=== PATIENT | male | born 1945 | race Caucasian/White ===

== ENCOUNTER → 2017-03-03 | Outpatient (CLI) | payer MEDICARE, OTHER ==
[2017-03-03 16:02] LABS: Blood Urea Nitrogen 17 mg/dL (9-20); Non-African American GFR(MDRD) 57 (>60 ml/min/1.73 sqM)
== END | disposition home or self-care (01) ==
LOC: LABWHC1 15:14
PROVIDERS: ATTEND Physical Medicine & Rehabilitation
DX: M47.817 Spondylosis without myelopathy or radiculopathy, lumbosacral region (principal); M54.5 Low back pain; Z85.89 Personal history of malignant neoplasm of other organs and systems
CPT/HCPCS: 36415; 82565; 84520

== ENCOUNTER → 2017-03-05 | Outpatient (CLI) | payer MEDICARE, OTHER ==
--- NOTE | 2017-03-05 09:32 | MR ---
EXAMINATION TYPE: MR lumbar spine wo/w con DATE OF EXAM: 03/05/2017 COMPARISON: 07/08/2012 HISTORY: low back pain spondylosis w/o myelopathy Contrast: 10 mL MultiHance TECHNIQUE: T1 and T2 axial and sagittal, postcontrast T1 sagittal and axial images of the lumbar spi ne are submitted. FINDINGS: There is a large 5 cm mass anterior to the right kidney possibly adrenal. Recommend CT abdo men pelvis. Simple appearing left renal cyst noted. Right kidney appears somewhat larger than left. No abnormal signal the visualized spinal cord. At L1-2 there is no disc herniation or canal stenosis. No foraminal encroachment. Mild hypertrophic c hange of the facets. At L2-3 there is no disc herniation or canal stenosis. No foraminal encroachment. Mild hypertrophic c hange of the facets. At L3-4 there is hypertrophic change of the facets. Mild circumferential disc bulging with mild bilat eral foraminal encroachment. At L4-5 there is focal central disc small protrusion with mild effacement of thecal sac. Ligamentum f lavum hypertrophy and facet arthropathy contribute to mild bilateral foraminal encroachment. At L5-S1 there is annular tear and focal central tiny disc bulge is stable. No foraminal encroachment . IMPRESSION: 1. Large right upper quadrant suspicious soft tissue mass. Additionally appears to be deformity of th e right kidney. CT of the abdomen pelvis recommended to evaluate for neoplastic process. 2. Stable central disc bulging L5-S1 with degenerative disc disease. 3. Stable central disc bulging or small protrusion L4-L5 with mild effacement of thecal sac and mild bilateral foraminal encroachment.
== END | disposition home or self-care (01) ==
LOC: RADMRIMAIN 08:32
PROVIDERS: ATTEND Physical Medicine & Rehabilitation
DX: M51.27 Other intervertebral disc displacement, lumbosacral region (principal); M51.37 Other intervertebral disc degeneration, lumbosacral region
CPT/HCPCS: 72158; A9577

== ENCOUNTER → 2017-03-12 | Outpatient (CLI) | payer MEDICARE, OTHER ==
[2017-03-12 14:14] LABS: Blood Urea Nitrogen 22 mg/dL (9-20); Non-African American GFR(MDRD) >60 (>60 ml/min/1.73 sqM)
--- NOTE | 2017-03-12 15:58 | CT ---
EXAMINATION TYPE: CT abdomen pelvis w con DATE OF EXAM: 03/12/2017 COMPARISON: NONE HISTORY: 72-year-old male RUQ pain, low back pain TECHNIQUE: Contiguous axial scanning of the abdomen and pelvis following administration of 100 ml Omn ipaque 300 IV contrast. Delayed images through the kidneys and coronal/sagittal reconstructions perf ormed. CT DLP: 424.8 mGycm Automated exposure control for dose reduction was used. FINDINGS: The heart is normal size without pericardial effusion. Coronary vessel calcifications are present and are remarkable for coronary artery disease. Multiple pulmonary nodules are present in the visualized lower lungs measuring up to 6 mm on the righ t and 9 mm on the left. No pleural effusion. Moderate to severe atherosclerotic calcifications throughout the abdominal aorta and iliac arteries w ith severe narrowing in the right external iliac artery. No focal liver lesion or biliary ductal dilatation. The portal vein is patent. Gallbladder, adrenal glands, spleen, and pancreas appear within normal limits. There is a 2.5 x 1.4 c m cyst in the mid left lobe. There is severe enlargement of the infrahepatic IVC with a diameter of 5.1 cm. Heterogeneous density and enlargement extends into the right renal vein and there is diffuse heterogeneous infiltration of the right kidney. Especially in the upper pole, the normal architecture is lost. Some residual normal kidney is seen at the lower pole. No dilated small bowel, free fluid, or free air. Bladder is urine distended. No abnormal fluid collection in the pelvis or pelvic lymphadenopathy seen . No definite mesenteric or retroperitoneal lymphadenopathy identified. Bones: No osseous destructive process. IMPRESSION: 1. EXTENSIVE SOFT TISSUE INFILTRATION OF THE RIGHT KIDNEY WITH CONTIGUOUS ABNORMAL SOFT TISSUE EXTEND ING THROUGH AND ENLARGING THE RIGHT RENAL VEIN AND IVC UP TO THE LEVEL OF THE DIAPHRAGM. CORRELATE FO R RCC AND TUMOR THROMBUS. 2. NUMEROUS PULMONARY NODULES IN THE VISUALIZED LOWER LUNGS MEASURING UP TO 9 MM. FINDINGS HIGHLY OVI PICIOUS FOR METASTATIC DISEASE.
== END | disposition home or self-care (01) ==
LOC: RADCTMAIN 13:17
PROVIDERS: ATTEND Family Medicine
DX: N28.89 Other specified disorders of kidney and ureter (principal); I87.8 Other specified disorders of veins; R19.00 Intra-abdominal and pelvic swelling, mass and lump, unspecified site; R10.9 Unspecified abdominal pain
CPT/HCPCS: 82565; 84520; 74177; 36415; Q9967

== ENCOUNTER → 2017-03-27 | Outpatient (CLI) | payer MEDICARE, OTHER ==
--- NOTE | 2017-03-29 19:03 | PE ---
EXAMINATION TYPE: PET CT fusion skull to thigh DATE OF EXAM: 03/27/2017 CLINICAL HISTORY: 72-year-old male solitary pulmonary nodule. Patient with history of prostate cancer treated with surgery on 08/07/2015 and with radiation therapy in the summer 2015. TECHNIQUE: Following the intravenous administration of 13.0 mCi of F-18 FDG, whole body images are performed from the skull base to the midthigh. Images are reviewed on the computer in the coronal, a xial, and sagittal planes. Reconstructed rotating images are created on independent workstation and reviewed on the computer. A localization and attenuation correction CT is performed in conjunction with the PET scan. Glucose level: 92 mg/dL CTDI: 2.22 mGY DLP: 197.89 mGy-cm COMPARISON: CT 03/12/2017 and 10/14/2011 FINDINGS: PET: Likely physiologic muscular uptake along the tongue. Focal FDG uptake in the larynx likely product of phonation. Focal moderate hypermetabolism within a left hilar lymph node, max SUV 4.3. There are multiple bilateral pulmonary nodules, approximately 16 on the right and 7 on the left. The largest on the right measures 1 cm and shows mild suspicious FDG uptake, max SUV 1.7. The largest on the left measures 1.5 cm, max SUV 9.5. Many are too small for adequate PET characterization. There is markedly heterogeneous and enlarged appearance to the right kidney with effacement of the re nal sinus fat and associated very intense hypermetabolism, max SUV 13.0. Abnormal soft tissue extends into and enlarges the right renal vein and has contiguous extension into the IVC heading cranially up to the level of the diaphragm. The IVC is abnormally enlarged measuring up to 5.3 cm also with intense hypermetabolism, max SUV 13.4. No abnormal hypermetabolism seen in the region of the prostate bed. However, there is mild hypermetabolism associated with subtle focal sclerosis within the right parame fallon S1 vertebral body, axial image 201, max SUV 2.7, and within the central portion of the T10 verte bral body, axial image 118, max SUV 2.8. ATTENUATION CORRECTION CT: Paranasal sinuses and mastoid air cells appear clear. No cervical lymphadenopathy. The heart is upper limits of normal in size with trace basilar pericardial effusion. Coronary vessel calcifications are present and are a marker for coronary artery disease. Ascending aorta is mildly a neurysmal at 4.1 cm. Moderate atherosclerotic arch calcifications. Conventional arterial vessel branc roland anatomy. Bilateral subclavian and axillary artery stents are present. There is COPD with mild c entrilobular emphysema. Mild diffuse thickening of the right adrenal gland without discrete nodularity. Moderate to severe a therosclerotic calcifications within the abdominal aorta and at the origin of the visceral arteries. There is segmental moderate to severe atherosclerotic calcifications within the iliac vessels. No di lated small bowel, free fluid, or free air. No mesenteric or retroperitoneal lymphadenopathy seen. C ecal diverticulosis. No significant stool burden. Bladder is collapsed. Mild circumferential bladder wall thickening likely relates to chronic bladder wall hypertrophy and posttreatment change. The prostate gland is surgically absent. No pelvic lymphad enopathy seen. Bones: No osseous destructive process. IMPRESSION: 1. Extensive abnormal soft tissue infiltration of the right kidney with associated intense hypermetab olism. Intensely hypermetabolic abnormal soft tissue extends into and enlarges the right renal vein a nd suprarenal IVC up to the level of the diaphragm. RCC with direct extension and tumor thrombus is f avored. Further workup is recommended. 2. Numerous metastatic pulmonary nodules measuring up to 1.5 cm and a metastatic left hilar lymph nod e. 3. Subtle sclerotic foci within T10 and S1 vertebral bodies show mild FDG uptake. As RCC typically pr esents with lytic metastases correlate with PSA levels to exclude the possibility of prostate cancer metastases. 4. 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
== END ==
LOC: RADPETMAIN 09:00
PROVIDERS: ATTEND Internal Medicine Hematology & Oncology
DX: R91.8 Other nonspecific abnormal finding of lung field (principal); N28.89 Other specified disorders of kidney and ureter
CPT/HCPCS: 78815; A9552

== ENCOUNTER → 2017-04-02 | Day surgery (SDC) | payer MEDICARE, OTHER ==
[~2017-04-02] MED LIST: ALPRAZolam 0.25 MG TAB PO STA; HYDROmorphone 1 MG/ML 1 ML SYRINGE IVP PRN
[2017-04-02 10:34] VITALS: RESP 14
[2017-04-02 10:45] LABS: INR 1.1 (<1.2); Prothrombin Time 10.9 sec (9.0-12.0)
--- NOTE | 2017-04-02 12:22 | CT ---
EXAMINATION TYPE: CT biopsy renal RT DATE OF EXAM: 04/02/2017 HISTORY: Renal mass COMPARISON: CT abdomen pelvis 03/12/2017 Maximal barrier technique was utilized. The skin overlying a suitable path to the lesion was localiz ed using CT and the overlying skin was prepped and draped. Lidocaine used for local anesthesia. A s kin raudel made with a scalpel. Using CT guidance, access was gained to the lesion with a 22-gauge nee dle through a 17-gauge guide. Aspirated specimen submitted to cytology, core specimen obtained with an 18-gauge needle. 2 passes were performed in all. Following the procedure no immediate complicati ons. The patient is discharged in stable condition. Hemostasis achieved. IMPRESSION: SUCCESSFUL CT GUIDED CORE BIOPSY and fine-needle aspiration right renal mass. PATHOLOGY PENDING. TH IS PROCEDURE WAS PERFORMED BY THE UNDERSIGNED.
[2017-04-02 14:46] VITALS: BP 110/61; PULSE 63; TEMP 98
== END ==
LOC: RADPROMAIN 09:55
PROVIDERS: ATTEND Internal Medicine Hematology & Oncology
DX: N28.89 Other specified disorders of kidney and ureter (principal)
CPT/HCPCS: 88305; 88173; 85049; 85610; 88342; 88341; 96374; 50200; 77012; J1170

== ENCOUNTER → 2017-08-25 | Outpatient (CLI) | payer MEDICARE, OTHER ==
[2017-08-25 15:19] LABS: Albumin 4.6 g/dL (3.5-5.0); Calcium 9.4 mg/dL (8.4-10.2); Total Bilirubin 0.8 mg/dL (0.2-1.3); Total Protein 8.2 g/dL (6.3-8.2)
[2017-08-25 15:23] LABS: Potassium 5.1 mmol/L (3.5-5.1)
--- NOTE | 2017-08-26 07:24 | CT ---
EXAMINATION TYPE: CT angio chest DATE OF EXAM: 08/25/2017 COMPARISON: CT chest abdomen and pelvis July 23, 2017. PET CT March 27, 2017 HISTORY: Trouble breathing with exertion. History of metastatic renal cell carcinoma CT DLP: 162.8 mGycm. Automated Exposure Control for Dose Reduction was Utilized. CONTRAST: CTA scan of the thorax is performed with IV Contrast, patient injected with 80, wasted 20 mL of Visip aque 320, pulmonary embolism protocol. MIP Images are created on CT scanner and reviewed. FINDINGS: LUNGS: There is background mild to moderate emphysematous change redemonstrated. There is stable impr ovement in scattered metastatic nodules from recent CT, for reference largest measures 7 mm long axis axial image 97 unchanged from prior study axial image 43. Improvement from PET CT March 27 is noted . No new nodules are seen. No new suspicious consolidation or groundglass opacity is present. No pleu ral effusion or pneumothorax is present bilaterally. Tracheobronchial tree is patent. MEDIASTINUM: There is satisfactory enhancement of the pulmonary artery and its branches, there is no CT evidence for pulmonary embolism. There are no greater than 1 cm hilar or mediastinal lymph nodes. No cardiomegaly or pericardial effusion is seen. There is severe three-vessel coronary artery calc ification redemonstrated which is noted marker for coronary artery disease. Ascending aorta measures 3.9 cm in diameter not significantly changed from prior. There is densely calcified plaque in the jeffery ateral subclavian arteries redemonstrated extending into bilateral axillary arteries OTHER: There is persistent right-sided perinephric fat stranding with fullness of right renal vein co rresponds to tumor extension on prior PET/CT. IMPRESSION: 1. No CT evidence for pulmonary embolism. 2. Background mild to moderate emphysematous change with scattered metastatic subcentimeter nodules s table from most recent CT. Improved from staging PET/CT. No acute pulmonary process is evident.
== END | disposition home or self-care (01) ==
LOC: RADCTMAIN 14:37
PROVIDERS: ATTEND Internal Medicine
DX: C78.00 Secondary malignant neoplasm of unspecified lung (principal); C64.9 Malignant neoplasm of unspecified kidney, except renal pelvis; J43.9 Emphysema, unspecified; R06.00 Dyspnea, unspecified
CPT/HCPCS: 80053; 71275; 36415; Q9967

== ENCOUNTER 2017-10-15 15:20 | Inpatient (IN) | payer MEDICARE, OTHER ==
[2017-10-15] MEDS ORDERED: PANTOPRAZOLE 40 MG/10 ML VIAL IVP STA (16:06)
[2017-10-15] MEDS ORDERED: SODIUM CHLORIDE 0.9% 1,000 ML IV STA (16:06)
--- NOTE | 2017-10-15 16:12 | ED ---
GI Bleed HPI - General Chief complaint: GI Bleed Stated complaint: Rectal bleeding Time Seen by Provider: 10/15/17 15:46 Source: patient Mode of arrival: wheelchair Limitations: no limitations - History of Present Illness Initial comments: 72 years old male has history of peripheral vascular disease, he is on aspirin and Plavix may noticed 5 episodes of GI bleed this morning he has no prior history of GI bleed he has a stool sample in the chart, he looks dark blood. He denies any abdominal pain no nausea no vomiting no fever no chills. No no headaches no neck stiffness no chest pain or shortness of breath no frequency urgency dysuria no symptoms of TIA or CVA - Related Data Home Medications Medication Instructions Recorded Confirmed Atorvastatin [Lipitor] 20 mg PO HS 02/05/15 10/15/17 Citalopram Hydrobromide [CeleXA] 20 mg PO DAILY 02/05/15 10/15/17 Clopidogrel [Plavix] 75 mg PO HS 03/04/15 10/15/17 Meclizine [Antivert] 12.5 mg PO TID 07/30/15 10/15/17 Ferrous Sulfate [Iron (65 MG 325 mg PO DAILY 06/23/16 10/15/17 Elemental)] Clindamycin HCl 300 mg PO BID 10/15/17 10/15/17 Diphenoxylate HCl/Atropine 2 tab PO Q6H PRN 10/15/17 10/15/17 [Lomotil 2.5-0.025 mg Tablet] Megestrol [Megace] 800 mg PO DAILY 10/15/17 10/15/17 Umeclidinium Brm/Vilanterol Tr 1 puff INHALATION DAILY 10/15/17 10/15/17 [Anoro Ellipta 62.5-25 Mcg INH] Votrient 200mg 800 mg PO DAILY 10/15/17 10/15/17 traMADol HCL [Ultram] 50 mg PO Q6H PRN 10/15/17 10/15/17 Previous Rx's Medication Instructions Recorded Aspirin 325 mg PO DAILY #30 tab 02/07/15 Allergies Allergy/AdvReac Type Severity Reaction Status Date / Time venom-honey bee Allergy Unknown Rash/Hives Verified 10/15/17 16:14 [bee venom (honey bee)] Iodinated Contrast- Oral and Allergy Rash/Hives Verified 10/15/17 16:14 IV Dye [Iodinated Contrast Media - IV Dye] iodine Allergy Rash/Hives Verified 10/15/17 16:14 Review of Systems ROS Statement: Those systems with pertinent positive or pertinent negative responses have been documented in the HPI. ROS Other: All systems not noted in ROS Statement are negative. Past Medical History Past Medical History: Cancer, CVA/TIA, Hyperlipidemia, Liver Disease, Prostate Disorder, Vascular Disorder Additional Past Medical History / Comment(s): VERTIGO, STATES SCAN SHOWED TIA X2 , PVD WITH PAIN IN BOTH LEGS,OSTEOPOROSIS, hx PROSTATE CA, ELEVATED LIVER ENZYMES, anemia, kidney cancer History of Any Multi-Drug Resistant Organisms: MRSA Date of last positivie culture/infection: 10/2015 MDRO Source:: little toe rt foot Past Surgical History: Prostate Surgery, Tonsillectomy Additional Past Surgical History / Comment(s): chante CATARACTS, ARTERIOGRAM. stent left iliac artery, ROBOTIC ASSISTED LAPAROSCOPIC PROSTATECTOMY WITH CHANTE PELVIC LYMPHADENECTOMY, aortogram Past Anesthesia/Blood Transfusion Reactions: No Reported Reaction Past Psychological History: Anxiety Smoking Status: Former smoker Past Alcohol Use History: None Reported Past Drug Use History: None Reported - Past Family History Mother Family Medical History: Myocardial Infarction ([place]) Father Family Medical History: Myocardial Infarction ([place]) General Exam - General Exam Comments Initial Comments: General: The patient is awake and alert, in no distress, and does not appear acutely ill. Skin: Skin is warm and dry and no rashes or lesions are noted. Eye: Pupils are equal, round and reactive to light, extra-ocular movements are intact; there is normal conjunctiva bilaterally. Ears, nose, mouth and throat: There are moist mucous membranes and no oral lesions. Neck: The neck is supple, there is no tenderness or JVD. Cardiovascular: There is a regular rate and rhythm. No murmur, rub or gallop is appreciated. Respiratory: To auscultation bilateral, right COPD like picture Gastrointestinal: Soft, non-distended, non-tender abdomen without masses or organomegaly noted. There is no rebound or guarding present. Bowel sounds are unremarkable. Rectal exam was positive for dark bloody stool Back: There is no tenderness to palpation in the midline. There is no obvious deformity. Musculoskeletal: Normal ROM, no tenderness, There is no pedal edema. There is no calf tenderness or swelling. No cords were appreciated. Neurological: CN II-XII intact, Cranial nerves III through XII are intact. There are no obvious motor or sensory deficits. Coordination appears grossly intact. Speech is normal. Psychiatric: Cooperative, appropriate mood & affect, normal judgment. Limitations: no limitations Course Vital Signs 10/15/17 10/15/17 10/15/17 15:25 16:32 18:03 Temperature 97.0 F L Pulse Rate 63 72 68 Respiratory 16 18 16 Rate Blood Pressure 150/70 146/84 131/71 O2 Sat by Pulse 94 L 100 99 Oximetry EKG is sinus rhythm with the shortness of November QRS duration is 82 QT/QTC 390/ 435, review of this EKG reveals T-wave inversion in aVL no ST elevation or ST depression noticed in the other leads January is reassessed at 1814, his hemoglobin is in the lower side 9.9 his creatinine is up comparing to previous numbers 1.6 troponin is negative , considering that him lorraine blood in the stool he needs to be admitted for IV PPIs J consult, he be admitted to service Medical Decision Making - Lab Data Result diagrams: 10/15/17 16:28 10/15/17 16:28 Lab Results 10/15/17 10/15/17 10/15/17 Range/Units 16:28 16:28 16:28 WBC 10.7 H (3.8-10.6) k/uL RBC 3.14 L (4.30-5.90) m/uL Hgb 9.9 L (13.0-17.5) gm/dL Hct 32.0 L (39.0-53.0) % MCV 101.8 H (80.0-100.0) fL MCH 31.4 (25.0-35.0) pg MCHC 30.9 L (31.0-37.0) g/dL RDW 17.6 H (11.5-15.5) % Plt Count 563 H (150-450) k/uL Neutrophils % 73 % Lymphocytes % 17 % Monocytes % 7 % Eosinophils % 1 % Basophils % 1 % Neutrophils # 7.8 H (1.3-7.7) k/uL Lymphocytes # 1.8 (1.0-4.8) k/uL Monocytes # 0.7 (0-1.0) k/uL Eosinophils # 0.1 (0-0.7) k/uL Basophils # 0.1 (0-0.2) k/uL Hypochromasia Slight Anisocytosis Slight Macrocytosis Moderate PT (9.0-12.0) sec INR (<1.2) APTT (22.0-30.0) sec Sodium 140 (137-145) mmol/L Potassium 5.3 H (3.5-5.1) mmol/L Chloride 108 H (98-107) mmol/L Carbon Dioxide 21 L (22-30) mmol/L Anion Gap 11 mmol/L BUN 30 H (9-20) mg/dL Creatinine 1.60 H (0.66-1.25) mg/dL Est GFR (MDRD) Af Amer 52 (>60 ml/min/1.73 sqM) Est GFR (MDRD) Non-Af 43 (>60 ml/min/1.73 sqM) Glucose 93 (74-99) mg/dL Plasma Lactic Acid Donnell (0.7-2.0) mmol/L Calcium 9.1 (8.4-10.2) mg/dL Total Bilirubin 0.6 (0.2-1.3) mg/dL AST 21 (17-59) U/L ALT 15 L (21-72) U/L Alkaline Phosphatase 72 (38-126) U/L Total Creatine Kinase 51 L (55-170) U/L CK-MB (CK-2) 1.3 (0.0-2.4) ng/mL CK-MB (CK-2) Rel Index 2.5 Troponin I <0.012 (0.000-0.034) ng/mL Total Protein 6.9 (6.3-8.2) g/dL Albumin 3.8 (3.5-5.0) g/dL Stool Occult Blood (Negative) Blood Type Blood Type Recheck Antibody Screen Spec Expiration Date 10/15/17 10/15/17 10/15/17 Range/Units 16:28 16:28 16:28 WBC (3.8-10.6) k/uL RBC (4.30-5.90) m/uL Hgb (13.0-17.5) gm/dL Hct (39.0-53.0) % MCV (80.0-100.0) fL MCH (25.0-35.0) pg MCHC (31.0-37.0) g/dL RDW (11.5-15.5) % Plt Count (150-450) k/uL Neutrophils % % Lymphocytes % % Monocytes % % Eosinophils % % Basophils % % Neutrophils # (1.3-7.7) k/uL Lymphocytes # (1.0-4.8) k/uL Monocytes # (0-1.0) k/uL Eosinophils # (0-0.7) k/uL Basophils # (0-0.2) k/uL Hypochromasia Anisocytosis Macrocytosis PT 9.5 (9.0-12.0) sec INR 1.0 (<1.2) APTT 22.5 (22.0-30.0) sec Sodium (137-145) mmol/L Potassium (3.5-5.1) mmol/L Chloride (98-107) mmol/L Carbon Dioxide (22-30) mmol/L Anion Gap mmol/L BUN (9-20) mg/dL Creatinine (0.66-1.25) mg/dL Est GFR (MDRD) Af Amer (>60 ml/min/1.73 sqM) Est GFR (MDRD) Non-Af (>60 ml/min/1.73 sqM) Glucose (74-99) mg/dL Plasma Lactic Acid Donnell 1.4 (0.7-2.0) mmol/L Calcium (8.4-10.2) mg/dL Total Bilirubin (0.2-1.3) mg/dL AST (17-59) U/L ALT (21-72) U/L Alkaline Phosphatase (38-126) U/L Total Creatine Kinase (55-170) U/L CK-MB (CK-2) (0.0-2.4) ng/mL CK-MB (CK-2) Rel Index Troponin I (0.000-0.034) ng/mL Total Protein (6.3-8.2) g/dL Albumin (3.5-5.0) g/dL Stool Occult Blood (Negative) Blood Type O Positive Blood Type Recheck No Antibody Screen NEGATIVE Spec Expiration Date 10/18/2017 - 232710/15/17 Range/Units 16:28 WBC (3.8-10.6) k/uL RBC (4.30-5.90) m/uL Hgb (13.0-17.5) gm/dL Hct (39.0-53.0) % MCV (80.0-100.0) fL MCH (25.0-35.0) pg MCHC (31.0-37.0) g/dL RDW (11.5-15.5) % Plt Count (150-450) k/uL Neutrophils % % Lymphocytes % % Monocytes % % Eosinophils % % Basophils % % Neutrophils # (1.3-7.7) k/uL Lymphocytes # (1.0-4.8) k/uL Monocytes # (0-1.0) k/uL Eosinophils # (0-0.7) k/uL Basophils # (0-0.2) k/uL Hypochromasia Anisocytosis Macrocytosis PT (9.0-12.0) sec INR (<1.2) APTT (22.0-30.0) sec Sodium (137-145) mmol/L Potassium (3.5-5.1) mmol/L Chloride (98-107) mmol/L Carbon Dioxide (22-30) mmol/L Anion Gap mmol/L BUN (9-20) mg/dL Creatinine (0.66-1.25) mg/dL Est GFR (MDRD) Af Amer (>60 ml/min/1.73 sqM) Est GFR (MDRD) Non-Af (>60 ml/min/1.73 sqM) Glucose (74-99) mg/dL Plasma Lactic Acid Donnell (0.7-2.0) mmol/L Calcium (8.4-10.2) mg/dL Total Bilirubin (0.2-1.3) mg/dL AST (17-59) U/L ALT (21-72) U/L Alkaline Phosphatase (38-126) U/L Total Creatine Kinase (55-170) U/L CK-MB (CK-2) (0.0-2.4) ng/mL CK-MB (CK-2) Rel Index Troponin I (0.000-0.034) ng/mL Total Protein (6.3-8.2) g/dL Albumin (3.5-5.0) g/dL Stool Occult Blood Positive (Negative) Blood Type Blood Type Recheck Antibody Screen Spec Expiration Date Disposition Clinical Impression: GI bleed Disposition: ADMITTED IP TO THIS HOSP Condition: Good Referrals: Michaelle Wang MD [Primary Care Provider] - 1-2 days
[2017-10-15 16:46] LABS: Anisocytosis Slight; Basophils # (A) 0.1 k/uL (0-0.2); Basophils % (A) 1 %; Eosinophils # (A) 0.1 k/uL (0-0.7); Eosinophils % (A) 1 %; HGB 9.9 gm/dL (13.0-17.5); Hypochromasia Slight; Lymphocytes # (A) 1.8 k/uL (1.0-4.8); Lymphocytes % (A) 17 %; MCH 31.4 pg (25.0-35.0); MCHC 30.9 g/dL (31.0-37.0); MCV 101.8 fL (80.0-100.0); Macrocytosis Moderate; Mean Platelet Volume 7.4; Monocytes # (A) 0.7 k/uL (0-1.0); Monocytes % (A) 7 %; Neutrophils # (A) 7.8 k/uL (1.3-7.7); Neutrophils % (A) 73 %; Platelet Count 563 k/uL (150-450); RBC 3.14 m/uL (4.30-5.90); RDW 17.6 % (11.5-15.5); WBC 10.7 k/uL (3.8-10.6)
[2017-10-15 16:54] LABS: Partial Thromboplastin Time 22.5 sec (22.0-30.0); Prothrombin Time 9.5 sec (9.0-12.0)
[2017-10-15 16:59] LABS: Creatine Kinase 51 U/L (55-170)
[2017-10-15 17:00] LABS: Albumin 3.8 g/dL (3.5-5.0); Calcium 9.1 mg/dL (8.4-10.2); Potassium 5.3 mmol/L (3.5-5.1); Total Bilirubin 0.6 mg/dL (0.2-1.3); Total Protein 6.9 g/dL (6.3-8.2)
--- NOTE | 2017-10-15 17:07 | XR ---
EXAMINATION TYPE: XR chest 2V DATE OF EXAM: 10/15/2017 COMPARISON: 01/26/2015 HISTORY: Chest pain TECHNIQUE: Frontal and lateral views of the chest are obtained. FINDINGS: There is no heart failure nor confluent pneumonic infiltrate. Costophrenic angles are deisi r. There are chest leads. Heart size is normal. Thoracic aorta is atheromatous. IMPRESSION: No active cardiopulmonary disease. No change.
[2017-10-15 17:11] LABS: Creatine Kinase MB 1.3 ng/mL (0.0-2.4); Troponin I <0.012 ng/mL (0.000-0.034)
[2017-10-15] MEDS ORDERED: ACETAMINOPHEN TAB 325 MG TAB PO PRN (18:39)
[2017-10-15] MEDS ORDERED: NALOXONE 0.4 MG/ML 1 ML VIAL IV PRN (18:39)
[2017-10-15] MEDS ORDERED: ONDANSETRON 4 MG/2 ML VIAL IVP PRN (18:39)
[2017-10-15] MEDS ORDERED: traMADol 50 MG TAB PO PRN (18:44)
[2017-10-15] MEDS ORDERED: DIPHENOX-ATROP 2.5-0.025 MG 1 EACH TAB PO PRN (18:44)
[2017-10-15] MEDS: CLINDAMYCIN 150 MG CAP PO SCH (21:50)
[2017-10-15] MEDS: MECLIZINE 12.5 MG TAB PO SCH (21:50)
[2017-10-15] MEDS: ATORVASTATIN 20 MG TAB PO SCH (21:50)
[2017-10-15 23:55] LABS: Anisocytosis Slight; HCT 27.9 % (39.0-53.0); Hypochromasia Moderate; MCHC 30.3 g/dL (31.0-37.0); MCV 102.4 fL (80.0-100.0); Macrocytosis Moderate; Mean Platelet Volume 7.2; Platelet Count 458 k/uL (150-450); RBC 2.72 m/uL (4.30-5.90); RDW 17.4 % (11.5-15.5); WBC 8.9 k/uL (3.8-10.6)
[2017-10-16 00:01] LABS: HGB 8.4 gm/dL (13.0-17.5)
[2017-10-16 06:11] LABS: Anisocytosis Slight; HCT 27.3 % (39.0-53.0); HGB 8.4 gm/dL (13.0-17.5); Hypochromasia Moderate; MCH 31.7 pg (25.0-35.0); MCHC 30.8 g/dL (31.0-37.0); MCV 102.9 fL (80.0-100.0); Macrocytosis Moderate; Mean Platelet Volume 7.4; Platelet Count 431 k/uL (150-450); RBC 2.66 m/uL (4.30-5.90); RDW 17.7 % (11.5-15.5)
[2017-10-16] MEDS: CLINDAMYCIN 150 MG CAP PO SCH (08:37)
[2017-10-16] MEDS: MECLIZINE 12.5 MG TAB PO SCH ×3 (08:37→21:52)
[2017-10-16] MEDS: MEGESTROL 400 MG/10 ML CUP PO SCH (08:37)
[2017-10-16] MEDS: CITALOPRAM HYDROBROMIDE 20 MG TAB PO SCH (08:37)
[2017-10-16] MEDS ORDERED: VOTRIENT 200 MG PO SCH (09:00)
[2017-10-16] MEDS: PANTOPRAZOLE 40 MG/10 ML VIAL IV SCH (09:09)
[2017-10-16] MEDS: IPRATROPIUM-ALBUTEROL 3 ML NEB INHALATION SCH ×3 (10:17→20:16)
[2017-10-16 11:53] LABS: Anisocytosis Slight; HCT 28.5 % (39.0-53.0); HGB 8.6 gm/dL (13.0-17.5); Hypochromasia Moderate; MCH 31.5 pg (25.0-35.0); MCHC 30.3 g/dL (31.0-37.0); MCV 104.1 fL (80.0-100.0); Macrocytosis Moderate; Mean Platelet Volume 7.3; Platelet Count 428 k/uL (150-450); RBC 2.74 m/uL (4.30-5.90); RDW 17.5 % (11.5-15.5)
[2017-10-16] MEDS: FERROUS SULFATE 325 MG TAB PO SCH (12:59)
--- NOTE | 2017-10-16 13:54 | P.HPIM ---
History of Present Illness H&P Date: 10/16/17 This is a 72-year-old gentleman with very complex past medical history significant for metastatic renal cell carcinoma and history of peripheral vascular occlusive disease who presented to the emergency room with lower GI bleed and large blood clot with his bowel movement. According to his , his symptoms started yesterday and patient had approximately 5 bowel movements with what she describes as large blood clots and possibly mucous tissue. She brought him to the emergency room for further evaluation. Patient was found to be hemodynamically stable. His hemoglobin was around 8.6 which is slightly lower than his baseline around 10. Patient was admitted to the hospital and was seen and evaluated by gastroenterology. He was started on clear liquids. There is no plan for colonoscopy at this time according to the report. Patient' s is concerned that his cancer treatment might possibly be contributing to his symptoms. Review of Systems Review of system: 14 points review of systems were obtained and were negative except to what were mentioned in the HPI. 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 stent left iliac artery, ROBOTIC ASSISTED LAPAROSCOPIC PROSTATECTOMY WITH CHANTE PELVIC LYMPHADENECTOMY, aortogram Past Anesthesia/Blood Transfusion Reactions: No Reported Reaction Past Psychological History: Anxiety Smoking Status: Former smoker Past Alcohol Use History: None Reported Additional Past Alcohol Use History / Comment(s): quit smoking 1 week ago, started smoking age 22's Past Drug Use History: None Reported - Past Family History Mother Family Medical History: Myocardial Infarction ([place]) Father Family Medical History: Myocardial Infarction ([place]) Medications and Allergies Home Medications Medication Instructions Recorded Confirmed Type Atorvastatin [Lipitor] 20 mg PO HS 02/05/15 10/15/17 History Citalopram Hydrobromide [CeleXA] 20 mg PO DAILY 02/05/15 10/15/17 History Aspirin 325 mg PO DAILY #30 tab 02/07/15 10/15/17 Rx Clopidogrel [Plavix] 75 mg PO HS 03/04/15 10/15/17 History Meclizine [Antivert] 12.5 mg PO TID 07/30/15 10/15/17 History Ferrous Sulfate [Iron (65 MG 325 mg PO DAILY 06/23/16 10/15/17 History Elemental)] Clindamycin HCl 300 mg PO BID 10/15/17 10/15/17 History Diphenoxylate HCl/Atropine 2 tab PO Q6H PRN 10/15/17 10/15/17 History [Lomotil 2.5-0.025 mg Tablet] Megestrol [Megace] 800 mg PO DAILY 10/15/17 10/15/17 History Umeclidinium Brm/Vilanterol Tr 1 puff INHALATION DAILY 10/15/17 10/15/17 History [Anoro Ellipta 62.5-25 Mcg INH] Votrient 200mg 800 mg PO DAILY 10/15/17 10/15/17 History traMADol HCL [Ultram] 50 mg PO Q6H PRN 10/15/17 10/15/17 History Allergies Allergy/AdvReac Type Severity Reaction Status Date / Time venom-honey bee Allergy Unknown Rash/Hives Verified 10/15/17 16:14 [bee venom (honey bee)] Iodinated Contrast- Oral and Allergy Rash/Hives Verified 10/15/17 16:14 IV Dye [Iodinated Contrast Media - IV Dye] iodine Allergy Rash/Hives Verified 10/15/17 16:14 Physical Exam Vitals: Vital Signs Temp Pulse Pulse Resp BP BP Pulse Ox 10/16/17 11:24 71 10/16/17 11:11 68 10/16/17 07:00 98.5 F 67 18 135/67 98 10/15/17 20:22 97.8 F 69 16 106/55 100 10/15/17 19:06 66 18 106/86 98 10/15/17 18:03 68 16 131/71 99 10/15/17 16:32 72 18 146/84 100 10/15/17 15:25 97.0 F L 63 16 150/70 94 L Intake and Output 10/15/17 10/16/17 10/16/17 22:59 06:59 14:59 Intake Total 590 800 Balance 590 800 Intake: IV 800 Sodium Chloride 0.9% 1, 800 000 ml @ 100 mls/hr IV . Q10H STA Rx#:[id number] Oral 590 Other: Voiding Method Toilet # Voids 1 2 # Bowel Movements 1 2 Weight 55.338 kg General: The patient is awake and alert, in no distress. He appears chronically ill Eye: there is normal conjunctiva bilaterally. Neck: The neck is supple, there is no JVD. Cardiovascular: Normal S1-S2, no S3-S4, no murmurs. Respiratory: Lungs clear to auscultation bilaterally Gastrointestinal: Abdomen is soft, nontender Musculoskeletal: There is no pedal edema. Neurological:. Speech is normal. Skin: Skin is warm and dry Results CBC & Chem 7: 10/16/17 11:23 10/15/17 16:28 Labs: Abnormal Lab Results - Last 24 Hours (Table) 10/15/17 10/15/17 10/15/17 Range/Units 16:28 16:28 16:28 WBC 10.7 H (3.8-10.6) k/uL RBC 3.14 L (4.30-5.90) m/uL Hgb 9.9 L (13.0-17.5) gm/dL Hct 32.0 L (39.0-53.0) % MCV 101.8 H (80.0-100.0) fL MCHC 30.9 L (31.0-37.0) g/dL RDW 17.6 H (11.5-15.5) % Plt Count 563 H (150-450) k/uL Neutrophils # 7.8 H (1.3-7.7) k/uL Potassium 5.3 H (3.5-5.1) mmol/L Chloride 108 H (98-107) mmol/L Carbon Dioxide 21 L (22-30) mmol/L BUN 30 H (9-20) mg/dL Creatinine 1.60 H (0.66-1.25) mg/dL ALT 15 L (21-72) U/L Total Creatine Kinase 51 L (55-170) U/L 10/15/17 10/16/17 10/16/17 Range/Units 23:29 05:21 11:23 WBC (3.8-10.6) k/uL RBC 2.72 L 2.66 L 2.74 L (4.30-5.90) m/uL Hgb 8.4 L D 8.4 L 8.6 L (13.0-17.5) gm/dL Hct 27.9 L 27.3 L 28.5 L (39.0-53.0) % MCV 102.4 H 102.9 H 104.1 H (80.0-100.0) fL MCHC 30.3 L 30.8 L 30.3 L (31.0-37.0) g/dL RDW 17.4 H 17.7 H 17.5 H (11.5-15.5) % Plt Count 458 H (150-450) k/uL Neutrophils # (1.3-7.7) k/uL Potassium (3.5-5.1) mmol/L Chloride (98-107) mmol/L Carbon Dioxide (22-30) mmol/L BUN (9-20) mg/dL Creatinine (0.66-1.25) mg/dL ALT (21-72) U/L Total Creatine Kinase (55-170) U/L Thrombosis Risk Factor Assmnt - Choose All That Apply Any of the Below Risk Factors Present?: No Other Risk Factors: Yes Each Risk Factor Represents 2 Points: Age 61-74 years, Malignancy Other congenital or acquired thrombophilia - If yes, enter type in comment: No Thrombosis Risk Factor Assessment Total Risk Factor Score: 4 Thrombosis Risk Factor Assessment Level: Moderate Risk Assessment and Plan Assessment: 1. Lower GI bleed, exact etiology unclear. Patient is known to have history of radiation colitis and underlying diverticulosis. He is hemodynamically stable. He was seen and evaluated by GI. Awaiting further recommendations. Per report for endoscopy at this time. 2. History of severe peripheral vascular occlusive disease on aspirin and Plavix: Currently on hold given GI bleed 3. Underlying stage IV renal cell carcinoma following with oncology: Consulted for further evaluation 4. Bilateral feet ulceration with surrounding cellulitis currently finishing antibiotic course with clindamycin Today, I reviewed his medication list and lab work results. We'll continue IV Protonix. Appreciate sap security consultant's recommendations. Repeat lab work in the morning. PT/OT evaluation.
[2017-10-16 15:43] VITALS: BMI 17.0
--- NOTE | 2017-10-16 16:23 | CONS ---
CONSULTATION DATE OF SERVICE: 10/16/2017 REASON FOR CONSULTATION: Metastatic renal cell carcinoma. CHIEF COMPLAINT: Rectal bleeding. Moises is a very pleasant 72-year-old gentleman, well known to our practice. He has been under the care of Dr. Burch. He was diagnosed with metastatic renal cell carcinoma in March of 2017 when he presented was large infiltrating renal mass along with evidence of bone metastases and bilateral lung metastases. Had the biopsy of the kidney mass, which confirmed the diagnosis. Subsequently, the patient was started on Votrient for that with improvement in his disease. Since he has been on Votrient, his disease has improved on it. Since he has been on Votrient he has been experiencing episodes of loose stool about 4-5 times a day, which has been attributed to Votrient. Early in September of 2017, he was seen by Dr. Burch. He reported 1 episode of blood, small amount of blood after a bowel movement when he wiped himself. He was asked to hold the Votrient for a week and then resume it, which he did, and at that time his Rectal bleeding had resolved and he continued to have the diarrhea. He was seen last week, by his plant electrician for a lesion on his left great toe and he was prescribed clindamycin which he has been taking for the last 2 or 3 days. Yesterday, he developed significant amount of bleeding per his rectum. Initially started with a small amount of blood after wiping himself, but then subsequently there was a large amount of blood with his bowel movement. So he came into the emergency department and his laboratory workup revealed that his hemoglobin is 8.6. Of note, his hemoglobin was initially 9.9, then it dropped to 8.6 g/dL. Of note, that his hemoglobin in the office was about was about 12 when he was recently seen in the office. The patient stated that he still has the same pattern of diarrhea, even when he started taking the clindamycin prescribed by his plant electrician, but it has become more amount of loose stool since he started the clindamycin up until yesterday when he developed the bleeding. He denies any abdominal pain or cramps. He has been eating okay, maintaining his weight. No fever or night sweats and no nausea or vomiting and no fever or chills. He has been tolerating Votrient very well. He had like a blister on his left great toe, which resolved. Of note, that he has been receiving also Xgeva for his bone metastases in the outpatient setting. He denies any headaches, dysphagia, fever, chills, cough, shortness of breath. He denies any hematuria. PAST MEDICAL HISTORY: Significant as stated above, metastatic renal cell carcinoma and history of TIA, hyperlipidemia, He has peripheral vascular disease and he has been taking Plavix and aspirin at home as well. He is known to have also elevated liver enzymes. PAST SURGICAL HISTORY: Has prostate cancer surgery and I believe he had prostate cancer in the past as well. He has a history of tonsillectomy in the past. He has cataract surgery, arteriogram, stent placement in the left iliac artery. He had a robotic-assisted prostatectomy with bilateral pelvic lymphadenectomy. SOCIAL HISTORY: He recently quit smoking. He started smoking at age 22. No alcohol abuse or substance abuse. FAMILY HISTORY: Positive for myocardial infarction in his father and his mother. REVIEW OF SYSTEMS: As stated above in the history of present illness, otherwise negative. HOME MEDICATION: Include Lipitor 20 mg q.h.s., Celexa 20 mg daily, aspirin 325 mg daily, Plavix 75 mg daily, Antivert 12.5 mg t.i.d., ferrous sulfate 325 mg daily, clindamycin 300 mg b.i.d. up till it was discontinued when he came into the hospital, Lomotil 2 tablets every 6 hours as needed, Megace 800 mg daily, Votrient 800 mg daily, and Ultram 50 mg every 6 hours as needed. ALLERGIES: He is allergic to IV DYE and he is allergic to BEE STINGS. PHYSICAL EXAMINATION: He is alert, oriented x3. He does not appear to be in acute distress at this point in time. His vital signs are temperature 98.5, afebrile, pulse 71 regular, respiration 18, blood pressure 135/67. HEENT: Normocephalic, atraumatic. No obvious icterus. Neck is supple. No jugular venous distention. Chest equal expansion bilaterally. Lungs are clear to auscultation and percussion. Heart is regular rate and rhythm. Abdomen is soft. No tenderness or obvious organomegaly or masses. Bowel sounds present. Extremities reveal no edema. Feet reveal no evidence of skin blistering. He has a healed old blister appeared on the left great toe. Lymphatics, sternal and peripheral cervical supraclavicular nodes, musculoskeletal, moving all extremities appropriately. No percussion or tenderness detected over the spine or sternum. LABORATORY DATA: WBC is 9.0, hemoglobin 8.6, dropped from 9.9 upon admission, hematocrit 28.5, platelets 427. Sodium 140, potassium 5.3, chloride is 108, CO2 is 21. BUN is 30, creatinine 1.60, AST is 21, ALT is 15, alkaline phosphatase is 72 and total bilirubin is 0.7. IMPRESSION: 1. Metastatic renal cell carcinoma with diagnostic and therapeutic circumstances as stated above. 2. Lower gastrointestinal bleed. It could be related to the use of Votrient; however, also recently was started on clindamycin and the pattern of his diarrhea has changed and underlying Clostridium difficile colitis remain in the differential diagnosis, but felt to be less likely. Certainly, he is also on anti-platelet therapy and this could be contributing to his increased risk of bleeding. 3. Chronic diarrhea. This is related to the Votrient, but as stated with recent worsening pattern of it while on the clindamycin. C difficile infection with C difficile needs to be excluded. RECOMMENDATION: 1. Agree with holding the Votrient for now. 2. I also recommend to discontinue clindamycin. day. 3. Obtain stool for C. diff toxin. 4. GI on board for possible repeat colonoscopy, especially if his hemoglobin continues to drop. Of note, he did have a colonoscopy in 2016 and a polyp was removed. 5. The above was discussed in detail with the patient. I have answered all his questions to his satisfaction. Thank you very much for asking me participate with this nice gentleman. MMODL / IJN: [id number] /
[2017-10-16] MEDS: ATORVASTATIN 20 MG TAB PO SCH (21:52)
[2017-10-17] MEDS: IPRATROPIUM-ALBUTEROL 3 ML NEB INHALATION SCH ×4 (02:54→19:16)
[2017-10-17 07:44] LABS: ALT 17 U/L (21-72); AST 18 U/L (17-59); Albumin 3.3 g/dL (3.5-5.0); Alkaline Phosphatase 61 U/L (38-126); Blood Urea Nitrogen 18 mg/dL (9-20); Calcium 8.6 mg/dL (8.4-10.2); Chloride 110 mmol/L (98-107); Glucose 86 mg/dL (74-99); Potassium 5.1 mmol/L (3.5-5.1); Sodium 137 mmol/L (137-145); Total Bilirubin 0.6 mg/dL (0.2-1.3); Total Protein 6.2 g/dL (6.3-8.2)
[2017-10-17 07:46] LABS: Anisocytosis Slight; Basophils % (A) 0 %; Eosinophils # (A) 0.1 k/uL (0-0.7); Eosinophils % (A) 1 %; HCT 27.9 % (39.0-53.0); HGB 8.7 gm/dL (13.0-17.5); Hypochromasia Moderate; Lymphocytes # (A) 1.1 k/uL (1.0-4.8); Lymphocytes % (A) 17 %; MCH 31.5 pg (25.0-35.0); MCHC 31.2 g/dL (31.0-37.0); MCV 101.2 fL (80.0-100.0); Macrocytosis Moderate; Mean Platelet Volume 7.7; Monocytes # (A) 0.5 k/uL (0-1.0); Monocytes % (A) 8 %; Neutrophils # (A) 4.5 k/uL (1.3-7.7); Neutrophils % (A) 71 %; Platelet Count 380 k/uL (150-450); RBC 2.75 m/uL (4.30-5.90); RDW 17.9 % (11.5-15.5); WBC 6.4 k/uL (3.8-10.6)
[2017-10-17 08:01] LABS: Anion Gap 8 mmol/L; Carbon Dioxide 19 mmol/L (22-30)
[2017-10-17] MEDS: CITALOPRAM HYDROBROMIDE 20 MG TAB PO SCH (08:20)
[2017-10-17] MEDS: PANTOPRAZOLE 40 MG/10 ML VIAL IV SCH (08:20)
[2017-10-17] MEDS: MECLIZINE 12.5 MG TAB PO SCH ×3 (08:20→21:00)
[2017-10-17] MEDS: MEGESTROL 400 MG/10 ML CUP PO SCH (08:21)
--- NOTE | 2017-10-17 08:53 | P.CONS ---
History of Present Illness - Reason for Consult Consult date: 10/16/17 GI bleeding - History of Present Illness 72 years old male has history of peripheral vascular disease, he is on aspirin and Plavix may noticed 5 episodes of GI bleed this morning he has no prior history of GI bleed he has a stool sample in the chart, he looks dark blood. He denies any abdominal pain no nausea no vomiting no fever no chills. No no headaches no neck stiffness no chest pain or shortness of breath no frequency urgency dysuria no symptoms of TIA or CVA Review of Systems Constitutional: Denies fever, chills, sweats, weight gain, or loss. HEENT: Negative for migraines, blurred vision or loss, earaches, drainage, tinnitus, oral mucosal lesions, dysphagia, or odynophagia. Cardiac: Negative for chest pain, arrhythmias, or palpitation. Respiratory: Negative for shortness of breath, hemoptysis, cough, or sputum production. Gastrointestinal: See HPI for pertinent findings. Genitourinary: Negative for hematuria, urgency, frequency, polyuria, dysuria. Musculoskeletal: Negative for muscle aches, swelling, arthritis, and arthralgias. Neurologic: Negative for stroke or TIA. Endocrine: Negative for thyroid problems. Skin: Negative for rash or itching. 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 stent left iliac artery, ROBOTIC ASSISTED LAPAROSCOPIC PROSTATECTOMY WITH CHANTE PELVIC LYMPHADENECTOMY, aortogram Past Anesthesia/Blood Transfusion Reactions: No Reported Reaction Past Psychological History: Anxiety Smoking Status: Former smoker Past Alcohol Use History: None Reported Additional Past Alcohol Use History / Comment(s): quit smoking 1 week ago, started smoking age 22's Past Drug Use History: None Reported - Past Family History Mother Family Medical History: Myocardial Infarction ([place]) Father Family Medical History: Myocardial Infarction ([place]) Medications and Allergies Home Medications Medication Instructions Recorded Confirmed Type Atorvastatin [Lipitor] 20 mg PO HS 02/05/15 10/15/17 History Citalopram Hydrobromide [CeleXA] 20 mg PO DAILY 02/05/15 10/15/17 History Aspirin 325 mg PO DAILY #30 tab 02/07/15 10/15/17 Rx Clopidogrel [Plavix] 75 mg PO HS 03/04/15 10/15/17 History Meclizine [Antivert] 12.5 mg PO TID 07/30/15 10/15/17 History Ferrous Sulfate [Iron (65 MG 325 mg PO DAILY 06/23/16 10/15/17 History Elemental)] Clindamycin HCl 300 mg PO BID 10/15/17 10/15/17 History Diphenoxylate HCl/Atropine 2 tab PO Q6H PRN 10/15/17 10/15/17 History [Lomotil 2.5-0.025 mg Tablet] Megestrol [Megace] 800 mg PO DAILY 10/15/17 10/15/17 History Umeclidinium Brm/Vilanterol Tr 1 puff INHALATION DAILY 10/15/17 10/15/17 History [Anoro Ellipta 62.5-25 Mcg INH] Votrient 200mg 800 mg PO DAILY 10/15/17 10/15/17 History traMADol HCL [Ultram] 50 mg PO Q6H PRN 10/15/17 10/15/17 History Allergies Allergy/AdvReac Type Severity Reaction Status Date / Time venom-honey bee Allergy Unknown Rash/Hives Verified 10/15/17 16:14 [bee venom (honey bee)] Iodinated Contrast- Oral and Allergy Rash/Hives Verified 10/15/17 16:14 IV Dye [Iodinated Contrast Media - IV Dye] iodine Allergy Rash/Hives Verified 10/15/17 16:14 Physical Exam Vitals: Vital Signs Temp Pulse Pulse Resp BP BP Pulse Ox 10/16/17 07:00 98.5 F 67 18 135/67 98 10/15/17 20:22 97.8 F 69 16 106/55 100 10/15/17 19:06 66 18 106/86 98 10/15/17 18:03 68 16 131/71 99 10/15/17 16:32 72 18 146/84 100 10/15/17 15:25 97.0 F L 63 16 150/70 94 L Intake and Output 10/15/17 10/16/17 10/16/17 22:59 06:59 14:59 Intake Total 590 800 Balance 590 800 Intake: IV 800 Sodium Chloride 0.9% 1, 800 000 ml @ 100 mls/hr IV . Q10H STA Rx#:[id number] Oral 590 Other: Voiding Method Toilet # Voids 1 2 # Bowel Movements 1 2 Weight 55.338 kg General appearance: The patient is alert, oriented, in no acute distress. HET: Head is normocephalic and atraumatic. Pupils are equal and reactive. Oropharynx is clear without lesions. Neck: Supple without lymphadenopathy. Trachea midline. Heart: S1 S2. Regular rate and rhythm. Lungs: No crackles or wheezes are heard. Abdomen: Soft, nondistended with bowel sounds. No peritoneal signs. No palpable organomegaly or masses. Extremities: Normal skin color and turgor. No cyanosis, rash, ulceration, clubbing, or edema. Radial and pedal pulses are 2/4 bilaterally. Neurological: No focal deficits. Strength and sensation are grossly intact. Results CBC & Chem 7: 10/17/17 06:54 10/17/17 06:54 Labs: Abnormal Lab Results - Last 24 Hours (Table) 10/15/17 10/15/17 10/15/17 Range/Units 16:28 16:28 16:28 WBC 10.7 H (3.8-10.6) k/uL RBC 3.14 L (4.30-5.90) m/uL Hgb 9.9 L (13.0-17.5) gm/dL Hct 32.0 L (39.0-53.0) % MCV 101.8 H (80.0-100.0) fL MCHC 30.9 L (31.0-37.0) g/dL RDW 17.6 H (11.5-15.5) % Plt Count 563 H (150-450) k/uL Neutrophils # 7.8 H (1.3-7.7) k/uL Potassium 5.3 H (3.5-5.1) mmol/L Chloride 108 H (98-107) mmol/L Carbon Dioxide 21 L (22-30) mmol/L BUN 30 H (9-20) mg/dL Creatinine 1.60 H (0.66-1.25) mg/dL ALT 15 L (21-72) U/L Total Creatine Kinase 51 L (55-170) U/L 10/15/17 10/16/17 Range/Units 23:29 05:21 WBC (3.8-10.6) k/uL RBC 2.72 L 2.66 L (4.30-5.90) m/uL Hgb 8.4 L D 8.4 L (13.0-17.5) gm/dL Hct 27.9 L 27.3 L (39.0-53.0) % MCV 102.4 H 102.9 H (80.0-100.0) fL MCHC 30.3 L 30.8 L (31.0-37.0) g/dL RDW 17.4 H 17.7 H (11.5-15.5) % Plt Count 458 H (150-450) k/uL Neutrophils # (1.3-7.7) k/uL Potassium (3.5-5.1) mmol/L Chloride (98-107) mmol/L Carbon Dioxide (22-30) mmol/L BUN (9-20) mg/dL Creatinine (0.66-1.25) mg/dL ALT (21-72) U/L Total Creatine Kinase (55-170) U/L Assessment and Plan Assessment: GI bleeding most likely on the basis of diverticular colon bleeding. The possibility of colitis including ischemic or self limited colitis should be considered. Plan: I reviewed her current management. Will monitor closely and consider lower endoscopy based on his course.
[2017-10-17] MEDS: FERROUS SULFATE 325 MG TAB PO SCH (12:54)
--- NOTE | 2017-10-17 13:56 | P.PN ---
Subjective Patient is doing well today. Hemoglobin stable. Objective - Vital Signs Vital signs: Vital Signs Temp 99.0 F 10/17/17 07:00 Pulse 76 10/17/17 11:40 Resp 18 10/17/17 07:00 BP 144/63 10/17/17 07:00 Pulse Ox 99 10/17/17 07:00 Intake & Output 10/16/17 10/17/17 10/17/17 18:59 06:59 18:59 Intake Total 2039 240 Balance 2039 240 Weight 55.338 kg Intake: IV 240 ns@20 240 Intake, IV Titration 600 Amount Sodium Chloride 0.9% 1, 600 000 ml @ 100 mls/hr IV . Q10H STA Rx#:[id number] Oral 1440 Other: Voiding Method Toilet Toilet # Voids 3 - Exam General: The patient is awake and alert, in no distress Eye: there is normal conjunctiva bilaterally. Neck: The neck is supple, there is no JVD. Cardiovascular: Normal S1-S2, no S3-S4, no murmurs. Respiratory: Lungs clear to auscultation bilaterally Gastrointestinal: Abdomen is soft, nontender Musculoskeletal: There is no pedal edema. Neurological:. Speech is normal. Skin: Skin is warm and dry - Labs CBC & Chem 7: 10/17/17 06:54 10/17/17 06:54 Labs: Abnormal Lab Results - Last 24 Hours (Table) 10/17/17 10/17/17 Range/Units 06:54 06:54 RBC 2.75 L (4.30-5.90) m/uL Hgb 8.7 L (13.0-17.5) gm/dL Hct 27.9 L (39.0-53.0) % MCV 101.2 H (80.0-100.0) fL RDW 17.9 H (11.5-15.5) % Chloride 110 H (98-107) mmol/L Carbon Dioxide 19 L (22-30) mmol/L ALT 17 L (21-72) U/L Total Protein 6.2 L (6.3-8.2) g/dL Albumin 3.3 L (3.5-5.0) g/dL Assessment and Plan Assessment: 1. Lower GI bleed, exact etiology unclear. Patient is known to have history of radiation colitis and underlying diverticulosis. He is hemodynamically stable. He was seen and evaluated by GI. Awaiting further recommendations. Per report no plan for endoscopy at this time. 2. History of severe peripheral vascular occlusive disease on aspirin and Plavix: Currently on hold given GI bleed 3. Underlying stage IV renal cell carcinoma following with oncology: Consulted for further evaluation. Votrient was discontinued as possibly contributing to his problem. 4. Bilateral feet ulceration with surrounding cellulitis: Improved. Clindamycin was discontinued awaiting stool sample to rule out C. diff Today, I reviewed his medication list and lab work results. We'll continue IV Protonix. Appreciate c consultant's recommendations. Repeat lab work in the morning. PT/OT evaluation.
[2017-10-17] MEDS: ATORVASTATIN 20 MG TAB PO SCH (21:00)
[2017-10-18] MEDS: IPRATROPIUM-ALBUTEROL 3 ML NEB INHALATION SCH ×4 (00:06→19:41)
[2017-10-18] MEDS: PANTOPRAZOLE 40 MG/10 ML VIAL IV SCH (07:58)
[2017-10-18 08:13] LABS: ALT 20 U/L (21-72); AST 16 U/L (17-59); Albumin 3.1 g/dL (3.5-5.0); Alkaline Phosphatase 62 U/L (38-126); Anion Gap 10 mmol/L; Blood Urea Nitrogen 13 mg/dL (9-20); Calcium 8.1 mg/dL (8.4-10.2); Carbon Dioxide 17 mmol/L (22-30); Chloride 113 mmol/L (98-107); Glucose 86 mg/dL (74-99); Potassium 4.9 mmol/L (3.5-5.1); Sodium 140 mmol/L (137-145); Total Bilirubin 0.6 mg/dL (0.2-1.3)
[2017-10-18 08:24] LABS: Anisocytosis Slight; Basophils % (A) 0 %; Eosinophils # (A) 0.1 k/uL (0-0.7); Eosinophils % (A) 1 %; HCT 26.4 % (39.0-53.0); HGB 8.3 gm/dL (13.0-17.5); Hypochromasia Moderate; Lymphocytes # (A) 1.1 k/uL (1.0-4.8); Lymphocytes % (A) 18 %; MCH 31.7 pg (25.0-35.0); MCHC 31.4 g/dL (31.0-37.0); MCV 100.8 fL (80.0-100.0); Macrocytosis Moderate; Mean Platelet Volume 7.7; Monocytes # (A) 0.6 k/uL (0-1.0); Monocytes % (A) 10 %; Neutrophils # (A) 4.2 k/uL (1.3-7.7); Neutrophils % (A) 69 %; Platelet Count 354 k/uL (150-450); RBC 2.62 m/uL (4.30-5.90); RDW 17.6 % (11.5-15.5); WBC 6.1 k/uL (3.8-10.6)
--- NOTE | 2017-10-18 10:42 | P.PN ---
Subjective Progress Note Date: 10/18/17 This is a 72-year-old gentleman with very complex past medical history significant for metastatic renal cell carcinoma and history of peripheral vascular occlusive disease who presented to the emergency room with lower GI bleed and large blood clot with his bowel movement. According to his , his symptoms started yesterday and patient had approximately 5 bowel movements with what she describes as large blood clots and possibly mucous tissue. She brought him to the emergency room for further evaluation. Patient was found to be hemodynamically stable. His hemoglobin was around 8.6 which is slightly lower than his baseline around 10. Patient was admitted to the hospital and was seen and evaluated by gastroenterology. He was started on clear liquids. There is no plan for colonoscopy at this time according to the report. Patient' s is concerned that his cancer treatment might possibly be contributing to his symptoms. 10/18/2017 patient lying in bed comfortably. Reports no further blood in his stools. Last reported blood in it and stool was on Wednesday. Stool for C. diff is negative. He is still having very watery stools. Votrient was discontinued due to side effects of GI bleed and diarrhea. Patient seen by GI service. They 're planning to proceed with colonoscopy tomorrow Objective - Vital Signs Vital signs: Vital Signs Temp 98.1 F 10/18/17 07:00 Pulse 76 10/18/17 08:42 Resp 16 10/18/17 07:00 BP 102/52 10/18/17 07:00 Pulse Ox 100 10/18/17 07:00 Intake & Output 10/17/17 10/18/17 10/18/17 18:59 06:59 18:59 Intake Total 5640 280 Balance 5640 280 Weight 55.338 kg Intake: IV 120 ns@20 120 Oral 5520 280 Other: Voiding Method Toilet Toilet # Voids 3 1 - Exam Head normocephalic Neck supple Lungs clear to auscultation bilaterally no wheezing or crackles Heart regular rate and rhythm S1-S2, no rub or gallop Abdomen is soft nontender nondistended positive bowel sounds no hepatosplenomegaly Extremities no edema Neuro alert and orientated to 3 - Labs CBC & Chem 7: 10/18/17 07:19 10/18/17 07:19 Labs: Abnormal Lab Results - Last 24 Hours (Table) 10/18/17 10/18/17 Range/Units 07:19 07:19 RBC 2.62 L (4.30-5.90) m/uL Hgb 8.3 L (13.0-17.5) gm/dL Hct 26.4 L (39.0-53.0) % MCV 100.8 H (80.0-100.0) fL RDW 17.6 H (11.5-15.5) % Chloride 113 H (98-107) mmol/L Carbon Dioxide 17 L (22-30) mmol/L Calcium 8.1 L (8.4-10.2) mg/dL AST 16 L (17-59) U/L ALT 20 L (21-72) U/L Total Protein 6.0 L (6.3-8.2) g/dL Albumin 3.1 L (3.5-5.0) g/dL Assessment and Plan Assessment: 1. Lower GI bleed, exact etiology unclear. Could be related to diverticular bleed or the Votrient. We'll transfer discontinued. Patient has been seen by oncology and GI service. Patient is scheduled for colonoscopy tomorrow Patient is known to have history of radiation colitis and underlying diverticulosis. Last colonoscopy 2016 with a polyp removed. Hemoglobin 8.3 2. History of severe peripheral vascular occlusive disease on aspirin and Plavix: Currently on hold given GI bleed 3. Underlying stage IV renal cell carcinoma following with oncology: Consulted for further evaluation. Votrient was discontinued as possibly contributing to his problem. 4. Bilateral feet ulceration with surrounding cellulitis: Improved. Clindamycin was discontinued. His stool for C. diff negative 5. Chronic Diarrhea: Possibly related to the Votrient, which has been discontinued. Stool for C. diff negative. GI prophylaxis Protonix and DVT prophylaxis SCDs I performed an examination of the patient and discussed their management with the physician Wash Driller. I have reviewed the Physician Wash Driller's notes and agree with the documented findings and plan of care
[2017-10-18] MEDS: MECLIZINE 12.5 MG TAB PO SCH ×3 (11:22→21:02)
[2017-10-18] MEDS: MEGESTROL 400 MG/10 ML CUP PO SCH (11:22)
[2017-10-18] MEDS: FERROUS SULFATE 325 MG TAB PO SCH (11:22)
[2017-10-18] MEDS: CITALOPRAM HYDROBROMIDE 20 MG TAB PO SCH (11:22)
[2017-10-18] MEDS: SODIUM BICARBONATE TAB 650 MG TAB PO SCH ×2 (14:49→21:02)
--- NOTE | 2017-10-18 16:52 | P.PN ---
Subjective Progress Note Date: 10/18/17 Principal diagnosis: GI bleeding Pt seen today in follow up, he states normal colored BM today, his stool is chronically loose/liquid, he denies nausea, abd pain or bloating. He is hungry. He states what brought him to the hospital was deep red clotted blood with his BM, none since admit Objective - Vital Signs Vital signs: Vital Signs Temp 98.6 F 10/18/17 15:00 Pulse 97 10/18/17 16:00 Resp 16 10/18/17 16:00 BP 90/53 10/18/17 15:00 Pulse Ox 92 L 10/18/17 15:00 Intake & Output 10/17/17 10/18/17 10/18/17 18:59 06:59 18:59 Intake Total 5640 280 2400 Balance 5640 280 2400 Weight 55.338 kg 55.338 kg Intake: IV 120 ns@20 120 Oral 5520 280 2400 Other: Voiding Method Toilet Toilet Toilet # Voids 3 1 3 - Constitutional General appearance: Present: cooperative, no acute distress, thin - EENT ENT: Present: normal oropharynx - Neck Neck: Absent: lymphadenopathy, normal ROM, other, rigidity, stridor, thyromegaly - Respiratory Respiratory: bilateral: CTA - Cardiovascular Heart sounds: normal: S1, S2 - Peripheral edema leg Peripheral Edema: bilateral: None - Gastrointestinal General gastrointestinal: Present: normal bowel sounds, soft. Absent: absent bowel sounds, decreased bowel sounds, distended, hepatomegaly, hyperactive bowel sounds, organomegaly, rigid, scaphoid, splenomegaly, tenderness, umbilical hernia, ventral hernia - Integumentary Integumentary: Present: pale - Neurologic Neurologic: Present: CNII-XII intact - Musculoskeletal Musculoskeletal: Present: generalized weakness, strength equal bilaterally - Psychiatric Psychiatric: Present: A&O x's 3, appropriate affect, intact judgment & insight - Labs CBC & Chem 7: 10/18/17 07:19 10/18/17 07:19 Labs: Abnormal Lab Results - Last 24 Hours (Table) 10/18/17 10/18/17 Range/Units 07:19 07:19 RBC 2.62 L (4.30-5.90) m/uL Hgb 8.3 L (13.0-17.5) gm/dL Hct 26.4 L (39.0-53.0) % MCV 100.8 H (80.0-100.0) fL RDW 17.6 H (11.5-15.5) % Chloride 113 H (98-107) mmol/L Carbon Dioxide 17 L (22-30) mmol/L Calcium 8.1 L (8.4-10.2) mg/dL AST 16 L (17-59) U/L ALT 20 L (21-72) U/L Total Protein 6.0 L (6.3-8.2) g/dL Albumin 3.1 L (3.5-5.0) g/dL Assessment and Plan (1) GI bleed Narrative/Plan: EGD/Colon planned for AM. Hgb stable. C-diff negative. Cont to hold antiplatelet, mechanical DVT prophylaxis for now We will need to discuss case with vascular, as pt is on asa and placix for BLE stenting which are about 2-3 years old, to see if one of the antiplatelet agents can be stopped. Current Visit: Yes Status: Acute Priority: High Code(s): K92.2 - GASTROINTESTINAL HEMORRHAGE, UNSPECIFIED SNOMED Code(s): 23691924 (2) Metastatic renal cell carcinoma Narrative/Plan: Pt has been on votrient for just about 6 months now with good tolerance and disease control. Hold votrient for now. Pazopanib is a kinase inhibitor and antiangiogenic agent so, it is imperative that the source of the GI bleed is investigated. Underlying cause such as ulceration/inflammatory process vs capillary/blood vessel breakdown needs to be determined as this will decide if pt can stay on votrient therapy. Plan is for EGD/colonoscopy in AM, Dr. Burch will contact Dr. Menon to discuss case. Current Visit: Yes Status: Acute Priority: High Code(s): C64.9 - MALIGNANT NEOPLASM OF UNSP KIDNEY, EXCEPT RENAL PELVIS SNOMED Code(s): 507239728 Plan: Doctor attests: I performed a history and physical examination of this patient, discussed with dictator. I agree with dictators note, documented as a scribe.
[2017-10-18] MEDS ORDERED: PEG 3350-NA SULF,BICARB,CL/KCL 4,000 ML BOTTLE PO ONE (17:00)
[2017-10-18] MEDS: ATORVASTATIN 20 MG TAB PO SCH (21:02)
[2017-10-19] MEDS: IPRATROPIUM-ALBUTEROL 3 ML NEB INHALATION SCH ×4 (03:50→19:36)
[2017-10-19 07:34] LABS: INR 1.1 (<1.2); Prothrombin Time 10.4 sec (9.0-12.0)
[2017-10-19 07:37] LABS: Anisocytosis Slight; Basophils % (A) 1 %; Eosinophils # (A) 0.1 k/uL (0-0.7); Eosinophils % (A) 2 %; HCT 24.8 % (39.0-53.0); HGB 8.1 gm/dL (13.0-17.5); Lymphocytes # (A) 1.1 k/uL (1.0-4.8); Lymphocytes % (A) 21 %; MCHC 32.7 g/dL (31.0-37.0); MCV 97.9 fL (80.0-100.0); Macrocytosis Slight; Mean Platelet Volume 7.3; Monocytes # (A) 0.5 k/uL (0-1.0); Monocytes % (A) 9 %; Neutrophils # (A) 3.3 k/uL (1.3-7.7); Neutrophils % (A) 64 %; Platelet Count 378 k/uL (150-450); RBC 2.54 m/uL (4.30-5.90); RDW 17.6 % (11.5-15.5); WBC 5.2 k/uL (3.8-10.6)
[2017-10-19 07:52] LABS: ALT 26 U/L (21-72); AST 16 U/L (17-59); Albumin 3.1 g/dL (3.5-5.0); Alkaline Phosphatase 74 U/L (38-126); Anion Gap 10 mmol/L; Blood Urea Nitrogen 10 mg/dL (9-20); Carbon Dioxide 18 mmol/L (22-30); Chloride 111 mmol/L (98-107); Glucose 80 mg/dL (74-99); Potassium 4.7 mmol/L (3.5-5.1); Sodium 139 mmol/L (137-145); Total Bilirubin 0.6 mg/dL (0.2-1.3)
[2017-10-19] MEDS: PANTOPRAZOLE 40 MG/10 ML VIAL IV SCH (08:04)
[2017-10-19] MEDS: CITALOPRAM HYDROBROMIDE 20 MG TAB PO SCH (08:04)
[2017-10-19] MEDS: MECLIZINE 12.5 MG TAB PO SCH ×3 (08:04→20:58)
[2017-10-19] MEDS: MEGESTROL 400 MG/10 ML CUP PO SCH (08:04)
[2017-10-19] MEDS: SODIUM BICARBONATE TAB 650 MG TAB PO SCH ×2 (08:04→20:57)
[2017-10-19 08:27] LABS: Reticulocyte % 5.9 % (0.5-2.0)
[2017-10-19] MEDS: FERROUS SULFATE 325 MG TAB PO SCH (11:52)
--- NOTE | 2017-10-19 13:02 | P.PN ---
Subjective Progress Note Date: 10/19/17 This is a 72-year-old gentleman with very complex past medical history significant for metastatic renal cell carcinoma and history of peripheral vascular occlusive disease who presented to the emergency room with lower GI bleed and large blood clot with his bowel movement. According to his , his symptoms started yesterday and patient had approximately 5 bowel movements with what she describes as large blood clots and possibly mucous tissue. She brought him to the emergency room for further evaluation. Patient was found to be hemodynamically stable. His hemoglobin was around 8.6 which is slightly lower than his baseline around 10. Patient was admitted to the hospital and was seen and evaluated by gastroenterology. He was started on clear liquids. There is no plan for colonoscopy at this time according to the report. Patient' s is concerned that his cancer treatment might possibly be contributing to his symptoms. 10/18/2017 patient lying in bed comfortably. Reports no further blood in his stools. Last reported blood in it and stool was on Wednesday. Stool for C. diff is negative. He is still having very watery stools. Votrient was discontinued due to side effects of GI bleed and diarrhea. Patient seen by GI service. They 're planning to proceed with colonoscopy tomorrow 10/19/2017 patient scheduled for EGD and colonoscopy today. Patient had reported some blood in his stool through the night with a GoLYTELY prep which improved. Denies any abdominal pain. Denies any nausea or vomiting. Denies any chest pain or shortness of breath. Denies any difficult is urinating Objective - Vital Signs Vital signs: Vital Signs Temp 98.4 F 10/19/17 07:00 Pulse 88 10/19/17 12:32 Resp 16 10/19/17 08:00 BP 103/55 10/19/17 07:00 Pulse Ox 98 10/19/17 07:00 Intake & Output 10/18/17 10/19/17 10/19/17 18:59 06:59 18:59 Intake Total 2400 Output Total 3 Balance 2400 -3 Weight 55.338 kg Intake: Oral 2400 Output: Urine/Stool Mix 3 Other: Voiding Method Toilet Toilet Toilet # Voids 3 0 - Exam Head normocephalic Neck supple Lungs clear to auscultation bilaterally no wheezing or crackles Heart regular rate and rhythm S1-S2, no rub or gallop Abdomen is soft nontender nondistended positive bowel sounds no hepatosplenomegaly Extremities no edema Neuro alert and orientated to 3 - Labs CBC & Chem 7: 10/19/17 07:07 10/19/17 07:07 Labs: Abnormal Lab Results - Last 24 Hours (Table) 10/19/17 10/19/17 10/19/17 Range/Units 07:07 07:07 07:07 RBC 2.54 L (4.30-5.90) m/uL Hgb 8.1 L (13.0-17.5) gm/dL Hct 24.8 L (39.0-53.0) % RDW 17.6 H (11.5-15.5) % Retic Count 5.9 H (0.5-2.0) % Chloride 111 H (98-107) mmol/L Carbon Dioxide 18 L (22-30) mmol/L Calcium 8.0 L (8.4-10.2) mg/dL AST 16 L (17-59) U/L Total Protein 6.0 L (6.3-8.2) g/dL Albumin 3.1 L (3.5-5.0) g/dL Assessment and Plan Assessment: 1. Lower GI bleed, exact etiology unclear. Could be related to diverticular bleed or the Votrient. Votrient was discontinued. Patient has been seen by oncology and GI service. Patient is scheduled for colonoscopy and EGD today. Patient is known to have history of radiation colitis and underlying diverticulosis. Last colonoscopy 2015 with a polyp removed. Hemoglobin 8.1 2. History of severe peripheral vascular occlusive disease on aspirin and Plavix: Currently on hold given GI bleed 3. Underlying stage IV renal cell carcinoma following with oncology: Consulted for further evaluation. Votrient was discontinued as possibly contributing to his problem. 4. Bilateral feet ulceration with surrounding cellulitis: Improved. Clindamycin was discontinued. His stool for C. diff negative 5. Chronic Diarrhea: Possibly related to the Votrient, which has been discontinued. Stool for C. diff negative. 6. Metabolic acidosis secondary to the diarrhea. Improving with the sodium bicarbonate GI prophylaxis Protonix and DVT prophylaxis SCDs I performed an examination of the patient and discussed their management with the physician Engineering Lecturer. I have reviewed the Physician Engineering Lecturer's notes and agree with the documented findings and plan of care
[2017-10-19] MEDS ORDERED: PROPOFOL 10 MG/ML 20 ML VIAL IV ONE (14:39)
[2017-10-19] MEDS ORDERED: LIDOCAINE 1% INJ 10MG/ML (20 ML MDV) ONE (14:39)
[2017-10-19] MEDS ORDERED: GLYCOPYRROLATE 0.2 MG/ML 2 ML VIAL ONE (14:39)
[2017-10-19] MEDS ORDERED: PHENYLEPHRINE-0.9% NACL SYG 1 MG/10 ML SYRINGE ONE (14:39)
[2017-10-19] MEDS ORDERED: LACTATED RINGERS 1,000 ML IV ONE (14:40)
--- NOTE | 2017-10-19 15:38 | P.PCN ---
Date of Procedure: 10/19/17 Procedure(s) Performed: Procedure: 1. Esophagogastroduodenoscopy. 2. Total colonoscopy and biopsy. Preoperative diagnosis: GI bleeding and anemia. Postoperative diagnosis: 1. Small sliding hiatal hernia but no obvious esophagitis, ulcers or bleeding. 2. Colonoscopy reveals distal proctitis with 2 ulcers in the rectum close to the anorectal junction with no active bleeding at the time of this exam. 3. Multiple biopsies obtained from the rectal ulcers. Preparation: GoLYTELY prep. Sedation: Was provided by anesthesia. Brief clinical history: The patient is a 72-year-old male past medical history significant for metastatic renal cell carcinoma and history of peripheral vascular occlusive disease who presented to the emergency room with lower GI bleed and large blood clot with his bowel movement. According to his , his symptoms started the day prior to admission and patient had approximately 5 bowel movements with what she describes as large blood clots and possibly mucous tissue. She brought him to the emergency room for further evaluation. Patient was found to be hemodynamically stable. His hemoglobin was around 8.6 which is slightly lower than his baseline around 10. Patient was admitted to the hospital allowed clear liquid diet and his blood counts were monitored closely. The patient has been taking votrient for his renal cell carcinoma and there is concern that this could be causing vascular pathology and bleeding. He had radiation treatment for prostate cancer in 2014 but had no rectal bleeding until 2 weeks ago and at the time of his presentation to the hospital this time. This evaluation today is to assess for a possible source of bleeding in the upper or lower GI tract. Procedure: With the patient on his left lateral decubitus position and after informed consent and adequate sedation, I passed the Olympus-GIF 160 video upper endoscope through the cricopharyngeus down the esophagus. There was a small sliding hiatal hernia but no obvious esophagitis or complicated reflux disease. The endoscope was then passed into the stomach which was insufflated with air and inspected in detail including the retroflex view in the cardia. No obvious abnormalities were seen. Finally, the endoscope was passed through the pylorus into the duodenum. Pyloric channel, duodenal bulb, post bulbar area and descending duodenum appeared within normal limits. No biopsies were indicated then the endoscope was withdrawn and I proceeded with the colonoscopy. Perianal area did not show any fissures or fistulas. There were no masses felt on digital rectal examination. The Olympus CFQ 160L video colonoscope was then inserted in the rectum in the usual fashion and advanced to the cecum. There were 2 ulcerations in the rectum close to the anorectal junction, the larger measuring around 2 cm in greater dimension and appeared somewhat deep covered with white exudate, the second was half that size and more superficial also covered with white exudate and not showing any active bleeding. The mucosa in the immediate vicinity showed erythema and telangiectasias and friability but no spontaneous bleeding. Elsewhere, the colon to the cecum appeared healthy with no evidence of inflammation, neoplasia or bleeding. No significant diverticular disease was noted either. I retroflexed the endoscope in the rectum then I obtained multiple biopsies from the ulcers before the endoscope was withdrawn. The patient tolerated the procedure well. Plan: I summarized the findings to the patient and his . We will await pathology results. Some of the changes in the rectum could be radiation related and could also be related to votrient. Will allow full fluids and monitor his blood counts closely. Further plans based on his course and biopsy results. I will discuss with you and follow with you with interest.
[2017-10-19 17:04] LABS: Iron Saturation 9.52 (15.00-50.00)
[2017-10-19] MEDS: ATORVASTATIN 20 MG TAB PO SCH (20:57)
[2017-10-20] MEDS: IPRATROPIUM-ALBUTEROL 3 ML NEB INHALATION SCH ×4 (02:49→21:55)
[2017-10-20] MEDS: MECLIZINE 12.5 MG TAB PO SCH ×3 (08:20→20:48)
[2017-10-20] MEDS: PANTOPRAZOLE 40 MG/10 ML VIAL IV SCH (08:20)
[2017-10-20] MEDS: MEGESTROL 400 MG/10 ML CUP PO SCH (08:20)
[2017-10-20] MEDS: CITALOPRAM HYDROBROMIDE 20 MG TAB PO SCH (08:21)
[2017-10-20] MEDS: SODIUM BICARBONATE TAB 650 MG TAB PO SCH ×2 (08:21→20:47)
[2017-10-20 08:33] LABS: Anisocytosis Slight; Basophils % (A) 0 %; Eosinophils # (A) 0.1 k/uL (0-0.7); Eosinophils % (A) 2 %; HCT 24.6 % (39.0-53.0); HGB 7.9 gm/dL (13.0-17.5); Hypochromasia Slight; Lymphocytes % (A) 18 %; MCH 31.6 pg (25.0-35.0); MCHC 32.1 g/dL (31.0-37.0); MCV 98.4 fL (80.0-100.0); Macrocytosis Slight; Monocytes # (A) 0.5 k/uL (0-1.0); Monocytes % (A) 9 %; Neutrophils # (A) 3.7 k/uL (1.3-7.7); Neutrophils % (A) 68 %; Platelet Count 360 k/uL (150-450); RDW 17.2 % (11.5-15.5); WBC 5.4 k/uL (3.8-10.6)
[2017-10-20 08:39] LABS: Calcium 8.3 mg/dL (8.4-10.2); Total Bilirubin 0.6 mg/dL (0.2-1.3); Total Protein 5.9 g/dL (6.3-8.2)
--- NOTE | 2017-10-20 08:59 | P.PN ---
Subjective Progress Note Date: 10/20/17 Principal diagnosis: GI bleed anemia Status post EGD colonoscopy yesterday with small sliding hiatal hernia distal proctitis with 2 ulcers in the rectum no active bleeding status post biopsies. Tolerating diet requesting advancement. Denies hematemesis but easily melena. Afebrile. No abdominal pain. Hemoglobin 7.9. Platelet 360. White count 5.4. Objective - Vital Signs Vital signs: Vital Signs Temp 98.1 F 10/20/17 07:00 Pulse 82 10/20/17 08:08 Resp 16 10/20/17 07:00 BP 90/53 10/20/17 07:00 Pulse Ox 99 10/20/17 07:00 Intake & Output 10/19/17 10/20/17 10/20/17 18:59 06:59 18:59 Weight 55.338 kg Other: Voiding Method Toilet Toilet # Voids 1 1 - Exam General appearance: The patient is alert, oriented, in no acute distress. HET: Head is normocephalic and atraumatic. Pupils are equal and reactive. Oropharynx is clear without lesions. Neck: Supple without lymphadenopathy. Trachea midline. Heart: S1 S2. Regular rate and rhythm. Lungs: No crackles or wheezes are heard. Abdomen: Soft, nontender, nondistended with bowel sounds. No peritoneal signs. No palpable organomegaly or masses. Extremities: Normal skin color and turgor. No cyanosis, rash, ulceration, clubbing, or edema. Radial and pedal pulses are 2/4 bilaterally. Neurological: No focal deficits. Strength and sensation are grossly intact. - Labs CBC & Chem 7: 10/20/17 07:51 10/20/17 07:51 Labs: Abnormal Lab Results - Last 24 Hours (Table) 10/19/17 10/19/17 10/20/17 Range/Units 07:07 07:07 07:51 RBC 2.50 L (4.30-5.90) m/uL Hgb 7.9 L (13.0-17.5) gm/dL Hct 24.6 L (39.0-53.0) % RDW 17.2 H (11.5-15.5) % Chloride (98-107) mmol/L Carbon Dioxide (22-30) mmol/L Calcium (8.4-10.2) mg/dL Iron 28 L (65-175) ug/dL Iron Saturation 9.52 L (15.00-50.00) AST (17-59) U/L ALT (21-72) U/L Total Protein (6.3-8.2) g/dL Albumin (3.5-5.0) g/dL RBC Folate 1,173 H (280 - 791) ng/mL 10/20/17 Range/Units 07:51 RBC (4.30-5.90) m/uL Hgb (13.0-17.5) gm/dL Hct (39.0-53.0) % RDW (11.5-15.5) % Chloride 110 H (98-107) mmol/L Carbon Dioxide 19 L (22-30) mmol/L Calcium 8.3 L (8.4-10.2) mg/dL Iron (65-175) ug/dL Iron Saturation (15.00-50.00) AST 16 L (17-59) U/L ALT 16 L (21-72) U/L Total Protein 5.9 L (6.3-8.2) g/dL Albumin 3.0 L (3.5-5.0) g/dL RBC Folate (280 - 791) ng/mL Assessment and Plan (1) GI bleed Current Visit: Yes Status: Acute Priority: High Code(s): K92.2 - GASTROINTESTINAL HEMORRHAGE, UNSPECIFIED SNOMED Code(s): 84931675 (2) Acute blood loss anemia Current Visit: Yes Status: Acute Code(s): D62 - ACUTE POSTHEMORRHAGIC ANEMIA SNOMED Code(s): 683315840 (3) Metastatic renal cell carcinoma Current Visit: Yes Status: Acute Priority: High Code(s): C64.9 - MALIGNANT NEOPLASM OF UNSP KIDNEY, EXCEPT RENAL PELVIS SNOMED Code(s): 077488452 Plan: 1. Will advance to low residue diet. Follow up in GI office after discharge for reevaluation and biopsy results. 2. We will defer to oncology for guidance on antiangiogenic agents. Changes seen on colonoscopy yesterday in the rectum could be radiation related but also could be related to the Votrient; await biopsies. 3. Discharge per medicine and oncology. Assessment and plan a care discussed with Dr. Menon
[2017-10-20] MEDS: FERROUS SULFATE 325 MG TAB PO SCH (12:08)
[2017-10-20] MEDS ORDERED: SODIUM FERRIC GLUCONAT-SUCROSE 125 MG in SODIUM CHLORIDE 0.9% 100 ML IVPB ONE (17:00)
--- NOTE | 2017-10-20 17:54 | P.PN ---
Subjective Progress Note Date: 10/20/17 This is a 72-year-old gentleman with very complex past medical history significant for metastatic renal cell carcinoma and history of peripheral vascular occlusive disease who presented to the emergency room with lower GI bleed and large blood clot with his bowel movement. According to his , his symptoms started yesterday and patient had approximately 5 bowel movements with what she describes as large blood clots and possibly mucous tissue. She brought him to the emergency room for further evaluation. Patient was found to be hemodynamically stable. His hemoglobin was around 8.6 which is slightly lower than his baseline around 10. Patient was admitted to the hospital and was seen and evaluated by gastroenterology. He was started on clear liquids. There is no plan for colonoscopy at this time according to the report. Patient' s is concerned that his cancer treatment might possibly be contributing to his symptoms. 10/18/2017 patient lying in bed comfortably. Reports no further blood in his stools. Last reported blood in it and stool was on Wednesday. Stool for C. diff is negative. He is still having very watery stools. Votrient was discontinued due to side effects of GI bleed and diarrhea. Patient seen by GI service. They 're planning to proceed with colonoscopy tomorrow 10/19/2017 patient scheduled for EGD and colonoscopy today. Patient had reported some blood in his stool through the night with a GoLYTELY prep which improved. Denies any abdominal pain. Denies any nausea or vomiting. Denies any chest pain or shortness of breath. Denies any difficult is urinating On 10/20/2017 patient is alert and oriented he had 2 small bowel movements today there was no new episodes of rectal bleeding hemoglobin is down to 7.9 Objective - Vital Signs Vital signs: Vital Signs Temp 98.5 F 10/20/17 15:00 Pulse 75 10/20/17 15:00 Resp 16 10/20/17 15:43 BP 119/58 10/20/17 15:00 Pulse Ox 99 10/20/17 15:00 Intake & Output 10/19/17 10/20/17 10/20/17 18:59 06:59 18:59 Intake Total 410 Balance 410 Weight 55.338 kg 55.338 kg Intake: Oral 410 Other: Voiding Method Toilet Toilet Toilet Urinal # Voids 1 1 3 # Bowel Movements 1 - Exam Head normocephalic and atraumatic Neck supple no JVD Lungs clear to auscultation bilaterally no wheezing or crackles Heart regular rate and rhythm S1-S2, no rub or gallop Abdomen is soft nontender nondistended positive bowel sounds no hepatosplenomegaly Extremities no edema Neuro alert and orientated to 3 - Labs CBC & Chem 7: 10/20/17 07:51 10/20/17 07:51 Labs: Abnormal Lab Results - Last 24 Hours (Table) 10/19/17 10/20/17 10/20/17 Range/Units 07:07 07:51 07:51 RBC 2.50 L (4.30-5.90) m/uL Hgb 7.9 L (13.0-17.5) gm/dL Hct 24.6 L (39.0-53.0) % RDW 17.2 H (11.5-15.5) % Chloride 110 H (98-107) mmol/L Carbon Dioxide 19 L (22-30) mmol/L Calcium 8.3 L (8.4-10.2) mg/dL AST 16 L (17-59) U/L ALT 16 L (21-72) U/L Total Protein 5.9 L (6.3-8.2) g/dL Albumin 3.0 L (3.5-5.0) g/dL RBC Folate 1,173 H (280 - 791) ng/mL Assessment and Plan Plan: 1. Lower GI bleed, exact etiology unclear. Could be related to diverticular bleed or the Votrient. Votrient was discontinued. Patient has been seen by oncology and GI service. Patient is scheduled for colonoscopy and EGD today. Patient is known to have history of radiation colitis and underlying diverticulosis. Last colonoscopy 2015 with a polyp removed. Hemoglobin 8.1 2. History of severe peripheral vascular occlusive disease on aspirin and Plavix: Currently on hold given GI bleed 3. Underlying stage IV renal cell carcinoma following with oncology: Consulted for further evaluation. Votrient was discontinued as possibly contributing to his problem. 4. Bilateral feet ulceration with surrounding cellulitis: Improved. Clindamycin was discontinued. His stool for C. diff negative 5. Chronic Diarrhea: Possibly related to the Votrient, which has been discontinued. Stool for C. diff negative. 6. Metabolic acidosis secondary to the diarrhea. Improving with the sodium bicarbonate GI prophylaxis Protonix and DVT prophylaxis SCDs Plan at this time to give 1 dose of IV iron and monitor hemoglobin till AM if stable possible discharge tomorrow
[2017-10-20] MEDS: ATORVASTATIN 20 MG TAB PO SCH (20:47)
[2017-10-21] MEDS: IPRATROPIUM-ALBUTEROL 3 ML NEB INHALATION SCH ×3 (01:21→13:52)
[2017-10-21] MEDS ORDERED: SODIUM FERRIC GLUCONAT-SUCROSE 125 MG in SODIUM CHLORIDE 0.9% 100 ML IVPB ONE (06:00)
[2017-10-21 07:48] VITALS: BP 114/54; TEMP 98
[2017-10-21] MEDS: PANTOPRAZOLE 40 MG/10 ML VIAL IV SCH (08:21)
[2017-10-21] MEDS: MEGESTROL 400 MG/10 ML CUP PO SCH (08:22)
[2017-10-21] MEDS: SODIUM BICARBONATE TAB 650 MG TAB PO SCH (08:22)
[2017-10-21] MEDS: CITALOPRAM HYDROBROMIDE 20 MG TAB PO SCH (08:22)
[2017-10-21] MEDS: MECLIZINE 12.5 MG TAB PO SCH (08:22)
[2017-10-21 09:01] LABS: Anisocytosis Slight; Basophils % (A) 1 %; Eosinophils # (A) 0.1 k/uL (0-0.7); Eosinophils % (A) 2 %; HCT 28.8 % (39.0-53.0); HGB 8.9 gm/dL (13.0-17.5); Hypochromasia Moderate; Lymphocytes # (A) 1.7 k/uL (1.0-4.8); Lymphocytes % (A) 22 %; MCH 31.6 pg (25.0-35.0); MCHC 30.9 g/dL (31.0-37.0); MCV 102.2 fL (80.0-100.0); Macrocytosis Moderate; Mean Platelet Volume 7.3; Monocytes # (A) 0.6 k/uL (0-1.0); Monocytes % (A) 8 %; Neutrophils # (A) 4.9 k/uL (1.3-7.7); Neutrophils % (A) 65 %; Platelet Count 430 k/uL (150-450); RBC 2.81 m/uL (4.30-5.90); WBC 7.5 k/uL (3.8-10.6)
[2017-10-21 09:24] LABS: Albumin 3.4 g/dL (3.5-5.0); Calcium 8.5 mg/dL (8.4-10.2); Potassium 4.6 mmol/L (3.5-5.1); Total Bilirubin 0.4 mg/dL (0.2-1.3); Total Protein 6.5 g/dL (6.3-8.2)
--- NOTE | 2017-10-21 11:02 | P.PN ---
Subjective Progress Note Date: 10/21/17 Principal diagnosis: GI bleed anemia Status post EGD colonoscopy with small sliding hiatal hernia distal proctitis with 2 ulcers in the rectum no active bleeding status post biopsies; biopsies pending. Tolerating diet requesting advancement. Denies hematemesis hematochezia or melena. Afebrile. No abdominal pain. Hemoglobin improved 8.9. Objective - Vital Signs Vital signs: Vital Signs Temp 98 F 10/21/17 07:00 Pulse 82 10/21/17 07:11 Resp 16 10/21/17 07:11 BP 114/54 10/21/17 07:00 Pulse Ox 96 10/21/17 07:00 Intake & Output 10/20/17 10/21/17 10/21/17 18:59 06:59 18:59 Intake Total 410 590 Balance 410 590 Weight 55.338 kg 55.338 kg Intake: Oral 410 590 Other: Voiding Method Toilet Toilet Urinal Urinal # Voids 3 1 # Bowel Movements 1 - Exam General appearance: The patient is alert, oriented, in no acute distress. HET: Head is normocephalic and atraumatic. Pupils are equal and reactive. Oropharynx is clear without lesions. Neck: Supple without lymphadenopathy. Trachea midline. Heart: S1 S2. Regular rate and rhythm. Lungs: No crackles or wheezes are heard. Abdomen: Soft, nontender, nondistended with bowel sounds. No peritoneal signs. No palpable organomegaly or masses. Extremities: Normal skin color and turgor. No cyanosis, rash, ulceration, clubbing, or edema. Radial and pedal pulses are 2/4 bilaterally. Neurological: No focal deficits. Strength and sensation are grossly intact. - Labs CBC & Chem 7: 10/21/17 07:45 10/21/17 07:45 Labs: Abnormal Lab Results - Last 24 Hours (Table) 10/21/17 10/21/17 Range/Units 07:45 07:45 RBC 2.81 L (4.30-5.90) m/uL Hgb 8.9 L (13.0-17.5) gm/dL Hct 28.8 L (39.0-53.0) % MCV 102.2 H (80.0-100.0) fL MCHC 30.9 L (31.0-37.0) g/dL RDW 17.0 H (11.5-15.5) % Chloride 108 H (98-107) mmol/L Carbon Dioxide 16 L (22-30) mmol/L ALT 17 L (21-72) U/L Albumin 3.4 L (3.5-5.0) g/dL Assessment and Plan (1) GI bleed Narrative/Plan: Status post EGD colonoscopy with findings of distal proctitis with 2 ulcers in the rectum close to the anorectal junction with no active bleeding at time of exam status post multiple biopsies. Current Visit: Yes Status: Acute Priority: High Code(s): K92.2 - GASTROINTESTINAL HEMORRHAGE, UNSPECIFIED SNOMED Code(s): 58135177 (2) Acute blood loss anemia Current Visit: Yes Status: Acute Code(s): D62 - ACUTE POSTHEMORRHAGIC ANEMIA SNOMED Code(s): 343776894 (3) Metastatic renal cell carcinoma Current Visit: Yes Status: Acute Priority: High Code(s): C64.9 - MALIGNANT NEOPLASM OF UNSP KIDNEY, EXCEPT RENAL PELVIS SNOMED Code(s): 757539155 Plan: 1. Follow up in GI office after discharge for reevaluation and biopsy results. 2. We will defer to oncology for guidance on antiangiogenic agents. Changes seen on colonoscopy yesterday in the rectum could be radiation related but also could be related to the Votrient; await biopsies. 3. Discharge per medicine and oncology. Assessment and plan a care discussed with Dr. Menon
[2017-10-21] MEDS: FERROUS SULFATE 325 MG TAB PO SCH (12:30)
[2017-10-21 13:54] VITALS: PULSE 79; RESP 14
--- NOTE | 2017-10-21 14:03 | P.DS ---
Providers Date of admission: 10/15/17 18:40 Expected date of discharge: 10/21/17 Attending physician: Dick Hughes Consults: 10/16/17 13:49 Consult Physician Routine Consulting Provider: Lopez Burch Consult Reason/Comments: RCC Do you want consulting provider notified?: Yes Primary care physician: Michaelle Wang Hospital Course: Discharge diagnosis 1. Acute Lower GI bleed present on admission: Possibly related to the Votrient. Patient is status post EGD and colonoscopy with findings showing a distal proctitis with 2 ulcers in the rectum with no active bleeding on exam. Status post multiple biopsies. Patient has received 2 doses of IV iron he'll continue oral iron at home. Hemoglobin at discharge is 8.9. He's had no further evidence of bleeding. He has been cleared by GI service for discharge. 2. History of severe peripheral vascular occlusive disease on aspirin and Plavix: Currently on hold given GI bleed. At time of discharge we will resume an aspirin 81 mg daily 3. Underlying stage IV renal cell carcinoma following with oncology: Consulted for further evaluation. Votrient was discontinued as possibly contributing to his problem. 4. Bilateral feet ulceration with surrounding cellulitis: Improved. Clindamycin was discontinued. His stool for C. diff negative 5. Chronic Diarrhea: Possibly related to the Votrient, which has been discontinued. Stool for C. diff negative. 6. Metabolic acidosis secondary to the diarrhea. CO2 it's discharge is 16. We' ll continue sodium bicarbonate twice a day. We'll have him follow up with his PCP for repeat blood work. And to address when the soda bicarbonate can be discontinued Hospital course This is a 72-year-old gentleman with very complex past medical history significant for metastatic renal cell carcinoma and history of peripheral vascular occlusive disease who presented to the emergency room with lower GI bleed and large blood clot with his bowel movement. According to his , his symptoms started yesterday and patient had approximately 5 bowel movements with what she describes as large blood clots and possibly mucous tissue. She brought him to the emergency room for further evaluation. Patient was found to be hemodynamically stable. His hemoglobin was around 8.6 which is slightly lower than his baseline around 10. Patient was admitted to the hospital and was seen and evaluated by gastroenterology. He was started on clear liquids. There is no plan for colonoscopy at this time according to the report. Patient' s is concerned that his cancer treatment might possibly be contributing to his symptoms. Patient is status post EGD and colonoscopy results showing distal proctitis with 2 ulcers in the rectum with no active bleeding on exam. Status post multiple biopsies. Patient has received 2 doses of IV iron he'll continue oral iron at home. Hemoglobin at discharge is 8.9. He's had no further evidence of bleeding. He has been cleared by GI service for discharge. At this time Votrient discontinued likely the contributing cause to patient's symptoms. However we'll wait for the biopsy results. He will be following up with oncology and GI service and outpatient setting. Blood. And Plavix discontinued during this admission. Sodium bicarbonate added for the metabolic acidosis. CO2 at discharge was 16. Recommend following up with CBC and BMP in 1 week. Patient is likely stable for discharge. He's been cleared by java developer consultant physicians. I performed an examination of the patient and discussed their management with the physician Final Assembler. I have reviewed the Physician Final Assembler's notes and agree with the documented findings and plan of care Patient Condition at Discharge: Stable Plan - Discharge Summary Discharge Rx Participant: No New Discharge Prescriptions: New Aspirin EC [Ecotrin Low Dose] 81 mg PO DAILY #30 tablet. Sodium Bicarbonate Tab 650 mg PO BID #60 tab Continue Citalopram Hydrobromide [CeleXA] 20 mg PO DAILY Atorvastatin [Lipitor] 20 mg PO HS Meclizine [Antivert] 12.5 mg PO TID Ferrous Sulfate [Iron (65 MG Elemental)] 325 mg PO DAILY Umeclidinium Brm/Vilanterol Tr [Anoro Ellipta 62.5-25 Mcg INH] 1 puff INHALATION DAILY traMADol HCL [Ultram] 50 mg PO Q6H PRN PRN Reason: Pain Megestrol [Megace] 800 mg PO DAILY Diphenoxylate HCl/Atropine [Lomotil 2.5-0.025 mg Tablet] 2 tab PO Q6H PRN PRN Reason: Diarrhea Discontinued Aspirin 325 mg PO DAILY #30 tab Clopidogrel [Plavix] 75 mg PO HS Votrient 200mg 800 mg PO DAILY Clindamycin HCl 300 mg PO BID Discharge Medication List Atorvastatin [Lipitor] 20 mg PO HS 02/05/15 [History] Citalopram Hydrobromide [CeleXA] 20 mg PO DAILY 06/23/15 [History] Meclizine [Antivert] 12.5 mg PO TID 07/30/15 [History] Ferrous Sulfate [Iron (65 MG Elemental)] 325 mg PO DAILY 06/23/16 [History] Diphenoxylate HCl/Atropine [Lomotil 2.5-0.025 mg Tablet] 2 tab PO Q6H PRN [History] Megestrol [Megace] 800 mg PO DAILY 10/15/17 [History] Umeclidinium Brm/Vilanterol Tr [Anoro Ellipta 62.5-25 Mcg INH] 1 puff INHALATION DAILY 10/15/17 [History] traMADol HCL [Ultram] 50 mg PO Q6H PRN 10/15/17 [History] Aspirin EC [Ecotrin Low Dose] 81 mg PO DAILY #30 tablet. 10/21/17 [Rx] Sodium Bicarbonate Tab 650 mg PO BID #60 tab 10/21/17 [Rx] Follow up Appointment(s)/Referral(s): Slava Menon MD [STAFF PHYSICIAN] - 11/08/17 4:15 pm Michaelle Wang MD [Primary Care Provider] - 1 Week Ambulatory/Diagnostic Orders: Complete Blood Count w/diff [LAB.AMB] Time Frame: 1 Week, Location: Determined By Patient Activity/Diet/Wound Care/Special Instructions: Diet: regular Activity: as tolerated Discharge Disposition: HOME SELF-CARE
== END 2017-10-21 14:37 | disposition home or self-care (01) | DRG 378 ==
LOC: EC 15:20 → 5MS5E 18:40
PROVIDERS: ADMIT Internal Medicine; ATTEND Internal Medicine
PROC: 0DJ08ZZ Inspection of Upper Intestinal Tract, Via Natural or Artificial Opening Endoscopic (ICD-10-PCS; principal; 2017-10-15)
PROC: 0DBP8ZX Excision of Rectum, Via Natural or Artificial Opening Endoscopic, Diagnostic (ICD-10-PCS; principal; 2017-10-15)
DX: K92.2 Gastrointestinal hemorrhage, unspecified (principal); C78.01 Secondary malignant neoplasm of right lung; C78.02 Secondary malignant neoplasm of left lung; C79.51 Secondary malignant neoplasm of bone; E87.2 Acidosis; K52.1 Toxic gastroenteritis and colitis; K62.6 Ulcer of anus and rectum; L03.115 Cellulitis of right lower limb; D62 Acute posthemorrhagic anemia; L03.116 Cellulitis of left lower limb; C64.9 Malignant neoplasm of unspecified kidney, except renal pelvis; E78.5 Hyperlipidemia, unspecified; F41.9 Anxiety disorder, unspecified; I73.9 Peripheral vascular disease, unspecified; K44.9 Diaphragmatic hernia without obstruction or gangrene; L97.519 Non-pressure chronic ulcer of other part of right foot with unspecified severity; L97.529 Non-pressure chronic ulcer of other part of left foot with unspecified severity; M81.0 Age-related osteoporosis without current pathological fracture; Z79.02 Long term (current) use of antithrombotics/antiplatelets; Z79.82 Long term (current) use of aspirin; Z79.899 Other long term (current) drug therapy; Z82.49 Family history of ischemic heart disease and other diseases of the circulatory system; Z85.46 Personal history of malignant neoplasm of prostate; Z86.010 Personal history of colon polyps; Z86.73 Personal history of transient ischemic attack (TIA), and cerebral infarction without residual deficits; Z87.891 Personal history of nicotine dependence; Z92.3 Personal history of irradiation; Z91.041 Radiographic dye allergy status; Z91.030 Bee allergy status; T45.1X5A Adverse effect of antineoplastic and immunosuppressive drugs, initial encounter
CPT/HCPCS: 36415; 43235; 45380; 71046; 80053; 82272; 82550; 82553; 82607; 82728; 82747; 83540; 83550; 83605; 84484; 85025; 85027; 85045; 85610; 85730; 86850; 86900; 86901; 87324; 88305; 88342; 93005; 94640; 96361; 96374; 99285

== ENCOUNTER → 2017-11-08 | Outpatient (CLI) | payer MEDICARE, OTHER ==
--- NOTE | 2017-11-08 13:02 | CT ---
EXAMINATION TYPE: CT ChestAbdPelvis w con DATE OF EXAM: 11/08/2017 COMPARISON: 07/23/2017, 08/25/2017 HISTORY: Follow up Renal cancer CT DLP: 578 mGycm Automated exposure control for dose reduction was used. CONTRAST: CT scan of the chest, abdomen and pelvis is performed with Oral Contrast and with IV Contrast, patien t injected with 50 mL of Isovue 300. FINDINGS: LUNGS: There is a right upper lobe pleural-based nodule measuring 2 mm. No consolidation or pleural e ffusion. No pneumothorax. Within the left lower lobe there is an ill-defined 7 mm area of nodularity which likely is postinflammatory. Vague nodule within the right upper lobe on axial image 20 is stabl e from the previous exam. Additional punctate nodules involving the right lung apex measuring 1 mm ar e stable. MEDIASTINUM: Coronary artery calcification noted. Dense atherosclerotic changes aorta. The ascending aorta measures 4 cm compatible with mild aneurysmal dilation. No pathologic adenopathy seen. Shotty a denopathy noted. Extensive atherosclerotic change of the vasculature noted. OTHER: No additional significant abnormality is seen. LIVER/GB: No significant abnormality is appreciated. PANCREAS: No significant abnormality is seen. SPLEEN: No significant abnormality is seen. ADRENALS: No significant abnormality is seen. KIDNEYS: There is perinephric stranding bilaterally and more on the right side. There is right-sided hydronephrosis. There is a 3 cm cyst in the anterior left kidney. There is renal calcification that a ppears to be vascular. There is a 4.3 cm lesion involving the left kidney which is most compatible with a simple cyst measur ing 12 Hounsfield units. BOWEL: No significant abnormality is seen. LYMPH NODES: No greater than 1 cm abdominal or pelvic lymph nodes are appreciated. OSSEOUS STRUCTURES: No significant abnormality is seen. OTHER: Atherosclerotic change of the vasculature. Significant stenosis involving the external iliac a rteries are suspected bilaterally. Due to the phase of imaging assessment of the inferior vena cava a nd renal vein thrombus is nondiagnostic. No regional pathologic adenopathy. The IVC appears to be mar kedly reduced in caliber relative the previous exam. However there is some heterogeneous attenuation within the proximal IVC and there appears to be enlargement and abnormal attenuation within the right renal vein. This is similar to the prior exam. IMPRESSION: 1. Stable perinephric edema and heterogeneous appearance the right kidney unchanged from the prior e xam compatible with infiltrative neoplasm. 2. Simple appearing left renal cyst. 3. Assessment of the vena cava or renal vein thrombosis nondiagnostic due to the phase of imaging. Ho wever, the caliber of the IVC is within normal limits. There is residual heterogeneous density and th is likely represents residual thrombus. Do suspect that there is some residual renal vein thrombosis of the right renal vein. Finding appears similar to the prior exam. 4. Stable subcentimeter pulmonary nodules.
== END | disposition home or self-care (01) ==
LOC: RADCTMAIN 11:25
PROVIDERS: ATTEND Internal Medicine Hematology & Oncology
DX: C64.1 Malignant neoplasm of right kidney, except renal pelvis (principal); N28.1 Cyst of kidney, acquired; R91.8 Other nonspecific abnormal finding of lung field; Z91.048 Other nonmedicinal substance allergy status
CPT/HCPCS: 82565; 84520; 71260; 74177; 36415; Q9967

== ENCOUNTER → 2018-01-25 | Outpatient (CLI) | payer MEDICARE, OTHER ==
--- NOTE | 2018-01-25 16:16 | CT ---
EXAMINATION TYPE: CT ChestAbdPelvis w con DATE OF EXAM: 01/25/2018 COMPARISON: 11/08/2017 and 07/23/2017 HISTORY: Renal Cancer, Observation for suspected mets CT DLP: 1218 mGycm. Automated Exposure Control for Dose Reduction was Utilized. CONTRAST: CT scan of the thorax, abdomen and pelvis is performed with IV Contrast, patient injected with 100 ml mL of Isovue 370. FINDINGS: LUNGS: There is an unchanged 2 mm solid right upper lobe pulmonary nodule seen posteriorly on series 4 image 16. Groundglass opacity within the peripheral right upper lobe on series 4 image 23 measures 5 mm and is more pronounced on the prior although this could be related to slice selection. There is a new bilobed solid pulmonary nodule within the left upper lobe peripherally on series 4 image 27 dana suring 5 mm. There is a retrospectively stable 2 mm nodule within the right upper lobe on series 4 im age 34 abutting the fissure there is a new 2 mm pulmonary nodule on series 4 image 36 on the right th ere is also a new right lower lobe pulmonary nodule on series 4 image 37 measuring 4 mm within the ri ght lower lobe and a new pulmonary nodule within the right middle lobe on the same image measuring 3 mm as well as a possible adjacent 2 mm nodule a new 3 mm pulmonary nodule seen on series 4 image 47 w ithin the right lower lobe anteriorly. Solid new pulmonary nodules within the right lung base are see n on series 4 image 57 measuring 4 mm and image 57 measuring 1 to 2 mm as well as on image 58 measuri ng 4 mm. 1 to 2 mm solid pulmonary nodule is seen at the left lung base on image 66 that also appears new from the prior. Area of likely stable scarring is seen within the left lower lobe on series 4 im age 52 again measuring approximately 7 mm. A stable subpleural 4 mm pulmonary nodule seen on series 4 image 39 in addition to a solid stable left lower lobe 4 mm pulmonary nodule. An additional new 2 mm pulmonary nodule seen on series 4 image 43. Lastly there is a right midlung pulmonary nodule measuri ng 3 mm appearing more conspicuous than on the prior exam on series 4 image 30. No focal consolidation or pleural effusion is seen. MEDIASTINUM: There are no greater than 1 cm hilar or mediastinal lymph nodes. The ascending thoracic aorta is mildly aneurysmal measuring 4.0 cm. This is unchanged from the prior. There are severe three -vessel coronary artery calcifications. No pericardial effusion is seen. OTHER: There is minimal bilateral retroareolar probable gynecomastia. LIVER/GB: There is a 5 mm hypoattenuated hepatic lesion seen in segment 5 of the liver on series 3 im age 73 that is not seen on the prior exam but is too small to accurately characterize. No additional new hepatic lesions are appreciated. PANCREAS: No significant abnormality is seen. No pancreatic ductal dilatation. SPLEEN: No significant abnormality is seen. No splenomegaly. ADRENALS: No significant abnormality is seen. No nodularity or thickening. KIDNEYS: There is progressive inflammatory change of the right renal cortex, right renal sinus, perin ephric space, and uroepithelial thickening with persistent hilar adenopathy. There is redemonstration of invasion of the inferior vena cava and tumor thrombus within the right renal vein. There is mild right hydronephrosis and mild right proximal hydroureter. Right upper pole dominant mass measures 3.2 x 3.1 x 2.8 cm and multiple other smaller metastatic lesion within the renal sinus are seen on coron al imaging measuring up to 1.9 cm. BOWEL: No significant abnormality is seen. No dilated bowel. GENITAL ORGANS: Prostate gland does not appear enlarged. OSSEOUS STRUCTURES: Punctate probable bone island is seen of the sacrum unchanged from the prior. Mod erate bilateral femoral acetabular arthropathy and mild multilevel degenerative changes of the spine are noted. No new suspicious osseous lesion. OTHER: Extensive vascular calcifications are seen throughout the aorta and its branches. IMPRESSION: 1. Multiple new subcentimeter bilateral pulmonary nodules, although these are very small in size they are suspicious for progressive metastasis. 2. Progressive inflammatory change within the right kidney, similar-appearing overall size of the rig ht upper pole dominant mass and smaller lesions within the right renal sinus with continued evidence of local adenopathy and tumor invasion/thrombus within the right renal vein and inferior vena cava. 3. New subcentimeter hepatic lesion that is too small to accurately characterize as it measures 5 mm. Continued surveillance is recommended for this lesion.
== END ==
LOC: RADCTMAIN 11:22
PROVIDERS: ATTEND Internal Medicine Hematology & Oncology
DX: Z03.89 Encounter for observation for other suspected diseases and conditions ruled out (principal); C64.1 Malignant neoplasm of right kidney, except renal pelvis; R91.8 Other nonspecific abnormal finding of lung field; N28.89 Other specified disorders of kidney and ureter; R59.0 Localized enlarged lymph nodes
CPT/HCPCS: 82565; 84520; 71260; 74177; 36415; Q9967

== ENCOUNTER 2018-04-07 16:31 | Emergency (ER) | payer MEDICARE, OTHER ==
[2018-04-07] MEDS ORDERED: SODIUM CHLORIDE 0.9% 500 ML IV STA (18:25)
--- NOTE | 2018-04-07 18:28 | ED ---
General Adult HPI - General Chief complaint: Urogenital Stated complaint: blood in urine Time Seen by Provider: 04/07/18 18:10 Source: patient, RN notes reviewed Mode of arrival: ambulatory Limitations: no limitations - History of Present Illness Initial comments: Patient 73-year-old male significant past mental history for kidney cancer, osteomyelitis of the left foot, presented to the emergency room today with chief complaint of hematuria. He does not that he had a bone scan done on Wednesday. He states he was given a shot. He states he was told drink lots water. He went home. He states at home he noticed hematuria. He states he had it throughout the day. He states it seemed to clear up a little bit the next day and on the following day was completely gone. He states today his noticed blood in the urine once again. He denies any pain. He states is currently not on any chemo regimen as they are trying to treat his osteomyelitis. Currently not on antibiotics. Patient did go to infectious disease Dr. Gandhi earlier today and they are planning to place a PICC line. Patient denies any other complaints or symptoms. He denies any fever or chills. Denies any back pain, abdominal pain, chest pain. - Related Data Home Medications Medication Instructions Recorded Confirmed Atorvastatin [Lipitor] 20 mg PO HS 02/05/15 04/07/18 Citalopram Hydrobromide [CeleXA] 20 mg PO DAILY 02/05/15 04/07/18 Meclizine [Antivert] 12.5 mg PO TID 07/30/15 04/07/18 Ferrous Sulfate [Iron (65 MG 325 mg PO DAILY 06/23/16 04/07/18 Elemental)] Umeclidinium Brm/Vilanterol Tr 1 puff INHALATION DAILY 10/15/17 04/07/18 [Anoro Ellipta 62.5-25 Mcg INH] traMADol HCL [Ultram] 50 mg PO Q6H PRN 10/15/17 04/07/18 Budesonide [Pulmicort] 0.25 mg INHALATION RT-QID PRN 04/07/18 04/07/18 Calcium Carbonate [Calcium] 600 mg PO BID 04/07/18 04/07/18 Multivitamins, Thera [Multivitamin 1 tab PO DAILY 04/07/18 04/07/18 (formulary)] Naproxen Sodium [Aleve] 220 mg PO Q12HR PRN 04/07/18 04/07/18 Neomycin/Bacitracin/Polymyxinb 1 applic TOPICAL QID 04/07/18 04/07/18 [Neosporin Ointment] Previous Rx's Medication Instructions Recorded Ciprofloxacin HCl [Cipro] 500 mg PO DAILY #14 day 04/07/18 Allergies Allergy/AdvReac Type Severity Reaction Status Date / Time venom-honey bee Allergy Unknown Rash/Hives Verified 04/07/18 18:26 [bee venom (honey bee)] Iodinated Contrast- Oral and Allergy Rash/Hives Verified 04/07/18 18:26 IV Dye [Iodinated Contrast Media - IV Dye] iodine Allergy Rash/Hives Verified 04/07/18 18:26 Review of Systems ROS Statement: Those systems with pertinent positive or pertinent negative responses have been documented in the HPI. ROS Other: All systems not noted in ROS Statement are negative. 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 stent left iliac artery, ROBOTIC ASSISTED LAPAROSCOPIC PROSTATECTOMY WITH CHANTE PELVIC LYMPHADENECTOMY, aortogram Past Anesthesia/Blood Transfusion Reactions: No Reported Reaction Past Psychological History: Anxiety Smoking Status: Former smoker Past Alcohol Use History: None Reported Past Drug Use History: None Reported - Past Family History Mother Family Medical History: Myocardial Infarction ([place]) Father Family Medical History: Myocardial Infarction ([place]) General Exam - General Exam Comments Initial Comments: General: The patient is awake and alert, in no distress, and does not appear acutely ill. Eye: extra-ocular movements are intact. No nystagmus. There is normal conjunctiva bilaterally. No signs of icterus. Ears, nose, mouth and throat: There are moist mucous membranes and no oral lesions. Neck: The neck is supple, there is no tenderness or JVD. Cardiovascular: There is a regular rate and rhythm. No murmur, rub or gallop is appreciated. Respiratory: Lungs are clear to auscultation, respirations are non-labored, breath sounds are equal. No wheezes, stridor, rales, or rhonchi. Gastrointestinal: Soft, non-distended, non-tender abdomen without masses or organomegaly noted. There is no rebound or guarding present. No CVA tenderness. Musculoskeletal: Normal ROM, no tenderness. Sensation intact. Neurological: A&O x 3. CN II-XII intact, There are no obvious motor or sensory deficits. Coordination appears grossly intact. Speech is normal. Skin: Skin is warm and dry and no rashes or lesions are noted. Psychiatric: Cooperative, appropriate mood & affect, normal judgment. Limitations: no limitations Course Vital Signs 04/07/18 16:56 Temperature 98.4 F Pulse Rate 83 Respiratory 16 Rate Blood Pressure 117/67 O2 Sat by Pulse 100 Oximetry Medical Decision Making - Medical Decision Making Patient reexamined at this time shows no signs of distress resting comfortable. His labs been reviewed. Hemoglobin is 9.9. He states he usually runs around 10. Patient's BUN/creatinine mildly elevated which is similar to previous findings. Patient's urinalysis does show greater than 180 to both red and white cells. Patient is resting, appears has no symptoms. Vital stable no fever. Case discussed with her physician Dr. Capps. Patient will be started on antibiotic of ciprofloxacin once daily and advised follow-up with oncologist, urologist, infectious disease. She was advised return to emergency room if any symptoms increase worsen. He states understanding and is in agreement. - Lab Data Result diagrams: 04/07/18 19:00 04/07/18 19:00 Lab Results 04/07/18 04/07/18 04/07/18 Range/Units 19:00 19:00 19:00 WBC 9.8 (3.8-10.6) k/uL RBC 3.65 L (4.30-5.90) m/uL Hgb 9.9 L (13.0-17.5) gm/dL Hct 30.6 L (39.0-53.0) % MCV 83.9 (80.0-100.0) fL MCH 27.1 (25.0-35.0) pg MCHC 32.3 (31.0-37.0) g/dL RDW 15.5 (11.5-15.5) % Plt Count 332 (150-450) k/uL Neutrophils % 72 % Lymphocytes % 15 % Monocytes % 8 % Eosinophils % 3 % Basophils % 0 % Neutrophils # 7.1 (1.3-7.7) k/uL Lymphocytes # 1.4 (1.0-4.8) k/uL Monocytes # 0.8 (0-1.0) k/uL Eosinophils # 0.3 (0-0.7) k/uL Basophils # 0.0 (0-0.2) k/uL Sodium 140 (137-145) mmol/L Potassium 5.7 H (3.5-5.1) mmol/L Chloride 109 H (98-107) mmol/L Carbon Dioxide 20 L (22-30) mmol/L Anion Gap 11 mmol/L BUN 33 H (9-20) mg/dL Creatinine 1.79 H (0.66-1.25) mg/dL Est GFR (CKD-EPI)AfAm 43 (>60 ml/min/1.73 sqM) Est GFR (CKD-EPI)NonAf 37 (>60 ml/min/1.73 sqM) Glucose 98 (74-99) mg/dL Calcium 9.9 (8.4-10.2) mg/dL Total Bilirubin 0.5 (0.2-1.3) mg/dL AST 26 (17-59) U/L ALT 25 (21-72) U/L Alkaline Phosphatase 104 (38-126) U/L Total Protein 7.7 (6.3-8.2) g/dL Albumin 4.2 (3.5-5.0) g/dL Urine Color Red Urine Appearance Cloudy (Clear) Urine pH 6.0 (5.0-8.0) Ur Specific Mayo 1.018 (1.001-1.035) Urine Protein 1+ H (Negative) Urine Glucose (UA) Negative (Negative) Urine Ketones Trace H (Negative) Urine Blood Large H (Negative) Urine Nitrite Negative (Negative) Urine Bilirubin Negative (Negative) Urine Urobilinogen <2.0 (<2.0) mg/dL Ur Leukocyte Esterase Large H (Negative) Urine RBC >182 H (0-5) /hpf Urine WBC >182 H (0-5) /hpf Urine WBC Clumps Many H (None) /hpf Urine Bacteria Moderate H (None) /hpf Disposition Clinical Impression: UTI (urinary tract infection), Hematuria Disposition: HOME SELF-CARE Condition: Good Instructions: Urinary Tract Infection in Men (ED) Additional Instructions: Please follow-up with your oncologist, urologist, and infectious disease doctors as discussed. Please use antibiotic as prescribed. Please return to emergency room for any other concerns or fever. Prescriptions: Ciprofloxacin HCl [Cipro] 500 mg PO DAILY #14 day Is patient prescribed a controlled substance at d/c from ED?: No Referrals: Michaelle Wang MD [Primary Care Provider] - 1-2 days Lopez Burch MD [STAFF PHYSICIAN] - 1-2 days Hemant Drake MD [STAFF PHYSICIAN] - 1-2 days Dana Capps MD [STAFF PHYSICIAN] - 1-2 days Time of Disposition: 19:55
[2018-04-07 19:24] LABS: Basophils % (A) 0 %; Eosinophils # (A) 0.3 k/uL (0-0.7); Eosinophils % (A) 3 %; HCT 30.6 % (39.0-53.0); HGB 9.9 gm/dL (13.0-17.5); Lymphocytes # (A) 1.4 k/uL (1.0-4.8); Lymphocytes % (A) 15 %; MCH 27.1 pg (25.0-35.0); MCHC 32.3 g/dL (31.0-37.0); MCV 83.9 fL (80.0-100.0); Mean Platelet Volume 7.4; Monocytes # (A) 0.8 k/uL (0-1.0); Monocytes % (A) 8 %; Neutrophils # (A) 7.1 k/uL (1.3-7.7); Neutrophils % (A) 72 %; Platelet Count 332 k/uL (150-450); RBC 3.65 m/uL (4.30-5.90); RDW 15.5 % (11.5-15.5); WBC 9.8 k/uL (3.8-10.6)
[2018-04-07 19:31] LABS: Appearance,Urine Cloudy (Clear); Bacteria,Urine Moderate /hpf; Bilirubin,Urine Negative (Negative); Blood,Urine Large (Negative); Color,Urine Red; Glucose,Urine (UA) Negative (Negative); Ketones,Urine Trace (Negative); Leukocyte Esterase,Urine Large (Negative); Nitrite,Urine Negative (Negative); Protein,Urine 1+ (Negative); RBC,Urine >182 /hpf (0-5); Specific Gravity,Urine 1.018 (1.001-1.035); Urobilinogen,Urine <2.0 mg/dL (<2.0); WBC,Urine >182 /hpf (0-5)
[2018-04-07 19:33] LABS: Albumin 4.2 g/dL (3.5-5.0); Calcium 9.9 mg/dL (8.4-10.2); Potassium 5.7 mmol/L (3.5-5.1); Total Bilirubin 0.5 mg/dL (0.2-1.3); Total Protein 7.7 g/dL (6.3-8.2)
[2018-04-07 20:14] VITALS: BP 106/53; PULSE 81; RESP 17; TEMP 98.6
== END 2018-04-07 20:15 | disposition home or self-care (01) ==
LOC: EC 16:31
DX: N39.0 Urinary tract infection, site not specified (principal); E78.5 Hyperlipidemia, unspecified; F41.9 Anxiety disorder, unspecified; Z85.46 Personal history of malignant neoplasm of prostate; Z85.528 Personal history of other malignant neoplasm of kidney; Z85.118 Personal history of other malignant neoplasm of bronchus and lung; Z85.830 Personal history of malignant neoplasm of bone; Z86.73 Personal history of transient ischemic attack (TIA), and cerebral infarction without residual deficits; Z86.14 Personal history of Methicillin resistant Staphylococcus aureus infection; Z87.891 Personal history of nicotine dependence; Z79.899 Other long term (current) drug therapy; Z91.030 Bee allergy status; Z91.041 Radiographic dye allergy status; Z91.048 Other nonmedicinal substance allergy status
CPT/HCPCS: 36415; 80053; 81001; 85025; 87040; 87086; 99284

== ENCOUNTER 2018-04-27 09:08 | Day surgery (SDC) | payer MEDICARE, OTHER ==
[~2018-04-27 09:08] MED LIST changes: -ALPRAZolam 0.25 MG TAB PO STA; -HYDROmorphone 1 MG/ML 1 ML SYRINGE IVP PRN; +SODIUM CHLORIDE 0.9% 1,000 ML in EMPTY BAG 1 BAG IV ONE
[2018-04-27 10:09] VITALS: BMI 18.5
[2018-04-27] MEDS: MIDAZOLAM 2 MG/2 ML VIAL IVP ONE ×2 (17:35→17:40)
[2018-04-27] MEDS ORDERED: LIDOCAINE 1% (PF) 10MG/ML VIAL SQ ONE (17:36)
[2018-04-27] MEDS ORDERED: IV FLUID CONTINUATION 1,000 ML IV ONE (17:39)
[2018-04-27] MEDS ORDERED: IOPAMIDOL-250 100ML BTL INTRAARTER ONE (17:53)
[2018-04-27] MEDS ORDERED: traMADol 50 MG TAB PO PRN (17:54)
[2018-04-27] MEDS ORDERED: NAPROXEN 250 MG TAB PO PRN (17:54)
[2018-04-27] MEDS ORDERED: ZANTAC PO SCH (18:00)
[2018-04-27] MEDS ORDERED: SODIUM CHLORIDE 0.9% 1,000 ML IV SCH (18:00)
[2018-04-27] MEDS ORDERED: PREDNISONE PO SCH (18:00)
[2018-04-27] MEDS ORDERED: IPRATROPIUM 0.5 MG/2.5 ML NEBU INHALATION PRN (18:41)
--- NOTE | 2018-04-27 20:04 | LTR ---
DATE OF SERVICE: April 27, 2018. Dear Dr. Up: MrLito Bradford underwent an abdominal aortogram and bilateral lower extremities runoff and he was found to have severe peripheral arterial disease with occluded bilateral SFA. He will be scheduled to undergo a LOOM CHANGER of the right and left SFA on 2 separate sessions. Thank you for allowing us to participate in his care and please do not hesitate to call us if you have any questions or concerns. Sincerely, ANTONI / CAMILLEN: [id number] /
[2018-04-27] MEDS: CALCIUM CARBONATE 500 MG CHEWABLE PO SCH (20:49)
[2018-04-27] MEDS: MECLIZINE 12.5 MG TAB PO SCH (20:49)
[2018-04-27] MEDS ORDERED: ATORVASTATIN 20 MG TAB PO SCH (21:00)
[2018-04-27] MEDS: BUDESONIDE 0.5 MG/2 ML NEBU INHALATION SCH (21:22)
[2018-04-28 07:42] VITALS: BP 130/61; RESP 18; TEMP 98.7
--- NOTE | 2018-04-28 07:53 | AN ---
ANGIOGRAPHY REPORT ABDOMINAL AORTOGRAM AND BILATERAL LOWER EXTREMITIES RUNOFF: DATE OF SERVICE: April 27, 2018. PERFORMING PHYSICIAN: Lb Pacheco MD, pharmacy technology instructor. PROCEDURE PERFORMED: 1. An abdominal aortogram. 2. Bilateral lower extremities runoff. INDICATION: This is a pleasant 73-year-old gentleman who is known to have peripheral arterial disease and unfortunately who continues to smoke with also known aortoiliac disease and fem-pop disease, came in to see me with evidence of critical limb ischemia of bilateral lower extremities. Because of that, he was scheduled to undergo an abdominal aortogram and bilateral lower extremities runoff. APPROACH: Right common femoral artery. COMPLICATION: None. LEVEL OF SEDATION: Moderate with sedation length of 15 minutes. PROCEDURE DESCRIPTION: After obtaining an informed consent, the patient was brought to cardiac lab director. The right common femoral artery was cannulated using micropuncture technique and a micropuncture wire passed easily then I placed a 5-Frisian sheath in the right common femoral artery. After that, I did an abdominal aortogram and bilateral lower extremities runoff using 5-Frisian pigtail catheter which was initially placed at the level of renal arteries and it was pulled into above the bifurcation of the aorta to right and left common iliac arteries. The procedure was completed without any complication. SELECTIVE PERIPHERAL ANGIOGRAM: 1. The aorta appeared to have mild disease only. It seems to be calcified as well. 2. Common iliac arteries: The right and left common iliac arteries appear to have mild disease only. 3. Internal iliac arteries: The right and left internal iliac arteries appeared to be occluded. 4. External iliac arteries: The right and left external iliac arteries are stented and the stents are patent. 5. Common femoral arteries: The right and left common femoral arteries are angiographically normal. 6. Profunda: The right and left profunda are patent. 7. SFA: The right SFA is occluded distally on short segment and the left SFA is occluded on long segment, extends from the ostium all the way to the popliteal. There was a stump seen on the left side. 8. Popliteal: The right and left popliteal appeared to have severe disease bilaterally. 9. Below the knee: The arteries below the knee bilaterally were poorly visualized, but there is probably 2-vessel runoff on the right side and 2-vessel runoff on the left side as well. CONCLUSION: 1. Mild aortoiliac disease. 2. Occluded right SFA on short segment and occluded left SFA on the long segment. 3. Two-vessel runoff below the knee bilaterally. POSTPROCEDURE MANAGEMENT: PEDIATRIC LICENSED PRACTICAL NURSE of the right and left SFA on 2 separate sessions. ANTONI / CAMILLEN: [id number] /
[2018-04-28] MEDS ORDERED: FORMOTEROL FUMARATE 20 MCG/2 ML NEBU INHALATION PRN (08:00)
[2018-04-28] MEDS: BUDESONIDE 0.5 MG/2 ML NEBU INHALATION SCH (08:12)
[2018-04-28 08:15] VITALS: PULSE 70
[2018-04-28] MEDS: MECLIZINE 12.5 MG TAB PO SCH (08:26)
[2018-04-28] MEDS: CALCIUM CARBONATE 500 MG CHEWABLE PO SCH (08:26)
[2018-04-28] MEDS ORDERED: FERROUS SULFATE 325 MG TAB PO SCH (09:00)
[2018-04-28] MEDS ORDERED: cefTRIAXone 2,000 MG in SODIUM CHLORIDE 0.9% 100 ML IVPB SCH (09:00)
[2018-04-28] MEDS ORDERED: ANTIBIOTIC IVPB SCH (09:00)
[2018-04-28] MEDS ORDERED: CITALOPRAM HYDROBROMIDE 20 MG TAB PO SCH (09:00)
--- NOTE | 2018-04-28 10:23 | DS ---
DISCHARGE SUMMARY ADMISSION DATE: 04/27/2018 DISCHARGE DATE: 04/28/2018 BRIEF HISTORY: This is a pleasant 73-year-old gentleman with known history of peripheral arterial disease who was diagnosed recently with critical limb ischemia by his bus washer. He does have nonhealing ulcers involving both feet. He underwent a peripheral angiogram yesterday and that revealed severe PAD with occluded bilateral superficial femoral arteries. The patient was kept overnight because the procedure was performed late yesterday and for hydration as well, in view of his low GFR. On follow up with him today, he is asymptomatic from the cardiac standpoint. The right groin which was the entry site is soft and nontender and without any bruises. The patient is going to be discharged home and I am going to follow up with him in the office next week and schedule the patient to undergo a INVENTORY TRANSCRIBER of bilateral SFA on two separate sessions. ANTONI / CHAI: [id number] /
--- NOTE | 2018-04-28 10:55 | IR ---
Fluoroscopy HISTORY: Peripheral vascular occlusive disease 1.5 minutes fluoroscopy time supplied to the referring clinician. 95 intraoperative C-arm images doc ument the procedure. See dictated report from cardiology.
[2018-04-28] MEDS ORDERED: MULTIVITAMINS, THERA 1 EACH TAB PO SCH (12:00)
[2018-05-18] MEDS ORDERED: OPDIVO IVPB SCH (09:00)
== END 2018-04-28 10:35 | disposition home or self-care (01) ==
LOC: CATHCVL 09:08 → 3OBS 09:34 → CATHCVL 04-28 10:35
PROVIDERS: ATTEND Internal Medicine Interventional Cardiology
DX: I70.245 Atherosclerosis of native arteries of left leg with ulceration of other part of foot (principal); L97.529 Non-pressure chronic ulcer of other part of left foot with unspecified severity; I70.235 Atherosclerosis of native arteries of right leg with ulceration of other part of foot; L97.519 Non-pressure chronic ulcer of other part of right foot with unspecified severity; E78.2 Mixed hyperlipidemia; I65.22 Occlusion and stenosis of left carotid artery; Z95.820 Peripheral vascular angioplasty status with implants and grafts; Z89.411 Acquired absence of right great toe; F17.290 Nicotine dependence, other tobacco product, uncomplicated; Z79.891 Long term (current) use of opiate analgesic; Z79.51 Long term (current) use of inhaled steroids; Z79.899 Other long term (current) drug therapy; Z91.09 Other allergy status, other than to drugs and biological substances
CPT/HCPCS: 94640 ×3; 36200; 75625; 75716; C1769 ×4; C1894; J2250; J0696; J2001; Q9966

== ENCOUNTER 2018-05-11 13:07 | Day surgery (SDC) | payer MEDICARE, OTHER ==
[2018-05-11 14:05] LABS: Calcium 8.6 mg/dL (8.4-10.2); Potassium 5.5 mmol/L (3.5-5.1)
[2018-05-11 14:12] LABS: Anisocytosis Slight; Basophils % (A) 0 %; Eosinophils % (A) 0 %; HCT 27.7 % (39.0-53.0); HGB 8.5 gm/dL (13.0-17.5); Hypochromasia Marked; Lymphocytes # (A) 0.5 k/uL (1.0-4.8); Lymphocytes % (A) 4 %; MCH 26.4 pg (25.0-35.0); MCHC 30.6 g/dL (31.0-37.0); MCV 86.2 fL (80.0-100.0); Mean Platelet Volume 7.4; Monocytes # (A) 0.3 k/uL (0-1.0); Monocytes % (A) 2 %; Neutrophils # (A) 13.5 k/uL (1.3-7.7); Neutrophils % (A) 94 %; Platelet Count 382 k/uL (150-450); RBC 3.21 m/uL (4.30-5.90); RDW 16.5 % (11.5-15.5); WBC 14.4 k/uL (3.8-10.6)
[2018-05-11] MEDS ORDERED: MIDAZOLAM 2 MG/2 ML VIAL IV ONE ×2 (14:35)
[2018-05-11] MEDS ORDERED: LIDOCAINE 1% INJ 10MG/ML (20 ML MDV) SQ ONE (14:40)
[2018-05-11] MEDS: HEPARIN SODIUM 1,000 UN/ML (10ML VL) IV ONE ×2 (14:43→15:20)
[2018-05-11] MEDS ORDERED: HEPARIN SODIUM 1,000 UN/ML (10ML VL) IV ONE (16:12)
[2018-05-11] MEDS: NITROGLYCERIN 1000MCG/10ML SYRINGE INTRAARTER ONE ×2 (16:16→16:21)
[2018-05-11] MEDS ORDERED: niCARdipine Syringe (1,000 mcg/10 mL) INTRAARTER ONE (16:17)
[2018-05-11] MEDS ORDERED: CLOPIDOGREL 75 MG TAB PO ONE (16:45)
[2018-05-11] MEDS ORDERED: IOPAMIDOL-250 100ML BTL INTRAARTER ONE (16:56)
[2018-05-11] MEDS ORDERED: NON-FORMULARY DRUG (Ranitidine Hcl [Zantac] 150 MG) PO PRN (17:16)
[2018-05-11] MEDS ORDERED: NAPROXEN 250 MG TAB PO PRN (17:16)
[2018-05-11] MEDS ORDERED: FORMOTEROL FUMARATE 20 MCG/2 ML NEBU INHALATION PRN (17:16)
[2018-05-11] MEDS ORDERED: cefTRIAXone 2,000 MG VIAL IVPB SCH (17:30)
[2018-05-11] MEDS ORDERED: SODIUM CHLORIDE 0.9% 1,000 ML IV SCH (17:30)
[2018-05-11] MEDS ORDERED: NIVOLUMAB IV SCH (17:30)
--- NOTE | 2018-05-11 18:15 | LTR ---
May 11, 2018 To: Dr. Wang Re: Moises Bradford (49) Dear Dr. Wang, Mr. Moises Konstantinjoe underwent successful angioplasty of the right femoral artery and right iliac artery with good angiographic results and without any complication. Thank you for allowing us to participate in his care. Please do not hesitate to call with questions or concerns. Sincerely, Lb CORRALES / CAMILLEN: [phone] /
[2018-05-11] MEDS: traMADol 50 MG TAB PO PRN (18:42)
[2018-05-11] MEDS: cefTRIAXone 2,000 MG in SODIUM CHLORIDE 0.9% 100 ML IVPB SCH (18:43)
--- NOTE | 2018-05-11 19:15 | AN ---
ANGIOGRAPHY REPORT DATE OF SERVICE: May 11, 2018 PERFORMING PHYSICIAN: Lb Pacheco MD, canvas worker. PROCEDURE PERFORMED: 1. Selective right [id number] angiogram. 2. Selective right SFA and right popliteal angiogram. 3. An atherectomy of the right SFA using the TurboHawk atherectomy device. 4. Successful balloon angioplasty of the right SFA using 5 mm x 80 mm drug-coated balloon with good angiographic results. 5. Successful balloon angioplasty of the right popliteal using 5 mm x 160 mm drug- coated balloon with good angiographic results. 6. Selective right external iliac artery angiogram. 7. A gradient measurement across the right external iliac artery. 8. Successful stenting of the right external iliac artery using 8 mm x 80 mm Absolute self expandable stent with good angiographic results. 9. Selective right common iliac artery angiogram. 10.Selective left external iliac artery and left common femoral artery angiogram. INDICATION: This is a pleasant 73-year-old gentleman who sees Dr. Davalos in the office as an outpatient who was seen recently by his fpga design engineer and was diagnosed with critical limb ischemia of both knees. He does have peripheral arterial disease and he underwent an angioplasty of bilateral iliacs and bilateral SFA in the past. He underwent an abdominal aortogram and bilateral lower extremities runoff and that revealed intermediate to severe disease involving the right external iliac artery with occluded bilateral SFA. He was brought today to undergo an atherectomy and balloon angioplasty of the right iliac and right SFA. APPROACH: Left common femoral artery. COMPLICATION: None. LEVEL OF SEDATION: Moderate. SEDATION: Sedation length of 152 minutes. PROCEDURE DESCRIPTION: After obtaining an informed consent, the patient was brought to the cardiac microbiology lab manager. The left common femoral artery was cannulated using micropuncture technique, the micropuncture wire passed easily. Then I placed a 6-Hebrew sheath 11 cm in the left common femoral artery. Subsequently I did select the right SFA using an 035 stiff Glidewire with the backup support of 5-Hebrew rim catheter. I did have a hard time going up and over and I had to use a stiff Amplatzer wire to be able to. I did also use the Sonido sheath. Anticoagulation was initiated using heparin and the patient was given weight based heparin with continuous ACT monitoring throughout the procedure. After that I did exchange my 11 cm 6-Hebrew sheath into 55 cm 6-Hebrew sheath using the stiff Amplatzer wire. At that point, I did selective right [id number] angiogram, selective right SFA and popliteal angiogram. I did cross the chronic total occlusion in the right mid SFA using an 018 ho tip Glidewire with the backup support of .018 CXI catheter. After that, I did exchange my wire into 0.014 wire and I did perform a directional atherectomy using the Genia Photonicsawk atherectomy device. After that, I did balloon angioplasty using initially 4 mm AngioSculpt balloon of the right SFA. Subsequently I did balloon angioplasty of the right SFA using 5 mm x 80 mm drug-coated balloon where the balloon was positioned under fluoroscopy guidance and inflated for 3 minutes. The following angiogram showed excellent angiographic results. For the right popliteal, I did balloon angioplasty using the chocolate balloon which was 4 mm balloon before I did balloon angioplasty after that, using another drug coated balloon which was 5 x 50 mm balloon which was inflated for 3 minutes. The following angiogram showed excellent angiographic results. The lesion in the right external iliac artery was addressed angiographically. Then I did a gradient measurement across it and that came into be about 26 mmHg and because of that, I decided to stent that lesion. I did balloon angioplasty using 6 mm balloon before I deployed 8 x 80 mm absolute Pro self expandable stent where the stent was positioned under fluoroscopy guidance and deployed under fluoroscopy guidance. I post dilated the stent using 7 mm balloon. The following angiogram showed excellent angiographic results. At that point because I had a hard time turning the sheath from the left common iliac to the right common iliac, I did selective right common iliac angiogram, which did not show any dissection in the right iliac artery. Then I did by the end exchange my long sheath into a short sheath using 0.035 Glidewire before I did selective left external iliac artery and left common femoral artery angiogram. The procedure was completed without any complication. POSTPROCEDURE MANAGEMENT: 1. Dual anti-platelet therapy. 2. Risk factor modifications. 3. Follow up with the patient. MMODL / IJN: [id number] /
[2018-05-11] MEDS: IPRATROPIUM 0.5 MG/2.5 ML NEBU INHALATION PRN (19:43)
[2018-05-11] MEDS: BUDESONIDE 0.5 MG/2 ML NEBU INHALATION SCH (19:43)
[2018-05-11] MEDS ORDERED: ATROPINE SULFATE 0.1 MG/ML 10ML SYRINGE ONE (19:49)
[2018-05-11] MEDS ORDERED: ONDANSETRON 4 MG/2 ML VIAL IVP PRN (20:12)
[2018-05-11] MEDS ORDERED: Acetaminophen-Codeine 300-30mg TAB PO PRN (20:12)
[2018-05-11] MEDS: MECLIZINE 12.5 MG TAB PO SCH (20:34)
[2018-05-11] MEDS: CALCIUM CARBONATE 500 MG CHEWABLE PO SCH (20:34)
[2018-05-11] MEDS ORDERED: ATORVASTATIN 20 MG TAB PO SCH (21:00)
[2018-05-12 04:54] VITALS: TEMP 97.6
[2018-05-12] MEDS: cefTRIAXone 2,000 MG in SODIUM CHLORIDE 0.9% 100 ML IVPB SCH (08:15)
[2018-05-12] MEDS: BUDESONIDE 0.5 MG/2 ML NEBU INHALATION SCH (08:15)
[2018-05-12] MEDS: IPRATROPIUM 0.5 MG/2.5 ML NEBU INHALATION PRN (08:15)
[2018-05-12] MEDS: MECLIZINE 12.5 MG TAB PO SCH (08:28)
[2018-05-12] MEDS: traMADol 50 MG TAB PO PRN (08:28)
[2018-05-12] MEDS: CALCIUM CARBONATE 500 MG CHEWABLE PO SCH (08:28)
[2018-05-12 08:42] VITALS: BP 173/79; PULSE 80; RESP 20
--- NOTE | 2018-05-12 08:56 | IR ---
EXAMINATION TYPE: IR ship captain femoral popliteal DATE OF EXAM: 05/11/2018 COMPARISON: NONE HISTORY: Peripheral vascular occlusive disease. Fluoroscopy was provided to the referring clinician. See dictated report from cardiology.
[2018-05-12] MEDS ORDERED: FERROUS SULFATE 325 MG TAB PO SCH (09:00)
[2018-05-12] MEDS ORDERED: CITALOPRAM HYDROBROMIDE 20 MG TAB PO SCH (09:00)
[2018-05-12] MEDS ORDERED: CLOPIDOGREL 75 MG TAB PO SCH (09:00)
[2018-05-12] MEDS ORDERED: ASPIRIN 325 MG TAB PO SCH (09:00)
[2018-05-12 09:23] LABS: Anisocytosis Slight; Basophils % (A) 0 %; Eosinophils # (A) 0.1 k/uL (0-0.7); Eosinophils % (A) 1 %; HCT 26.8 % (39.0-53.0); HGB 8.3 gm/dL (13.0-17.5); Hypochromasia Moderate; Lymphocytes # (A) 0.7 k/uL (1.0-4.8); Lymphocytes % (A) 6 %; MCH 26.6 pg (25.0-35.0); MCHC 31.1 g/dL (31.0-37.0); MCV 85.6 fL (80.0-100.0); Mean Platelet Volume 6.8; Monocytes # (A) 0.4 k/uL (0-1.0); Monocytes % (A) 4 %; Neutrophils # (A) 9.6 k/uL (1.3-7.7); Neutrophils % (A) 88 %; Platelet Count 371 k/uL (150-450); RBC 3.13 m/uL (4.30-5.90); WBC 10.8 k/uL (3.8-10.6)
[2018-05-12 09:29] LABS: Calcium 8.7 mg/dL (8.4-10.2); Potassium 4.7 mmol/L (3.5-5.1)
[2018-05-12 10:04] VITALS: BMI 18.3
[2018-05-12] MEDS ORDERED: MULTIVITAMINS, THERA 1 EACH TAB PO SCH (12:00)
--- NOTE | 2018-05-12 19:40 | DS ---
DISCHARGE SUMMARY ADMISSION DATE: May 11, 2018 DISCHARGE DATE: May 12, 2018 BRIEF HISTORY: The patient is a pleasant 73-year-old gentleman who was experiencing critical limb ischemia and was admitted to the hospital and underwent successful balloon angioplasty of the right popliteal, right SFA, and right iliac artery with good angiographic results and without any complication. The procedure was performed from the left groin. Left groin is soft and nontender and without any bruises. The patient is going to be discharged home on dual anti-platelet therapy and statin and I will follow up with the patient next week in the office. MMANGELAL / IJN: [id number] /
== END 2018-05-12 10:33 | disposition home or self-care (01) ==
LOC: CATHCVL 13:07 → 6SEL 16:54 → CATHCVL 05-12 03:52 → 6SEL 05-12 03:52 → CATHCVL 05-12 10:33
PROVIDERS: ATTEND Internal Medicine Interventional Cardiology
DX: I70.213 Atherosclerosis of native arteries of extremities with intermittent claudication, bilateral legs (principal); I70.92 Chronic total occlusion of artery of the extremities; Z95.820 Peripheral vascular angioplasty status with implants and grafts; Z87.891 Personal history of nicotine dependence; E78.2 Mixed hyperlipidemia; I10 Essential (primary) hypertension; N28.9 Disorder of kidney and ureter, unspecified; Z79.51 Long term (current) use of inhaled steroids; Z79.899 Other long term (current) drug therapy; Z91.048 Other nonmedicinal substance allergy status
CPT/HCPCS: 94640 ×3; 37221; 37225; 80048 ×2; 85025 ×2; C1769 ×7; C1894 ×3; C1725 ×4; C1876; C1714; C2623 ×2; J2250; J2405; J0696 ×2; J2001; J1644; Q9966

== ENCOUNTER 2018-05-27 15:41 | Inpatient (IN) | payer MEDICARE, OTHER ==
[2018-05-27] MEDS ORDERED: SODIUM CHLORIDE 0.9% 500 ML 500 ML IV STA (16:27)
[2018-05-27] MEDS ORDERED: SODIUM CHLORIDE 0.9% 1,000 ML IV STA (16:27)
--- NOTE | 2018-05-27 17:04 | ED ---
Extremity Problem HPI - General Chief complaint: Extremity Problem,Nontraumatic Stated complaint: SOB/feet problems Time Seen by Provider: 05/27/18 15:55 Source: patient, family, RN notes reviewed, old records reviewed Mode of arrival: wheelchair Limitations: no limitations - History of Present Illness Initial comments: Patient is a 73-year-old male presents emergency department today with chief complaint of increasing shortness of breath, and also complains of infection and area of black over the left foot. Patient reports that he's had an extensive history of peripheral arterial disease. He had a recent right leg popliteal stent caffeine on last week. He subsequently had a right fifth toe removal from Dr. Up in [place]. Patient reports that he is concerned because yesterday when he sees laboratory development technician for his right foot they noticed an area of black discoloration over the left fifth metatarsal. Patient reports many of the right fifth toe amputation he was also found to have severe anemia and had blood transfusions at that time. He also had elevated potassium levels. Patient reports that he spoke to be evaluated by his rack pusher Dr. Davalos and Dr. Su. - Related Data Home Medications Medication Instructions Recorded Confirmed Atorvastatin [Lipitor] 20 mg PO HS 02/05/15 05/27/18 Meclizine [Antivert] 12.5 mg PO TID 07/30/15 05/27/18 Ferrous Sulfate [Iron (65 MG 325 mg PO DAILY 06/23/16 05/27/18 Elemental)] traMADol HCL [Ultram] 50 mg PO Q6H PRN 10/15/17 05/27/18 Multivitamins, Thera [Multivitamin 1 tab PO DAILY 04/07/18 05/27/18 (formulary)] Citalopram Hydrobromide [CeleXA] 40 mg PO DAILY 04/11/18 05/27/18 Umeclidinium Brm/Vilanterol Tr 1 puff INHALATION RT-DAILY PRN 04/26/18 05/27/18 [Anoro Ellipta 62.5-25 Mcg INH] Budesonide [Pulmicort] 0.5 mg INHALATION RT-BID 04/27/18 05/27/18 Calcium Carbonate [Calcium] 600 mg PO BID 04/27/18 05/27/18 Nivolumab [Opdivo] 480 mg IV Q28D 04/27/18 05/27/18 HYDROcodone/APAP 5-325MG [[place] 1 tab PO BID 05/27/18 05/27/18 5-325] Ibuprofen [Motrin] 800 mg PO BID PRN 05/27/18 05/27/18 Previous Rx's Medication Instructions Recorded Aspirin 325 mg PO DAILY #90 tab 05/12/18 Clopidogrel [Plavix] 75 mg PO DAILY #90 tab 05/12/18 Allergies Allergy/AdvReac Type Severity Reaction Status Date / Time venom-honey bee Allergy Unknown Rash/Hives Verified 05/27/18 16:05 [bee venom (honey bee)] Iodinated Contrast- Oral and Allergy Rash/Hives Verified 05/27/18 16:05 IV Dye [Iodinated Contrast Media - IV Dye] iodine Allergy Rash/Hives Verified 05/27/18 16:05 Review of Systems ROS Statement: Those systems with pertinent positive or pertinent negative responses have been documented in the HPI. ROS Other: All systems not noted in ROS Statement are negative. 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 , HX OF RECTAL BLEEDING AND COLONOSCOPY SHOWED PROCTITIS WITH ULCERS IN RECTUM. HAS PICC IN RIGHT ARM THAT HE IS RECEIVING ANTIBIOTIC DAILY . STATES RIGHT LITTLE TOE AMPUTATION IS STILL HEALING WITH SOME DRAINAGE, WOUND LEFT GREAT TOE, BOTH WOUNDS DAILY DRESSING. History of Any Multi-Drug Resistant Organisms: MRSA Date of last positivie culture/infection: 10/2015 MDRO Source:: little toe rt foot Past Surgical History: Prostate Surgery, Tonsillectomy Additional Past Surgical History / Comment(s): PICC LINE RT ARM 04/13/18, CATARACTS, ARTERIOGRAM. stent left iliac artery, possible 2 stents left iliac, ROBOTIC ASSISTED LAPAROSCOPIC PROSTATECTOMY WITH CHANTE PELVIC LYMPHADENECTOMY, aortogram, AMPUTATION RIGHT LITTLE TOE (DECEMBER 2017), COLONOSCOPY & EGD (04/07/18) Past Anesthesia/Blood Transfusion Reactions: No Reported Reaction Past Psychological History: Anxiety, Depression Smoking Status: Current every day smoker Past Alcohol Use History: None Reported Past Drug Use History: None Reported - Past Family History Mother Family Medical History: Myocardial Infarction ([place]) Father Family Medical History: Myocardial Infarction ([place]) General Exam - General Exam Comments Initial Comments: Asians of pleasant 73-year-old male. Alert and oriented. No significant distress. Limitations: no limitations General appearance: alert, in no apparent distress Head exam: Present: atraumatic, normocephalic, normal inspection Eye exam: Present: normal appearance ENT exam: Present: normal exam, mucous membranes moist Neck exam: Present: normal inspection. Absent: tenderness, meningismus, lymphadenopathy Respiratory exam: Present: normal lung sounds bilaterally. Absent: respiratory distress, wheezes, rales, rhonchi, stridor Cardiovascular Exam: Present: regular rate, normal rhythm, normal heart sounds. Absent: systolic murmur, diastolic murmur, rubs, gallop, clicks GI/Abdominal exam: Present: soft, normal bowel sounds. Absent: distended, tenderness, guarding, rebound, rigid Extremities exam: Present: normal inspection, full ROM, normal capillary refill. Absent: tenderness, pedal edema, joint swelling, calf tenderness Right Ankle exam: Present: normal inspection, full ROM Foot/Toe exam: Present: full ROM. Absent: normal inspection Neurovascular tendon exam: Present: pulse deficit (Unable to palpate dorsalis pedis pulse. It was obtained with Doppler ultrasound.) Gait: observed and normal 1 - amputation 2 - sutures from recent surgery 3 - 5cm area of black eschar 4 - toe is wrapped Back exam: Present: normal inspection Neurological exam: Present: alert, oriented X3, CN II-XII intact Psychiatric exam: Present: normal affect, normal mood Skin exam: Present: warm, dry, intact, normal color. Absent: rash Course Vital Signs 05/27/18 15:42 Temperature 98.1 F Pulse Rate 83 Respiratory 18 Rate Blood Pressure 156/82 O2 Sat by Pulse 100 Oximetry Medical Decision Making - Medical Decision Making 73-year-old male multiple comorbidities including prostate cancer, COPD, hyponatremia, liver disease and PAD presents today with concerns for infection over his left foot. Patient has an area of black eschar over the distal fifth metatarsal. Recently treated for osteomyelitis within the right foot and had his PICC line recently removed. At this time he also complains of shortness of breath. On his recent admission to the hospital he was having elevated potassium levels and low hemoglobin levels. He received a transfusion from [facility] when he had the right toe removed. At this time patient' s EKG that shows some pointed T waves. Potassium is elevated at 6.2. With blood cell count is mildly elevated total 0.2. Hemoglobin is 10.0. This improved from his previous. Kidney function shows BUN is 38, creatinine 1.37. GFR 52. Troponin is negative. Asians UA did show significant amount of RBCs. Patient will be admitted at this time with consults to infectious disease, Dr. Pacheco or peripheral arterial disease, and nephrology for elevated potassium and continued hematuria. Patient will be started on IV Zosyn for concern for gangrene over the right foot. - Lab Data Result diagrams: 05/27/18 16:50 05/27/18 16:50 Lab Results 05/27/18 05/27/18 05/27/18 Range/Units 16:50 16:50 16:50 WBC 12.2 H (3.8-10.6) k/uL RBC 3.71 L (4.30-5.90) m/uL Hgb 10.0 L D (13.0-17.5) gm/dL Hct 32.4 L (39.0-53.0) % MCV 87.4 (80.0-100.0) fL MCH 27.0 (25.0-35.0) pg MCHC 30.9 L (31.0-37.0) g/dL RDW 16.9 H (11.5-15.5) % Plt Count 603 H (150-450) k/uL Neutrophils % 80 % Lymphocytes % 9 % Monocytes % 8 % Eosinophils % 1 % Basophils % 1 % Neutrophils # 9.7 H (1.3-7.7) k/uL Lymphocytes # 1.1 (1.0-4.8) k/uL Monocytes # 0.9 (0-1.0) k/uL Eosinophils # 0.1 (0-0.7) k/uL Basophils # 0.1 (0-0.2) k/uL Hypochromasia Moderate Anisocytosis Slight PT (9.0-12.0) sec INR (<1.2) APTT (22.0-30.0) sec Sodium 143 (137-145) mmol/L Potassium 6.5 H* (3.5-5.1) mmol/L Chloride 116 H (98-107) mmol/L Carbon Dioxide 13 L (22-30) mmol/L Anion Gap 14 mmol/L BUN 38 H (9-20) mg/dL Creatinine 1.37 H (0.66-1.25) mg/dL Est GFR (CKD-EPI)AfAm 60 (>60 ml/min/1.73 sqM) Est GFR (CKD-EPI)NonAf 52 (>60 ml/min/1.73 sqM) Glucose 89 (74-99) mg/dL Calcium 9.1 (8.4-10.2) mg/dL Magnesium 2.2 (1.6-2.3) mg/dL Total Bilirubin 0.5 (0.2-1.3) mg/dL AST 32 (17-59) U/L ALT 23 (21-72) U/L Alkaline Phosphatase 122 (38-126) U/L Total Creatine Kinase 63 (55-170) U/L CK-MB (CK-2) 0.9 (0.0-2.4) ng/mL CK-MB (CK-2) Rel Index 1.4 Troponin I <0.012 (0.000-0.034) ng/mL Total Protein 8.0 (6.3-8.2) g/dL Albumin 4.0 (3.5-5.0) g/dL Urine Color Urine Appearance (Clear) Urine pH (5.0-8.0) Ur Specific [place] (1.001-1.035) Urine Protein (Negative) Urine Glucose (UA) (Negative) Urine Ketones (Negative) Urine Blood (Negative) Urine Nitrite (Negative) Urine Bilirubin (Negative) Urine Urobilinogen (<2.0) mg/dL Ur Leukocyte Esterase (Negative) Urine RBC (0-5) /hpf Urine WBC (0-5) /hpf Urine Yeast (Budding) (None) /hpf 05/27/18 05/27/18 Range/Units 16:50 17:35 WBC (3.8-10.6) k/uL RBC (4.30-5.90) m/uL Hgb (13.0-17.5) gm/dL Hct (39.0-53.0) % MCV (80.0-100.0) fL MCH (25.0-35.0) pg MCHC (31.0-37.0) g/dL RDW (11.5-15.5) % Plt Count (150-450) k/uL Neutrophils % % Lymphocytes % % Monocytes % % Eosinophils % % Basophils % % Neutrophils # (1.3-7.7) k/uL Lymphocytes # (1.0-4.8) k/uL Monocytes # (0-1.0) k/uL Eosinophils # (0-0.7) k/uL Basophils # (0-0.2) k/uL Hypochromasia Anisocytosis PT 10.1 (9.0-12.0) sec INR 1.0 (<1.2) APTT 24.9 (22.0-30.0) sec Sodium (137-145) mmol/L Potassium (3.5-5.1) mmol/L Chloride (98-107) mmol/L Carbon Dioxide (22-30) mmol/L Anion Gap mmol/L BUN (9-20) mg/dL Creatinine (0.66-1.25) mg/dL Est GFR (CKD-EPI)AfAm (>60 ml/min/1.73 sqM) Est GFR (CKD-EPI)NonAf (>60 ml/min/1.73 sqM) Glucose (74-99) mg/dL Calcium (8.4-10.2) mg/dL Magnesium (1.6-2.3) mg/dL Total Bilirubin (0.2-1.3) mg/dL AST (17-59) U/L ALT (21-72) U/L Alkaline Phosphatase (38-126) U/L Total Creatine Kinase (55-170) U/L CK-MB (CK-2) (0.0-2.4) ng/mL CK-MB (CK-2) Rel Index Troponin I (0.000-0.034) ng/mL Total Protein (6.3-8.2) g/dL Albumin (3.5-5.0) g/dL Urine Color Yellow Urine Appearance Clear (Clear) Urine pH 5.5 (5.0-8.0) Ur Specific [place] 1.018 (1.001-1.035) Urine Protein 1+ H (Negative) Urine Glucose (UA) Negative (Negative) Urine Ketones Negative (Negative) Urine Blood Moderate H (Negative) Urine Nitrite Negative (Negative) Urine Bilirubin Negative (Negative) Urine Urobilinogen <2.0 (<2.0) mg/dL Ur Leukocyte Esterase Moderate H (Negative) Urine RBC >182 H (0-5) /hpf Urine WBC 15 H (0-5) /hpf Urine Yeast (Budding) Many H (None) /hpf 05/27/18 17:28 EKG shows normal sinus rhythm normal EKG noted. Ventricular rate of 72 bpm. Intervals 152 ms. QRS duration is 74 ms. QT QTc is 390/435 ms. - Radiology Data Radiology results: report reviewed Erythematous aorta. No active croup on his she's been no acute changes. Bilateral for x-ray shows a petition forming of the right foot the level of the mid shaft of the fifth metatarsal. No foot fracture dislocation. The left foot shows old osteotomy of the head of the proximal phalanx of the big toe. No left foot fracture dislocation. Mild vascular calcifications. There is no evidence of osteomyelitis at this time. Disposition Clinical Impression: PAD (peripheral artery disease), Hyperkalemia, Gangrene of left foot Disposition: HOME SELF-CARE Condition: Stable Is patient prescribed a controlled substance at d/c from ED?: No Referrals: Michaelle Wang MD [Primary Care Provider] - 1-2 days Time of Disposition: 18:39
[2018-05-27 17:15] LABS: Anisocytosis Slight; Basophils # (A) 0.1 k/uL (0-0.2); Basophils % (A) 1 %; Eosinophils # (A) 0.1 k/uL (0-0.7); Eosinophils % (A) 1 %; HCT 32.4 % (39.0-53.0); Hypochromasia Moderate; Lymphocytes # (A) 1.1 k/uL (1.0-4.8); Lymphocytes % (A) 9 %; MCHC 30.9 g/dL (31.0-37.0); MCV 87.4 fL (80.0-100.0); Mean Platelet Volume 6.9; Monocytes # (A) 0.9 k/uL (0-1.0); Monocytes % (A) 8 %; Neutrophils # (A) 9.7 k/uL (1.3-7.7); Neutrophils % (A) 80 %; Platelet Count 603 k/uL (150-450); RBC 3.71 m/uL (4.30-5.90); RDW 16.9 % (11.5-15.5); WBC 12.2 k/uL (3.8-10.6)
[2018-05-27 17:26] LABS: Prothrombin Time 10.1 sec (9.0-12.0)
[2018-05-27 17:27] LABS: Partial Thromboplastin Time 24.9 sec (22.0-30.0)
[2018-05-27 17:32] LABS: Calcium 9.1 mg/dL (8.4-10.2); Magnesium 2.2 mg/dL (1.6-2.3); Total Bilirubin 0.5 mg/dL (0.2-1.3)
[2018-05-27 17:35] LABS: Potassium 6.5 mmol/L (3.5-5.1)
[2018-05-27 17:39] LABS: Creatine Kinase 63 U/L (55-170)
[2018-05-27] MEDS ORDERED: CALCIUM CHLORIDE 1,000 MG in SODIUM CHLORIDE 0.9% 100 ML IV ONE (17:42)
[2018-05-27] MEDS ORDERED: ALBUTEROL NEB (CONC) 2.5 MG/0.5 ML INHALATION ONE (17:42)
[2018-05-27] MEDS ORDERED: SODIUM POLYSTYRENE SULFONATE 15 GM/60 ML BOTTLE PO ONE (17:42)
--- NOTE | 2018-05-27 17:43 | XR ---
EXAMINATION TYPE: XR chest 2V DATE OF EXAM: 05/27/2018 COMPARISON: October 15, 2017 HISTORY: Short of breath TECHNIQUE: Frontal and lateral views of the chest are obtained. FINDINGS: There is no heart failure nor confluent pneumonic infiltrate. Costophrenic angles are deisi r. Thoracic aorta is atheromatous. There are chest leads. Bony thorax is intact. IMPRESSION: Atheromatous aorta. No active cardiopulmonary disease. No change.
--- NOTE | 2018-05-27 17:45 | XR ---
EXAMINATION TYPE: XR foot complete bilateral DATE OF EXAM: 05/27/2018 COMPARISON: NONE HISTORY: Bilateral wounds on the feet TECHNIQUE: 3 views each foot FINDINGS: There is amputation deformity of the right foot at the level of the mid shaft fifth metatar eze. I see no right foot fracture nor dislocation. Joint spaces are fairly normal. The left foot shows old osteotomy of the head of the proximal phalanx of the big toe. I see no left f oot fracture nor dislocation. There is mild vascular calcification. IMPRESSION: Findings as above. No evidence of osteomyelitis.
[2018-05-27 17:52] LABS: Creatine Kinase MB 0.9 ng/mL (0.0-2.4); Troponin I <0.012 ng/mL (0.000-0.034)
[2018-05-27 17:58] LABS: Appearance,Urine Clear (Clear); Bilirubin,Urine Negative (Negative); Blood,Urine Moderate (Negative); Budding Yeast,Urine Many /hpf; Color,Urine Yellow; Glucose,Urine (UA) Negative (Negative); Ketones,Urine Negative (Negative); Leukocyte Esterase,Urine Moderate (Negative); Nitrite,Urine Negative (Negative); PH, Urine 5.5 (5.0-8.0); Protein,Urine 1+ (Negative); RBC,Urine >182 /hpf (0-5); Specific Gravity,Urine 1.018 (1.001-1.035); Urobilinogen,Urine <2.0 mg/dL (<2.0); WBC,Urine 15 /hpf (0-5)
[2018-05-27] MEDS ORDERED: PIPERACILLIN-TAZOBACTAM 3.375 GM in DEXTROSE/WATER 1 50ML.BAG IVPB STA (18:32)
[2018-05-27] MEDS ORDERED: ACETAMINOPHEN TAB 325 MG TAB PO PRN (18:39)
[2018-05-27] MEDS ORDERED: ONDANSETRON 4 MG/2 ML VIAL IVP PRN (18:39)
[2018-05-27] MEDS ORDERED: MORPHINE SULFATE 4 MG/ML SYRINGE IV PRN (18:39)
[2018-05-27] MEDS ORDERED: NALOXONE 0.4 MG/ML 1 ML VIAL IV PRN (18:39)
[2018-05-27] MEDS ORDERED: IBUPROFEN 400 MG TAB PO PRN (18:39)
[2018-05-27] MEDS ORDERED: HYDROmorphone 1 MG/ML 1 ML SYRINGE IVP PRN (18:39)
[2018-05-27] MEDS ORDERED: LORazepam 2 MG/ML INJ IV PRN (18:39)
[2018-05-27] MEDS ORDERED: IBUPROFEN 800 MG TAB PO PRN (18:51)
--- NOTE | 2018-05-27 20:08 | ED ---
Medical Decision Making - Lab Data Result diagrams: 05/27/18 16:50 05/27/18 16:50 Lab Results 05/27/18 05/27/18 05/27/18 Range/Units 16:50 16:50 16:50 WBC 12.2 H (3.8-10.6) k/uL RBC 3.71 L (4.30-5.90) m/uL Hgb 10.0 L D (13.0-17.5) gm/dL Hct 32.4 L (39.0-53.0) % MCV 87.4 (80.0-100.0) fL MCH 27.0 (25.0-35.0) pg MCHC 30.9 L (31.0-37.0) g/dL RDW 16.9 H (11.5-15.5) % Plt Count 603 H (150-450) k/uL Neutrophils % 80 % Lymphocytes % 9 % Monocytes % 8 % Eosinophils % 1 % Basophils % 1 % Neutrophils # 9.7 H (1.3-7.7) k/uL Lymphocytes # 1.1 (1.0-4.8) k/uL Monocytes # 0.9 (0-1.0) k/uL Eosinophils # 0.1 (0-0.7) k/uL Basophils # 0.1 (0-0.2) k/uL Hypochromasia Moderate Anisocytosis Slight PT (9.0-12.0) sec INR (<1.2) APTT (22.0-30.0) sec Sodium 143 (137-145) mmol/L Potassium 6.5 H* (3.5-5.1) mmol/L Chloride 116 H (98-107) mmol/L Carbon Dioxide 13 L (22-30) mmol/L Anion Gap 14 mmol/L BUN 38 H (9-20) mg/dL Creatinine 1.37 H (0.66-1.25) mg/dL Est GFR (CKD-EPI)AfAm 60 (>60 ml/min/1.73 sqM) Est GFR (CKD-EPI)NonAf 52 (>60 ml/min/1.73 sqM) Glucose 89 (74-99) mg/dL Calcium 9.1 (8.4-10.2) mg/dL Magnesium 2.2 (1.6-2.3) mg/dL Total Bilirubin 0.5 (0.2-1.3) mg/dL AST 32 (17-59) U/L ALT 23 (21-72) U/L Alkaline Phosphatase 122 (38-126) U/L Total Creatine Kinase 63 (55-170) U/L CK-MB (CK-2) 0.9 (0.0-2.4) ng/mL CK-MB (CK-2) Rel Index 1.4 Troponin I <0.012 (0.000-0.034) ng/mL Total Protein 8.0 (6.3-8.2) g/dL Albumin 4.0 (3.5-5.0) g/dL Urine Color Urine Appearance (Clear) Urine pH (5.0-8.0) Ur Specific [place] (1.001-1.035) Urine Protein (Negative) Urine Glucose (UA) (Negative) Urine Ketones (Negative) Urine Blood (Negative) Urine Nitrite (Negative) Urine Bilirubin (Negative) Urine Urobilinogen (<2.0) mg/dL Ur Leukocyte Esterase (Negative) Urine RBC (0-5) /hpf Urine WBC (0-5) /hpf Urine Yeast (Budding) (None) /hpf 05/27/18 05/27/18 Range/Units 16:50 17:35 WBC (3.8-10.6) k/uL RBC (4.30-5.90) m/uL Hgb (13.0-17.5) gm/dL Hct (39.0-53.0) % MCV (80.0-100.0) fL MCH (25.0-35.0) pg MCHC (31.0-37.0) g/dL RDW (11.5-15.5) % Plt Count (150-450) k/uL Neutrophils % % Lymphocytes % % Monocytes % % Eosinophils % % Basophils % % Neutrophils # (1.3-7.7) k/uL Lymphocytes # (1.0-4.8) k/uL Monocytes # (0-1.0) k/uL Eosinophils # (0-0.7) k/uL Basophils # (0-0.2) k/uL Hypochromasia Anisocytosis PT 10.1 (9.0-12.0) sec INR 1.0 (<1.2) APTT 24.9 (22.0-30.0) sec Sodium (137-145) mmol/L Potassium (3.5-5.1) mmol/L Chloride (98-107) mmol/L Carbon Dioxide (22-30) mmol/L Anion Gap mmol/L BUN (9-20) mg/dL Creatinine (0.66-1.25) mg/dL Est GFR (CKD-EPI)AfAm (>60 ml/min/1.73 sqM) Est GFR (CKD-EPI)NonAf (>60 ml/min/1.73 sqM) Glucose (74-99) mg/dL Calcium (8.4-10.2) mg/dL Magnesium (1.6-2.3) mg/dL Total Bilirubin (0.2-1.3) mg/dL AST (17-59) U/L ALT (21-72) U/L Alkaline Phosphatase (38-126) U/L Total Creatine Kinase (55-170) U/L CK-MB (CK-2) (0.0-2.4) ng/mL CK-MB (CK-2) Rel Index Troponin I (0.000-0.034) ng/mL Total Protein (6.3-8.2) g/dL Albumin (3.5-5.0) g/dL Urine Color Yellow Urine Appearance Clear (Clear) Urine pH 5.5 (5.0-8.0) Ur Specific [place] 1.018 (1.001-1.035) Urine Protein 1+ H (Negative) Urine Glucose (UA) Negative (Negative) Urine Ketones Negative (Negative) Urine Blood Moderate H (Negative) Urine Nitrite Negative (Negative) Urine Bilirubin Negative (Negative) Urine Urobilinogen <2.0 (<2.0) mg/dL Ur Leukocyte Esterase Moderate H (Negative) Urine RBC >182 H (0-5) /hpf Urine WBC 15 H (0-5) /hpf Urine Yeast (Budding) Many H (None) /hpf Disposition Clinical Impression: PAD (peripheral artery disease), Hyperkalemia, Gangrene of left foot Disposition: ADMITTED IP TO THIS [facility] Condition: Stable Referrals: Michaelle Wang MD [Primary Care Provider] - 1-2 days
[2018-05-27 22:30] VITALS: BMI 19.1
[2018-05-27] MEDS: HYDROcodone/APAP 5-325MG 1 EACH TAB PO SCH (23:35)
[2018-05-27] MEDS: ATORVASTATIN 20 MG TAB PO SCH (23:36)
[2018-05-27] MEDS: CALCIUM CARBONATE 500 MG CHEWABLE PO SCH (23:36)
[2018-05-27] MEDS: SODIUM CHLORIDE 0.9% 1,000 ML IV SCH (23:36)
[2018-05-27] MEDS: MECLIZINE 12.5 MG TAB PO SCH (23:36)
[2018-05-27] MEDS: BUDESONIDE 0.5 MG/2 ML NEBU INHALATION SCH (23:36)
[2018-05-28] MEDS: SODIUM CHLORIDE 0.9% 1,000 ML IV SCH ×2 (05:17→16:43)
[2018-05-28] MEDS: IPRATROPIUM 0.5 MG/2.5 ML NEBU INHALATION PRN ×2 (07:06→19:06)
[2018-05-28] MEDS: BUDESONIDE 0.5 MG/2 ML NEBU INHALATION SCH ×2 (07:06→19:06)
[2018-05-28] MEDS: FORMOTEROL FUMARATE 20 MCG/2 ML NEBU INHALATION PRN ×2 (07:07→19:06)
[2018-05-28 07:53] LABS: Anisocytosis Slight; Basophils # (A) 0.1 k/uL (0-0.2); Basophils % (A) 1 %; Eosinophils # (A) 0.1 k/uL (0-0.7); Eosinophils % (A) 1 %; HCT 21.4 % (39.0-53.0); Hypochromasia Moderate; Lymphocytes % (A) 10 %; MCH 27.9 pg (25.0-35.0); MCHC 32.3 g/dL (31.0-37.0); MCV 86.6 fL (80.0-100.0); Mean Platelet Volume 6.7; Monocytes # (A) 0.8 k/uL (0-1.0); Monocytes % (A) 7 %; Neutrophils # (A) 8.2 k/uL (1.3-7.7); Neutrophils % (A) 80 %; Platelet Count 451 k/uL (150-450); RBC 2.47 m/uL (4.30-5.90); WBC 10.3 k/uL (3.8-10.6)
[2018-05-28 08:07] LABS: Albumin 2.8 g/dL (3.5-5.0); HGB 6.9 gm/dL (13.0-17.5); Potassium 5.8 mmol/L (3.5-5.1); Total Bilirubin 0.2 mg/dL (0.2-1.3); Total Protein 5.9 g/dL (6.3-8.2)
[2018-05-28] MEDS: CALCIUM CARBONATE 500 MG CHEWABLE PO SCH ×2 (09:41→21:21)
[2018-05-28] MEDS: MECLIZINE 12.5 MG TAB PO SCH ×3 (09:41→21:21)
[2018-05-28] MEDS: CITALOPRAM HYDROBROMIDE 20 MG TAB PO SCH (09:41)
[2018-05-28] MEDS: FERROUS SULFATE 325 MG TAB PO SCH (09:41)
[2018-05-28] MEDS: HYDROcodone/APAP 5-325MG 1 EACH TAB PO SCH ×2 (09:41→21:32)
[2018-05-28] MEDS: PANTOPRAZOLE 40 MG/10 ML VIAL IV SCH (09:43)
[2018-05-28] MEDS: CLOPIDOGREL 75 MG TAB PO SCH (11:35)
[2018-05-28] MEDS: ASPIRIN 325 MG TAB PO SCH (11:35)
[2018-05-28] MEDS: MULTIVITAMINS, THERA 1 EACH TAB PO SCH (11:37)
--- NOTE | 2018-05-28 11:43 | P.CRDCN ---
History of Present Illness Consult date: 05/28/18 Chief complaint: Shortness of breath History of present illness: This is a pleasant 73-year-old gentleman who sees Dr. Davalos in the office as an outpatient and I see the patient as well as regarding peripheral arterial disease. He does have severe occlusive peripheral arterial disease where he underwent in 2016 bilateral iliac stenting and bilateral SFA angioplasty. The patient was sent back to see me few weeks ago by his dry end operator after he was diagnosed was critical limb ischemia of bilateral legs. He did develop ulcers on both feet. Because of that I did perform an abdominal aortogram and bilateral lower extremities runoff which showed severe bilateral iliac disease and severe bilateral SFA disease. Last week he underwent successful crossing chronic total occlusion of the right popliteal, successful atherectomy and balloon angioplasty of the right SFA, unsuccessful stenting of the right iliac artery. After that he underwent amputation of the right toe by Dr. Up his dry end operator. After the surgery was performed the patient received 2 units of packed RBC because his hemoglobin was severely low. He presented to the hospital here complaining of shortness of breath. No chest pain or chest discomfort. Beside that he developed a new ulcer on the bottom of the left big toe. He was found to be severe anemic with a hemoglobin of 6.9. The creatinine also is slightly elevated and the potassium is slightly elevated. I recommended to continue the patient on dual antiplatelet therapy along with aspirin and Plavix. Continue monitor the hemoglobin. I recommended giving the patient 20 the packed RBC and try to get hemoglobin above 7. 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 , HX OF RECTAL BLEEDING AND COLONOSCOPY SHOWED PROCTITIS WITH ULCERS IN RECTUM. . STATES RIGHT LITTLE TOE AMPUTATION IS STILL healing still stitches in it per pt WOUND LEFT GREAT TOE, BOTH WOUNDS DAILY DRESSING. left pinky black History of Any Multi-Drug Resistant Organisms: MRSA Date of last positivie culture/infection: 10/2015 MDRO Source:: little toe rt foot Past Surgical History: Prostate Surgery, Tonsillectomy Additional Past Surgical History / Comment(s): PICC LINE RT ARM 04/13/18 has since been removed , CATARACTS, ARTERIOGRAM. stent left iliac artery, possible 2 stents left iliac, ROBOTIC ASSISTED LAPAROSCOPIC PROSTATECTOMY WITH CHANTE PELVIC LYMPHADENECTOMY, aortogram, AMPUTATION RIGHT LITTLE TOE (DECEMBER 2017), COLONOSCOPY & EGD (04/07/18) Past Anesthesia/Blood Transfusion Reactions: No Reported Reaction Past Psychological History: Anxiety, Depression Smoking Status: Current every day smoker Past Alcohol Use History: None Reported Additional Past Alcohol Use History / Comment(s): pt states smokes 1/4 ppd Past Drug Use History: None Reported - Past Family History Mother Family Medical History: Myocardial Infarction ([place]) Father Family Medical History: Myocardial Infarction ([place]) Medications and Allergies Home Medications Medication Instructions Recorded Confirmed Type Atorvastatin [Lipitor] 20 mg PO HS 02/05/15 05/27/18 History Meclizine [Antivert] 12.5 mg PO TID 07/30/15 05/27/18 History Ferrous Sulfate [Iron (65 MG 325 mg PO DAILY 06/23/16 05/27/18 History Elemental)] traMADol HCL [Ultram] 50 mg PO Q6H PRN 10/15/17 05/27/18 History Multivitamins, Thera [Multivitamin 1 tab PO DAILY 04/07/18 05/27/18 History (formulary)] Citalopram Hydrobromide [CeleXA] 40 mg PO DAILY 04/11/18 05/27/18 History Umeclidinium Brm/Vilanterol Tr 1 puff INHALATION RT-DAILY PRN 04/26/18 05/27/18 History [Anoro Ellipta 62.5-25 Mcg INH] Budesonide [Pulmicort] 0.5 mg INHALATION RT-BID 04/27/18 05/27/18 History Calcium Carbonate [Calcium] 600 mg PO BID 04/27/18 05/27/18 History Nivolumab [Opdivo] 480 mg IV Q28D 04/27/18 05/27/18 History Aspirin 325 mg PO DAILY #90 tab 05/12/18 05/27/18 Rx Clopidogrel [Plavix] 75 mg PO DAILY #90 tab 05/12/18 05/27/18 Rx HYDROcodone/APAP 5-325MG [[place] 1 tab PO BID 05/27/18 05/27/18 History 5-325] Ibuprofen [Motrin] 800 mg PO BID PRN 05/27/18 05/27/18 History Allergies Allergy/AdvReac Type Severity Reaction Status Date / Time venom-honey bee Allergy Unknown Rash/Hives Verified 05/27/18 16:05 [bee venom (honey bee)] Iodinated Contrast- Oral and Allergy Rash/Hives Verified 05/27/18 16:05 IV Dye [Iodinated Contrast Media - IV Dye] iodine Allergy Rash/Hives Verified 05/27/18 16:05 Physical Exam Vitals: Vital Signs Temp Pulse Pulse Resp BP BP Pulse Ox 05/28/18 07:24 80 05/28/18 07:16 74 05/28/18 07:10 70 05/28/18 05:42 97.5 F L 84 18 142/66 99 05/27/18 21:15 98.2 F 93 18 150/66 99 05/27/18 20:06 100 16 138/60 100 05/27/18 19:33 85 05/27/18 19:22 72 05/27/18 18:40 98.3 F 05/27/18 18:37 75 16 165/74 100 05/27/18 15:42 98.1 F 83 18 156/82 100 Intake and Output 05/27/18 05/28/18 05/28/18 22:59 06:59 14:59 Intake Total 800 Balance 800 Intake: Intake, IV Titration 500 Amount Sodium Chloride 0.9% 1, 500 000 ml @ 100 mls/hr IV . Q10H [facility] Rx#:[id number] Oral 300 Other: Voiding Method Urinal # Voids 2 # Bowel Movements 2 Weight 62 kg - Constitutional General appearance: no acute distress - Respiratory Respiratory: bilateral: diminished - Cardiovascular Rhythm: regular Heart sounds: normal: S1, S2 Results 05/28/18 07:14 05/28/18 07:14 Cardiac Enzymes 05/27/18 05/27/18 05/28/18 Range/Units 16:50 16:50 07:14 AST 32 25 (17-59) U/L CK-MB (CK-2) 0.9 (0.0-2.4) ng/mL Troponin I <0.012 (0.000-0.034) ng/mL Coagulation 05/27/18 Range/Units 16:50 PT 10.1 (9.0-12.0) sec APTT 24.9 (22.0-30.0) sec CBC 05/27/18 05/28/18 Range/Units 16:50 07:14 WBC 12.2 H 10.3 (3.8-10.6) k/uL RBC 3.71 L 2.47 L (4.30-5.90) m/uL Hgb 10.0 L D 6.9 L* D (13.0-17.5) gm/dL Hct 32.4 L 21.4 L (39.0-53.0) % Plt Count 603 H 451 H (150-450) k/uL Comprehensive Metabolic Panel 05/27/18 05/27/18 05/28/18 Range/Units 16:50 20:45 07:14 Sodium 143 141 (137-145) mmol/L Potassium 6.5 H* 5.3 H 5.8 H (3.5-5.1) mmol/L Chloride 116 H 122 H (98-107) mmol/L Carbon Dioxide 13 L 10 L (22-30) mmol/L BUN 38 H 32 H (9-20) mg/dL Creatinine 1.37 H 1.29 H (0.66-1.25) mg/dL Glucose 89 97 (74-99) mg/dL Calcium 9.1 8.0 L (8.4-10.2) mg/dL AST 32 25 (17-59) U/L ALT 23 20 L (21-72) U/L Alkaline Phosphatase 122 104 (38-126) U/L Total Protein 8.0 5.9 L (6.3-8.2) g/dL Albumin 4.0 2.8 L (3.5-5.0) g/dL Current Medications Generic Name Dose Route Start Last Admin Trade Name Freq PRN Reason Stop Dose Admin Acetaminophen 650 mg 05/27/18 18:39 Tylenol Tab PO Q6HR PRN Mild Pain or Fever > 100.5 Hydrocodone Bitart/Acetaminophen 1 each 05/27/18 21:00 05/28/18 09:41 [place] 5-325 PO 1 each BID DAVID Administration Aspirin 325 mg 05/28/18 09:00 05/28/18 11:35 Aspirin PO 325 mg DAILY [facility] Administration Atorvastatin Calcium 20 mg 05/27/18 21:00 05/27/18 23:36 Lipitor PO 20 mg HS [facility] Administration Budesonide 0.5 mg 05/27/18 20:00 05/28/18 07:06 Pulmicort INHALATION 0.5 mg RT-BID DAVID Administration Calcium Carbonate/Glycine 500 mg 05/27/18 21:00 05/28/18 09:41 Tums PO 500 mg BID [facility] Administration Citalopram Hydrobromide 40 mg 05/28/18 09:00 05/28/18 09:41 Celexa PO 40 mg DAILY [facility] Administration Clopidogrel Bisulfate 75 mg 05/28/18 09:00 05/28/18 11:35 Plavix PO 75 mg DAILY [facility] Administration Ferrous Sulfate 325 mg 05/28/18 09:00 05/28/18 09:41 Feosol PO 325 mg DAILY [facility] Administration Formoterol Fumarate 20 mcg 05/27/18 18:51 05/28/18 07:07 Perforomist INHALATION 20 mcg RT-BID PRN Administration Shortness Of Breath Hydromorphone HCl 0.5 mg 05/27/18 18:39 Dilaudid IVP Q3HR PRN Moderate Pain Sodium Chloride 1,000 mls @ 100 mls/hr 05/27/18 18:45 05/28/18 05:17 Saline 0.9% IV Not Given .Q10H [facility] Ibuprofen 400 mg 05/27/18 18:39 Motrin PO Q6HR PRN Mild Pain or Fever > 100.5 Ipratropium [place] 0.5 mg 05/27/18 20:42 05/28/18 07:06 Atrovent Nebulized INHALATION 0.5 mg RT-QID PRN Administration Shortness Of Breath Lorazepam 0.5 mg 05/27/18 18:39 Ativan IV Q6HR PRN Anxiety Meclizine HCl 12.5 mg 05/27/18 22:00 05/28/18 09:41 Antivert PO 12.5 mg TID [facility] Administration Morphine Sulfate 4 mg 05/27/18 18:39 Morphine Sulfate (Inj) IV Q4HR PRN Severe Pain Multivitamins 1 each 05/28/18 12:00 Theragran PO DAILY@1200 [facility] Naloxone HCl 0.2 mg 05/27/18 18:39 Narcan IV Q2M PRN Opioid Reversal Non-Formulary Medication 480 mg 06/21/18 09:00 Nivolumab [Opdivo] IV Q28D [facility] Ondansetron HCl 4 mg 05/27/18 18:39 Zofran IVP Q8HR PRN Nausea And Vomiting Pantoprazole Sodium 40 mg 05/28/18 09:00 05/28/18 09:43 Protonix IV 40 mg DAILY DAVID Administration Tramadol HCl 50 mg 05/27/18 18:51 Ultram PO Q6H PRN MODERATE Pain Intake and Output 05/27/18 05/28/18 05/28/18 22:59 06:59 14:59 Intake Total 800 Balance 800 Intake: Intake, IV Titration 500 Amount Sodium Chloride 0.9% 1, 500 000 ml @ 100 mls/hr IV . Q10H [facility] Rx#:[id number] Oral 300 Other: Voiding Method Urinal # Voids 2 # Bowel Movements 2 Weight 62 kg 05/28/18 07:14 05/28/18 07:14 Assessment and Plan Assessment: Assessment #1 critical limb ischemia of bilateral legs #2 occlusive peripheral tear disease #3 significant history of smoking #4 history of renal cell carcinoma #5 multiple comorbid conditions #6 anemia #7 hyperkalemia Plan #1 shortness of breath is likely secondary to anemia #2 I did recommend giving the patient one unit of packed RBC #3 avoid any further toxic medications #4 continue dual antiplatelet therapy #5 follow-up with the patient
--- NOTE | 2018-05-28 12:55 | P.HPIM ---
History of Present Illness H&P Date: 05/28/18 Moises Bradford, is a 73-year-old male presented to [facility] emergency room was a chief complaint of change in the color of his scabbed ulcers on his right foot, and complaining of shortness of breath. He was evaluated in the emergency room and was admitted to medical floor, patient has a known history of severe peripheral vascular disease, with multiple ulcers on bilateral feet, he is status post right fifth toe amputation, he also had previous history of angioplasty of the right lower extremity done by Dr. Su. He is a lifelong smoker. Patient was seen and evaluated on medical floor, he has mild shortness of breath at rest, but has worsening shortness of breath with any activity, his hemoglobin on presentation was 10.0 however hemoglobin came down to 6.9 today. Also potassium was significantly elevated on presentation at 6.5. Patient has a known history of prostate cancer he had history of prostatectomy followed by radiation therapy, he developed rectal bleeding and hematuria, he was admitted in October of this year at that time he underwent EGD and colonoscopy and had evidence of a rectal ulcer likely related to radiation therapy. Patient also has a known history of renal cell carcinoma, he is receiving chemotherapy once monthly. Patient was admitted to medical floor, consultation for infectious disease, cardiology, and nephrology were initiated. 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 , HX OF RECTAL BLEEDING AND COLONOSCOPY SHOWED PROCTITIS WITH ULCERS IN RECTUM. . STATES RIGHT LITTLE TOE AMPUTATION IS STILL healing still stitches in it per pt WOUND LEFT GREAT TOE, BOTH WOUNDS DAILY DRESSING. left pinky black History of Any Multi-Drug Resistant Organisms: MRSA Date of last positivie culture/infection: 10/2015 MDRO Source:: little toe rt foot Past Surgical History: Prostate Surgery, Tonsillectomy Additional Past Surgical History / Comment(s): PICC LINE RT ARM 04/13/18 has since been removed , CATARACTS, ARTERIOGRAM. stent left iliac artery, possible 2 stents left iliac, ROBOTIC ASSISTED LAPAROSCOPIC PROSTATECTOMY WITH CHANTE PELVIC LYMPHADENECTOMY, aortogram, AMPUTATION RIGHT LITTLE TOE (DECEMBER 2017), COLONOSCOPY & EGD (04/07/18) Past Anesthesia/Blood Transfusion Reactions: No Reported Reaction Past Psychological History: Anxiety, Depression Smoking Status: Current every day smoker Past Alcohol Use History: None Reported Additional Past Alcohol Use History / Comment(s): pt states smokes 1/4 ppd Past Drug Use History: None Reported - Past Family History Mother Family Medical History: Myocardial Infarction ([place]) Father Family Medical History: Myocardial Infarction ([place]) Medications and Allergies Home Medications Medication Instructions Recorded Confirmed Type Atorvastatin [Lipitor] 20 mg PO HS 02/05/15 05/27/18 History Meclizine [Antivert] 12.5 mg PO TID 07/30/15 05/27/18 History Ferrous Sulfate [Iron (65 MG 325 mg PO DAILY 06/23/16 05/27/18 History Elemental)] traMADol HCL [Ultram] 50 mg PO Q6H PRN 10/15/17 05/27/18 History Multivitamins, Thera [Multivitamin 1 tab PO DAILY 04/07/18 05/27/18 History (formulary)] Citalopram Hydrobromide [CeleXA] 40 mg PO DAILY 04/11/18 05/27/18 History Umeclidinium Brm/Vilanterol Tr 1 puff INHALATION RT-DAILY PRN 04/26/18 05/27/18 History [Anoro Ellipta 62.5-25 Mcg INH] Budesonide [Pulmicort] 0.5 mg INHALATION RT-BID 04/27/18 05/27/18 History Calcium Carbonate [Calcium] 600 mg PO BID 04/27/18 05/27/18 History Nivolumab [Opdivo] 480 mg IV Q28D 04/27/18 05/27/18 History Aspirin 325 mg PO DAILY #90 tab 05/12/18 05/27/18 Rx Clopidogrel [Plavix] 75 mg PO DAILY #90 tab 05/12/18 05/27/18 Rx HYDROcodone/APAP 5-325MG [[place] 1 tab PO BID 05/27/18 05/27/18 History 5-325] Ibuprofen [Motrin] 800 mg PO BID PRN 05/27/18 05/27/18 History Allergies Allergy/AdvReac Type Severity Reaction Status Date / Time venom-honey bee Allergy Unknown Rash/Hives Verified 05/27/18 16:05 [bee venom (honey bee)] Iodinated Contrast- Oral and Allergy Rash/Hives Verified 05/27/18 16:05 IV Dye [Iodinated Contrast Media - IV Dye] iodine Allergy Rash/Hives Verified 05/27/18 16:05 Physical Exam Vitals: Vital Signs Temp Pulse Pulse Resp BP BP Pulse Ox 05/28/18 08:00 84 18 05/28/18 07:24 80 05/28/18 07:16 74 05/28/18 07:10 70 05/28/18 05:42 97.5 F L 84 18 142/66 99 05/27/18 21:15 98.2 F 93 18 150/66 99 05/27/18 20:06 100 16 138/60 100 05/27/18 19:33 85 05/27/18 19:22 72 05/27/18 18:40 98.3 F 05/27/18 18:37 75 16 165/74 100 05/27/18 15:42 98.1 F 83 18 156/82 100 Intake and Output 05/27/18 05/28/18 05/28/18 22:59 06:59 14:59 Intake Total 800 Balance 800 Intake: Intake, IV Titration 500 Amount Sodium Chloride 0.9% 1, 500 000 ml @ 100 mls/hr IV . Q10H [facility] Rx#:[id number] Oral 300 Other: Voiding Method Urinal Urinal # Voids 2 # Bowel Movements 2 Weight 62 kg 62 kg In general patient is alert and oriented 3 in no apparent distress HEENT head normocephalic and atraumatic Neck is supple no JVD no goiter no lymphadenopathy Chest exam reveals a few scattered crackles no wheezing Cardiac exam reveals regular heart sounds S1 and S2 no gallops no murmurs Abdomen is soft nontender no organomegaly with normal bowel sounds Extremity exam reveals no edema no cyanosis, there is amputation of the right fifth toe, there is suture remaining in the lateral aspect of the right foot with surrounding that there is a black eschar, there is a blackish ulcer underneath the left big toe and there is a red area in the lateral aspect of the left foot beneath the left great toe. Results CBC & Chem 7: 05/28/18 07:14 05/28/18 07:14 Labs: Abnormal Lab Results - Last 24 Hours (Table) 05/27/18 05/27/18 05/27/18 Range/Units 16:50 16:50 17:35 WBC 12.2 H (3.8-10.6) k/uL RBC 3.71 L (4.30-5.90) m/uL Hgb 10.0 L D (13.0-17.5) gm/dL Hct 32.4 L (39.0-53.0) % MCHC 30.9 L (31.0-37.0) g/dL RDW 16.9 H (11.5-15.5) % Plt Count 603 H (150-450) k/uL Neutrophils # 9.7 H (1.3-7.7) k/uL Potassium 6.5 H* (3.5-5.1) mmol/L Chloride 116 H (98-107) mmol/L Carbon Dioxide 13 L (22-30) mmol/L BUN 38 H (9-20) mg/dL Creatinine 1.37 H (0.66-1.25) mg/dL Calcium (8.4-10.2) mg/dL ALT (21-72) U/L Total Protein (6.3-8.2) g/dL Albumin (3.5-5.0) g/dL Urine Protein 1+ H (Negative) Urine Blood Moderate H (Negative) Ur Leukocyte Esterase Moderate H (Negative) Urine RBC >182 H (0-5) /hpf Urine WBC 15 H (0-5) /hpf Urine Yeast (Budding) Many H (None) /hpf 05/27/18 05/28/18 05/28/18 Range/Units 20:45 07:14 07:14 WBC (3.8-10.6) k/uL RBC 2.47 L (4.30-5.90) m/uL Hgb 6.9 L* D (13.0-17.5) gm/dL Hct 21.4 L (39.0-53.0) % MCHC (31.0-37.0) g/dL RDW 17.0 H (11.5-15.5) % Plt Count 451 H (150-450) k/uL Neutrophils # 8.2 H (1.3-7.7) k/uL Potassium 5.3 H 5.8 H (3.5-5.1) mmol/L Chloride 122 H (98-107) mmol/L Carbon Dioxide 10 L (22-30) mmol/L BUN 32 H (9-20) mg/dL Creatinine 1.29 H (0.66-1.25) mg/dL Calcium 8.0 L (8.4-10.2) mg/dL ALT 20 L (21-72) U/L Total Protein 5.9 L (6.3-8.2) g/dL Albumin 2.8 L (3.5-5.0) g/dL Urine Protein (Negative) Urine Blood (Negative) Ur Leukocyte Esterase (Negative) Urine RBC (0-5) /hpf Urine WBC (0-5) /hpf Urine Yeast (Budding) (None) /hpf Thrombosis Risk Factor Assmnt - Choose All That Apply Any of the Below Risk Factors Present?: Yes Each Factor Represents 1 point: Abnormal pulmonary function (COPD), Medical pt on bed rest Other Risk Factors: Yes Each Risk Factor Represents 2 Points: Age 61-74 years, Patient confined to bed, Malignancy Other congenital or acquired thrombophilia - If yes, enter type in comment: No Thrombosis Risk Factor Assessment Total Risk Factor Score: 8 Thrombosis Risk Factor Assessment Level: High Risk Assessment and Plan Plan: #1 severe bilateral lower extremity peripheral vascular disease, patient is followed by Dr. Su he performed angioplasty on the right lower extremity #2 bilateral feet ulcer with blackish discoloration. Dr. Del Rosario consultation was requested, patient is followed by a line haul driver in [address] [place] [address] Dr. Up who performed amputation on his right fifth toe. #3 anemia, with recent history of black stools, hemoglobin is down from 10.0- 6.9 in the last 14 hours, 1 unit of red blood cell transfusion was ordered #4 underlying history of tobacco abuse #5 underlying history of prostate cancer treated with surgery and radiation therapy #6 underlying history of COPD #7 underlying history of right kidney renal cell carcinoma, treated with monthly infusion of chemotherapy, followed by Dr. Burch. #8 previous admission with rectal bleeding in October 2017 at that time patient was seen by Dr. Hannon and had evidence of rectal ulcer likely related to previous radiation therapy related to prostate cancer. At this time patient is admitted to medical floor, will monitor electrolytes closely, will monitor hemoglobin closely. We will add consultation for oncology and gastroenterology Will follow during this admission Prognosis is guarded due to multiple medical problems and severity of illness
--- NOTE | 2018-05-28 15:03 | P.NPCON ---
History of Present Illness - Reason for Consult Consult date: 05/28/18 - Chief Complaint Acute kidney injury and hyperkalemia - History of Present Illness This 73-year-old male is seen in consultation because of hyperkalemia and acute kidney injury. His potassium was 6.5 on admission with a creatinine of 1.3 His bicarb was 13 with a gap of 14 He was admitted with shortness of breath and a healing ulcer on his right foot after recent surgery at [facility] for amputation of the right fifth toe which had not healed and had to have extended to a metatarsal amputation. He denies taking any nonsteroidals although on the med list is listed as Motrin when necessary. He has had prostatectomy but has had occasionally hematuria last time it was noted about 4 days ago. No fever chills. Additionally he has had recent angioplasty of his right leg vessels on 2017. No history of GI bleed nausea vomiting diarrhea abdominal pain. Patient was not taking any Bactrim. Is known with kidney cancer stage IV with bone and lung metastases, with a computed tomography scan 01/25/2018 showing the metastatic disease. alpha-1 antitrypsin deficiency, history of rectal bleed with proctitis and ulcers in the rectum the past. His had osteomyelitis in the past and was given IV antibiotics until last few days ago. Is also known with COPD and GI bleed as mentioned above. 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 , HX OF RECTAL BLEEDING AND COLONOSCOPY SHOWED PROCTITIS WITH ULCERS IN RECTUM. . STATES RIGHT LITTLE TOE AMPUTATION IS STILL healing still stitches in it per pt WOUND LEFT GREAT TOE, BOTH WOUNDS DAILY DRESSING. left pinky black History of Any Multi-Drug Resistant Organisms: MRSA Date of last positivie culture/infection: 10/2015 MDRO Source:: little toe rt foot Past Surgical History: Prostate Surgery, Tonsillectomy Additional Past Surgical History / Comment(s): PICC LINE RT ARM 04/13/18 has since been removed , CATARACTS, ARTERIOGRAM. stent left iliac artery, possible 2 stents left iliac, ROBOTIC ASSISTED LAPAROSCOPIC PROSTATECTOMY WITH CHANTE PELVIC LYMPHADENECTOMY, aortogram, AMPUTATION RIGHT LITTLE TOE (DECEMBER 2017), COLONOSCOPY & EGD (04/07/18) Past Anesthesia/Blood Transfusion Reactions: No Reported Reaction Past Psychological History: Anxiety, Depression Smoking Status: Current every day smoker Past Alcohol Use History: None Reported Additional Past Alcohol Use History / Comment(s): pt states smokes 1/4 ppd Past Drug Use History: None Reported - Past Family History Mother Family Medical History: Myocardial Infarction (SD) Father Family Medical History: Myocardial Infarction (SD) Medications and Allergies Home Medications Medication Instructions Recorded Confirmed Type Atorvastatin [Lipitor] 20 mg PO HS 02/05/15 05/27/18 History Meclizine [Antivert] 12.5 mg PO TID 07/30/15 05/27/18 History Ferrous Sulfate [Iron (65 MG 325 mg PO DAILY 06/23/16 05/27/18 History Elemental)] traMADol HCL [Ultram] 50 mg PO Q6H PRN 10/15/17 05/27/18 History Multivitamins, Thera [Multivitamin 1 tab PO DAILY 04/07/18 05/27/18 History (formulary)] Citalopram Hydrobromide [CeleXA] 40 mg PO DAILY 04/11/18 05/27/18 History Umeclidinium Brm/Vilanterol Tr 1 puff INHALATION RT-DAILY PRN 04/26/18 05/27/18 History [Anoro Ellipta 62.5-25 Mcg INH] Budesonide [Pulmicort] 0.5 mg INHALATION RT-BID 04/27/18 05/27/18 History Calcium Carbonate [Calcium] 600 mg PO BID 04/27/18 05/27/18 History Nivolumab [Opdivo] 480 mg IV Q28D 04/27/18 05/27/18 History Aspirin 325 mg PO DAILY #90 tab 05/12/18 05/27/18 Rx Clopidogrel [Plavix] 75 mg PO DAILY #90 tab 05/12/18 05/27/18 Rx HYDROcodone/APAP 5-325MG [Gila 1 tab PO BID 05/27/18 05/27/18 History 5-325] Ibuprofen [Motrin] 800 mg PO BID PRN 05/27/18 05/27/18 History Allergies Allergy/AdvReac Type Severity Reaction Status Date / Time venom-honey bee Allergy Unknown Rash/Hives Verified 05/27/18 16:05 [bee venom (honey bee)] Iodinated Contrast- Oral and Allergy Rash/Hives Verified 05/27/18 16:05 IV Dye [Iodinated Contrast Media - IV Dye] iodine Allergy Rash/Hives Verified 05/27/18 16:05 Physical Exam Vitals: Vital Signs Temp Pulse Pulse Resp BP BP Pulse Ox 05/28/18 12:48 98.2 F 84 18 123/58 100 05/28/18 08:00 84 18 05/28/18 07:24 80 05/28/18 07:16 74 05/28/18 07:10 70 05/28/18 05:42 97.5 F L 84 18 142/66 99 05/27/18 21:15 98.2 F 93 18 150/66 99 05/27/18 20:06 100 16 138/60 100 05/27/18 19:33 85 05/27/18 19:22 72 05/27/18 18:40 98.3 F 05/27/18 18:37 75 16 165/74 100 05/27/18 15:42 98.1 F 83 18 156/82 100 Intake and Output 05/27/18 05/28/18 05/28/18 22:59 06:59 14:59 Intake Total 800 Balance 800 Intake: Intake, IV Titration 500 Amount Sodium Chloride 0.9% 1, 500 000 ml @ 100 mls/hr IV . Q10H [facility] Rx#:[id number] Oral 300 Other: Voiding Method Urinal Urinal # Voids 2 3 # Bowel Movements 2 Weight 62 kg 62 kg On examination he is somewhat cachectic looking male but seems to be comfortable. HEENT exam no JVP lymphadenopathy thyromegaly neck is supple no facial asymmetry Lungs are clear to auscultation percussion good air entry bilaterally Tones are unremarkable for any murmur rub gallop Abdomen soft nontender no masses felt Extremity exam reveals no edema The right first toe amputation and the metatarsal amputation site is clean and healing. Neurologically awake alert oriented no focal motor deficit Results - Lab Results Most recent lab results Calcium 8.0 mg/dL (8.4-10.2) L 05/28/18 07:14 Magnesium 2.2 mg/dL (1.6-2.3) 05/27/18 16:50 05/28/18 07:14 05/28/18 07:14 Assessment and Plan Assessment: Impression 1. Hyperkalemia with potassium of 6.5, with metabolic acidosis bicarb 13 and gap of 14. Creatinine is 1.37. Rule out obstructive element, he has renal cell cell CA. He might have been on Motrin which could explain the hyperkalemia , but the acidosis is out of proportion for the renal function. Additional possibilities bleeding internally with release of intracellular potassium such as in the retroperitoneal area from kidney cancer. 2. Severe anemia with hemoglobin 6.9 yesterday hemoglobin was 10 and prior to that on 05/12/2018 it was 8.3. 3. Renal tubular acidosis rule out obstruction. 4. Severe peripheral vascular disease with angioplasty 05/12/2018 on the right leg. 5. History of prostatectomy in the past. 6. Anemia multiple reasons. 7. History of COPD. Recommendation. 1. Check postvoid residual. 2. If there is no postvoid residual will obtain ultrasound of the kidney to ensure there is no hydronephrosis. 3. Start sodium bicarb 650 4 times a day for the acidosis and also to control the potassium. 4. Ensure potassium is controlled with repeat labs in the morning.. Thank you for consultation we will continue to follow closely
[2018-05-28] MEDS: SODIUM BICARBONATE TAB 650 MG TAB PO SCH ×2 (16:49→21:37)
[2018-05-28] MEDS: PIPERACILLIN-TAZOBACTAM 3.375 GM in DEXTROSE/WATER 1 50ML.BAG IVPB SCH (19:30)
[2018-05-28] MEDS: ATORVASTATIN 20 MG TAB PO SCH (21:21)
[2018-05-29] MEDS: PIPERACILLIN-TAZOBACTAM 3.375 GM in DEXTROSE/WATER 1 50ML.BAG IVPB SCH ×4 (00:40→23:21)
[2018-05-29] MEDS: SODIUM CHLORIDE 0.9% 1,000 ML IV SCH ×3 (00:40→22:43)
[2018-05-29] MEDS: PANTOPRAZOLE 40 MG/10 ML VIAL IV SCH (07:55)
[2018-05-29] MEDS: SODIUM BICARBONATE TAB 650 MG TAB PO SCH ×4 (07:55→21:48)
[2018-05-29] MEDS: CITALOPRAM HYDROBROMIDE 20 MG TAB PO SCH (07:57)
[2018-05-29] MEDS: HYDROcodone/APAP 5-325MG 1 EACH TAB PO SCH ×2 (07:57→22:46)
[2018-05-29] MEDS: CALCIUM CARBONATE 500 MG CHEWABLE PO SCH ×2 (07:57→21:48)
[2018-05-29] MEDS: CLOPIDOGREL 75 MG TAB PO SCH (07:57)
[2018-05-29] MEDS: FERROUS SULFATE 325 MG TAB PO SCH (07:57)
[2018-05-29] MEDS: ASPIRIN 325 MG TAB PO SCH (07:57)
[2018-05-29] MEDS: MECLIZINE 12.5 MG TAB PO SCH ×3 (07:57→22:42)
--- NOTE | 2018-05-29 08:06 | P.PN ---
Subjective Progress Note Date: 05/29/18 Principal diagnosis: Critical limb ischemia This is a pleasant 73-year-old gentleman who sees Dr. Davalos in the office as an outpatient and I see the patient as well as regarding peripheral arterial disease. He does have severe occlusive peripheral arterial disease where he underwent in 2016 bilateral iliac stenting and bilateral SFA angioplasty. The patient was sent back to see me few weeks ago by his room service waiter/waitress after he was diagnosed was critical limb ischemia of bilateral legs. He did develop ulcers on both feet. Because of that I did perform an abdominal aortogram and bilateral lower extremities runoff which showed severe bilateral iliac disease and severe bilateral SFA disease. Last week he underwent successful crossing chronic total occlusion of the right popliteal, successful atherectomy and balloon angioplasty of the right SFA, unsuccessful stenting of the right iliac artery. After that he underwent amputation of the right toe by Dr. Up his room service waiter/waitress. After the surgery was performed the patient received 2 units of packed RBC because his hemoglobin was severely low. He presented to the hospital here complaining of shortness of breath. No chest pain or chest discomfort. Beside that he developed a new ulcer on the bottom of the left big toe. He was found to be severe anemic with a hemoglobin of 6.9. The creatinine also is slightly elevated and the potassium is slightly elevated. The patient was given one unit of packed RBC yesterday. We don't have a CBC or BMP on him today. Also he was seen by nephrology. He is in process to be seen by the ID service. I will follow-up on the hemoglobin today. I would recommend continue dual antiplatelet therapy for now. Objective - Vital Signs Vital signs: Vital Signs Temp 96.3 F L 05/29/18 06:20 Pulse 78 05/29/18 06:20 Resp 18 05/29/18 06:20 BP 108/53 05/29/18 06:20 Pulse Ox 99 05/29/18 06:20 Intake & Output 05/28/18 05/29/18 05/29/18 18:59 06:59 18:59 Intake Total 0 660 Output Total 200 200 Balance -200 460 Weight 62 kg Intake: Intake, IV Titration 350 Amount Piperacillin-Tazobactam 3 50 .375 gm In Dextrose/Water 1 50ml.bag @ 12.5 mls/hr IVPB Q8HR [facility] Rx#: [id number] Sodium Chloride 0.9% 1, 300 000 ml @ 100 mls/hr IV . Q10H [facility] Rx#:[id number] Blood Product 0 310 Rc As-1 Unit 0 310 [id number] Output: Urine 200 200 Other: Voiding Method Urinal Urinal # Voids 3 3 # Bowel Movements 1 - Constitutional General appearance: Present: no acute distress - Respiratory Respiratory: bilateral: CTA - Cardiovascular Rhythm: regular Heart sounds: normal: S1, S2 - Labs CBC & Chem 7: 05/28/18 07:14 05/28/18 07:14 Labs: Abnormal Lab Results - Last 24 Hours (Table) 05/28/18 05/28/18 05/28/18 Range/Units 07:14 07:14 14:12 RBC 2.47 L (4.30-5.90) m/uL Hgb 6.9 L* D (13.0-17.5) gm/dL Hct 21.4 L (39.0-53.0) % RDW 17.0 H (11.5-15.5) % Plt Count 451 H (150-450) k/uL Neutrophils # 8.2 H (1.3-7.7) k/uL Potassium 5.8 H (3.5-5.1) mmol/L Chloride 122 H (98-107) mmol/L Carbon Dioxide 10 L (22-30) mmol/L BUN 32 H (9-20) mg/dL Creatinine 1.29 H (0.66-1.25) mg/dL Calcium 8.0 L (8.4-10.2) mg/dL ALT 20 L (21-72) U/L Total Protein 5.9 L (6.3-8.2) g/dL Albumin 2.8 L (3.5-5.0) g/dL Crossmatch See Detail Microbiology - Last 24 Hours (Table) 05/27/18 16:50 Blood Culture - Preliminary Blood No Growth after 24 hours Assessment and Plan Assessment: Assessment #1 critical limb ischemia of bilateral legs #2 occlusive peripheral tear disease #3 significant history of smoking #4 history of renal cell carcinoma #5 multiple comorbid conditions #6 anemia #7 hyperkalemia Plan #1 shortness of breath is likely secondary to anemia #2 I did recommend giving the patient one unit of packed RBC #3 avoid any further toxic medications #4 continue dual antiplatelet therapy #5 follow-up with the patient #6 follow-up with the ID consult.
[2018-05-29] MEDS: IPRATROPIUM 0.5 MG/2.5 ML NEBU INHALATION PRN ×2 (08:12→18:59)
[2018-05-29] MEDS: FORMOTEROL FUMARATE 20 MCG/2 ML NEBU INHALATION PRN ×2 (08:13→18:58)
[2018-05-29] MEDS: BUDESONIDE 0.5 MG/2 ML NEBU INHALATION SCH ×2 (08:13→19:01)
--- NOTE | 2018-05-29 08:32 | CONS ---
CONSULTATION DATE OF SERVICE: 05/28/2018. REASON FOR FOLLOWUP: Left big toe osteomyelitis and left foot revision, question of gangrene. HISTORY OF PRESENT ILLNESS: The patient is a 73 -year-old male who is well known to my service as the patient has been evaluated in the outpatient setting and is being treated for a left foot big toe plantar wound with secondary osteomyelitis of which culture was positive for strep. The patient has recently completed a 6-week course of IV ceftriaxone and supposed to be on oral Keflex. The patient did have revascularization surgery done on the right leg and did have an amputation of the wound on the lateral aspect of his right foot. The patient apparently has developed a lesion on his left foot lateral border that has been noticed by the on and the patient has been evaluated by Dr. Up in the outpatient setting. He did have some cultures obtained from the left big toe and he did attempt to aspirate his left foot lateral border; however, no pus was expressed out. With worsening of this the next day, the patient was advised to go to [facility] to be evaluated by his vascular surgeon with concern for possible gangrene. With these symptoms, the patient presented to the [facility] ER. The patient did have x-rays of the left foot which shows amputation deformity of the right foot. Left foot shows old osteotomy of the head of the proximal phalanx of the big toe. No fracture or dislocation. Mild vascular calcification. The patient also has a positive UA and did receive a dose of Zosyn in the ER. Subsequently the patient has been admitted to the hospital. Infectious Disease was consulted for further recommendation regarding antibiotic therapy. The patient has been evaluated by Cardiology and is recommending aspirin and Plavix at this point and no plan for any surgical intervention. REVIEW OF SYSTEMS: CONSTITUTIONAL: Positive for weakness but no high-grade fever. EYES: No complaint. ENT: No complaint. RESPIRATORY: No complaint. CARDIOVASCULAR: No complaint. GENITOURINARY: No complaint. GASTROINTESTINAL: No complaint. MUSCULOSKELETAL: As per HPI. INTEGUMENTARY: As per HPI. PSYCHOLOGICAL: No complaint. ENDOCRINE: No complaint. NEUROLOGIC: No complaint. PAST MEDICAL HISTORY: Significant for prostate cancer, hypertension, hyperlipidemia, COPD, CVA, TIA, peripheral arterial disease and osteomyelitis. PAST SURGICAL HISTORY: Positive surgery of tonsillectomy, pelvic lymphadenectomy, amputation of the right fifth toe with surgery on his left big toe. SOCIAL HISTORY: The patient is currently . Smokes about a quarter pack a day. No drinking or drug use. FAMILY HISTORY: Mother with history of NH. Father history of NH. ALLERGIES: IODINATED CONTRAST DYE. MEDICATIONS: The patient is currently on Tylenol, Noble, aspirin, Lipitor, Pulmicort, Tums, Celexa, Plavix, iron sulfate, Dilaudid, Antivert, morphine sulfate, Theragran, Narcan, Zofran, Protonix. EXAMINATION: Blood pressure 117/60 with a pulse of 79, temperature 96.9. He is 99% on room air. General description is an elderly male lying in bed in no distress. No tachypnea or accessory muscle for respiration use. HEENT: Shows pallor. No scleral icterus. Oral mucosa is dry. No pharyngeal erythema or thrush. NECK: Trachea central. No thyromegaly. LUNGS: Unlabored breathing. Clear to auscultation anteriorly. No wheeze or crackle. HEART: S1, S2. Regular rate and rhythm. ABDOMEN: Soft, no tenderness. No guarding or rigidity. EXTREMITIES: Right foot lateral border did have culture revision with no significant discoloration or any fluctuation or induration. The patient did have a chronic nonhealing wound on the plantar aspect of his left big toe. Currently with the bone exposed but no drainage. NEUROLOGICAL: Patient is awake, alert, oriented and affect normal. LABS: Hemoglobin is 10, white count 12.2. BUN of 38, creatinine 1.37. Electrolytes have been normal. Liver enzymes are normal. Urine has been positive with moderate leukocyte esterase, more than 92 WBC. Blood culture obtained currently pending. DIAGNOSTIC IMPRESSION AND PLAN: 1. Patient with chronic nonhealing wound to the left foot big toe on the plantar aspect with underlying osteomyelitis, outpatient culture positive for Staph and the patient received a 6-week course of IV ceftriaxone, currently on oral Keflex and presenting with discoloration on the lateral aspect of his left foot with concern for possible gangrene, though the features are not very specific of a gangrene. It is more likely pressure ulcer. Though the patient did have a history of a peripheral arterial disease with concern for possible ischemic lesion. 2. Positive UA with underlying urinary tract infection not entirely excluded. PLAN: 1. Local wound care to the left back to prevent with Aquacel dressing, which will be continued. 2. Navneet the area of the deformity of the left lateral foot area. 3. Zosyn 3.3 g q.8 hours. 4. Discussed further with Vascular Surgery for any plan for intervention of the left leg circulation. 5. Obtain Doppler of the left foot. 6. We will follow up on clinical condition and culture to further adjust medication if needed. Thank you for this consultation. Will follow this patient along with you. MMODL / IJN: [id number] /
[2018-05-29 09:25] LABS: Anisocytosis Slight; Basophils # (A) 0.1 k/uL (0-0.2); Basophils % (A) 1 %; Eosinophils # (A) 0.1 k/uL (0-0.7); Eosinophils % (A) 1 %; HCT 25.8 % (39.0-53.0); HGB 8.2 gm/dL (13.0-17.5); Hypochromasia Moderate; Lymphocytes # (A) 0.8 k/uL (1.0-4.8); Lymphocytes % (A) 8 %; MCH 27.5 pg (25.0-35.0); MCHC 31.6 g/dL (31.0-37.0); MCV 86.9 fL (80.0-100.0); Mean Platelet Volume 6.9; Monocytes # (A) 0.8 k/uL (0-1.0); Monocytes % (A) 8 %; Neutrophils # (A) 7.6 k/uL (1.3-7.7); Neutrophils % (A) 80 %; Platelet Count 410 k/uL (150-450); RBC 2.97 m/uL (4.30-5.90); RDW 16.7 % (11.5-15.5); WBC 9.5 k/uL (3.8-10.6)
[2018-05-29 09:42] LABS: Calcium 7.4 mg/dL (8.4-10.2); Potassium 5.1 mmol/L (3.5-5.1)
--- NOTE | 2018-05-29 10:27 | P.CONS ---
History of Present Illness - Reason for Consult Consult date: 05/29/18 Metastatic RCC. New onset anemia - History of Present Illness The patient is a 73-year-old gentleman well known to myself. He was initially seen in 03/01, when he had a computed tomography scan by his primary care physician showing lung nodules, as well as abnormality in the right kidney. A PET scan confirmed bilateral lung nodules, that were FDG positive, consistent with metastatic disease. He was also possibility of early bone disease. The PET scan was also positive in the right renal mass. The patient then underwent a biopsy of the right renal mass and 04/01, confirming renal cell cancer. The patient therefore had stage IV disease on presentation, and was started on systemic chemotherapy with oral Votrient. He had ongoing issues with tolerance, especially fatigue and diarrhea. He required dose adjustments. In early 2017, the patient developed right foot infection requiring podiatry procedures. Medication was then placed on hold. He started to show progression on CAT scan in 01/31. However at this time is still having ongoing issues with healing of his foot wounds He was therefore switched over to Opdivo. He has been tolerating this well, with most recent dose last week. The patient has severe peripheral vascular disease, and ongoing issue with port ulcers. He recently had amputation of a toe on the right. On a regular follow-up with podiatry, he was noted to have swelling with discoloration lateral and posterior to the left small toe. This developed progressive discoloration and pain over a period of about 2 days, causing patient to come to the hospital. In the hospital he was noted to have elevated potassium. Hemoglobin on admission was 10, which is close to his usual baseline. He then dropped to 6.9 on repeat draw. He therefore received 1 unit of blood, and was admitted for further management. The patient denies any obvious bleeding. Since coming to the hospital and starting antibiotics, stools have been somewhat loose and dark. However on inspection the stools were actually dark green and not black. Review of Systems Constitutional: Reports fatigue Eyes: denies blurred vision, denies pain Ears: deny: decreased hearing, ear discharge, earache, tinnitus Ears, nose, mouth and throat: Denies headache, Denies sore throat Cardiovascular: Reports decreased exercise tolerance Respiratory: Denies cough Gastrointestinal: Reports diarrhea, Denies abdominal pain, Denies nausea, Denies vomiting Genitourinary: Reports as per HPI Musculoskeletal: Reports muscle weakness, Reports shooting leg pain Musculoskeletal: left: foot swelling Integumentary: Reports as per HPI, Reports color changes, Reports foot/leg ulcers Neurological: Denies numbness, Denies weakness Psychiatric: Reports anxiety Endocrine: Reports fatigue, Denies weight change Hematologic/Lymphatic: Reports as per HPI Past Medical History Past Medical History: Cancer, COPD, CVA/TIA, GI Bleed, Hyperlipidemia, Liver Disease, Prostate Disorder, Vascular Disorder Additional Past Medical History / Comment(s): blood urine and passess blood clots at times, OSTEOMYLITIS, MONTHLY CHEMO IVPB CURRENTLY last on wednesday, VERTIGO, HX TIA X2, PAD, OSTEOPOROSIS.PROSTATE CA 2014 WITH RADIATION [place], KIDNEY CANCER (2017-STAGE 4 WITH BONE & LUNG METS) - WAS TAKING VOTRIENT CHEMO DRUG.,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 , HX OF RECTAL BLEEDING AND COLONOSCOPY SHOWED PROCTITIS WITH ULCERS IN RECTUM. . STATES RIGHT LITTLE TOE AMPUTATION IS STILL healing still stitches in it per pt WOUND LEFT GREAT TOE, BOTH WOUNDS DAILY DRESSING. left pinky black History of Any Multi-Drug Resistant Organisms: MRSA Year Discovered:: 10/2015 MDRO Source:: little toe rt foot Past Surgical History: Prostate Surgery, Tonsillectomy Additional Past Surgical History / Comment(s): PICC LINE RT ARM 04/13/18 has since been removed , CATARACTS, ARTERIOGRAM. stent left iliac artery, possible 2 stents left iliac, ROBOTIC ASSISTED LAPAROSCOPIC PROSTATECTOMY WITH CHANTE PELVIC LYMPHADENECTOMY, aortogram, AMPUTATION RIGHT LITTLE TOE (DECEMBER 2017), COLONOSCOPY & EGD (04/07/18) Past Anesthesia/Blood Transfusion Reactions: No Reported Reaction Past Psychological History: Anxiety, Depression Smoking Status: Current every day smoker Past Alcohol Use History: None Reported Additional Past Alcohol Use History / Comment(s): pt states smokes 1/4 ppd Past Drug Use History: None Reported - Past Family History Mother Family Medical History: Myocardial Infarction ([place]) Father Family Medical History: Myocardial Infarction ([place]) Medications and Allergies Home Medications Medication Instructions Recorded Confirmed Type Atorvastatin [Lipitor] 20 mg PO HS 02/05/15 05/27/18 History Meclizine [Antivert] 12.5 mg PO TID 07/30/15 05/27/18 History Ferrous Sulfate [Iron (65 MG 325 mg PO DAILY 06/23/16 05/27/18 History Elemental)] traMADol HCL [Ultram] 50 mg PO Q6H PRN 10/15/17 05/27/18 History Multivitamins, Thera [Multivitamin 1 tab PO DAILY 04/07/18 05/27/18 History (formulary)] Citalopram Hydrobromide [CeleXA] 40 mg PO DAILY 04/11/18 05/27/18 History Umeclidinium Brm/Vilanterol Tr 1 puff INHALATION RT-DAILY PRN 04/26/18 05/27/18 History [Anoro Ellipta 62.5-25 Mcg INH] Budesonide [Pulmicort] 0.5 mg INHALATION RT-BID 04/27/18 05/27/18 History Calcium Carbonate [Calcium] 600 mg PO BID 04/27/18 05/27/18 History Nivolumab [Opdivo] 480 mg IV Q28D 04/27/18 05/27/18 History Aspirin 325 mg PO DAILY #90 tab 05/12/18 05/27/18 Rx Clopidogrel [Plavix] 75 mg PO DAILY #90 tab 05/12/18 05/27/18 Rx HYDROcodone/APAP 5-325MG [[place] 1 tab PO BID 05/27/18 05/27/18 History 5-325] Ibuprofen [Motrin] 800 mg PO BID PRN 05/27/18 05/27/18 History Allergies Allergy/AdvReac Type Severity Reaction Status Date / Time venom-honey bee Allergy Unknown Rash/Hives Verified 05/27/18 16:05 [bee venom (honey bee)] Iodinated Contrast- Oral and Allergy Rash/Hives Verified 05/27/18 16:05 IV Dye [Iodinated Contrast Media - IV Dye] iodine Allergy Rash/Hives Verified 05/27/18 16:05 Physical Exam Vitals: Vital Signs Temp Pulse Pulse Resp BP BP Pulse Ox 05/29/18 08:37 78 05/29/18 08:25 74 05/29/18 08:23 94 05/29/18 08:13 80 05/29/18 06:20 96.3 F L 78 18 108/53 99 05/28/18 20:45 96.9 F L 79 18 117/60 99 05/28/18 19:29 82 05/28/18 19:18 84 05/28/18 19:07 78 100 05/28/18 19:03 98.3 F 76 16 112/59 100 05/28/18 19:01 98.3 F 76 16 112/59 100 05/28/18 16:41 98.6 F 77 18 103/53 100 05/28/18 16:11 98.2 F 72 16 120/64 100 05/28/18 16:01 98.4 F 74 16 119/61 100 05/28/18 12:48 98.2 F 84 18 123/58 100 Intake and Output 05/28/18 05/29/18 05/29/18 22:59 06:59 14:59 Intake Total 660 Output Total 200 200 Balance 460 -200 Intake: Intake, IV Titration 350 Amount Piperacillin-Tazobactam 3 50 .375 gm In Dextrose/Water 1 50ml.bag @ 12.5 mls/hr IVPB Q8HR [facility] Rx#: [id number] Sodium Chloride 0.9% 1, 300 000 ml @ 100 mls/hr IV . Q10H [facility] Rx#:[id number] Blood Product 310 Rc As-1 Unit 310 [id number] Output: Urine 200 200 Other: Voiding Method Urinal # Voids 3 # Bowel Movements 1 - Constitutional General appearance: no acute distress - EENT Eyes: EOMI, PERRLA ENT: hearing grossly normal, normal oropharynx - Neck Neck: no lymphadenopathy Thyroid: bilateral: normal size - Respiratory Respiratory: bilateral: CTA - Cardiovascular Rhythm: regular Heart sounds: normal: S1, S2 - Gastrointestinal General gastrointestinal: normal bowel sounds, soft - Integumentary Dusky coloration of distal bilateral lower extremity. Sutures in situ right foot surgical site. This appears clean. Distal left foot bandaged - Neurologic Neurologic: CNII-XII intact - Musculoskeletal Musculoskeletal: generalized weakness, strength equal bilaterally - Psychiatric Psychiatric: A&O x's 3, appropriate affect Results CBC & Chem 7: 05/29/18 08:36 05/29/18 08:36 Labs: Abnormal Lab Results - Last 24 Hours (Table) 05/28/18 05/29/18 05/29/18 Range/Units 14:12 08:36 08:36 RBC 2.97 L (4.30-5.90) m/uL Hgb 8.2 L (13.0-17.5) gm/dL Hct 25.8 L (39.0-53.0) % RDW 16.7 H (11.5-15.5) % Lymphocytes # 0.8 L (1.0-4.8) k/uL Chloride 117 H (98-107) mmol/L Carbon Dioxide 13 L (22-30) mmol/L BUN 23 H (9-20) mg/dL Creatinine 1.38 H (0.66-1.25) mg/dL Calcium 7.4 L (8.4-10.2) mg/dL Crossmatch See Detail Microbiology - Last 24 Hours (Table) 05/27/18 16:50 Blood Culture - Preliminary Blood No Growth after 24 hours Comments: foot x-ray report reviewed Chest x-ray: report reviewed Assessment and Plan (1) Anemia Narrative/Plan: The patient has had no baseline anemia, consistent with anemia of malignancy/ chronic disease with hemoglobin usually in the 10-11 range. The drop noted currently is new for him. There has been no obvious bleeding. The patient is on aspirin and Plavix, and also takes ibuprofen. Therefore blood loss anemia from the GI is a major consideration. Other possibilities include a hemolytic process due to his immunotherapy, but this is overall less likely. The patient has reduced GFR, and new inflammation later to his left foot, which are also possible factors - Agree with transfusion in the acute setting. Posttransfusion hemoglobin is stable at 8.2. Continue to monitor and transfuse for hemoglobin less than 7 - Anemia workup will be ordered. If there is no evidence of hemolysis, GI workup will be recommended Current Visit: Yes Status: Acute Code(s): D64.9 - ANEMIA, UNSPECIFIED SNOMED Code(s): 940208280 (2) Gangrene of left foot Narrative/Plan: The patient has been started on antibiotics. Defer to the admitting service and other consultants for continued management. Foot ulcers and related complications have been an ongoing problem for several months. As noted, the patient has severe underlying peripheral vascular disease. Current Visit: Yes Status: Acute Code(s): I96 - GANGRENE, NOT ELSEWHERE CLASSIFIED SNOMED Code(s): 85365891206909403 (3) Metastatic renal cell carcinoma Narrative/Plan: The patient has otherwise been tolerating his current regimen well and has been symptomatically stable. If hemolysis is ruled out, he will continue on the same regimen as an outpatient. His current regimen, specifically Opdivo, is not associated with retardation of healing, or immunosuppression Current Visit: No Status: Acute Priority: High Code(s): C64.9 - MALIGNANT NEOPLASM OF UNSP KIDNEY, EXCEPT RENAL PELVIS SNOMED Code(s): 470739094
--- NOTE | 2018-05-29 11:34 | P.PN ---
Subjective Progress Note Date: 05/29/18 Principal diagnosis: This is 73-year-old male seen in consultation because of hyperkalemia and acute kidney injury. Hyperkalemia seems to be from possible GI bleed. His hemoglobin went down from 10 on admission to 6.9. He has been transfused 1 unit of packed cells. He does admit to having dark stools. No history of obstructive symptoms of urinary tract. No history of hematuria dysuria frequency or incontinence. His potassium has been now controlled. His creatinine is stable at 1.38. Was 1.37 on admission. And in the past few months has ranged between 1.02 1.9 at its peak dated 02/14/2018 His most recent chemotherapy is oral and is opdivo, which might cause renal dysfunction He was admitted with shortness of breath and a healing ulcer on his right foot after recent surgery at [facility] for amputation of the right fifth toe which had not healed and had to have extended to a metatarsal amputation. He denies taking any nonsteroidals although on the med list is listed as Motrin when necessary. He has had prostatectomy but has had occasionally hematuria last time it was noted about 4 days ago. No fever chills. Additionally he has had recent angioplasty of his right leg vessels on 2017. No history of GI bleed nausea vomiting diarrhea abdominal pain. Patient was not taking any Bactrim. Is known with kidney cancer stage IV with bone and lung metastases, with a computed tomography scan 01/25/2018 showing the metastatic disease. alpha-1 antitrypsin deficiency, history of rectal bleed with proctitis and ulcers in the rectum the past. His had osteomyelitis in the past and was given IV antibiotics until last few days ago. Is also known with COPD and GI bleed as mentioned above. Objective - Vital Signs Vital signs: Vital Signs Temp 96.3 F L 05/29/18 06:20 Pulse 78 05/29/18 08:37 Resp 18 05/29/18 06:20 BP 108/53 05/29/18 06:20 Pulse Ox 99 05/29/18 06:20 Intake & Output 05/28/18 05/29/18 05/29/18 18:59 06:59 18:59 Intake Total 0 660 Output Total 200 200 Balance -200 460 Weight 62 kg Intake: Intake, IV Titration 350 Amount Piperacillin-Tazobactam 3 50 .375 gm In Dextrose/Water 1 50ml.bag @ 12.5 mls/hr IVPB Q8HR [facility] Rx#: [id number] Sodium Chloride 0.9% 1, 300 000 ml @ 100 mls/hr IV . Q10H [facility] Rx#:[id number] Blood Product 0 310 Rc As-1 Unit 0 310 [id number] Output: Urine 200 200 Other: Voiding Method Urinal Urinal # Voids 3 3 # Bowel Movements 1 On examination is awake alert oriented comfortable HEENT exam no JVP neck is supple no lymphadenopathy no facial asymmetry Lungs are clear to auscultation good air entry bilaterally. Heart sounds are unremarkable for any murmur rub gallop Abdomen soft nontender no masses felt no organomegaly ascites. Extremity exam reveals no edema He has a healing scar on the right lateral foot from amputation of the fifth toe. He has also on the left foot and it is bandaged. Neuro logically awake alert oriented no focal motor deficit - Labs CBC & Chem 7: 05/29/18 08:36 05/29/18 08:36 Labs: Abnormal Lab Results - Last 24 Hours (Table) 05/28/18 05/29/18 05/29/18 Range/Units 14:12 08:36 08:36 RBC 2.97 L (4.30-5.90) m/uL Hgb 8.2 L (13.0-17.5) gm/dL Hct 25.8 L (39.0-53.0) % RDW 16.7 H (11.5-15.5) % Lymphocytes # 0.8 L (1.0-4.8) k/uL Chloride 117 H (98-107) mmol/L Carbon Dioxide 13 L (22-30) mmol/L BUN 23 H (9-20) mg/dL Creatinine 1.38 H (0.66-1.25) mg/dL Calcium 7.4 L (8.4-10.2) mg/dL Crossmatch See Detail Microbiology - Last 24 Hours (Table) 05/27/18 16:50 Blood Culture - Preliminary Blood No Growth after 24 hours Assessment and Plan Assessment: Impression 1. Hyperkalemia with potassium of 6.5, with metabolic acidosis bicarb 13 and gap of 14. Creatinine is 1.37. Likely this is from GI bleeding with history of melena and hemoglobin going down. Bladder scan has ruled out obstructive element although an ultrasound has not been done yet. Also there is some questionable use of Motrin based on medications from home but patient denies it. Possibility of retroperitoneal hemorrhage needs to be considered given that he has renal cell CA 2. Acute kidney injury is ruled out as his creatinine stable. 3. Chronic kidney disease nephrosclerosis. Baseline creatinines about 1-1.3. 4. Renal cell cell CA, with metastatic disease. Most recent oral chemotherapy agent is Opdivo, can cause elevated creatinine. 2. Severe anemia with hemoglobin 6.9 yesterday hemoglobin was 10 and prior to that on 05/12/2018 it was 8.3. He has been transfused 1 unit and hemoglobin has come up to 8.2. 3. Renal tubular acidosis rule out obstruction. 4. Severe peripheral vascular disease with angioplasty 05/12/2018 on the right leg. 5. History of prostatectomy in the past. 6. Anemia multiple reasons. Likely GI bleed with history of melena 7. History of COPD. Recommendation. 1. Check postvoid residual. I need the nursing staff to call me with the results 2. If there is no postvoid residual will obtain ultrasound of the kidney to ensure there is no hydronephrosis. 3. Continue sodium bicarb 650 4 times a day for the acidosis and also to control the potassium. 4. Ensure potassium is controlled with repeat labs in the morning.. Thank you for consultation we will continue to follow closely
--- NOTE | 2018-05-29 11:35 | P.CONS ---
History of Present Illness - Reason for Consult Consult date: 05/28/18 Anemia - History of Present Illness The patient is a 73-year-old male who was admitted to the hospital because of bluish discoloration in his foot. His hemoglobin on admission was then and it dropped today to 6.9. Apparently his stools have been described as dark but there was no hematochezia or definite melena. No nausea, vomiting or hematemesis. His base normal hemoglobin is between 11 and 12. The patient received 1 unit of packed cells. Were asked to see him regarding the anemia. The patient has history of renal cell carcinoma with bone metastasis and was receiving chemotherapy. He has history of food infections and had multiple podiatry procedures and I believe his chemotherapy has been on hold. He has severe peripheral vascular disease. Had recent amputation of a toe on the right side. He denied, dysphagia, odynophagia or other alarm symptoms. No change in bowel habits or change in the color of his stools. I have performed an upper endoscopy and colonoscopy in October of this year and that showed a hiatal hernia but no ulcers or active bleeding and there was evidence of proctitis with 2 ulcers in the rectum. Review of Systems Constitutional: No history of fever, chills or unintentional weight loss Neurologic: No headaches, double vision, other sensory or motor changes Cardiopulmonary: No chest pains, shortness of breath or palpitations Gastrointestinal: See present illness above Genitourinary: No hematuria, dysuria or frequency Skin: No rashes Hematologic: No bleeding tendency Endocrine: No polyuria, polydipsia or heat or cold intolerance Musculoskeletal: 40 infections as detailed above Psychiatric: No anxiety or depression Past Medical History Past Medical History: Cancer, COPD, CVA/TIA, GI Bleed, Hyperlipidemia, Liver Disease, Prostate Disorder, Vascular Disorder Additional Past Medical History / Comment(s): blood urine and passess blood clots at times, OSTEOMYLITIS, MONTHLY CHEMO IVPB CURRENTLY last on wednesday, VERTIGO, HX TIA X2, PAD, OSTEOPOROSIS.PROSTATE CA 2014 WITH RADIATION [place], KIDNEY CANCER (2017-STAGE 4 WITH BONE & LUNG METS) - WAS TAKING VOTRIENT CHEMO DRUG.,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 , HX OF RECTAL BLEEDING AND COLONOSCOPY SHOWED PROCTITIS WITH ULCERS IN RECTUM. . STATES RIGHT LITTLE TOE AMPUTATION IS STILL healing still stitches in it per pt WOUND LEFT GREAT TOE, BOTH WOUNDS DAILY DRESSING. left pinky black History of Any Multi-Drug Resistant Organisms: MRSA Year Discovered:: 10/2015 MDRO Source:: little toe rt foot Past Surgical History: Prostate Surgery, Tonsillectomy Additional Past Surgical History / Comment(s): PICC LINE RT ARM 04/13/18 has since been removed , CATARACTS, ARTERIOGRAM. stent left iliac artery, possible 2 stents left iliac, ROBOTIC ASSISTED LAPAROSCOPIC PROSTATECTOMY WITH CHANTE PELVIC LYMPHADENECTOMY, aortogram, AMPUTATION RIGHT LITTLE TOE (DECEMBER 2017), COLONOSCOPY & EGD (04/07/18) Past Anesthesia/Blood Transfusion Reactions: No Reported Reaction Past Psychological History: Anxiety, Depression Smoking Status: Current every day smoker Past Alcohol Use History: None Reported Additional Past Alcohol Use History / Comment(s): pt states smokes 1/4 ppd Past Drug Use History: None Reported - Past Family History Mother Family Medical History: Myocardial Infarction ([place]) Father Family Medical History: Myocardial Infarction ([place]) Medications and Allergies Home Medications Medication Instructions Recorded Confirmed Type Atorvastatin [Lipitor] 20 mg PO HS 02/05/15 05/27/18 History Meclizine [Antivert] 12.5 mg PO TID 07/30/15 05/27/18 History Ferrous Sulfate [Iron (65 MG 325 mg PO DAILY 06/23/16 05/27/18 History Elemental)] traMADol HCL [Ultram] 50 mg PO Q6H PRN 10/15/17 05/27/18 History Multivitamins, Thera [Multivitamin 1 tab PO DAILY 04/07/18 05/27/18 History (formulary)] Citalopram Hydrobromide [CeleXA] 40 mg PO DAILY 04/11/18 05/27/18 History Umeclidinium Brm/Vilanterol Tr 1 puff INHALATION RT-DAILY PRN 04/26/18 05/27/18 History [Anoro Ellipta 62.5-25 Mcg INH] Budesonide [Pulmicort] 0.5 mg INHALATION RT-BID 04/27/18 05/27/18 History Calcium Carbonate [Calcium] 600 mg PO BID 04/27/18 05/27/18 History Nivolumab [Opdivo] 480 mg IV Q28D 04/27/18 05/27/18 History Aspirin 325 mg PO DAILY #90 tab 05/12/18 05/27/18 Rx Clopidogrel [Plavix] 75 mg PO DAILY #90 tab 05/12/18 05/27/18 Rx HYDROcodone/APAP 5-325MG [[place] 1 tab PO BID 05/27/18 05/27/18 History 5-325] Ibuprofen [Motrin] 800 mg PO BID PRN 05/27/18 05/27/18 History Allergies Allergy/AdvReac Type Severity Reaction Status Date / Time venom-honey bee Allergy Unknown Rash/Hives Verified 05/27/18 16:05 [bee venom (honey bee)] Iodinated Contrast- Oral and Allergy Rash/Hives Verified 05/27/18 16:05 IV Dye [Iodinated Contrast Media - IV Dye] iodine Allergy Rash/Hives Verified 05/27/18 16:05 Physical Exam Vitals: Vital Signs Temp Pulse Pulse Resp BP BP Pulse Ox 05/28/18 19:29 82 05/28/18 19:18 84 05/28/18 19:07 78 100 05/28/18 19:03 98.3 F 76 16 112/59 100 05/28/18 19:01 98.3 F 76 16 112/59 100 05/28/18 16:41 98.6 F 77 18 103/53 100 05/28/18 16:11 98.2 F 72 16 120/64 100 05/28/18 16:01 98.4 F 74 16 119/61 100 05/28/18 12:48 98.2 F 84 18 123/58 100 05/28/18 08:00 84 18 05/28/18 07:24 80 05/28/18 07:16 74 05/28/18 07:10 70 05/28/18 05:42 97.5 F L 84 18 142/66 99 Intake and Output 05/28/18 05/28/18 05/28/18 06:59 14:59 22:59 Intake Total 800 310 Output Total 200 Balance 800 110 Intake: Intake, IV Titration 500 Amount Sodium Chloride 0.9% 1, 500 000 ml @ 100 mls/hr IV . Q10H [facility] Rx#:[id number] Oral 300 Blood Product 310 Rc As-1 Unit 310 [id number] Output: Urine 200 Other: Voiding Method Urinal Urinal # Voids 2 3 # Bowel Movements 2 Weight 62 kg General: Appeared stated age, very pleasant in no acute distress Head and neck: Normocephalic and atraumatic, conjunctivae pink and sclerae not icteric, mucous membranes moist and pink. No masses in the neck or tracheal shifts Lungs: Clear to auscultation with no dullness to percussion Heart: Regular, no abnormal sounds, murmurs, gallops or friction biopsies Abdomen: Soft, no masses or organomegalies. No tenderness, guarding or rebound, bowel sounds present Extremities: Sutures right foot from recent surgery, bandage on left foot Neurologic: Alert and oriented 3, cranial nerves grossly intact, no gross sensory or motor abnormalities Results CBC & Chem 7: 05/29/18 08:36 05/29/18 08:36 Labs: Abnormal Lab Results - Last 24 Hours (Table) 05/28/18 05/28/18 05/28/18 Range/Units 07:14 07:14 14:12 RBC 2.47 L (4.30-5.90) m/uL Hgb 6.9 L* D (13.0-17.5) gm/dL Hct 21.4 L (39.0-53.0) % RDW 17.0 H (11.5-15.5) % Plt Count 451 H (150-450) k/uL Neutrophils # 8.2 H (1.3-7.7) k/uL Potassium 5.8 H (3.5-5.1) mmol/L Chloride 122 H (98-107) mmol/L Carbon Dioxide 10 L (22-30) mmol/L BUN 32 H (9-20) mg/dL Creatinine 1.29 H (0.66-1.25) mg/dL Calcium 8.0 L (8.4-10.2) mg/dL ALT 20 L (21-72) U/L Total Protein 5.9 L (6.3-8.2) g/dL Albumin 2.8 L (3.5-5.0) g/dL Crossmatch See Detail Microbiology - Last 24 Hours (Table) 05/27/18 16:50 Blood Culture - Preliminary Blood No Growth after 24 hours Assessment and Plan Assessment: Anemia with drop in hemoglobin, possibly related to upper GI source of bleeding. With his history of proctitis would keep in mind a lower GI source as well. Plan: Agree with your current management, will monitor his blood counts closely and consider an upper endoscopy on Wednesday. Additional plans based on his course and findings.
[2018-05-29] MEDS: traMADol 50 MG TAB PO PRN (12:30)
[2018-05-29] MEDS: MULTIVITAMINS, THERA 1 EACH TAB PO SCH (12:45)
--- NOTE | 2018-05-29 14:32 | P.PN ---
Subjective Progress Note Date: 05/29/18 Moises Bradford, is a 73-year-old male presented to [facility] emergency room was a chief complaint of change in the color of his scabbed ulcers on his right foot, and complaining of shortness of breath. He was evaluated in the emergency room and was admitted to medical floor, patient has a known history of severe peripheral vascular disease, with multiple ulcers on bilateral feet, he is status post right fifth toe amputation, he also had previous history of angioplasty of the right lower extremity done by Dr. Su. He is a lifelong smoker. Patient was seen and evaluated on medical floor, he has mild shortness of breath at rest, but has worsening shortness of breath with any activity, his hemoglobin on presentation was 10.0 however hemoglobin came down to 6.9 today. Also potassium was significantly elevated on presentation at 6.5. Patient has a known history of prostate cancer he had history of prostatectomy followed by radiation therapy, he developed rectal bleeding and hematuria, he was admitted in October of this year at that time he underwent EGD and colonoscopy and had evidence of a rectal ulcer likely related to radiation therapy. Patient also has a known history of renal cell carcinoma, he is receiving chemotherapy once monthly. Patient was admitted to medical floor, consultation for infectious disease, cardiology, and nephrology were initiated. On 05/29/2018 patient was seen and examined he is alert and oriented 3 in no apparent distress he denies any pain or discomfort at this time, hemoglobin is up to 8.2 after 1 unit of red blood cell transfusion potassium is down to 5.1 Clinically patient denies any fever or chills no headache or dizziness no chest pain no shortness of breath no cough no nausea or vomiting no abdominal pain no diarrhea and no urinary symptoms Objective - Vital Signs Vital signs: Vital Signs Temp 96.3 F L 05/29/18 06:20 Pulse 78 05/29/18 08:37 Resp 18 05/29/18 06:20 BP 108/53 05/29/18 06:20 Pulse Ox 99 05/29/18 06:20 Intake & Output 05/28/18 05/29/18 05/29/18 18:59 06:59 18:59 Intake Total 0 660 Output Total 200 200 Balance -200 460 Weight 62 kg Intake: Intake, IV Titration 350 Amount Piperacillin-Tazobactam 3 50 .375 gm In Dextrose/Water 1 50ml.bag @ 12.5 mls/hr IVPB Q8HR [facility] Rx#: [id number] Sodium Chloride 0.9% 1, 300 000 ml @ 100 mls/hr IV . Q10H [facility] Rx#:[id number] Blood Product 0 310 Rc As-1 Unit 0 310 [id number] Output: Urine 200 200 Other: Voiding Method Urinal Urinal # Voids 3 3 # Bowel Movements 1 - Exam In general patient is alert and oriented 3 in no apparent distress HEENT head normocephalic and atraumatic Neck is supple no JVD no goiter no lymphadenopathy Chest exam reveals a few scattered crackles no wheezing Cardiac exam reveals regular heart sounds S1 and S2 no gallops no murmurs Abdomen is soft nontender no organomegaly with normal bowel sounds Extremity exam reveals no edema no cyanosis, there is amputation of the right fifth toe, there is suture remaining in the lateral aspect of the right foot with surrounding that there is a black eschar, there is a blackish ulcer underneath the left big toe and there is a red area in the lateral aspect of the left foot beneath the left great toe. - Labs CBC & Chem 7: 05/29/18 08:36 05/29/18 08:36 Labs: Abnormal Lab Results - Last 24 Hours (Table) 05/28/18 05/29/18 05/29/18 Range/Units 14:12 08:36 08:36 RBC 2.97 L (4.30-5.90) m/uL Hgb 8.2 L (13.0-17.5) gm/dL Hct 25.8 L (39.0-53.0) % RDW 16.7 H (11.5-15.5) % Lymphocytes # 0.8 L (1.0-4.8) k/uL Chloride 117 H (98-107) mmol/L Carbon Dioxide 13 L (22-30) mmol/L BUN 23 H (9-20) mg/dL Creatinine 1.38 H (0.66-1.25) mg/dL Calcium 7.4 L (8.4-10.2) mg/dL Crossmatch See Detail Microbiology - Last 24 Hours (Table) 05/27/18 16:50 Blood Culture - Preliminary Blood No Growth after 24 hours Assessment and Plan Plan: #1 severe bilateral lower extremity peripheral vascular disease, patient is followed by Dr. Su he performed angioplasty on the right lower extremity #2 bilateral feet ulcer with blackish discoloration. Dr. Del Rosario consultation was requested, patient is followed by a supervisor laboratory animal facility in [address] [place] [address] Dr. Up who performed amputation on his right fifth toe. #3 Severe anemia with hemoglobin 6.9 yesterday hemoglobin was 10 and prior to that on 05/12/2018 it was 8.3. He has been transfused 1 unit and hemoglobin has come up to 8.2. At this time will continue to monitor hemoglobin and transfuse more red blood cells if needed Dr. Lloyd hand etcher was consulted #4 underlying history of tobacco abuse #5 underlying history of prostate cancer treated with surgery and radiation therapy #6 underlying history of COPD #7 underlying history of right kidney renal cell carcinoma, treated with monthly infusion of chemotherapy, followed by Dr. Burch. #8 previous admission with rectal bleeding in October 2017 at that time patient was seen by Dr. Lloyd and had evidence of rectal ulcer likely related to previous radiation therapy related to prostate cancer. At this time patient is admitted to medical floor, will monitor electrolytes closely, will monitor hemoglobin closely. We will add consultation for oncology and gastroenterology Will follow during this admission Prognosis is guarded due to multiple medical problems and severity of illness
--- NOTE | 2018-05-29 17:05 | US ---
EXAMINATION TYPE: US kidneys/renal and bladder DATE OF EXAM: 05/29/2018 COMPARISON:CT CLINICAL HISTORY: renal failure. EXAM MEASUREMENTS: Right Kidney: 13.4 x 6.6 x 6.9cm Left Kidney: 12.1 x 5.7 x 5.9 cm Right Kidney: No cortex sinus differentiation There does appear to be a mass at the area of the renal vein. There is mild right hydronephrosis and mild right proximal hydroureter. Grossly heterogeneous, inferior mass seen measuring 2.6 x 2.2 x 2.3cm, measures large Left Kidney: Inferior pole obscured by bowel gas, anechoic teardrop structure mid measuring 2.3 x 4. 6 x 2.4cm Bladder: wnl Bilateral Jets seen: Normal Post Void Residual: IMPRESSION: Left kidney shows a 4.6 x 2.5 cm simple cortical cyst. There is no hydronephrosis. Kidneys are enlarged. Right kidney is large and heterogeneous with hydronephrosis. 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
[2018-05-29] MEDS: ATORVASTATIN 20 MG TAB PO SCH (21:48)
--- NOTE | 2018-05-30 00:29 | PN ---
PROGRESS NOTE DATE OF SERVICE: 05/29/2018. REASON FOR FOLLOWUP: Left foot wound and cellulitis. INTERVAL HISTORY: The patient is currently afebrile. He is breathing comfortably. Denies having any chest pain, shortness of breath, cough or abdominal pain, or any worsening pain to the left foot wound area. EXAMINATION: Blood pressure is 96/64 with a pulse of 73, temperature 98.2. He is 100% on room air. General description is an elderly male lying in bed in no distress. Respiratory system unlabored breathing. Clear to auscultation anteriorly. Heart S1, S2. Regular rate and rhythm. Abdomen is soft. No tenderness. Left foot lateral border area of the erythema that seemed to have slightly decreased. No drainage. LABS: Hemoglobin 8.1, white count 9.5 with a BUN of 23, creatinine 0.38. DIAGNOSTIC IMPRESSION AND PLAN: Patient admitted to the hospital with new lesion to the left foot lateral border concerning for possible gangrene or pustule and to be evaluated by the vascular surgery. Plan at this time is to continue with Zosyn. We will discuss further with Dr. Pacheco. Local care to continue with Aquacel silver dressing. Continue supportive care. MMODL / IJN: [id number] /
[2018-05-30] MEDS: PANTOPRAZOLE 40 MG/10 ML VIAL IV SCH (07:33)
[2018-05-30] MEDS: SODIUM BICARBONATE TAB 650 MG TAB PO SCH ×4 (07:34→21:59)
[2018-05-30] MEDS: FERROUS SULFATE 325 MG TAB PO SCH (07:34)
[2018-05-30] MEDS: ASPIRIN 325 MG TAB PO SCH (07:34)
[2018-05-30] MEDS: CALCIUM CARBONATE 500 MG CHEWABLE PO SCH ×2 (07:34→21:58)
[2018-05-30] MEDS: CITALOPRAM HYDROBROMIDE 20 MG TAB PO SCH (07:34)
[2018-05-30] MEDS: PIPERACILLIN-TAZOBACTAM 3.375 GM in DEXTROSE/WATER 1 50ML.BAG IVPB SCH ×2 (07:34→15:36)
[2018-05-30] MEDS: MULTIVITAMINS, THERA 1 EACH TAB PO SCH (07:35)
[2018-05-30] MEDS: MECLIZINE 12.5 MG TAB PO SCH ×3 (07:35→21:58)
[2018-05-30] MEDS: HYDROcodone/APAP 5-325MG 1 EACH TAB PO SCH ×2 (07:35→21:59)
[2018-05-30] MEDS: CLOPIDOGREL 75 MG TAB PO SCH (07:35)
[2018-05-30] MEDS: SODIUM CHLORIDE 0.9% 1,000 ML IV SCH (07:35)
[2018-05-30] MEDS: FORMOTEROL FUMARATE 20 MCG/2 ML NEBU INHALATION PRN ×2 (09:53→19:49)
[2018-05-30] MEDS: IPRATROPIUM 0.5 MG/2.5 ML NEBU INHALATION PRN ×2 (09:53→19:49)
[2018-05-30] MEDS: BUDESONIDE 0.5 MG/2 ML NEBU INHALATION SCH ×2 (09:54→19:49)
--- NOTE | 2018-05-30 10:32 | P.PN ---
Subjective Progress Note Date: 05/30/18 Principal diagnosis: Anemia 73-year-old male with a history of renal cell prostate carcinoma on Optivo, admitted with severe anemia 6.9 bilateral lower extremity ulcerations secondary to severe bilateral lower extremity PVD maintained on aspirin Plavix. Status post recent atherectomy balloon angioplasty of the right SFA a week ago. Patient denies overt bleeding such as hematemesis hematochezia melena. EGD colonoscopy October 2017 evidence of peptic ulcer disease. 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 Receiving 1 unit of blood since admission. Present hemoglobin 8.2. Objective - Vital Signs Vital signs: Vital Signs Temp 97.5 F L 05/30/18 07:22 Pulse 72 05/30/18 10:12 Resp 14 05/30/18 07:22 BP 110/51 05/30/18 07:22 Pulse Ox 97 05/30/18 07:22 Intake & Output 05/29/18 05/30/18 05/30/18 18:59 06:59 18:59 Intake Total 350 850 Output Total 200 2050 Balance 150 -1200 Weight 62 kg Intake: Intake, IV Titration 350 850 Amount Piperacillin-Tazobactam 3 50 50 .375 gm In Dextrose/Water 1 50ml.bag @ 12.5 mls/hr IVPB Q8HR [facility] Rx#: [id number] Sodium Chloride 0.9% 1, 300 800 000 ml @ 100 mls/hr IV . Q10H [facility] Rx#:[id number] Output: Urine 200 2050 Other: Voiding Method Urinal # Voids 1 - Exam General appearance: The patient is alert, oriented, in no acute distress. HET: Head is normocephalic and atraumatic. Pupils are equal and reactive. Oropharynx is clear without lesions. Neck: Supple without lymphadenopathy. Trachea midline. Heart: S1 S2. Regular rate and rhythm. Lungs: No crackles or wheezes are heard. Abdomen: Soft, nontender, nondistended with bowel sounds. No peritoneal signs. No palpable organomegaly or masses. Extremities: . Right great toe amputation. Left great toe dressing intact. Neurological: No focal deficits. Strength and sensation are grossly intact. - Labs CBC & Chem 7: 05/29/18 08:36 05/29/18 08:36 Labs: Microbiology - Last 24 Hours (Table) 05/27/18 16:50 Blood Culture - Preliminary Blood No Growth after 48 hours Assessment and Plan Assessment: Impression: 1. Severe symptomatic normocytic hypochromic iron deficient anemia suggestive of occult GI loss but presently without overt GI bleeding. FOBT positive. 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 2. History of renal cell carcinoma and prostate carcinoma presently on immunosuppressant therapy Optivo. 3. History of severe PVD recent intervention to the right lower extremity maintained on aspirin Plavix. Recommendations: 1. Consideration for repeat endoscopy during this hospitalization for evaluation of anemia based on clinical course. Presently patient is without overt symptoms of GI bleed such as hematemesis hematochezia or melena, Dr. Menon recommends continued observance for now. Endoscopy not scheduled at this time. Hemoglobin remains stable at 8.2. 2. CBC monitoring. We'll follow closely with you. Assessment and plan of care discussed with Dr. Menon
[2018-05-30 11:06] LABS: Reticulocyte % 1.8 % (0.5-2.0)
[2018-05-30 11:46] LABS: Appearance,Urine Clear (Clear); Bacteria,Urine Rare /hpf; Bilirubin,Urine Negative (Negative); Blood,Urine Large (Negative); Color,Urine Light Yellow; Glucose,Urine (UA) Negative (Negative); Ketones,Urine Negative (Negative); Leukocyte Esterase,Urine Large (Negative); Mucus,Urine Rare /hpf; Nitrite,Urine Negative (Negative); PH, Urine 5.5 (5.0-8.0); Protein,Urine Trace (Negative); RBC,Urine 130 /hpf (0-5); Specific Gravity,Urine 1.008 (1.001-1.035); Squamous Epithelial Cell,Urine <1 /hpf (0-4); Urobilinogen,Urine <2.0 mg/dL (<2.0); WBC,Urine 16 /hpf (0-5)
[2018-05-30] MEDS: DEXTROSE 5% IN WATER 1,000 ML with SODIUM BICARB (1 MEQ/ML) 150 ML IV SCH (11:51)
--- NOTE | 2018-05-30 13:40 | P.PN ---
Subjective Progress Note Date: 05/30/18 Moises Bradford, is a 73-year-old male presented to [facility] emergency room was a chief complaint of change in the color of his scabbed ulcers on his right foot, and complaining of shortness of breath. He was evaluated in the emergency room and was admitted to medical floor, patient has a known history of severe peripheral vascular disease, with multiple ulcers on bilateral feet, he is status post right fifth toe amputation, he also had previous history of angioplasty of the right lower extremity done by Dr. Su. He is a lifelong smoker. Patient was seen and evaluated on medical floor, he has mild shortness of breath at rest, but has worsening shortness of breath with any activity, his hemoglobin on presentation was 10.0 however hemoglobin came down to 6.9 today. Also potassium was significantly elevated on presentation at 6.5. Patient has a known history of prostate cancer he had history of prostatectomy followed by radiation therapy, he developed rectal bleeding and hematuria, he was admitted in October of this year at that time he underwent EGD and colonoscopy and had evidence of a rectal ulcer likely related to radiation therapy. Patient also has a known history of renal cell carcinoma, he is receiving chemotherapy once monthly. Patient was admitted to medical floor, consultation for infectious disease, cardiology, and nephrology were initiated. On 05/29/2018 patient was seen and examined he is alert and oriented 3 in no apparent distress he denies any pain or discomfort at this time, hemoglobin is up to 8.2 after 1 unit of red blood cell transfusion potassium is down to 5.1 Clinically patient denies any fever or chills no headache or dizziness no chest pain no shortness of breath no cough no nausea or vomiting no abdominal pain no diarrhea and no urinary symptoms 05/30/2018 patient lying in bed comfortably. Patient's pain is controlled. Patient be evaluated by vascular surgery regarding gangrene on the left foot. He is on IV Zosyn. Regarding his anemia hemoglobin has increased from 6.9-8.2 after 1 unit of blood. Potassium has improved. Patient is not reporting any blood in the stool. But stool for occult blood is positive. Also urinalysis is showing evidence of blood. Patient has not visualized any blood in his urine. He denies any burning with urination. Patient denies any chest pain or shortness of breath. Denies any nausea or vomiting. Objective - Vital Signs Vital signs: Vital Signs Temp 97.5 F L 05/30/18 07:22 Pulse 72 05/30/18 10:12 Resp 14 05/30/18 07:22 BP 110/51 05/30/18 07:22 Pulse Ox 97 05/30/18 07:22 Intake & Output 05/29/18 05/30/18 05/30/18 18:59 06:59 18:59 Intake Total 350 850 Output Total 200 2050 Balance 150 -1200 Weight 62 kg Intake: Intake, IV Titration 350 850 Amount Piperacillin-Tazobactam 3 50 50 .375 gm In Dextrose/Water 1 50ml.bag @ 12.5 mls/hr IVPB Q8HR [facility] Rx#: [id number] Sodium Chloride 0.9% 1, 300 800 000 ml @ 100 mls/hr IV . Q10H [facility] Rx#:[id number] Output: Urine 200 2050 Other: Voiding Method Urinal # Voids 1 - Exam Head normocephalic Neck supple Lungs clear to auscultation bilaterally no wheezing or crackles Heart regular rate and rhythm S1-S2, no rub or gallop Abdomen is soft nontender nondistended positive bowel sounds no hepatosplenomegaly Extremities left foot lateral aspect eschar tissue. left great toe dressing intact Neuro alert and orientated to 3 - Labs CBC & Chem 7: 05/29/18 08:36 05/29/18 08:36 Labs: Abnormal Lab Results - Last 24 Hours (Table) 05/30/18 05/30/18 Range/Units 09:51 11:00 Lactate Dehydrogenase 1096 H (313-618) U/L Urine Protein Trace H (Negative) Urine Blood Large H (Negative) Ur Leukocyte Esterase Large H (Negative) Urine RBC 130 H (0-5) /hpf Urine WBC 16 H (0-5) /hpf Urine Bacteria Rare H (None) /hpf Urine Mucus Rare H (None) /hpf Microbiology - Last 24 Hours (Table) 05/27/18 16:50 Blood Culture - Preliminary Blood No Growth after 48 hours Assessment and Plan Assessment: #1 possible gangrene of the left foot: Patient currently on IV Zosyn. Infectious disease is following. Vascular surgery has been consulted for evaluation. #2 severe bilateral lower extremity peripheral vascular disease, patient is followed by Dr. Su he performed angioplasty on the right lower extremity. Maintain on aspirin and Plavix #3 patient has had recent amputation of the right fifth toe by his funeral car driver #3 Severe anemia with acute blood loss anemia and chronic anemia. Patient does have known malignancy and chronic disease as well as iron deficiency anemia. Also concerns for acute blood loss anemia due to possible GI bleed. Patient also having some blood in his urinalysis. Patient required 1 unit of blood. Patient seen by GI service awaiting their recommendations regarding a repeat EGD concerns for GI bleed. Patient also followed by hematology. #4 underlying history of tobacco abuse #5 underlying history of prostate cancer treated with surgery and radiation therapy #6 underlying history of COPD #7 underlying history of right kidney renal cell carcinoma, treated with monthly infusion of chemotherapy, followed by Dr. Burch. #8 previous admission with rectal bleeding in October 2017 at that time patient was seen by Dr. Lloyd and had evidence of rectal ulcer likely related to previous radiation therapy related to prostate cancer.3 #9 hyperkalemia resolved #10 metabolic acidosis continue sodium bicarbonate #11 chronic kidney disease, stage III #12 right sided hydronephrosis: Consult urology #14 UTI continue antibiotics. Check urine culture. GI prophylaxis Protonix and DVT prophylaxis SCDs I performed an examination of the patient and discussed their management with the physician Mechanic And Welder. I have reviewed the Physician Mechanic And Welder's notes and agree with the documented findings and plan of care
--- NOTE | 2018-05-30 13:56 | P.PN ---
Subjective Mr. Bradford is seen and examined resting comfortably in bed with family at the bedside. Past medical history significant for severe occlusive peripheral arterial disease recently diagnosed with critical limb ischemia. Last week underwent successful crossing of a chronic total occlusion of the right popliteal, successful atherectomy and balloon angioplasty of the right SFA and unsuccessful stenting of the right iliac artery. Subsequently thereafter he underwent amputation of the right fifth digit by his inventory control assistant. After that surgery he was severely anemic and required blood transfusion. He received another blood transfusion during this admission for hemoglobin of 6.9. He has been seen in consultation by GI services currently monitoring him for possible repeat endoscopy during admission. He is currently maintained on dual antiplatelet therapy. He denies symptoms of chest pain, shortness of breath, dizziness or palpitations. Blood pressure 110/51 heart rate 70 afebrile maintaining oxygen saturation on room air. Laboratory data reviewed, hemoglobin 8.2, platelets 410, potassium 5.1, sodium 138, creatinine 1.38. Objective - Vital Signs Vital signs: Vital Signs Temp 97.5 F L 05/30/18 07:22 Pulse 72 05/30/18 10:12 Resp 14 05/30/18 07:22 BP 110/51 05/30/18 07:22 Pulse Ox 97 05/30/18 07:22 Intake & Output 05/29/18 05/30/18 05/30/18 18:59 06:59 18:59 Intake Total 350 850 Output Total 200 2050 Balance 150 -1200 Weight 62 kg Intake: Intake, IV Titration 350 850 Amount Piperacillin-Tazobactam 3 50 50 .375 gm In Dextrose/Water 1 50ml.bag @ 12.5 mls/hr IVPB Q8HR [facility] Rx#: [id number] Sodium Chloride 0.9% 1, 300 800 000 ml @ 100 mls/hr IV . Q10H [facility] Rx#:[id number] Output: Urine 200 2050 Other: Voiding Method Urinal # Voids 1 - Exam GENERAL: Well-appearing, well-nourished and in no acute distress. NECK: Supple without JVD or thyromegaly. LUNGS: Breath sounds clear to auscultation bilaterally. Respiration equal and unlabored. No wheezes, rales or rhonchi. HEART: Regular rate and rhythm without murmurs, rubs or gallops. S1 and S2 heard. EXTREMITIES: Normal range of motion, no edema. No clubbing or cyanosis. Right pedal pulse palpated, left by Doppler. Right foot fifth digit removed sutures placed. Wounded noted to the lateral aspect of left foot. - Labs CBC & Chem 7: 05/29/18 08:36 05/29/18 08:36 Labs: Abnormal Lab Results - Last 24 Hours (Table) 05/30/18 05/30/18 Range/Units 09:51 11:00 Lactate Dehydrogenase 1096 H (313-618) U/L Urine Protein Trace H (Negative) Urine Blood Large H (Negative) Ur Leukocyte Esterase Large H (Negative) Urine RBC 130 H (0-5) /hpf Urine WBC 16 H (0-5) /hpf Urine Bacteria Rare H (None) /hpf Urine Mucus Rare H (None) /hpf Microbiology - Last 24 Hours (Table) 05/27/18 16:50 Blood Culture - Preliminary Blood No Growth after 48 hours Assessment and Plan Assessment: ASSESSMENT Critical limb ischemia on bilateral lower extremity Occlusive peripheral arterial disease Significant history of nicotine dependence History of renal cell carcinoma Anemia Hyperkalemia Multiple comorbid conditions PLAN Shortness of breath has resolved is most likely related to anemia. Ongoing medical management with GI services to determine source of blood loss. Continue dual antiplatelet therapy. Ongoing management of wound care per ID. No intervention during this hospitalization until anemia has resolved. Discussed with Dr. Pacheco and he is already scheduled for outpatient intervention of the right leg which will take place as planned on Jun.24. We will continue to follow as needed, please call with further questions or concerns. Nurse Practitioner note has been reviewed, I agree with a documented findings and plan of care. Patient was seen and examined.
--- NOTE | 2018-05-30 17:33 | CONS ---
CONSULTATION This is a 73-year-old pleasant gentleman whom I am seeing on consult for left foot big toe chronic wound with dislocated joint. Patient has had this for some time, under the care of Dr. Up. Patient had right foot fifth toe amputation by Dr. Up about 10 days ago. Patient also has some skin necrosis noted on the left foot, lateral aspect. PAST HISTORY: Patient had an angiogram done by Dr. Pacheco a few weeks ago and had some intervention for the right leg. He is planning to do some intervention on the left leg. MEDICAL HISTORY: No history of diabetes, hypertension, coronary artery disease. PERSONAL HISTORY: Patient has a history of smoking, continues to smoke. PHYSICAL EXAMINATION: Femoral pulse is 2+ on the right side. Left side is 1+. Posterior tibial, dorsalis pedis not palpable. Left big toe is dislocated and bone is exposed. Also there is some skin necrosis noted on the lateral aspect of the left foot. PLAN: I will talk with Dr. Pacheco about his angiogram. Most likely this gentleman needs left big toe amputation and also wound debridement of the lateral aspect of the left foot. We will follow with you. In the meantime, we will continue with Aquacel Silver to the left big toe and I will discuss with Dr. Pacheco his vascular evaluation. MMODL / IJN: [id number] /
[2018-05-30 17:54] LABS: Iron Saturation 8.41 (15.00-50.00)
--- NOTE | 2018-05-30 19:25 | P.PN ---
Subjective Progress Note Date: 05/30/18 Principal diagnosis: anemia, RCC metastatic on nivolumab Pt seen today in f/u, he denies fever, nausea, palpitations, hematuria, black or bloody stool, abd pain, his lower extremities are sensitive, no other pain to report. Objective - Vital Signs Vital signs: Vital Signs Temp 97.8 F 05/30/18 15:06 Pulse 78 05/30/18 15:06 Resp 16 05/30/18 15:06 BP 133/63 05/30/18 15:06 Pulse Ox 95 05/30/18 15:06 Intake & Output 05/30/18 05/30/18 05/31/18 06:59 18:59 06:59 Intake Total 850 Output Total 2049 Balance -1200 Intake: Intake, IV Titration 850 Amount Piperacillin-Tazobactam 3 50 .375 gm In Dextrose/Water 1 50ml.bag @ 12.5 mls/hr IVPB Q8HR DAVID Rx#: [id number] Sodium Chloride 0.9% 1, 800 000 ml @ 100 mls/hr IV . Q10H DAVID Rx#:[id number] Output: Urine 2049 Other: # Voids 4 - Constitutional General appearance: Present: cooperative, no acute distress, thin - EENT Eyes: Present: anicteric sclerae - Respiratory Respiratory: bilateral: CTA - Cardiovascular Heart sounds: normal: S1, S2 - Peripheral edema leg Peripheral Edema: bilateral: None - Gastrointestinal General gastrointestinal: Present: scaphoid, soft - Integumentary Integumentary Comment(s): left great toe has bandage on it, dorsalis pedis pulse is palpable, weak, feet are warm to touch - Neurologic Neurologic: Present: CNII-XII intact - Musculoskeletal Musculoskeletal: Present: strength equal bilaterally - Psychiatric Psychiatric: Present: A&O x's 3, appropriate affect, intact judgment & insight - Labs CBC & Chem 7: 05/29/18 08:36 05/29/18 08:36 Labs: Abnormal Lab Results - Last 24 Hours (Table) 05/30/18 05/30/18 05/30/18 Range/Units 09:51 09:51 11:00 Iron 19 L (65-175) ug/dL TIBC 226 L (228-460) ug/dL Iron Saturation 8.41 L (15.00-50.00) Lactate Dehydrogenase 1096 H (313-618) U/L Urine Protein Trace H (Negative) Urine Blood Large H (Negative) Ur Leukocyte Esterase Large H (Negative) Urine RBC 130 H (0-5) /hpf Urine WBC 16 H (0-5) /hpf Urine Bacteria Rare H (None) /hpf Urine Mucus Rare H (None) /hpf Microbiology - Last 24 Hours (Table) 05/27/18 16:50 Blood Culture - Preliminary Blood No Growth after 72 hours 05/30/18 11:00 Urine Culture - Preliminary Urine,Voided Assessment and Plan (1) Acute blood loss anemia Narrative/Plan: Pt baseline Hgb is in the 10-11 range. Acute drop is being worked up currently. Occult is positive, pt has history of gastric and rectal ulcer in past, GI is seeing pt and looking into past work up for the same. We await their recommendations. Hemolysis work up in progress but, on review of other labs today it is less likely, pending haptoglobin results. Anemia of inflammation/malignancy based on low iron studies with high ferritin. No need for additional iron supplementation at this time. CBC is already ordered for AM. Transfuse to keep Hgb above 7. Will follow pt closely. Current Visit: Yes Status: Acute Priority: High Code(s): D62 - ACUTE POSTHEMORRHAGIC ANEMIA SNOMED Code(s): 732846398 (2) Metastatic renal cell carcinoma Narrative/Plan: Pt has been on nivolumab with decent tolerance and disease control to this point. Anticipate continuation of therapy. Current Visit: No Status: Acute Priority: Medium Code(s): C64.9 - MALIGNANT NEOPLASM OF UNSP KIDNEY, EXCEPT RENAL PELVIS SNOMED Code(s): 843343777
--- NOTE | 2018-05-30 21:51 | PN ---
PROGRESS NOTE DATE OF SERVICE: 05/30/2018. REASON FOR FOLLOWUP: Left big toe and left bottom of foot wound and a question of cellulitis. INTERVAL HISTORY: The patient is currently afebrile. He is breathing comfortably. Denies having any chest pain or shortness of breath. No cough. No abdominal pain or any worsening pain to the left foot area. EXAMINATION: Blood pressure 103/56 with pulse of 79, temperature 98.6, he is 98% on room air. G GENERAL DESCRIPTION: An elderly male lying in bed in no distress. RESPIRATORY SYSTEM: Unlabored breathing. Clear to auscultation anteriorly. HEART: S1, S2. Regular rate and rhythm. ABDOMEN: Soft, no tenderness. EXTREMITIES: Left foot wound dressed up. No obvious drainage on the dressing. DIAGNOSTIC IMPRESSION AND PLAN: Patient admitted to the hospital with left foot lateral border pustular lesion with concern for possible gangrene, also with nonhealing wound to the left big toe plantar aspect plus-minus component of urinary tract infection. Patient currently getting Zosyn. His care was discussed in detail with Dr. Pacheco, his vascular physician, who is recommending for the intervention to the left leg once the patient's GI condition stabilizes. Continue with Zosyn at this point. Continue supportive care. MMODL / IJN: [id number] /
[2018-05-30] MEDS: ATORVASTATIN 20 MG TAB PO SCH (21:59)
[2018-05-31] MEDS: PIPERACILLIN-TAZOBACTAM 3.375 GM in DEXTROSE/WATER 1 50ML.BAG IVPB SCH ×4 (00:40→23:18)
[2018-05-31] MEDS: DEXTROSE 5% IN WATER 1,000 ML with SODIUM BICARB (1 MEQ/ML) 150 ML IV SCH ×2 (01:37→11:29)
[2018-05-31] MEDS: BUDESONIDE 0.5 MG/2 ML NEBU INHALATION SCH ×2 (07:31→20:52)
[2018-05-31] MEDS: FORMOTEROL FUMARATE 20 MCG/2 ML NEBU INHALATION PRN ×2 (07:31→20:52)
[2018-05-31] MEDS: IPRATROPIUM 0.5 MG/2.5 ML NEBU INHALATION PRN ×2 (07:32→20:52)
--- NOTE | 2018-05-31 09:34 | P.PN ---
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 Status post recent atherectomy balloon angioplasty of the right SFA a week ago. Patient denies overt bleeding such as hematemesis hematochezia melena. EGD colonoscopy October 2017 evidence of peptic ulcer disease. 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 Receiving 1 unit of blood since admission. CBC pending. Objective - Vital Signs Vital signs: Vital Signs Temp 98.5 F 05/31/18 07:34 Pulse 82 05/31/18 07:51 Resp 16 05/31/18 07:34 BP 92/58 05/31/18 07:34 Pulse Ox 100 05/31/18 07:34 Intake & Output 05/30/18 05/31/18 05/31/18 18:59 06:59 18:59 Intake Total 462 Output Total 1425 Balance -1425 462 Intake: Oral 462 Output: Urine 1425 Other: # Voids 4 # Bowel Movements 1 - Exam General appearance: The patient is alert, oriented, in no acute distress. HET: Head is normocephalic and atraumatic. Pupils are equal and reactive. Oropharynx is clear without lesions. Neck: Supple without lymphadenopathy. Trachea midline. Heart: S1 S2. Regular rate and rhythm. Lungs: No crackles or wheezes are heard. Abdomen: Soft, nontender, nondistended with bowel sounds. No peritoneal signs. No palpable organomegaly or masses. Extremities: . Right great toe amputation. Left great toe dressing intact. Neurological: No focal deficits. Strength and sensation are grossly intact. - Labs CBC & Chem 7: 05/29/18 08:36 05/29/18 08:36 Labs: Abnormal Lab Results - Last 24 Hours (Table) 05/30/18 05/30/18 05/30/18 Range/Units 09:51 09:51 11:00 Iron 19 L (65-175) ug/dL TIBC 226 L (228-460) ug/dL Iron Saturation 8.41 L (15.00-50.00) Lactate Dehydrogenase 1096 H (313-618) U/L Urine Protein Trace H (Negative) Urine Blood Large H (Negative) Ur Leukocyte Esterase Large H (Negative) Urine RBC 130 H (0-5) /hpf Urine WBC 16 H (0-5) /hpf Urine Bacteria Rare H (None) /hpf Urine Mucus Rare H (None) /hpf Microbiology - Last 24 Hours (Table) 05/27/18 16:50 Blood Culture - Preliminary Blood No Growth after 72 hours 05/30/18 11:00 Urine Culture - Preliminary Urine,Voided Assessment and Plan Assessment: Impression: 1. Severe symptomatic normocytic hypochromic iron deficient anemia suggestive of occult GI loss but presently without overt GI bleeding. FOBT positive. 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 2. History of renal cell carcinoma and prostate carcinoma presently on immunosuppressant therapy Optivo. 3. History of severe PVD recent intervention to the right lower extremity maintained on aspirin Plavix. Recommendations: 1. Presently patient is without overt symptoms of GI bleed such as hematemesis hematochezia or melena. Dr. Menon recommends continued observance for now. Endoscopy not scheduled at this time unless active GI bleeding manifest or precipitous drop in hemoglobin. 2. CBC monitoring. We'll follow closely with you. Assessment and plan of care discussed with Dr. Menon
[2018-05-31] MEDS: PANTOPRAZOLE 40 MG/10 ML VIAL IV SCH (09:53)
[2018-05-31] MEDS: CALCIUM CARBONATE 500 MG CHEWABLE PO SCH ×2 (09:53→21:57)
[2018-05-31] MEDS: FERROUS SULFATE 325 MG TAB PO SCH (09:54)
[2018-05-31] MEDS: SODIUM BICARBONATE TAB 650 MG TAB PO SCH ×4 (09:54→21:57)
[2018-05-31] MEDS: CITALOPRAM HYDROBROMIDE 20 MG TAB PO SCH (09:54)
[2018-05-31] MEDS: HYDROcodone/APAP 5-325MG 1 EACH TAB PO SCH ×2 (09:54→21:57)
[2018-05-31] MEDS: CLOPIDOGREL 75 MG TAB PO SCH (09:55)
[2018-05-31] MEDS: MULTIVITAMINS, THERA 1 EACH TAB PO SCH (09:55)
[2018-05-31] MEDS: MECLIZINE 12.5 MG TAB PO SCH ×3 (09:55→22:46)
[2018-05-31 10:27] LABS: Calcium 6.9 mg/dL (8.4-10.2); Potassium 4.2 mmol/L (3.5-5.1); Total Bilirubin 0.4 mg/dL (0.2-1.3); Total Protein 6.1 g/dL (6.3-8.2)
[2018-05-31 10:40] LABS: Anisocytosis Slight; Basophils % (A) 1 %; Eosinophils # (A) 0.1 k/uL (0-0.7); Eosinophils % (A) 1 %; HCT 26.7 % (39.0-53.0); HGB 8.6 gm/dL (13.0-17.5); Hypochromasia Slight; Lymphocytes # (A) 0.7 k/uL (1.0-4.8); Lymphocytes % (A) 9 %; MCH 27.5 pg (25.0-35.0); MCHC 32.4 g/dL (31.0-37.0); Mean Platelet Volume 7.6; Monocytes # (A) 0.5 k/uL (0-1.0); Monocytes % (A) 6 %; Neutrophils # (A) 6.9 k/uL (1.3-7.7); Neutrophils % (A) 83 %; Platelet Count 394 k/uL (150-450); RBC 3.14 m/uL (4.30-5.90); RDW 16.7 % (11.5-15.5); WBC 8.3 k/uL (3.8-10.6)
[2018-05-31] MEDS: ASPIRIN 325 MG TAB PO SCH (11:18)
--- NOTE | 2018-05-31 13:01 | P.PN ---
Subjective Progress Note Date: 05/31/18 Moises Bradford, is a 73-year-old male presented to [facility] emergency room was a chief complaint of change in the color of his scabbed ulcers on his right foot, and complaining of shortness of breath. He was evaluated in the emergency room and was admitted to medical floor, patient has a known history of severe peripheral vascular disease, with multiple ulcers on bilateral feet, he is status post right fifth toe amputation, he also had previous history of angioplasty of the right lower extremity done by Dr. Su. He is a lifelong smoker. Patient was seen and evaluated on medical floor, he has mild shortness of breath at rest, but has worsening shortness of breath with any activity, his hemoglobin on presentation was 10.0 however hemoglobin came down to 6.9 today. Also potassium was significantly elevated on presentation at 6.5. Patient has a known history of prostate cancer he had history of prostatectomy followed by radiation therapy, he developed rectal bleeding and hematuria, he was admitted in October of this year at that time he underwent EGD and colonoscopy and had evidence of a rectal ulcer likely related to radiation therapy. Patient also has a known history of renal cell carcinoma, he is receiving chemotherapy once monthly. Patient was admitted to medical floor, consultation for infectious disease, cardiology, and nephrology were initiated. On 05/29/2018 patient was seen and examined he is alert and oriented 3 in no apparent distress he denies any pain or discomfort at this time, hemoglobin is up to 8.2 after 1 unit of red blood cell transfusion potassium is down to 5.1 Clinically patient denies any fever or chills no headache or dizziness no chest pain no shortness of breath no cough no nausea or vomiting no abdominal pain no diarrhea and no urinary symptoms 05/30/2018 patient lying in bed comfortably. Patient's pain is controlled. Patient be evaluated by vascular surgery regarding gangrene on the left foot. He is on IV Zosyn. Regarding his anemia hemoglobin has increased from 6.9-8.2 after 1 unit of blood. Potassium has improved. Patient is not reporting any blood in the stool. But stool for occult blood is positive. Also urinalysis is showing evidence of blood. Patient has not visualized any blood in his urine. He denies any burning with urination. Patient denies any chest pain or shortness of breath. Denies any nausea or vomiting. 05/31/2018 patient has no new complaints. Hemoglobin 8.6. Creatinine 1.48. Total iron 19. Patient asking about his plan of care. At this time GI service is not planning and any endoscopies unless there is active bleeding. Discussed case with both GI service and cardiology service. Dr. Su would like to do vascular intervention on the left leg to improve blood flow to the foot before any amputation of that toe is completed. He will check if he can have the vascular procedure done earlier than June 24. Patient's urine is slightly pink. Reports bowel movements with no blood or black stool. Denies any chest pain or shortness of breath Objective - Vital Signs Vital signs: Vital Signs Temp 98.5 F 05/31/18 07:34 Pulse 82 05/31/18 07:51 Resp 16 05/31/18 07:34 BP 92/58 05/31/18 07:34 Pulse Ox 100 05/31/18 07:34 Intake & Output 05/30/18 05/31/18 05/31/18 18:59 06:59 18:59 Intake Total 462 Output Total 1425 Balance -1425 462 Intake: Oral 462 Output: Urine 1425 Other: # Voids 4 # Bowel Movements 1 - Exam Head normocephalic Neck supple Lungs clear to auscultation bilaterally no wheezing or crackles Heart regular rate and rhythm S1-S2, no rub or gallop Abdomen is soft nontender nondistended positive bowel sounds no hepatosplenomegaly Extremities left foot lateral aspect eschar tissue. left great toe dusky in color bone present on the posterior aspect Neuro alert and orientated to 3 - Labs CBC & Chem 7: 05/31/18 08:32 05/31/18 08:32 Labs: Abnormal Lab Results - Last 24 Hours (Table) 05/30/18 05/31/18 05/31/18 Range/Units 09:51 08:32 08:32 RBC 3.14 L (4.30-5.90) m/uL Hgb 8.6 L (13.0-17.5) gm/dL Hct 26.7 L (39.0-53.0) % RDW 16.7 H (11.5-15.5) % Lymphocytes # 0.7 L (1.0-4.8) k/uL Haptoglobin 548.0 H (31.2-198.0) mg/dL Chloride 110 H (98-107) mmol/L Carbon Dioxide 19 L (22-30) mmol/L Creatinine 1.48 H (0.66-1.25) mg/dL Calcium 6.9 L (8.4-10.2) mg/dL Iron 19 L (65-175) ug/dL TIBC 226 L (228-460) ug/dL Iron Saturation 8.41 L (15.00-50.00) ALT 18 L (21-72) U/L Total Protein 6.1 L (6.3-8.2) g/dL Albumin 3.0 L (3.5-5.0) g/dL Microbiology - Last 24 Hours (Table) 05/27/18 16:50 Blood Culture - Preliminary Blood No Growth after 72 hours 05/30/18 11:00 Urine Culture - Preliminary Urine,Voided Assessment and Plan Assessment: #1 gangrene of the left foot: Patient currently on IV Zosyn. Followed by infectious disease and vascular surgery. #2 severe bilateral lower extremity peripheral vascular disease, patient is followed by Dr. Su he performed angioplasty on the right lower extremity. Maintain on aspirin and Plavix. Discussed with Dr. Su. He will evaluate patient again today and will await their further recommendations regards to vascular intervention to be done at earlier time. Dr. Pacheco flulike hemoglobin above 8 before proceeding with any vascular intervention #3 patient has had recent amputation of the right fifth toe by his financial sales manager #3 Severe anemia with acute blood loss anemia and chronic anemia. Patient does have known malignancy and chronic disease as well as iron deficiency anemia. Also concerns for acute blood loss anemia due to possible GI bleed. Patient also having some blood in his urinalysis. Patient required 1 unit of blood. Patient seen by GI service no plan for endoscopy unless active bleeding occurs. Patient also followed by hematology. #4 underlying history of tobacco abuse #5 underlying history of prostate cancer treated with surgery and radiation therapy #6 underlying history of COPD #7 underlying history of right kidney renal cell carcinoma, treated with monthly infusion of chemotherapy, followed by Dr. Burch. #8 previous admission with rectal bleeding in October 2017 at that time patient was seen by Dr. Lloyd and had evidence of rectal ulcer likely related to previous radiation therapy related to prostate cancer.3 #9 hyperkalemia resolved #10 metabolic acidosis continue sodium bicarbonate #11 chronic kidney disease, stage III #12 right sided hydronephrosis: Consult urology #14 UTI continue antibiotics. Check urine culture. GI prophylaxis Protonix and DVT prophylaxis SCDs I performed an examination of the patient and discussed their management with the physician Business Management Professor. I have reviewed the Physician Business Management Professor's notes and agree with the documented findings and plan of care
--- NOTE | 2018-05-31 13:31 | P.PN ---
Subjective Patient is seen in follow-up for acute kidney injury on chronic kidney disease. Patient has chronic kidney disease stage III with baseline creatinine in the range of 1.2-1.4. Creatinine is 1.48 today. Hemoglobin was low as 6.9 on May 28 and he did receive a unit of blood transfusion. Hemoglobin 8.6 today. No vomiting or diarrhea. Oral intake is improving. Patient has history of renal cell carcinoma and follows with Dr. Burch from oncology. He is maintained on Opdivo. Vital signs are stable. General: The patient appeared well nourished and normally developed. HEENT: Head exam is unremarkable. Neck is without jugular venous distension. LUNGS: Lungs are clear to auscultation and percussion. Breath sounds decreased. HEART: Rate and Rhythm are regular. First and second heart sounds normal. No murmurs, rubs or gallops. ABDOMEN: Abdominal exam reveals normal bowel sounds. Non-tender and non- distended. No evidence of peritonitis. EXTREMITITES: No clubbing, cyanosis, or edema. Objective - Vital Signs Vital signs: Vital Signs Temp 98.5 F 05/31/18 07:34 Pulse 82 05/31/18 07:51 Resp 16 05/31/18 07:34 BP 92/58 05/31/18 07:34 Pulse Ox 100 05/31/18 07:34 Intake & Output 05/30/18 05/31/18 05/31/18 18:59 06:59 18:59 Intake Total 462 Output Total 1425 Balance -1425 462 Intake: Oral 462 Output: Urine 1425 Other: # Voids 4 # Bowel Movements 1 - Labs CBC & Chem 7: 05/31/18 08:32 05/31/18 08:32 Labs: Abnormal Lab Results - Last 24 Hours (Table) 05/30/18 05/31/18 05/31/18 Range/Units 09:51 08:32 08:32 RBC 3.14 L (4.30-5.90) m/uL Hgb 8.6 L (13.0-17.5) gm/dL Hct 26.7 L (39.0-53.0) % RDW 16.7 H (11.5-15.5) % Lymphocytes # 0.7 L (1.0-4.8) k/uL Haptoglobin 548.0 H (31.2-198.0) mg/dL Chloride 110 H (98-107) mmol/L Carbon Dioxide 19 L (22-30) mmol/L Creatinine 1.48 H (0.66-1.25) mg/dL Calcium 6.9 L (8.4-10.2) mg/dL Iron 19 L (65-175) ug/dL TIBC 226 L (228-460) ug/dL Iron Saturation 8.41 L (15.00-50.00) ALT 18 L (21-72) U/L Total Protein 6.1 L (6.3-8.2) g/dL Albumin 3.0 L (3.5-5.0) g/dL Microbiology - Last 24 Hours (Table) 05/30/18 11:00 Urine Culture - Final Urine,Voided 05/27/18 16:50 Blood Culture - Preliminary Blood No Growth after 72 hours Assessment and Plan Plan: Assessment: 1. Mild acute kidney injury mostly prerenal from anemia. Creatinine 1.48 today. 2. Acute blood loss anemia status post blood transfusion. Hemoglobin 8.6 today. Iron deficiency noted. 3. Renal cell carcinoma maintained on Opdivo. 4. Chronic kidney disease stage III secondary to nephrosclerosis with baseline creatinine in the range of 1-1.4. 5. Hyperkalemia secondary to metabolic acidosis and GI bleed. Improved. 6. Peripheral vascular disease. 7. Left foot wound with concern for cellulitis maintained on antibiotics per infectious disease. Patient also being followed by Dr. Pacheco for possible intervention. Plan: Discontinue sodium bicarbonate drip. Start normal saline at 75 mL an hour. Maintain oral sodium bicarbonate. Ferrlecit 125 mg IV daily for 3 days. First dose today. Repeat electrolytes in the morning.
--- NOTE | 2018-05-31 13:33 | CDI ---
Last Revision, July 2017 Documentation Clarification Form Date: 05/31/18 From: Yaneth Nieves RN Admit Date: 05/27/2018 8:17:00 PM Patient Name: Moises Bradford Visit Number: [id number] ATTENTION: The Clinical Documentation Specialists (CDI) and [facility] Coding Staff appreciate your assistance in clarifying documentation. Please respond to the clarification below the line at the bottom and electronically sign. The CDI & [facility] Coding staff will review the response and follow-up if needed. Please note: Queries are made part of the Legal Health Record. If you have any questions, please contact the author of this message via ITS. Nava Alas MD, Leg and foot ulcer is documented in the Notes 05/28 - 05/31. Admitted for presented with chief complaint of change in the color of his scabbed ulcers on his right foot and sob. Patient history/risk factors: prostate cancer, COPD, CVA/TIA, GI bleed, hyperlipidemia, liver disease, vascular disorder, vertigo, MRSA, anxiety, depression, smoker, renal cell carcinoma with bone metastasis, smoker, osteomyelitis, kidney cancer stage 4 with bone and lung mets. Clinical Indicators: Labs on admission: WBC 12.2, RBC 3.71, HGB 10.0, HCT 32.4, , PLT 603, K+ 6.5 , CHL 116, C02 13, BUN 38, CR 1.37 Wound assessment: 05/28: ulcers on both feet. 05/29: foot/leg ulcers. 05/31: scabbed ulcer on right foot, multiple ulcers on bilateral feet Treatment: wound debridement Medication: Piperacillin IVPB Consults: ID In your professional opinion, can the etiology and severity of the wound be further specified as one of the following? Etiology: Non-pressure chronic ulcer due to diabetes Non-pressure chronic ulcer due to arterial insufficiency Non-pressure chronic ulcer due to venous insufficiency Non-pressure chronic ulcer due to trauma Other, Please specify Unable to determine Severity: Limited to breakdown of skin With fat layer exposed With necrosis of muscle With necrosis of bone Other, Please specify Unable to determine Unable to determine Limited to breakdown of skin 06/06 Unable to determine Limited to breakdown of skin MTDD
[2018-05-31] MEDS: SODIUM CHLORIDE 0.9% 1,000 ML IV SCH (14:57)
[2018-05-31] MEDS: SODIUM FERRIC GLUCONAT-SUCROSE 125 MG in SODIUM CHLORIDE 0.9% 100 ML IVPB SCH (14:58)
--- NOTE | 2018-05-31 15:15 | P.PN ---
Subjective Progress Note Date: 05/31/18 Principal diagnosis: anemia, RCC metastatic on nivolumab Pt seen in f/u, he feels ok, has noted blood in urine-he has had worse before, denies any other bleeding, black or bloody stool, he believes that his GI work up is on hold for now. No fever, appetite is good, no pain. Objective - Vital Signs Vital signs: Vital Signs Temp 98.5 F 05/31/18 07:34 Pulse 82 05/31/18 07:51 Resp 16 05/31/18 07:34 BP 92/58 05/31/18 07:34 Pulse Ox 100 05/31/18 07:34 Intake & Output 05/30/18 05/31/18 05/31/18 18:59 06:59 18:59 Intake Total 462 Output Total 1425 Balance -1425 462 Intake: Oral 462 Output: Urine 1425 Other: # Voids 4 2 # Bowel Movements 1 - Constitutional General appearance: Present: cooperative, no acute distress, thin - EENT Eyes: Present: anicteric sclerae, EOMI ENT: Present: hearing grossly normal - Respiratory Respiratory: bilateral: CTA - Cardiovascular Heart sounds: normal: S1, S2 Abnormal Heart Sounds: Absent: systolic murmur, diastolic murmur, rub, S3 Gallop , S4 Gallop, click, other - Peripheral edema leg Peripheral Edema: bilateral: None - Gastrointestinal General gastrointestinal: Present: normal bowel sounds, soft. Absent: absent bowel sounds, decreased bowel sounds, distended, hepatomegaly, hyperactive bowel sounds, organomegaly, rigid, scaphoid, splenomegaly, tenderness, umbilical hernia, ventral hernia - Integumentary Integumentary: Present: pale - Neurologic Neurologic: Present: CNII-XII intact - Musculoskeletal Musculoskeletal: Present: generalized weakness, strength equal bilaterally - Psychiatric Psychiatric: Present: A&O x's 3, appropriate affect, intact judgment & insight - Labs CBC & Chem 7: 05/31/18 08:32 05/31/18 08:32 Labs: Abnormal Lab Results - Last 24 Hours (Table) 05/30/18 05/31/18 05/31/18 Range/Units 09:51 08:32 08:32 RBC 3.14 L (4.30-5.90) m/uL Hgb 8.6 L (13.0-17.5) gm/dL Hct 26.7 L (39.0-53.0) % RDW 16.7 H (11.5-15.5) % Lymphocytes # 0.7 L (1.0-4.8) k/uL Haptoglobin 548.0 H (31.2-198.0) mg/dL Chloride 110 H (98-107) mmol/L Carbon Dioxide 19 L (22-30) mmol/L Creatinine 1.48 H (0.66-1.25) mg/dL Calcium 6.9 L (8.4-10.2) mg/dL Iron 19 L (65-175) ug/dL TIBC 226 L (228-460) ug/dL Iron Saturation 8.41 L (15.00-50.00) ALT 18 L (21-72) U/L Total Protein 6.1 L (6.3-8.2) g/dL Albumin 3.0 L (3.5-5.0) g/dL Microbiology - Last 24 Hours (Table) 05/30/18 11:00 Urine Culture - Final Urine,Voided 05/27/18 16:50 Blood Culture - Preliminary Blood No Growth after 72 hours Assessment and Plan (1) Acute blood loss anemia Narrative/Plan: Hgb stable at this time. GI note reviewed. Cont to monitor Hgb. Iron deficiency with normal ferritin. Short course of parenteral iron only. Suspect component of anemia of inflammation with pt malignancy history and renal dysfunction. Current Visit: Yes Status: Acute Priority: High Code(s): D62 - ACUTE POSTHEMORRHAGIC ANEMIA SNOMED Code(s): 610553571 (2) Metastatic renal cell carcinoma Narrative/Plan: Pt has been on nivolumab with decent tolerance and disease control to this point. Anticipate continuation of therapy. Current Visit: No Status: Acute Priority: Medium Code(s): C64.9 - MALIGNANT NEOPLASM OF UNSP KIDNEY, EXCEPT RENAL PELVIS SNOMED Code(s): 180262878 Plan: Defer tx of PAD and gangrene toe to Vascular and ID
[2018-05-31] MEDS: ATORVASTATIN 20 MG TAB PO SCH (21:57)
--- NOTE | 2018-05-31 22:05 | P.GSCN ---
History of Present Illness Consult date: 05/31/18 Reason for Consult: Hematuria, hydronephrosis Requesting physician: Shaan Davis History of present illness: He is a 73-year-old male diagnosed with prostate cancer in 2011 ([id number]). At that time, one biopsy of the left base contained [place] 6 adenocarcinoma. His PSA level increased to 11.4, and repeat biopsies revealed [place] 7 (3 + 4) adenocarcinoma at the right base. He underwent a partial nerve sparing RALP in late 2014. Pathologically, there was evidence of bilateral seminal vesicle invasion ([id number]). His PSA level was undetectable, but he nonetheless received adjuvant radiation therapy in 2015 and his PSA levels have remained undetectable. He was last seen in January 2017. Later that year, he was found to have metastatic renal cell carcinoma and is being treated with chemotherapy. He is currently admitted with hyperkalemia, anemia, and gangrene of the left foot. He has recently experienced gross hematuria. He previously experienced rectal bleeding, and colonoscopy confirmed the presence of radiation proctitis. He is maintained on Opdivo. Review of Systems - Constitutional Reports weakness - Gastrointestinal Reports hematochezia - Genitourinary Reports hematuria, Denies dysuria Past Medical History Past Medical History: Cancer, COPD, CVA/TIA, GI Bleed, Hyperlipidemia, Liver Disease, Prostate Disorder, Vascular Disorder Additional Past Medical History / Comment(s): blood urine and passess blood clots at times, OSTEOMYLITIS, MONTHLY CHEMO IVPB CURRENTLY last on wednesday, VERTIGO, HX TIA X2, PAD, OSTEOPOROSIS.PROSTATE CA 2014 WITH RADIATION [place], KIDNEY CANCER (2017-STAGE 4 WITH BONE & LUNG METS) - WAS TAKING VOTRIENT CHEMO DRUG.,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 , HX OF RECTAL BLEEDING AND COLONOSCOPY SHOWED PROCTITIS WITH ULCERS IN RECTUM. . STATES RIGHT LITTLE TOE AMPUTATION IS STILL healing still stitches in it per pt WOUND LEFT GREAT TOE, BOTH WOUNDS DAILY DRESSING. left pinky black History of Any Multi-Drug Resistant Organisms: MRSA Year Discovered:: 10/2015 MDRO Source:: little toe rt foot Past Surgical History: Prostate Surgery, Tonsillectomy Additional Past Surgical History / Comment(s): PICC LINE RT ARM 04/13/18 has since been removed , CATARACTS, ARTERIOGRAM. stent left iliac artery, possible 2 stents left iliac, ROBOTIC ASSISTED LAPAROSCOPIC PROSTATECTOMY WITH CHANTE PELVIC LYMPHADENECTOMY, aortogram, AMPUTATION RIGHT LITTLE TOE (DECEMBER 2017), COLONOSCOPY & EGD (04/07/18) Past Anesthesia/Blood Transfusion Reactions: No Reported Reaction Past Psychological History: Anxiety, Depression Smoking Status: Current every day smoker Past Alcohol Use History: None Reported Additional Past Alcohol Use History / Comment(s): pt states smokes 1/4 ppd Past Drug Use History: None Reported - Past Family History Mother Family Medical History: Myocardial Infarction (NM) Father Family Medical History: Myocardial Infarction (NM) Medications and Allergies Home Medications Medication Instructions Recorded Confirmed Type Atorvastatin [Lipitor] 20 mg PO HS 02/05/15 05/27/18 History Meclizine [Antivert] 12.5 mg PO TID 07/30/15 05/27/18 History Ferrous Sulfate [Iron (65 MG 325 mg PO DAILY 06/23/16 05/27/18 History Elemental)] traMADol HCL [Ultram] 50 mg PO Q6H PRN 10/15/17 05/27/18 History Multivitamins, Thera [Multivitamin 1 tab PO DAILY 04/07/18 05/27/18 History (formulary)] Citalopram Hydrobromide [CeleXA] 40 mg PO DAILY 04/11/18 05/27/18 History Umeclidinium Brm/Vilanterol Tr 1 puff INHALATION RT-DAILY PRN 04/26/18 05/27/18 History [Anoro Ellipta 62.5-25 Mcg INH] Budesonide [Pulmicort] 0.5 mg INHALATION RT-BID 04/27/18 05/27/18 History Calcium Carbonate [Calcium] 600 mg PO BID 04/27/18 05/27/18 History Nivolumab [Opdivo] 480 mg IV Q28D 04/27/18 05/27/18 History Aspirin 325 mg PO DAILY #90 tab 05/12/18 05/27/18 Rx Clopidogrel [Plavix] 75 mg PO DAILY #90 tab 05/12/18 05/27/18 Rx HYDROcodone/APAP 5-325MG [[place] 1 tab PO BID 05/27/18 05/27/18 History 5-325] Ibuprofen [Motrin] 800 mg PO BID PRN 05/27/18 05/27/18 History Allergies Allergy/AdvReac Type Severity Reaction Status Date / Time venom-honey bee Allergy Unknown Rash/Hives Verified 05/27/18 16:05 [bee venom (honey bee)] Iodinated Contrast- Oral and Allergy Rash/Hives Verified 05/27/18 16:05 IV Dye [Iodinated Contrast Media - IV Dye] iodine Allergy Rash/Hives Verified 05/27/18 16:05 Surgical - Exam Vital Signs Temp Pulse Resp BP Pulse Ox 98.1 F 83 18 156/82 100 05/27/18 15:42 05/27/18 15:42 05/27/18 15:42 05/27/18 15:42 05/27/18 15:42 - General well developed, well nourished, no distress - Respiratory normal respiratory effort - Abdomen Abdomen: soft, non tender, no guarding, no rigid, no rebound - Genitourinary normal penis with no external lesions, testicles non-tender - Psychiatric oriented to time, oriented to person, oriented to place, speech is normal, memory intact Results - Labs 05/31/18 08:32 05/31/18 08:32 Abnormal Lab Results - Last 24 Hours (Table) 05/30/18 05/31/18 05/31/18 Range/Units 09:51 08:32 08:32 RBC 3.14 L (4.30-5.90) m/uL Hgb 8.6 L (13.0-17.5) gm/dL Hct 26.7 L (39.0-53.0) % RDW 16.7 H (11.5-15.5) % Lymphocytes # 0.7 L (1.0-4.8) k/uL Haptoglobin 548.0 H (31.2-198.0) mg/dL Chloride 110 H (98-107) mmol/L Carbon Dioxide 19 L (22-30) mmol/L Creatinine 1.48 H (0.66-1.25) mg/dL Calcium 6.9 L (8.4-10.2) mg/dL ALT 18 L (21-72) U/L Total Protein 6.1 L (6.3-8.2) g/dL Albumin 3.0 L (3.5-5.0) g/dL Microbiology - Last 24 Hours (Table) 05/27/18 16:50 Blood Culture - Preliminary Blood No Growth after 96 hours 05/30/18 11:00 Urine Culture - Final Urine,Voided Diabetes panel 05/31/18 Range/Units 08:32 Sodium 141 (137-145) mmol/L Potassium 4.2 (3.5-5.1) mmol/L Chloride 110 H (98-107) mmol/L Carbon Dioxide 19 L (22-30) mmol/L BUN 19 (9-20) mg/dL Creatinine 1.48 H (0.66-1.25) mg/dL Glucose 98 (74-99) mg/dL Calcium 6.9 L (8.4-10.2) mg/dL AST 21 (17-59) U/L ALT 18 L (21-72) U/L Alkaline Phosphatase 92 (38-126) U/L Total Protein 6.1 L (6.3-8.2) g/dL Albumin 3.0 L (3.5-5.0) g/dL Calcium panel 05/31/18 Range/Units 08:32 Calcium 6.9 L (8.4-10.2) mg/dL Albumin 3.0 L (3.5-5.0) g/dL Pituitary panel 05/31/18 Range/Units 08:32 Sodium 141 (137-145) mmol/L Potassium 4.2 (3.5-5.1) mmol/L Chloride 110 H (98-107) mmol/L Carbon Dioxide 19 L (22-30) mmol/L BUN 19 (9-20) mg/dL Creatinine 1.48 H (0.66-1.25) mg/dL Glucose 98 (74-99) mg/dL Calcium 6.9 L (8.4-10.2) mg/dL Adrenal panel 05/31/18 Range/Units 08:32 Sodium 141 (137-145) mmol/L Potassium 4.2 (3.5-5.1) mmol/L Chloride 110 H (98-107) mmol/L Carbon Dioxide 19 L (22-30) mmol/L BUN 19 (9-20) mg/dL Creatinine 1.48 H (0.66-1.25) mg/dL Glucose 98 (74-99) mg/dL Calcium 6.9 L (8.4-10.2) mg/dL Total Bilirubin 0.4 (0.2-1.3) mg/dL AST 21 (17-59) U/L ALT 18 L (21-72) U/L Alkaline Phosphatase 92 (38-126) U/L Total Protein 6.1 L (6.3-8.2) g/dL Albumin 3.0 L (3.5-5.0) g/dL - Imaging US - kidney/bladder: report reviewed Assessment and Plan (1) Metastatic renal cell carcinoma Current Visit: No Status: Acute Priority: Medium Code(s): C64.9 - MALIGNANT NEOPLASM OF UNSP KIDNEY, EXCEPT RENAL PELVIS SNOMED Code(s): 846663035 (2) Gross hematuria Current Visit: Yes Status: Acute Code(s): R31.0 - GROSS HEMATURIA SNOMED Code(s): 433245696 (3) Prostate cancer Current Visit: Yes Status: Acute Code(s): C61 - MALIGNANT NEOPLASM OF PROSTATE SNOMED Code(s): 181680068 Plan: The patient has a history of prostate cancer, with no evidence of disease at this time. He has metastatic renal cell carcinoma, and is currently maintained on Opdivo. He has blood loss anemia, which may be related to hematuria. The differential diagnosis includes his known renal cell carcinoma, radiation cystitis, and bladder cancer. He is scheduled to undergo left lower extremity angioplasty tomorrow, and subsequently will undergo amputation of a left-sided toe. Cystoscopy will be required during this hospitalization if the hematuria persists and the anemia worsens. If the hematuria improves, he can undergo outpatient cystoscopy to rule out intravesical pathology. The significance of the right hydronephrosis seen on ultrasound is unclear, and I do not believe that he would benefit from further evaluation of the hydronephrosis at this time. Time with Patient: Greater than 30
--- NOTE | 2018-05-31 23:13 | PN ---
PROGRESS NOTE DATE OF SERVICE: 05/31/2018 REASON FOR FOLLOWUP: Left foot wound and cellulitis. INTERVAL HISTORY: The patient is currently afebrile. He is breathing comfortably. Denies having any chest pain, shortness of breath or cough. No abdominal pain or any worsening pain to the left foot area. PHYSICAL EXAMINATION: Blood pressure is 108/58 with a pulse of 76, temperature 98.3. He is 98% on room air. General description is an elderly male lying in bed in no distress. RESPIRATORY SYSTEM: Unlabored breathing. Clear to auscultation anteriorly. HEART: S1, S2. Regular rate and rhythm. ABDOMEN: Soft. No tenderness. Left foot lateral border area stump seems nothing has changed. Left big toe plantar wound with no cellulitis. LABS: Hemoglobin 8.6, white count 8.3, BUN of 19, creatinine 1.48. DIAGNOSTIC IMPRESSION AND PLAN: Patient with left foot lateral border pustular lesion and cellulitis with a question of possible gangrene, also with left foot big toe plantar wound and episodes of cellulitis, currently covered with Zosyn. Short course of oral Augmentin and possible further workup in the outpatient setting, especially revascularization of his left leg. Plan of care discussed in detail with the patient and his . All questions were answered. MMODL / IJN: [id number] /
[2018-06-01] MEDS: SODIUM CHLORIDE 0.9% 1,000 ML IV SCH ×2 (03:43→18:09)
[2018-06-01] MEDS: IPRATROPIUM 0.5 MG/2.5 ML NEBU INHALATION PRN ×2 (08:07→20:31)
[2018-06-01] MEDS: BUDESONIDE 0.5 MG/2 ML NEBU INHALATION SCH ×2 (08:07→20:31)
[2018-06-01] MEDS: FORMOTEROL FUMARATE 20 MCG/2 ML NEBU INHALATION PRN ×2 (08:07→20:31)
[2018-06-01 10:07] LABS: Anisocytosis Slight; Basophils # (A) 0.1 k/uL (0-0.2); Basophils % (A) 1 %; Eosinophils # (A) 0.1 k/uL (0-0.7); Eosinophils % (A) 1 %; HCT 25.1 % (39.0-53.0); HGB 7.9 gm/dL (13.0-17.5); Hypochromasia Slight; Lymphocytes # (A) 0.7 k/uL (1.0-4.8); Lymphocytes % (A) 9 %; MCH 26.8 pg (25.0-35.0); MCHC 31.4 g/dL (31.0-37.0); MCV 85.6 fL (80.0-100.0); Mean Platelet Volume 6.8; Monocytes # (A) 0.7 k/uL (0-1.0); Monocytes % (A) 8 %; Neutrophils # (A) 6.8 k/uL (1.3-7.7); Neutrophils % (A) 81 %; Platelet Count 395 k/uL (150-450); RBC 2.94 m/uL (4.30-5.90); RDW 16.8 % (11.5-15.5); WBC 8.4 k/uL (3.8-10.6)
[2018-06-01] MEDS: CALCIUM CARBONATE 500 MG CHEWABLE PO SCH ×2 (10:20→22:16)
[2018-06-01] MEDS: HYDROcodone/APAP 5-325MG 1 EACH TAB PO SCH ×2 (10:21→22:20)
[2018-06-01] MEDS: SODIUM BICARBONATE TAB 650 MG TAB PO SCH ×3 (10:21→22:16)
[2018-06-01] MEDS: ASPIRIN 325 MG TAB PO SCH (10:21)
[2018-06-01] MEDS: CITALOPRAM HYDROBROMIDE 20 MG TAB PO SCH (10:21)
[2018-06-01] MEDS: PANTOPRAZOLE 40 MG TABLET PO SCH (10:21)
[2018-06-01] MEDS: FERROUS SULFATE 325 MG TAB PO SCH (10:21)
[2018-06-01] MEDS: SODIUM FERRIC GLUCONAT-SUCROSE 125 MG in SODIUM CHLORIDE 0.9% 100 ML IVPB SCH (10:22)
[2018-06-01] MEDS: CLOPIDOGREL 75 MG TAB PO SCH (10:22)
[2018-06-01 10:42] LABS: Albumin 2.7 g/dL (3.5-5.0); Potassium 4.8 mmol/L (3.5-5.1); Total Bilirubin 0.3 mg/dL (0.2-1.3); Total Protein 5.7 g/dL (6.3-8.2)
[2018-06-01 11:01] LABS: Calcium 6.3 mg/dL (8.4-10.2)
--- NOTE | 2018-06-01 11:05 | P.PN ---
Subjective Patient is seen in follow-up for acute kidney injury on chronic kidney disease. Patient has chronic kidney disease stage III with baseline creatinine in the range of 1.2-1.4. Creatinine is 1.48 as of yesterday. Hemoglobin was low as 6.9 on May 28 and he did receive a unit of blood transfusion. Hemoglobin 7.9 today. No vomiting or diarrhea. Oral intake is improving. Patient has history of renal cell carcinoma and follows with Dr. Burch from oncology. He is maintained on Opdivo. Continues to have pinkish tinge to his urine. Vital signs are stable. General: The patient appeared well nourished and normally developed. HEENT: Head exam is unremarkable. Neck is without jugular venous distension. LUNGS: Lungs are clear to auscultation and percussion. Breath sounds decreased. HEART: Rate and Rhythm are regular. First and second heart sounds normal. No murmurs, rubs or gallops. ABDOMEN: Abdominal exam reveals normal bowel sounds. Non-tender and non- distended. No evidence of peritonitis. EXTREMITITES: No clubbing, cyanosis, or edema. Objective - Vital Signs Vital signs: Vital Signs Temp 98.4 F 06/01/18 08:00 Pulse 80 06/01/18 08:27 Resp 16 06/01/18 08:00 BP 110/70 06/01/18 08:00 Pulse Ox 98 06/01/18 08:00 Intake & Output 05/31/18 06/01/18 06/01/18 18:59 06:59 18:59 Intake Total 702 340 Output Total 600 Balance 702 -260 Intake: Oral 702 340 Output: Urine 600 Other: # Voids 2 # Bowel Movements 1 - Labs CBC & Chem 7: 06/01/18 09:18 05/31/18 08:32 Labs: Abnormal Lab Results - Last 24 Hours (Table) 05/30/18 06/01/18 Range/Units 09:51 09:18 RBC 2.94 L (4.30-5.90) m/uL Hgb 7.9 L (13.0-17.5) gm/dL Hct 25.1 L (39.0-53.0) % RDW 16.8 H (11.5-15.5) % Lymphocytes # 0.7 L (1.0-4.8) k/uL Haptoglobin 548.0 H (31.2-198.0) mg/dL Microbiology - Last 24 Hours (Table) 05/27/18 16:50 Blood Culture - Preliminary Blood No Growth after 96 hours 05/30/18 11:00 Urine Culture - Final Urine,Voided Assessment and Plan Plan: Assessment: 1. Mild acute kidney injury mostly prerenal from anemia. Creatinine 1.48 today. 2. Acute blood loss anemia status post blood transfusion. Hemoglobin 7.9 today. Iron deficiency noted. 3. Renal cell carcinoma maintained on Opdivo. 4. Chronic kidney disease stage III secondary to nephrosclerosis with baseline creatinine in the range of 1-1.4. 5. Hyperkalemia secondary to metabolic acidosis and GI bleed. Resolved. 6. Peripheral vascular disease. 7. Left foot wound with concern for cellulitis maintained on antibiotics per infectious disease. Scheduled for left lower extremity angiogram today. 8. Hematuria being followed by urology. He will be scheduled for a cystoscopy in the near future. Plan: Maintain normal saline at 75 mL an hour. Maintain oral sodium bicarbonate. Ferrlecit 125 mg IV daily for 3 days. Second dose today. Repeat electrolytes in the morning. Morning labs pending. Continue to monitor renal function and urine output closely. Patient is at a moderate risk for developing contrast-induced nephropathy.
[2018-06-01] MEDS: MECLIZINE 12.5 MG TAB PO SCH ×2 (11:18→18:09)
--- NOTE | 2018-06-01 11:25 | P.PN ---
Subjective Progress Note Date: 06/01/18 Principal diagnosis: Anemia 73-year-old male with a history of renal cell prostate carcinoma on Optivo, admitted with severe anemia 6.9 bilateral lower extremity ulcerations secondary to severe bilateral lower extremity PVD maintained on aspirin Plavix. Status post recent atherectomy balloon angioplasty of the right SFA a week ago. Patient denies overt bleeding such as hematemesis hematochezia melena. EGD colonoscopy October 2017 evidence of peptic ulcer disease. 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 Receiving 1 unit of blood since admission. Passing pink tinged urine. CBC today is 7.9. He is scheduled for lower extremity angioplasty amputation of left toe tomorrow. Objective - Vital Signs Vital signs: Vital Signs Temp 98.4 F 06/01/18 08:00 Pulse 80 06/01/18 08:27 Resp 16 06/01/18 08:00 BP 110/70 06/01/18 08:00 Pulse Ox 98 06/01/18 08:00 Intake & Output 05/31/18 06/01/18 06/01/18 18:59 06:59 18:59 Intake Total 702 340 Output Total 600 Balance 702 -260 Intake: Oral 702 340 Output: Urine 600 Other: # Voids 2 # Bowel Movements 1 - Exam General appearance: The patient is alert, oriented, in no acute distress. HET: Head is normocephalic and atraumatic. Pupils are equal and reactive. Oropharynx is clear without lesions. Neck: Supple without lymphadenopathy. Trachea midline. Heart: S1 S2. Regular rate and rhythm. Lungs: No crackles or wheezes are heard. Abdomen: Soft, nontender, nondistended with bowel sounds. No peritoneal signs. No palpable organomegaly or masses. Extremities: . Right great toe amputation. Left great toe dressing intact. Neurological: No focal deficits. Strength and sensation are grossly intact. - Labs CBC & Chem 7: 06/05/18 07:11 06/05/18 07:11 Labs: Abnormal Lab Results - Last 24 Hours (Table) 06/01/18 06/01/18 Range/Units 09:18 09:18 RBC 2.94 L (4.30-5.90) m/uL Hgb 7.9 L (13.0-17.5) gm/dL Hct 25.1 L (39.0-53.0) % RDW 16.8 H (11.5-15.5) % Lymphocytes # 0.7 L (1.0-4.8) k/uL Chloride 113 H (98-107) mmol/L Carbon Dioxide 17 L (22-30) mmol/L Creatinine 1.51 H (0.66-1.25) mg/dL Calcium 6.3 L* (8.4-10.2) mg/dL Total Protein 5.7 L (6.3-8.2) g/dL Albumin 2.7 L (3.5-5.0) g/dL Microbiology - Last 24 Hours (Table) 05/27/18 16:50 Blood Culture - Preliminary Blood No Growth after 96 hours 05/30/18 11:00 Urine Culture - Final Urine,Voided Assessment and Plan Assessment: Impression: 1. Severe symptomatic normocytic hypochromic iron deficient anemia multifactorial suggestive of possible occult GI loss possibly from hematuria but presently without overt GI bleeding. FOBT positive. 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 2. History of metastatic renal cell carcinoma and prostate carcinoma (no evidence of disease at this time) presently on immunosuppressant therapy Optivo. 3. History of severe PVD recent intervention to the right lower extremity maintained on aspirin Plavix. 4. History of hematuria. Recommendations: 1. Presently patient is without overt symptoms of GI bleed such as hematemesis hematochezia or melena. Oncology has requested EGD evaluation to rule out confidently upper GI source. We'll proceed with EGD evaluation after lower extremity angioplasty amputation is completed possible EGD Wednesday. 2. CBC monitoring. We'll follow closely with you. The gis engineer has discussed the risks, benefits and alternative therapies for the above-mentioned procedure and for both sedation/analgesia as well as necessary blood product administration, if indicated, as they pertain to this patient. The patient has indicated understanding and acceptance of the risks and procedures discussed. Assessment and plan of care discussed with Dr. Menon
[2018-06-01] MEDS: PIPERACILLIN-TAZOBACTAM 3.375 GM in DEXTROSE/WATER 1 50ML.BAG IVPB SCH ×3 (13:34→22:16)
[2018-06-01] MEDS ORDERED: CALCIUM GLUCONATE 1,000 MG in SODIUM CHLORIDE 0.9% 100 ML IVPB ONE (14:00)
--- NOTE | 2018-06-01 14:32 | P.PN ---
Subjective Progress Note Date: 06/01/18 Moises Bradford, is a 73-year-old male presented to [facility] emergency room was a chief complaint of change in the color of his scabbed ulcers on his right foot, and complaining of shortness of breath. He was evaluated in the emergency room and was admitted to medical floor, patient has a known history of severe peripheral vascular disease, with multiple ulcers on bilateral feet, he is status post right fifth toe amputation, he also had previous history of angioplasty of the right lower extremity done by Dr. Su. He is a lifelong smoker. Patient was seen and evaluated on medical floor, he has mild shortness of breath at rest, but has worsening shortness of breath with any activity, his hemoglobin on presentation was 10.0 however hemoglobin came down to 6.9 today. Also potassium was significantly elevated on presentation at 6.5. Patient has a known history of prostate cancer he had history of prostatectomy followed by radiation therapy, he developed rectal bleeding and hematuria, he was admitted in October of this year at that time he underwent EGD and colonoscopy and had evidence of a rectal ulcer likely related to radiation therapy. Patient also has a known history of renal cell carcinoma, he is receiving chemotherapy once monthly. Patient was admitted to medical floor, consultation for infectious disease, cardiology, and nephrology were initiated. On 05/29/2018 patient was seen and examined he is alert and oriented 3 in no apparent distress he denies any pain or discomfort at this time, hemoglobin is up to 8.2 after 1 unit of red blood cell transfusion potassium is down to 5.1 Clinically patient denies any fever or chills no headache or dizziness no chest pain no shortness of breath no cough no nausea or vomiting no abdominal pain no diarrhea and no urinary symptoms 05/30/2018 patient lying in bed comfortably. Patient's pain is controlled. Patient be evaluated by vascular surgery regarding gangrene on the left foot. He is on IV Zosyn. Regarding his anemia hemoglobin has increased from 6.9-8.2 after 1 unit of blood. Potassium has improved. Patient is not reporting any blood in the stool. But stool for occult blood is positive. Also urinalysis is showing evidence of blood. Patient has not visualized any blood in his urine. He denies any burning with urination. Patient denies any chest pain or shortness of breath. Denies any nausea or vomiting. 05/31/2018 patient has no new complaints. Hemoglobin 8.6. Creatinine 1.48. Total iron 19. Patient asking about his plan of care. At this time GI service is not planning and any endoscopies unless there is active bleeding. Discussed case with both GI service and cardiology service. Dr. Su would like to do vascular intervention on the left leg to improve blood flow to the foot before any amputation of that toe is completed. He will check if he can have the vascular procedure done earlier than June 24. Patient's urine is slightly pink. Reports bowel movements with no blood or black stool. Denies any chest pain or shortness of breath On 06/01/2018 patient is noted complaints at this time. Patient is resting comfortably in bed. Patient's calcium 6.3. Patient to receive calcium gluconate per Dr. Leavitt per nephrology. Discussed case with GI services, patient will undergo EGD tomorrow or Wednesday to rule out upper GI source of bleeding. Patient to have left lower extremity angioplasty completed today. At this time patient denies chest pain or shortness breath. Patient denies nausea vomiting or diarrhea. Patient denies any urinary burning or frequency Objective - Vital Signs Vital signs: Vital Signs Temp 98.4 F 06/01/18 08:00 Pulse 80 06/01/18 08:27 Resp 16 06/01/18 08:00 BP 110/70 06/01/18 08:00 Pulse Ox 98 06/01/18 08:00 Intake & Output 05/31/18 06/01/18 06/01/18 18:59 06:59 18:59 Intake Total 702 340 Output Total 600 Balance 702 -260 Intake: Oral 702 340 Output: Urine 600 Other: # Voids 2 # Bowel Movements 1 - Exam Head normocephalic Neck supple Lungs clear to auscultation bilaterally no wheezing or crackles Heart regular rate and rhythm S1-S2, no rub or gallop Abdomen is soft nontender nondistended positive bowel sounds no hepatosplenomegaly Extremities left foot lateral aspect eschar tissue. left great toe dusky in color bone present on the posterior aspect Neuro alert and orientated to 3 - Labs CBC & Chem 7: 06/01/18 09:18 06/01/18 09:18 Labs: Abnormal Lab Results - Last 24 Hours (Table) 06/01/18 06/01/18 Range/Units 09:18 09:18 RBC 2.94 L (4.30-5.90) m/uL Hgb 7.9 L (13.0-17.5) gm/dL Hct 25.1 L (39.0-53.0) % RDW 16.8 H (11.5-15.5) % Lymphocytes # 0.7 L (1.0-4.8) k/uL Chloride 113 H (98-107) mmol/L Carbon Dioxide 17 L (22-30) mmol/L Creatinine 1.51 H (0.66-1.25) mg/dL Calcium 6.3 L* (8.4-10.2) mg/dL Total Protein 5.7 L (6.3-8.2) g/dL Albumin 2.7 L (3.5-5.0) g/dL Microbiology - Last 24 Hours (Table) 05/27/18 16:50 Blood Culture - Preliminary Blood No Growth after 96 hours 05/30/18 11:00 Urine Culture - Final Urine,Voided Assessment and Plan Assessment: #1 gangrene of the left foot: Patient currently on IV Zosyn. Followed by infectious disease and vascular surgery. Per infectious disease continue Zosyn. Will require short course of oral Augmentin and further workup in outpatient setting upon discharge per infectious disease #2 severe bilateral lower extremity peripheral vascular disease, patient is followed by Dr. Su he performed angioplasty on the right lower extremity. Maintain on aspirin and Plavix. Discussed with Dr. Su. He will evaluate patient again today and will await their further recommendations regards to vascular intervention to be done at earlier time. Dr. 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 Patient does have known malignancy and chronic disease as well as iron deficiency anemia. Also concerns for acute blood loss anemia due to possible GI bleed. Patient also having some blood in his urinalysis. Patient required 1 unit of blood. Patient seen by GI service no plan for endoscopy unless active bleeding occurs. Patient also followed by hematology. Discussed case with GI service is planning for EGD either tomorrow or Wednesday per oncology request. Hemoglobin 7.9 #4 underlying history of tobacco abuse #5 underlying history of prostate cancer treated with surgery and radiation therapy #6 underlying history of COPD #7 underlying history of right kidney renal cell carcinoma, treated with monthly infusion of chemotherapy, followed by Dr. Burch. #8 previous admission with rectal bleeding in October 2017 at that time patient was seen by Dr. Lloyd and had evidence of rectal ulcer likely related to previous radiation therapy related to prostate cancer.3 #9 hyperkalemia resolved #10 metabolic acidosis continue sodium bicarbonate #11 chronic kidney disease, stage III. Creatinine increasing to 1.50 #12 right sided hydronephrosis: Consult urology. Per urology cystoscopy will be required during this hospitalization if the hematuria persists in the anemia worsens. If the hematuria improves, he can undergo outpatient cystoscopy. #14 UTI continue antibiotics. Check urine culture. Urine culture showing no growth #15 hypocalcemia. Calcium 6.3. Nephrology services following. Calcium gluconate has been ordered per nephrology GI prophylaxis Protonix and DVT prophylaxis SCDs I performed an examination of the patient and discussed their management with the Nurse Practitioner. I have reviewed the Nurse Practitioner's notes and agree with the documented findings and plan of care
[2018-06-01] MEDS: MULTIVITAMINS, THERA 1 EACH TAB PO SCH (15:57)
[2018-06-01 19:10] LABS: Vitamin D 25 Hydroxy 32.6 ng/mL (30.0-100.0)
[2018-06-01 21:14] LABS: Parathyroid Hormone Intact 185.5 pg/mL (14.0-72.0)
[2018-06-01] MEDS: ATORVASTATIN 20 MG TAB PO SCH (22:16)
--- NOTE | 2018-06-01 22:17 | PN ---
PROGRESS NOTE DATE OF SERVICE: 06/01/2018 REASON FOR FOLLOWUP: Left foot wound and pustular lesion with possible cellulitis. INTERVAL HISTORY: The patient is currently afebrile. He is breathing comfortably. Denies having any chest pain, shortness of breath or cough. No abdominal pain or any worsening pain to the left foot area. PHYSICAL EXAMINATION: Blood pressure 104/64 with a pulse of 82, temperature 99.2. He is 93% on room air. General description is an elderly male lying in bed in no distress. RESPIRATORY SYSTEM: Unlabored breathing. Clear to auscultation anteriorly. HEART: S1, S2. Regular rate and rhythm. ABDOMEN: Soft. No tenderness. Left foot plantar wound with the bone exposed but no significant drainage from this left foot lateral border pustular lesion has been reported. Slightly decreased in size with no drainage. LABS: Hemoglobin is 7.9, white count 8.4, BUN of 17, creatinine 1.51. DIAGNOSTIC IMPRESSION AND PLAN: Patient with left foot lateral border pustular lesion with episode of osteomyelitis of the big toe that has been treated in the outpatient setting with exposed. The patient is currently on Zosyn. That will be continued for now. Hopefully transition to oral antibiotic on discharge. Continue with supportive care. MMODL / IJN: [id number] /
[2018-06-02] MEDS: MECLIZINE 12.5 MG TAB PO SCH ×4 (00:15→22:29)
[2018-06-02] MEDS: PIPERACILLIN-TAZOBACTAM 3.375 GM in DEXTROSE/WATER 1 50ML.BAG IVPB SCH ×3 (05:09→22:29)
[2018-06-02] MEDS: SODIUM CHLORIDE 0.9% 1,000 ML IV SCH ×2 (06:01→22:29)
[2018-06-02] MEDS: BUDESONIDE 0.5 MG/2 ML NEBU INHALATION SCH ×2 (07:34→20:27)
[2018-06-02] MEDS: FORMOTEROL FUMARATE 20 MCG/2 ML NEBU INHALATION PRN (07:34)
[2018-06-02] MEDS: IPRATROPIUM 0.5 MG/2.5 ML NEBU INHALATION PRN ×2 (07:34→20:27)
[2018-06-02] MEDS: PANTOPRAZOLE 40 MG TABLET PO SCH (08:30)
[2018-06-02] MEDS: CALCIUM CARBONATE 500 MG CHEWABLE PO SCH ×2 (08:30→21:08)
[2018-06-02] MEDS: ASPIRIN 325 MG TAB PO SCH (08:30)
[2018-06-02] MEDS: CLOPIDOGREL 75 MG TAB PO SCH (08:30)
[2018-06-02] MEDS: SODIUM BICARBONATE TAB 650 MG TAB PO SCH ×3 (08:30→21:09)
[2018-06-02] MEDS: CITALOPRAM HYDROBROMIDE 20 MG TAB PO SCH (08:30)
[2018-06-02] MEDS: HYDROcodone/APAP 5-325MG 1 EACH TAB PO SCH ×3 (08:31→21:08)
[2018-06-02] MEDS: FERROUS SULFATE 325 MG TAB PO SCH (08:31)
[2018-06-02 08:50] LABS: Anisocytosis Slight; Basophils # (A) 0.1 k/uL (0-0.2); Basophils % (A) 1 %; Eosinophils # (A) 0.1 k/uL (0-0.7); Eosinophils % (A) 1 %; HCT 24.9 % (39.0-53.0); HGB 7.9 gm/dL (13.0-17.5); Hypochromasia Slight; Lymphocytes # (A) 0.9 k/uL (1.0-4.8); Lymphocytes % (A) 10 %; MCH 27.1 pg (25.0-35.0); MCHC 31.7 g/dL (31.0-37.0); MCV 85.3 fL (80.0-100.0); Mean Platelet Volume 7.2; Monocytes # (A) 0.6 k/uL (0-1.0); Monocytes % (A) 7 %; Neutrophils # (A) 7.3 k/uL (1.3-7.7); Neutrophils % (A) 80 %; Platelet Count 387 k/uL (150-450); RBC 2.92 m/uL (4.30-5.90); WBC 9.1 k/uL (3.8-10.6)
[2018-06-02 08:58] LABS: Albumin 2.9 g/dL (3.5-5.0); Calcium 6.8 mg/dL (8.4-10.2); Potassium 4.8 mmol/L (3.5-5.1); Total Bilirubin 0.3 mg/dL (0.2-1.3); Total Protein 5.9 g/dL (6.3-8.2)
[2018-06-02] MEDS: SODIUM FERRIC GLUCONAT-SUCROSE 125 MG in SODIUM CHLORIDE 0.9% 100 ML IVPB SCH (09:52)
--- NOTE | 2018-06-02 10:02 | P.PN ---
Subjective Progress Note Date: 06/02/18 Principal diagnosis: Anemia 73-year-old male with a history of renal cell prostate carcinoma on Optivo, admitted with severe anemia 6.9 bilateral lower extremity ulcerations secondary to severe bilateral lower extremity PVD maintained on aspirin Plavix. Status post recent atherectomy balloon angioplasty of the right SFA a week ago. Patient denies overt bleeding such as hematemesis hematochezia melena. FOBT positive. EGD colonoscopy October 2017 evidence of peptic ulcer disease. 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 Receiving 1 unit of blood since admission. Passing intermittent pink tinged urine nothing in the last 24 hours. CBC today is 7.9 unchanged from yesterday. He is scheduled for lower extremity angioplasty amputation of left toe today. Objective - Vital Signs Vital signs: Vital Signs Temp 98.2 F 06/02/18 08:05 Pulse 74 06/02/18 08:05 Resp 20 06/02/18 08:05 BP 100/63 06/02/18 08:05 Pulse Ox 99 06/02/18 08:05 Intake & Output 06/01/18 06/02/18 06/02/18 18:59 06:59 18:59 Intake Total 500 240 Output Total 2 400 200 Balance -2 100 40 Intake: Intake, IV Titration 500 Amount Piperacillin-Tazobactam 3 50 .375 gm In Dextrose/Water 1 50ml.bag @ 12.5 mls/hr IVPB Q8H DAVID Rx#: [id number] Sodium Chloride 0.9% 1, 450 000 ml @ 75 mls/hr IV . [id number] DAVID Rx#:[id number] Oral 240 Output: Urine 400 200 Stool 2 Other: # Voids 3 1 # Bowel Movements 2 1 - Exam General appearance: The patient is alert, oriented, in no acute distress. HET: Head is normocephalic and atraumatic. Pupils are equal and reactive. Oropharynx is clear without lesions. Neck: Supple without lymphadenopathy. Trachea midline. Heart: S1 S2. Regular rate and rhythm. Lungs: No crackles or wheezes are heard. Abdomen: Soft, nontender, nondistended with bowel sounds. No peritoneal signs. No palpable organomegaly or masses. Extremities: . Right great toe amputation. Left great toe dressing intact. Neurological: No focal deficits. Strength and sensation are grossly intact. - Labs CBC & Chem 7: 06/02/18 07:50 06/02/18 07:50 Labs: Abnormal Lab Results - Last 24 Hours (Table) 06/01/18 06/01/18 06/01/18 Range/Units 09:15 09:18 09:18 RBC 2.94 L (4.30-5.90) m/uL Hgb 7.9 L (13.0-17.5) gm/dL Hct 25.1 L (39.0-53.0) % RDW 16.8 H (11.5-15.5) % Lymphocytes # 0.7 L (1.0-4.8) k/uL Chloride 113 H (98-107) mmol/L Carbon Dioxide 17 L (22-30) mmol/L Creatinine 1.51 H (0.66-1.25) mg/dL Calcium 6.3 L* (8.4-10.2) mg/dL Total Protein 5.7 L (6.3-8.2) g/dL Albumin 2.7 L (3.5-5.0) g/dL PTH Intact 185.5 H (14.0-72.0) pg/mL 06/02/18 06/02/18 Range/Units 07:50 07:50 RBC 2.92 L (4.30-5.90) m/uL Hgb 7.9 L (13.0-17.5) gm/dL Hct 24.9 L (39.0-53.0) % RDW 17.0 H (11.5-15.5) % Lymphocytes # 0.9 L (1.0-4.8) k/uL Chloride 113 H (98-107) mmol/L Carbon Dioxide 15 L (22-30) mmol/L Creatinine 1.35 H (0.66-1.25) mg/dL Calcium 6.8 L (8.4-10.2) mg/dL Total Protein 5.9 L (6.3-8.2) g/dL Albumin 2.9 L (3.5-5.0) g/dL PTH Intact (14.0-72.0) pg/mL Microbiology - Last 24 Hours (Table) 05/27/18 16:50 Blood Culture - Preliminary Blood No Growth after 120 hours Assessment and Plan Assessment: Impression: 1. Severe symptomatic normocytic hypochromic iron deficient anemia multifactorial suggestive of possible occult GI loss possibly from hematuria but presently without overt GI bleeding. FOBT positive. 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 2. History of metastatic renal cell carcinoma and prostate carcinoma (no evidence of disease at this time) presently on immunosuppressant therapy Optivo. 3. History of severe PVD recent intervention to the right lower extremity maintained on aspirin Plavix. 4. History of Hematuria. Recommendations: 1. Presently patient is without overt symptoms of GI bleed such as hematemesis hematochezia or melena. Oncology has requested EGD evaluation to rule out confidently upper GI source. We'll proceed with EGD evaluation tomorrow after lower extremity angioplasty amputation is completed today. 2. CBC monitoring. We'll follow closely with you. Assessment and plan of care discussed with Dr. Spears
--- NOTE | 2018-06-02 10:33 | P.PN ---
Subjective Patient is seen in follow-up for acute kidney injury on chronic kidney disease. Patient has chronic kidney disease stage III with baseline creatinine in the range of 1.2-1.4. Creatinine 1.35 today. Hemoglobin was low as 6.9 on May 28 and he did receive a unit of blood transfusion. Hemoglobin 7.9 today. No vomiting or diarrhea. Oral intake is improving. Patient has history of renal cell carcinoma and follows with Dr. Burch from oncology. He is maintained on Opdivo. Continues to have pinkish tinge to his urine. Scheduled for left lower extremity angiogram today. Vital signs are stable. General: The patient appeared well nourished and normally developed. HEENT: Head exam is unremarkable. Neck is without jugular venous distension. LUNGS: Lungs are clear to auscultation and percussion. Breath sounds decreased. HEART: Rate and Rhythm are regular. First and second heart sounds normal. No murmurs, rubs or gallops. ABDOMEN: Abdominal exam reveals normal bowel sounds. Non-tender and non- distended. No evidence of peritonitis. EXTREMITITES: No clubbing, cyanosis, or edema. Objective - Vital Signs Vital signs: Vital Signs Temp 98.2 F 06/02/18 08:05 Pulse 74 06/02/18 08:05 Resp 20 06/02/18 08:05 BP 100/63 06/02/18 08:05 Pulse Ox 99 06/02/18 08:05 Intake & Output 06/01/18 06/02/18 06/02/18 18:59 06:59 18:59 Intake Total 500 240 Output Total 2 400 200 Balance -2 100 40 Intake: Intake, IV Titration 500 Amount Piperacillin-Tazobactam 3 50 .375 gm In Dextrose/Water 1 50ml.bag @ 12.5 mls/hr IVPB Q8H DAVID Rx#: [id number] Sodium Chloride 0.9% 1, 450 000 ml @ 75 mls/hr IV . [id number] DAVID Rx#:[id number] Oral 240 Output: Urine 400 200 Stool 2 Other: # Voids 3 1 # Bowel Movements 2 1 - Labs CBC & Chem 7: 06/02/18 07:50 06/02/18 07:50 Labs: Abnormal Lab Results - Last 24 Hours (Table) 06/01/18 06/01/18 06/02/18 Range/Units 09:15 09:18 07:50 RBC 2.92 L (4.30-5.90) m/uL Hgb 7.9 L (13.0-17.5) gm/dL Hct 24.9 L (39.0-53.0) % RDW 17.0 H (11.5-15.5) % Lymphocytes # 0.9 L (1.0-4.8) k/uL Chloride 113 H (98-107) mmol/L Carbon Dioxide 17 L (22-30) mmol/L Creatinine 1.51 H (0.66-1.25) mg/dL Calcium 6.3 L* (8.4-10.2) mg/dL Total Protein 5.7 L (6.3-8.2) g/dL Albumin 2.7 L (3.5-5.0) g/dL PTH Intact 185.5 H (14.0-72.0) pg/mL 06/02/18 Range/Units 07:50 RBC (4.30-5.90) m/uL Hgb (13.0-17.5) gm/dL Hct (39.0-53.0) % RDW (11.5-15.5) % Lymphocytes # (1.0-4.8) k/uL Chloride 113 H (98-107) mmol/L Carbon Dioxide 15 L (22-30) mmol/L Creatinine 1.35 H (0.66-1.25) mg/dL Calcium 6.8 L (8.4-10.2) mg/dL Total Protein 5.9 L (6.3-8.2) g/dL Albumin 2.9 L (3.5-5.0) g/dL PTH Intact (14.0-72.0) pg/mL Microbiology - Last 24 Hours (Table) 05/27/18 16:50 Blood Culture - Preliminary Blood No Growth after 120 hours Assessment and Plan Plan: Assessment: 1. Mild acute kidney injury mostly prerenal from anemia. Renal function better with creatinine at 1.35 today. 2. Acute blood loss anemia status post blood transfusion. Hemoglobin 7.9 today. Iron deficiency noted. Scheduled for EGD tomorrow. 3. Renal cell carcinoma maintained on Opdivo. 4. Chronic kidney disease stage III secondary to nephrosclerosis with baseline creatinine in the range of 1-1.4. 5. Hyperkalemia secondary to metabolic acidosis and GI bleed. Resolved. 6. Peripheral vascular disease. 7. Left foot wound with concern for cellulitis maintained on antibiotics per infectious disease. Scheduled for left lower extremity angiogram today. 8. Hematuria being followed by urology. He will be scheduled for a cystoscopy in the near future. 9. Metabolic acidosis secondary to chronic kidney disease and IV fluids. 10. Hypocalcemia secondary to acute kidney injury. PTH appropriately elevated. Vitamin D normal. Maintained on Tums. Plan: Maintain normal saline at 75 mL an hour. Increase oral bicarbonate 1300 mg 3 times daily. Ferrlecit 125 mg IV daily for 3 days. Third dose today. Repeat electrolytes in the morning. Continue to monitor renal function and urine output closely. Patient is at a moderate risk for developing contrast-induced nephropathy.
--- NOTE | 2018-06-02 11:57 | P.PN ---
Subjective Progress Note Date: 06/02/18 Moises Bradford, is a 73-year-old male presented to [facility] emergency room was a chief complaint of change in the color of his scabbed ulcers on his right foot, and complaining of shortness of breath. He was evaluated in the emergency room and was admitted to medical floor, patient has a known history of severe peripheral vascular disease, with multiple ulcers on bilateral feet, he is status post right fifth toe amputation, he also had previous history of angioplasty of the right lower extremity done by Dr. Su. He is a lifelong smoker. Patient was seen and evaluated on medical floor, he has mild shortness of breath at rest, but has worsening shortness of breath with any activity, his hemoglobin on presentation was 10.0 however hemoglobin came down to 6.9 today. Also potassium was significantly elevated on presentation at 6.5. Patient has a known history of prostate cancer he had history of prostatectomy followed by radiation therapy, he developed rectal bleeding and hematuria, he was admitted in October of this year at that time he underwent EGD and colonoscopy and had evidence of a rectal ulcer likely related to radiation therapy. Patient also has a known history of renal cell carcinoma, he is receiving chemotherapy once monthly. Patient was admitted to medical floor, consultation for infectious disease, cardiology, and nephrology were initiated. On 05/29/2018 patient was seen and examined he is alert and oriented 3 in no apparent distress he denies any pain or discomfort at this time, hemoglobin is up to 8.2 after 1 unit of red blood cell transfusion potassium is down to 5.1 Clinically patient denies any fever or chills no headache or dizziness no chest pain no shortness of breath no cough no nausea or vomiting no abdominal pain no diarrhea and no urinary symptoms 05/30/2018 patient lying in bed comfortably. Patient's pain is controlled. Patient be evaluated by vascular surgery regarding gangrene on the left foot. He is on IV Zosyn. Regarding his anemia hemoglobin has increased from 6.9-8.2 after 1 unit of blood. Potassium has improved. Patient is not reporting any blood in the stool. But stool for occult blood is positive. Also urinalysis is showing evidence of blood. Patient has not visualized any blood in his urine. He denies any burning with urination. Patient denies any chest pain or shortness of breath. Denies any nausea or vomiting. 05/31/2018 patient has no new complaints. Hemoglobin 8.6. Creatinine 1.48. Total iron 19. Patient asking about his plan of care. At this time GI service is not planning and any endoscopies unless there is active bleeding. Discussed case with both GI service and cardiology service. Dr. Su would like to do vascular intervention on the left leg to improve blood flow to the foot before any amputation of that toe is completed. He will check if he can have the vascular procedure done earlier than June 24. Patient's urine is slightly pink. Reports bowel movements with no blood or black stool. Denies any chest pain or shortness of breath On 06/01/2018 patient is noted complaints at this time. Patient is resting comfortably in bed. Patient's calcium 6.3. Patient to receive calcium gluconate per Dr. Leavitt per nephrology. Discussed case with GI services, patient will undergo EGD tomorrow or Wednesday to rule out upper GI source of bleeding. Patient to have left lower extremity angioplasty completed today. At this time patient denies chest pain or shortness breath. Patient denies nausea vomiting or diarrhea. Patient denies any urinary burning or frequency 06/02/2018 patient has no new complaints. He is scheduled for vascular procedure on the left leg today. EGD scheduled for tomorrow. Patient denies any chest pain or shortness breath. Denies any nausea or vomiting. Reports brown stools. Urine is now clear. Denies any chest pain or shortness of breath Objective - Vital Signs Vital signs: Vital Signs Temp 98.2 F 06/02/18 08:05 Pulse 74 06/02/18 08:05 Resp 20 06/02/18 08:05 BP 100/63 06/02/18 08:05 Pulse Ox 99 06/02/18 08:05 Intake & Output 06/01/18 06/02/18 06/02/18 18:59 06:59 18:59 Intake Total 500 480 Output Total 2 400 200 Balance -2 100 280 Intake: Intake, IV Titration 500 Amount Piperacillin-Tazobactam 3 50 .375 gm In Dextrose/Water 1 50ml.bag @ 12.5 mls/hr IVPB Q8H DAVID Rx#: [id number] Sodium Chloride 0.9% 1, 450 000 ml @ 75 mls/hr IV . [id number] DAVID Rx#:[id number] Oral 480 Output: Urine 400 200 Stool 2 Other: Voiding Method Urinal # Voids 3 1 # Bowel Movements 2 1 - Exam Head normocephalic Neck supple Lungs clear to auscultation bilaterally no wheezing or crackles Heart regular rate and rhythm S1-S2, no rub or gallop Abdomen is soft nontender nondistended positive bowel sounds no hepatosplenomegaly Extremities left foot lateral aspect eschar tissue. left great toe dusky in color bone present on the posterior aspect Neuro alert and orientated to 3 - Labs CBC & Chem 7: 06/02/18 07:50 06/02/18 07:50 Labs: Abnormal Lab Results - Last 24 Hours (Table) 06/01/18 06/02/18 06/02/18 Range/Units 09:15 07:50 07:50 RBC 2.92 L (4.30-5.90) m/uL Hgb 7.9 L (13.0-17.5) gm/dL Hct 24.9 L (39.0-53.0) % RDW 17.0 H (11.5-15.5) % Lymphocytes # 0.9 L (1.0-4.8) k/uL Chloride 113 H (98-107) mmol/L Carbon Dioxide 15 L (22-30) mmol/L Creatinine 1.35 H (0.66-1.25) mg/dL Calcium 6.8 L (8.4-10.2) mg/dL Total Protein 5.9 L (6.3-8.2) g/dL Albumin 2.9 L (3.5-5.0) g/dL PTH Intact 185.5 H (14.0-72.0) pg/mL Microbiology - Last 24 Hours (Table) 05/27/18 16:50 Blood Culture - Preliminary Blood No Growth after 120 hours Assessment and Plan Assessment: #1 left foot wound and pustular lesion with possible cellulitis: Patient currently on IV Zosyn. Followed by infectious disease and vascular surgery. Per infectious disease continue Zosyn. ID will switch to Augmentin at discharge #2 severe bilateral lower extremity peripheral vascular disease, patient is followed by Dr. Su he performed angioplasty on the right lower extremity. Maintain on aspirin and Plavix. Patient scheduled for vascular procedure on the left leg today #3 patient has had recent amputation of the right fifth toe by his software business analyst #3 Severe anemia with acute blood loss anemia and chronic anemia. Patient does have known malignancy and chronic disease as well as iron deficiency anemia. Also concerns for acute blood loss anemia due to possible GI bleed. Patient also having some blood in his urinalysis. Patient required 1 unit of blood. Patient is scheduled for EGD tomorrow #4 underlying history of tobacco abuse #5 underlying history of prostate cancer treated with surgery and radiation therapy #6 underlying history of COPD #7 underlying history of metastatic renal cell carcinoma, treated with monthly infusion of chemotherapy, followed by Dr. Burch. #8 previous admission with rectal bleeding in October 2017 at that time patient was seen by Dr. Lloyd and had evidence of rectal ulcer likely related to previous radiation therapy related to prostate cancer.3 #9 hyperkalemia resolved #10 metabolic acidosis continue sodium bicarbonate #11 chronic kidney disease, stage III. Creatinine increasing to 1.50 #12 hematuria : Per urology cystoscopy will be required during this hospitalization if the hematuria persists in the anemia worsens. If the hematuria improves, he can undergo outpatient cystoscopy. Right-sided hydronephrosis patient evaluated by urology #14 UTI continue antibiotics. Urine culture showing no growth #15 hypocalcemia. Secondary to acute kidney injury. PTH appropriately elevated. Status post calcium gluconate. Continue Tums. Nephrology following. GI prophylaxis Protonix and DVT prophylaxis SCDs I performed an examination of the patient and discussed their management with the physician Fishing Rod Assembler. I have reviewed the Physician Fishing Rod Assembler's notes and agree with the documented findings and plan of care
[2018-06-02] MEDS ORDERED: SODIUM CHLORIDE 0.9% 500 ML 500 ML IV ONE (12:00)
[2018-06-02] MEDS ORDERED: diphenhydrAMINE 50 MG/ML 1 ML VIAL IVP ONE (12:20)
[2018-06-02] MEDS ORDERED: MIDAZOLAM 2 MG/2 ML VIAL IV ONE (12:21)
[2018-06-02] MEDS: MIDAZOLAM 2 MG/2 ML VIAL IV ONE ×2 (12:21→13:36)
[2018-06-02] MEDS ORDERED: methylPREDNISolone SOD SUCCI 125 MG/2 ML VIAL IV ONE (12:21)
[2018-06-02] MEDS ORDERED: LIDOCAINE 1% INJ 10MG/ML (20 ML MDV) SQ ONE (12:25)
[2018-06-02] MEDS: HEPARIN SODIUM 1,000 UN/ML (10ML VL) IV ONE ×3 (12:31→14:15)
[2018-06-02] MEDS: fentaNYL (PF) 50 MCG/ML 2 ML AMP IV ONE ×2 (13:39→14:39)
[2018-06-02] MEDS ORDERED: niCARdipine Syringe (1,000 mcg/10 mL) INTRAARTER ONE (14:11)
[2018-06-02] MEDS ORDERED: NITROGLYCERIN 1000MCG/10ML SYRINGE INTRAARTER ONE (14:11)
[2018-06-02] MEDS ORDERED: IOPAMIDOL-250 100ML BTL INTRAARTER ONE (14:18)
[2018-06-02] MEDS: PROTAMINE SULFATE 10 MG/ML 5 ML VIAL IV ONE ×2 (14:34→14:39)
[2018-06-02] MEDS ORDERED: IOPAMIDOL-250 50ML BTL INTRAARTER ONE (14:49)
[2018-06-02] MEDS ORDERED: CLOPIDOGREL 75 MG TAB PO ONE (14:49)
[2018-06-02] MEDS ORDERED: SODIUM CHLORIDE 0.9% 1,000 ML IV SCH (15:00)
--- NOTE | 2018-06-02 15:27 | LTR ---
DATE OF SERVICE: 06/02/2018 RE: Moises Bradford. Dear Dr. Wang; Mr. Moises Bradford underwent successful opening of the left femoral artery, which was chronically occluded. The procedure was performed with good angiographic results and without any complication. Thank you for allowing us to participate in his care and please do not hesitate for any question or concern. Sincerely, MD ANTONI Lozano / CHAI: [id number] /
[2018-06-02] MEDS: MULTIVITAMINS, THERA 1 EACH TAB PO SCH (16:03)
[2018-06-02] MEDS: ATORVASTATIN 20 MG TAB PO SCH (21:08)
--- NOTE | 2018-06-02 21:48 | AN ---
ANGIOGRAPHY REPORT DATE OF SERVICE: June 02, 2018 PERFORMING PHYSICIAN: Lb Pacheco MD, industrial management teacher. PROCEDURE PERFORMED: 1. Selective left [id number] angiogram. 2. Selective left popliteal, SFA, angiogram. 3. Selective left common femoral artery angiogram. 4. Selective right common femoral artery angiogram. 5. Successful balloon angioplasty and stenting of the left SFA using 3 Zilver PTX drug coated stent with an excellent angiographic results and reduction of stenosis from 100% to 0%. 6. Gradient measurement across the left external iliac artery. INDICATION: This is a pleasant 73-year-old gentleman who was diagnosed with critical limb ischemia and underwent a peripheral angiogram showed occluded left SFA. He was brought today to undergo a EXECUTIVE CHAIRMAN OF THE BOARD of the left SFA. APPROACH: Right common femoral artery. Perforation of the proximal left SFA which was sealed with anticoagulation with reversing of anticoagulation. SEDATION: Duration was 152 minutes. PROCEDURE DESCRIPTION: After obtaining an informed consent, the patient was brought to the cardiac slab lifting supervisor. The right common femoral artery was cannulated using micropuncture technique and a micropuncture wire passed easily. Then I placed a 6-Pu[place]ican sheath in the right common femoral artery. At that point, anticoagulation was initiated using heparin and the patient was given initially 6000 units of heparin during the procedure with continuous ACT monitoring throughout the procedure. After that, I did select the left profunda using .035 [place] Advantage wire with a 5- [place] rim catheter. After that, I did exchange my 11 cm 6-[place]ican sheath into 55 cm 6- [place] artery Rabi sheath using a 035 [place] advantage wire. The tip of the sheath was positioned in the left common femoral artery. I was able to cross the chronic total occlusion of the left SFA using a 018 gold tip Glidewire. Subsequently I knew that I was in the submental space and because of that, I did not do atherectomy of the left SFA. I did balloon angioplasty initially using 4 0 mm balloon then 5 0 mm balloon. After that, I stented the SFA using 3 drug coated stent. I placed distally 6 x 140 mm stent, in the mid 7 x 140 and approximately 7 x 80 mm Zilver PTX drug coated stent. After that, I did balloon angioplasty of the 3 stents using 6 mm balloon. There was an area inside the proximal stent which was not opening well and because of that, I decided to launch a 7 mm balloon. I balloon inflated under 10 atmospheres and I did with perforation of the left SFA. I reinflated the balloon again and reversed anticoagulation and the perforation was sealed. After that, I did do balloon angioplasty of the left ostial SFA using 7 mm drug coated balloon. The final angiogram showed excellent angiographic result and procedure was completed without any complication. After that, I did a gradient measurement across the left external iliac artery which came into be only 17 mmHg. Subsequently, I did exchange my long sheath into short sheath using 035 wire and I did selective right common femoral artery angiogram by the end. The procedure was completed without any complication. POSTPROCEDURE MANAGEMENT: 1. Dual anti-platelet therapy. 2. Risk factor modifications. 3. Follow up with the patient. MMODL / IJN: [id number] /
--- NOTE | 2018-06-02 23:24 | PN ---
PROGRESS NOTE DATE OF SERVICE: 06/02/2018. REASON FOR FOLLOWUP: Left big toe wound with to the left foot lateral border. INTERVAL HISTORY: The patient is afebrile. The patient is status post intervention to the left leg with placement of 3 stents to that leg. The patient tolerated the procedure. Denies having any chest pain, shortness of breath, cough, abdominal pain or diarrhea. EXAMINATION: Blood pressure 122/77 with a pulse of 93. Temperature 97.9. He is 98% on room air. General description is an elderly male lying in bed in no distress. Respiratory system: Unlabored breathing. Clear to auscultation anteriorly. Heart S1, S2. Regular rate and rhythm. Abdomen soft, no tenderness. Left foot lateral border with no change. Left big toe wound currently dressed up, no obvious drainage on the dressing. LABS: Hemoglobin 7.8, white count 9.1 with BUN of 19, creatinine 1.35. DIAGNOSTIC IMPRESSION AND PLAN: Patient with left big toe plantar wound nonhealing, also with to the left foot lateral border with concern for possible ischemic changes. The patient is status post intervention to the left leg with placement of this stent that should help healing of this wound. Currently on Zosyn that will be transitioned to oral antibiotic on discharge. Continue supportive care. MMODL / IJN: [id number] /
[2018-06-03 06:29] LABS: Anisocytosis Slight; Basophils % (A) 0 %; Eosinophils % (A) 0 %; HCT 24.2 % (39.0-53.0); HGB 7.8 gm/dL (13.0-17.5); Hypochromasia Slight; Lymphocytes # (A) 0.9 k/uL (1.0-4.8); Lymphocytes % (A) 7 %; MCH 27.4 pg (25.0-35.0); MCHC 32.2 g/dL (31.0-37.0); MCV 84.9 fL (80.0-100.0); Mean Platelet Volume 7.2; Monocytes # (A) 0.8 k/uL (0-1.0); Monocytes % (A) 6 %; Neutrophils # (A) 12.4 k/uL (1.3-7.7); Neutrophils % (A) 86 %; Platelet Count 428 k/uL (150-450); RBC 2.85 m/uL (4.30-5.90); WBC 14.5 k/uL (3.8-10.6)
[2018-06-03 06:41] LABS: Albumin 3.1 g/dL (3.5-5.0); Calcium 6.7 mg/dL (8.4-10.2); Magnesium 1.3 mg/dL (1.6-2.3); Potassium 4.5 mmol/L (3.5-5.1); Total Bilirubin 0.3 mg/dL (0.2-1.3); Total Protein 6.1 g/dL (6.3-8.2)
[2018-06-03] MEDS: PIPERACILLIN-TAZOBACTAM 3.375 GM in DEXTROSE/WATER 1 50ML.BAG IVPB SCH ×3 (06:48→20:07)
[2018-06-03] MEDS: IPRATROPIUM 0.5 MG/2.5 ML NEBU INHALATION PRN ×2 (07:39→19:11)
[2018-06-03] MEDS: FORMOTEROL FUMARATE 20 MCG/2 ML NEBU INHALATION PRN ×2 (07:39→19:11)
[2018-06-03] MEDS: BUDESONIDE 0.5 MG/2 ML NEBU INHALATION SCH ×2 (07:41→19:11)
[2018-06-03] MEDS: PANTOPRAZOLE 40 MG TABLET PO SCH (07:55)
[2018-06-03] MEDS: CITALOPRAM HYDROBROMIDE 20 MG TAB PO SCH (07:55)
[2018-06-03] MEDS: HYDROcodone/APAP 5-325MG 1 EACH TAB PO SCH ×2 (07:56→20:05)
[2018-06-03] MEDS: FERROUS SULFATE 325 MG TAB PO SCH (07:56)
[2018-06-03] MEDS: CALCIUM CARBONATE 500 MG CHEWABLE PO SCH ×2 (07:56→20:05)
[2018-06-03] MEDS: ASPIRIN 325 MG TAB PO SCH (07:56)
[2018-06-03] MEDS: CLOPIDOGREL 75 MG TAB PO SCH (07:56)
[2018-06-03] MEDS: SODIUM BICARBONATE TAB 650 MG TAB PO SCH ×3 (07:59→20:06)
--- NOTE | 2018-06-03 11:10 | IR ---
Fluoroscopy HISTORY: Pain in left leg 48.4 minutes fluoroscopy time supplied to the referring clinician. 785 intraoperative C-arm images d ocument the procedure. See dictated report from cardiology.
[2018-06-03] MEDS: SODIUM FERRIC GLUCONAT-SUCROSE 125 MG in SODIUM CHLORIDE 0.9% 100 ML IVPB SCH (11:31)
[2018-06-03] MEDS: SODIUM CHLORIDE 0.9% 1,000 ML IV SCH ×2 (11:50→20:10)
[2018-06-03] MEDS: MAGNESIUM SULFATE-D5W PMX 1 GM in DEXTROSE/WATER 1 100ML.BAG IVPB SCH ×2 (11:56→12:53)
--- NOTE | 2018-06-03 12:27 | P.PN ---
Subjective Progress Note Date: 06/03/18 Moises Bradford, is a 73-year-old male presented to [facility] emergency room was a chief complaint of change in the color of his scabbed ulcers on his right foot, and complaining of shortness of breath. He was evaluated in the emergency room and was admitted to medical floor, patient has a known history of severe peripheral vascular disease, with multiple ulcers on bilateral feet, he is status post right fifth toe amputation, he also had previous history of angioplasty of the right lower extremity done by Dr. Su. He is a lifelong smoker. Patient was seen and evaluated on medical floor, he has mild shortness of breath at rest, but has worsening shortness of breath with any activity, his hemoglobin on presentation was 10.0 however hemoglobin came down to 6.9 today. Also potassium was significantly elevated on presentation at 6.5. Patient has a known history of prostate cancer he had history of prostatectomy followed by radiation therapy, he developed rectal bleeding and hematuria, he was admitted in October of this year at that time he underwent EGD and colonoscopy and had evidence of a rectal ulcer likely related to radiation therapy. Patient also has a known history of renal cell carcinoma, he is receiving chemotherapy once monthly. Patient was admitted to medical floor, consultation for infectious disease, cardiology, and nephrology were initiated. On 05/29/2018 patient was seen and examined he is alert and oriented 3 in no apparent distress he denies any pain or discomfort at this time, hemoglobin is up to 8.2 after 1 unit of red blood cell transfusion potassium is down to 5.1 Clinically patient denies any fever or chills no headache or dizziness no chest pain no shortness of breath no cough no nausea or vomiting no abdominal pain no diarrhea and no urinary symptoms 05/30/2018 patient lying in bed comfortably. Patient's pain is controlled. Patient be evaluated by vascular surgery regarding gangrene on the left foot. He is on IV Zosyn. Regarding his anemia hemoglobin has increased from 6.9-8.2 after 1 unit of blood. Potassium has improved. Patient is not reporting any blood in the stool. But stool for occult blood is positive. Also urinalysis is showing evidence of blood. Patient has not visualized any blood in his urine. He denies any burning with urination. Patient denies any chest pain or shortness of breath. Denies any nausea or vomiting. 05/31/2018 patient has no new complaints. Hemoglobin 8.6. Creatinine 1.48. Total iron 19. Patient asking about his plan of care. At this time GI service is not planning and any endoscopies unless there is active bleeding. Discussed case with both GI service and cardiology service. Dr. Su would like to do vascular intervention on the left leg to improve blood flow to the foot before any amputation of that toe is completed. He will check if he can have the vascular procedure done earlier than June 24. Patient's urine is slightly pink. Reports bowel movements with no blood or black stool. Denies any chest pain or shortness of breath On 06/01/2018 patient is noted complaints at this time. Patient is resting comfortably in bed. Patient's calcium 6.3. Patient to receive calcium gluconate per Dr. Leavitt per nephrology. Discussed case with GI services, patient will undergo EGD tomorrow or Wednesday to rule out upper GI source of bleeding. Patient to have left lower extremity angioplasty completed today. At this time patient denies chest pain or shortness breath. Patient denies nausea vomiting or diarrhea. Patient denies any urinary burning or frequency 06/02/2018 patient has no new complaints. He is scheduled for vascular procedure on the left leg today. EGD scheduled for tomorrow. Patient denies any chest pain or shortness breath. Denies any nausea or vomiting. Reports brown stools. Urine is now clear. Denies any chest pain or shortness of breath 06/03/2018 patient underwent angiogram with angioplasty and 3 stents to the left femoral artery. Patient tolerated surgery well. He scheduled for EGD today. Denies any nausea or vomiting. Denies any chest pain or shortness of breath. No hematuria. Reports having regular bowel movements. White count is 14.5 hemoglobin 7.8 creatinine 1.46 magnesium 1.3 and receiving supplement Objective - Vital Signs Vital signs: Vital Signs Temp 97.8 F 06/03/18 08:15 Pulse 86 06/03/18 08:15 Resp 16 06/03/18 08:15 BP 129/72 06/03/18 08:15 Pulse Ox 99 06/03/18 08:15 Intake & Output 06/02/18 06/03/18 06/03/18 18:59 06:59 18:59 Intake Total 942.5 Output Total 1025 400 2 Balance -82.5 -400 -2 Weight 62 kg 59 kg Intake: IV 350 Sodium Chloride 0.9% 1, 0 000 ml @ 75 mls/hr IV . [id number] DAVID Rx#:[id number] Intake, IV Titration 112.5 Amount Piperacillin-Tazobactam 3 12.5 .375 gm In Dextrose/Water 1 50ml.bag @ 12.5 mls/hr IVPB Q8H DAVID Rx#: [id number] Sodium Chloride 0.9% 1, 100 000 ml @ 100 mls/hr IV . Q10H DAVID Rx#:[id number] Oral 480 Output: Urine 1025 400 Stool 2 Other: Voiding Method Bedpan Bedpan Bedpan Urinal Urinal Urinal Diaper Diaper Diaper # Voids 2 # Bowel Movements 1 - Exam Head normocephalic Neck supple Lungs clear to auscultation bilaterally no wheezing or crackles Heart regular rate and rhythm S1-S2, no rub or gallop Abdomen is soft nontender nondistended positive bowel sounds no hepatosplenomegaly Extremities left foot lateral aspect eschar tissue. left great toe dusky in color bone present on the posterior aspect Neuro alert and orientated to 3 - Labs CBC & Chem 7: 06/03/18 05:59 06/03/18 05:59 Labs: Abnormal Lab Results - Last 24 Hours (Table) 06/03/18 06/03/18 Range/Units 05:59 05:59 WBC 14.5 H (3.8-10.6) k/uL RBC 2.85 L (4.30-5.90) m/uL Hgb 7.8 L (13.0-17.5) gm/dL Hct 24.2 L (39.0-53.0) % RDW 17.0 H (11.5-15.5) % Neutrophils # 12.4 H (1.3-7.7) k/uL Lymphocytes # 0.9 L (1.0-4.8) k/uL Chloride 111 H (98-107) mmol/L Carbon Dioxide 15 L (22-30) mmol/L Creatinine 1.46 H (0.66-1.25) mg/dL Glucose 114 H (74-99) mg/dL Calcium 6.7 L (8.4-10.2) mg/dL Magnesium 1.3 L (1.6-2.3) mg/dL Total Protein 6.1 L (6.3-8.2) g/dL Albumin 3.1 L (3.5-5.0) g/dL Microbiology - Last 24 Hours (Table) 05/27/18 16:50 Blood Culture - Final Blood No Growth after 144 hours Assessment and Plan Assessment: #1 left foot wound and pustular lesion with possible cellulitis: Non-pressure chronic ulcer due to arterial insufficiency with exposure of bone on the left great toe. Patient currently on IV Zosyn. Followed by infectious disease and vascular surgery. Per infectious disease continue Zosyn. ID will switch to Augmentin at discharge.Patient status post angioplasty with 3 stents to the left femoral artery #2 severe bilateral lower extremity peripheral vascular disease, patient is followed by Dr. Su he performed angioplasty on the right lower extremity. Maintain on aspirin and Plavix. #3 patient has had recent amputation of the right fifth toe by his housekeeping associate #3 Severe anemia with acute blood loss anemia and chronic anemia. Patient does have known malignancy and chronic disease as well as iron deficiency anemia. Also concerns for acute blood loss anemia due to possible GI bleed. Patient also having some blood in his urinalysis. Patient required 1 unit of blood during this admission. Also has been receiving IV iron. Continue to monitor hemoglobin. It has dropped to 7.8. Patient is scheduled for EGD today #4 underlying history of tobacco abuse #5 underlying history of prostate cancer treated with surgery and radiation therapy #6 underlying history of COPD #7 underlying history of metastatic renal cell carcinoma, treated with monthly infusion of chemotherapy, followed by Dr. Burch. #8 previous admission with rectal bleeding in October 2017 at that time patient was seen by Dr. Lloyd and had evidence of rectal ulcer likely related to previous radiation therapy related to prostate cancer.3 #9 hyperkalemia resolved #10 metabolic acidosis continue sodium bicarbonate #11 chronic kidney disease, stage III. #12 hematuria : Per urology cystoscopy will be required during this hospitalization if the hematuria persists in the anemia worsens. If the hematuria improves, he can undergo outpatient cystoscopy. Right-sided hydronephrosis patient evaluated by urology #14 UTI continue antibiotics. Urine culture showing no growth #15 hypocalcemia. Secondary to acute kidney injury. PTH appropriately elevated. Status post calcium gluconate. Continue Tums. Nephrology following. #16 hypomagnesemia: Patient receiving magnesium supplement 2 g. Repeat magnesium level in a.m. GI prophylaxis Protonix and DVT prophylaxis SCDs I performed an examination of the patient and discussed their management with the physician Program Director Scouting. I have reviewed the Physician Program Director Scouting's notes and agree with the documented findings and plan of care
[2018-06-03] MEDS ORDERED: PROPOFOL 10 MG/ML 20 ML VIAL IV ONE (13:23)
[2018-06-03] MEDS ORDERED: LIDOCAINE 1% INJ 10MG/ML (20 ML MDV) ONE (13:23)
[2018-06-03] MEDS ORDERED: IV FLUID CONTINUATION 700 ML IV ONE (13:27)
[2018-06-03] MEDS ORDERED: SODIUM BICARB 8.4% 50 ML SYR (1 MEQ/ML) IV ONE (13:43)
[2018-06-03] MEDS ORDERED: MAGNESIUM SULFATE-D5W PMX 1 GM in DEXTROSE/WATER 1 100ML.BAG IVPB ONE (14:00)
--- NOTE | 2018-06-03 14:06 | P.PCN ---
Date of Procedure: 06/03/18 Description of Procedure: BRIEF HISTORY: Patient is a 73-year-old, pleasant, male patient with a known history of prostate cancer currently on chemotherapy who presented to the hospital due to ulcerations of lower extremity and anemia. The patient previously had an EGD and colonoscopy in October 2017 with EGD unremarkable and the colonoscopy significant for radiation proctitis. He presents again on this admission with anemia and positive stool for occult blood. Patient is on aspirin and Plavix. PROCEDURE PERFORMED: Esophagogastroduodenoscopy. PREOPERATIVE DIAGNOSIS: Anemia. ESTIMATED BLOOD LOSS: Minimal. IV sedation per anesthesia. PROCEDURE: After informed consent was obtained, the patient was brought into the endoscopy unit. IV sedation was administered by Anesthesia under continuous monitoring. Initially the Olympus GIF-190 video endoscope was inserted into the mouth. Esophagus intubated without any difficulty. It was gradually advanced into the stomach and duodenum and carefully examined. The bulb and the second part of the duodenum appeared normal. The scope at this time was withdrawn to the stomach, adequately insufflated with air, and upon careful examination, mucosa of the antrum, body, cardia and the fundus appeared grossly normal with mild scattered erythema in the antrum suggestive of gastritis. The scope was then withdrawn into the esophagus. A moderate size hiatal hernia was noted. The GE junction was located at 41 cm from the incisors. The esophagus appeared normal except for some mild distal esophagitis with associated food and pill debris in the esophagus and stomach. IMPRESSION: 1. Mild gastritis. 2. Mild distal esophagitis. 3. Moderate hiatal hernia. 4. No GI bleeding or pathology to explain anemia. RECOMMENDATIONS: The findings of this examination were discussed with the patient and his . Okay for diet. Continue PPI therapy. Monitor hemoglobin and hematocrit and transfuse as needed.
--- NOTE | 2018-06-03 15:04 | P.PN ---
Subjective Patient is seen in follow-up for acute kidney injury on chronic kidney disease. Patient has chronic kidney disease stage III with baseline creatinine in the range of 1.2-1.4. Creatinine a little worse at 1.46 today. Hemoglobin was low as 6.9 on May 28 and he did receive a unit of blood transfusion. Hemoglobin 7.8 today. He underwent EGD this afternoon. He also underwent left lower extremity angiogram on June 02 and had stent placed to the left SFA. No vomiting or diarrhea. Oral intake is improving. Patient has history of renal cell carcinoma and follows with Dr. Burch from oncology. He is maintained on Opdivo. Continues to have pinkish tinge to his urine. Vital signs are stable. General: The patient appeared well nourished and normally developed. HEENT: Head exam is unremarkable. Neck is without jugular venous distension. LUNGS: Lungs are clear to auscultation and percussion. Breath sounds decreased. HEART: Rate and Rhythm are regular. First and second heart sounds normal. No murmurs, rubs or gallops. ABDOMEN: Abdominal exam reveals normal bowel sounds. Non-tender and non- distended. No evidence of peritonitis. EXTREMITITES: No clubbing, cyanosis, or edema. Objective - Vital Signs Vital signs: Vital Signs Temp 97.6 F 06/03/18 12:00 Pulse 86 06/03/18 12:00 Resp 16 06/03/18 12:00 BP 111/69 06/03/18 12:00 Pulse Ox 98 06/03/18 12:00 Intake & Output 06/02/18 06/03/18 06/03/18 18:59 06:59 18:59 Intake Total 942.5 220 Output Total 1025 400 204 Balance -82.5 -400 16 Weight 62 kg 59 kg Intake: IV 350 100 Sodium Chloride 0.9% 1, 0 000 ml @ 75 mls/hr IV . [id number] [facility] Rx#:[id number] Intake, IV Titration 112.5 Amount Piperacillin-Tazobactam 3 12.5 .375 gm In Dextrose/Water 1 50ml.bag @ 12.5 mls/hr IVPB Q8H [facility] Rx#: [id number] Sodium Chloride 0.9% 1, 100 000 ml @ 100 mls/hr IV . Q10H [facility] Rx#:[id number] Oral 480 120 Output: Urine 1025 400 200 Stool 4 Other: Voiding Method Bedpan Bedpan Bedpan Urinal Urinal Urinal Diaper Diaper Diaper # Voids 2 200 # Bowel Movements 1 - Labs CBC & Chem 7: 06/03/18 05:59 06/03/18 05:59 Labs: Abnormal Lab Results - Last 24 Hours (Table) 06/03/18 06/03/18 Range/Units 05:59 05:59 WBC 14.5 H (3.8-10.6) k/uL RBC 2.85 L (4.30-5.90) m/uL Hgb 7.8 L (13.0-17.5) gm/dL Hct 24.2 L (39.0-53.0) % RDW 17.0 H (11.5-15.5) % Neutrophils # 12.4 H (1.3-7.7) k/uL Lymphocytes # 0.9 L (1.0-4.8) k/uL Chloride 111 H (98-107) mmol/L Carbon Dioxide 15 L (22-30) mmol/L Creatinine 1.46 H (0.66-1.25) mg/dL Glucose 114 H (74-99) mg/dL Calcium 6.7 L (8.4-10.2) mg/dL Magnesium 1.3 L (1.6-2.3) mg/dL Total Protein 6.1 L (6.3-8.2) g/dL Albumin 3.1 L (3.5-5.0) g/dL Microbiology - Last 24 Hours (Table) 05/27/18 16:50 Blood Culture - Final Blood No Growth after 144 hours Assessment and Plan Plan: Assessment: 1. Mild acute kidney injury mostly prerenal from anemia. Creatinine did come down to 1.35 as of June 02. Slightly worse today at 1.46. Patient did receive IV contrast on June 02. 2. Acute blood loss anemia status post blood transfusion. Hemoglobin 7.8 today. Iron deficiency noted. Status post 3 doses of IV iron. Status post EGD this afternoon. 3. Renal cell carcinoma maintained on Opdivo. 4. Chronic kidney disease stage III secondary to nephrosclerosis with baseline creatinine in the range of 1-1.4. 5. Hyperkalemia secondary to metabolic acidosis and GI bleed. Resolved. 6. Peripheral vascular disease. 7. Left foot wound with concern for cellulitis maintained on antibiotics per infectious disease. Scheduled for left lower extremity angiogram today. 8. Hematuria being followed by urology. He will be scheduled for a cystoscopy in the near future. 9. Metabolic acidosis secondary to chronic kidney disease and IV fluids. 10. Hypocalcemia secondary to acute kidney injury. PTH appropriately elevated. Vitamin D normal. Maintained on Tums. Corrected calcium is 7.5. 11. Hypomagnesemia from poor oral intake. Currently being replaced. Plan: Hep-Lock IV fluids. Maintain oral bicarbonate 1300 mg 3 times daily. Encourage oral intake. Repeat electrolytes in the morning. Continue to monitor renal function and urine output closely. Patient is at a moderate risk for developing contrast-induced nephropathy.
--- NOTE | 2018-06-03 15:38 | P.PN ---
Subjective Progress Note Date: 06/03/18 Mr. Bradford is seen and examined resting comfortably in bed with family at the bedside. Past medical history significant for severe occlusive peripheral arterial disease recently diagnosed with critical limb ischemia. Last week underwent successful crossing of a chronic total occlusion of the right popliteal, successful atherectomy and balloon angioplasty of the right SFA and unsuccessful stenting of the right iliac artery. Subsequently thereafter he underwent amputation of the right fifth digit by his director custom. After that surgery he was severely anemic and required blood transfusion. He received another blood transfusion during this admission for hemoglobin of 6.9. He has been seen in consultation by GI services, and was scheduled today to undergo an EGD.yesterday the patient was again taken to the cardiac catheterization lab where he underwent a left below the knee angiogram, left popliteal SFA angiogram , left common femoral artery angiogram, right common femoral artery angiogram with successful balloon angioplasty and stenting of the left SFA with excellent angiographic results and reduction of stenosis from 100-0%. Gradient measurement across the left external iliac artery. Patient was seen and examined today, underwent an EGD today.EGD revealed mild gastritis, mild distal esophagitis, moderate hiatal hernia, no evidence of GI bleeding to explain his anemia. He is currently on PPI therapy.White blood cell count 14.5, hemoglobin 7.8, platelet count 428.sodium 137, potassium 4.5, BUN 19, creatinine 1.4, magnesium 1.3.blood pressure 110/60 with a heart rate in the 80s, 98% on room air. Objective - Vital Signs Vital signs: Vital Signs Temp 97.6 F 06/03/18 12:00 Pulse 86 06/03/18 12:00 Resp 16 06/03/18 12:00 BP 111/69 06/03/18 12:00 Pulse Ox 98 06/03/18 12:00 Intake & Output 06/02/18 06/03/18 06/03/18 18:59 06:59 18:59 Intake Total 942.5 220 Output Total 1025 400 204 Balance -82.5 -400 16 Weight 62 kg 59 kg Intake: IV 350 100 Sodium Chloride 0.9% 1, 0 000 ml @ 75 mls/hr IV . [id number] [facility] Rx#:[id number] Intake, IV Titration 112.5 Amount Piperacillin-Tazobactam 3 12.5 .375 gm In Dextrose/Water 1 50ml.bag @ 12.5 mls/hr IVPB Q8H [facility] Rx#: [id number] Sodium Chloride 0.9% 1, 100 000 ml @ 100 mls/hr IV . Q10H [facility] Rx#:[id number] Oral 480 120 Output: Urine 1025 400 200 Stool 4 Other: Voiding Method Bedpan Bedpan Bedpan Urinal Urinal Urinal Diaper Diaper Diaper # Voids 2 200 # Bowel Movements 1 - Exam GENERAL: Well-appearing,frail looking,in no acute distress. NECK: Supple without JVD or thyromegaly. LUNGS: Breath sounds clear to auscultation bilaterally. Respiration equal and unlabored. No wheezes, rales or rhonchi. HEART: Regular rate and rhythm without murmurs, rubs or gallops. S1 and S2 heard. RIGHT GROIN: soft, no evidence of any hematoma. EXTREMITIES: Normal range of motion, no edema. No clubbing or cyanosis. Right pedal pulse palpated, left by Doppler. Right foot fifth digit removed sutures placed. Wounded noted to the lateral aspect of left foot. - Labs CBC & Chem 7: 06/03/18 05:59 06/03/18 05:59 Labs: Abnormal Lab Results - Last 24 Hours (Table) 06/03/18 06/03/18 Range/Units 05:59 05:59 WBC 14.5 H (3.8-10.6) k/uL RBC 2.85 L (4.30-5.90) m/uL Hgb 7.8 L (13.0-17.5) gm/dL Hct 24.2 L (39.0-53.0) % RDW 17.0 H (11.5-15.5) % Neutrophils # 12.4 H (1.3-7.7) k/uL Lymphocytes # 0.9 L (1.0-4.8) k/uL Chloride 111 H (98-107) mmol/L Carbon Dioxide 15 L (22-30) mmol/L Creatinine 1.46 H (0.66-1.25) mg/dL Glucose 114 H (74-99) mg/dL Calcium 6.7 L (8.4-10.2) mg/dL Magnesium 1.3 L (1.6-2.3) mg/dL Total Protein 6.1 L (6.3-8.2) g/dL Albumin 3.1 L (3.5-5.0) g/dL Microbiology - Last 24 Hours (Table) 05/27/18 16:50 Blood Culture - Final Blood No Growth after 144 hours Assessment and Plan Plan: Assessment: #1 left foot wound and pustular lesion with possible cellulitis: Non-pressure chronic ulcer due to arterial insufficiency with exposure of bone on the left great toe. Patient currently on IV Zosyn. Followed by infectious disease and vascular surgery. Per infectious disease continue Zosyn. ID will switch to Augmentin at discharge.Patient status post angioplasty with 3 stents to the left femoral artery #2 severe bilateral lower extremity peripheral vascular disease Dr. Su performed angioplasty on the right lower extremity. Maintain on aspirin and Plavix. #3 patient has had recent amputation of the right fifth toe by his director custom #3 Severe anemia with acute blood loss anemia and chronic anemia. Patient does have known malignancy and chronic disease as well as iron deficiency anemia. Also concerns for acute blood loss anemia due to possible GI bleed. Patient also having some blood in his urinalysis. Patient required 1 unit of blood during this admission. Also has been receiving IV iron. Continue to monitor hemoglobin. status post EGD today which revealed some gastritis but no evidence of any active bleeding or active source of bleeding. #4 underlying history of tobacco abuse #5 underlying history of prostate cancer treated with surgery and radiation therapy #6 underlying history of COPD #7 underlying history of metastatic renal cell carcinoma, treated with monthly infusion of chemotherapy, followed by Dr. Burch. #8 previous admission with rectal bleeding in October 2017 at that time patient was seen by Dr. Lloyd and had evidence of rectal ulcer likely related to previous radiation therapy related to prostate cancer.3 #9 hyperkalemia resolved #10 metabolic acidosis continue sodium bicarbonate #11 chronic kidney disease, stage III. #12 hematuria : Per urology cystoscopy will be required during this hospitalization if the hematuria persists in the anemia worsens. If the hematuria improves, he can undergo outpatient cystoscopy. Right-sided hydronephrosis patient evaluated by urology #14 UTI continue antibiotics. Urine culture showing no growth #15 hypomagnesemia: Patient receiving magnesium supplement 2 g. Repeat magnesium level in a.m. Plan Cardiology's perspective, we will continue dual antiplatelet therapy along with the rest of the patient's medication. He may be able to be discharged once cleared by primary and we'll make him a follow-up appointment in the office post discharge. DNP note has been reviewed, I agree with a documented findings and plan of care. Patient was seen and examined.
[2018-06-03] MEDS: MULTIVITAMINS, THERA 1 EACH TAB PO SCH (16:13)
[2018-06-03] MEDS: MECLIZINE 12.5 MG TAB PO SCH ×3 (16:13→20:06)
[2018-06-03] MEDS: ATORVASTATIN 20 MG TAB PO SCH (20:05)
[2018-06-04] MEDS: traMADol 50 MG TAB PO PRN (03:22)
[2018-06-04] MEDS: PIPERACILLIN-TAZOBACTAM 3.375 GM in DEXTROSE/WATER 1 50ML.BAG IVPB SCH ×3 (06:35→20:56)
[2018-06-04 07:03] LABS: Anisocytosis Slight; Basophils # (A) 0.1 k/uL (0-0.2); Basophils % (A) 0 %; Eosinophils # (A) 0.1 k/uL (0-0.7); Eosinophils % (A) 1 %; HCT 24.2 % (39.0-53.0); HGB 7.7 gm/dL (13.0-17.5); Hypochromasia Slight; Lymphocytes % (A) 9 %; MCH 27.1 pg (25.0-35.0); MCHC 31.8 g/dL (31.0-37.0); MCV 85.2 fL (80.0-100.0); Mean Platelet Volume 7.3; Monocytes # (A) 0.8 k/uL (0-1.0); Monocytes % (A) 7 %; Neutrophils # (A) 9.5 k/uL (1.3-7.7); Neutrophils % (A) 82 %; Platelet Count 420 k/uL (150-450); RBC 2.84 m/uL (4.30-5.90); RDW 17.3 % (11.5-15.5); WBC 11.6 k/uL (3.8-10.6)
[2018-06-04 07:15] LABS: Albumin 2.9 g/dL (3.5-5.0); Calcium 6.7 mg/dL (8.4-10.2); Magnesium 2.1 mg/dL (1.6-2.3); Potassium 4.6 mmol/L (3.5-5.1); Total Bilirubin 0.3 mg/dL (0.2-1.3)
--- NOTE | 2018-06-04 07:59 | PN ---
PROGRESS NOTE DATE OF SERVICE: 06/03/2018. REASON FOR FOLLOWUP: 1. Left big toe wound. 2. Left foot lateral wall pustule lesion. INTERVAL HISTORY: The patient is currently afebrile. He seems to be breathing more comfortably. Denies having any chest pain or shortness of breath or cough. No abdominal pain or any pain to the left foot or wound area. EXAMINATION: Blood pressure 101/55 with a pulse of 80, temperature 99.3. He is 98% on room air. General description is an elderly male lying in bed in no distress. RESPIRATORY SYSTEM: Unlabored breathing. Clear to auscultation anteriorly. HEART: S1, S2. Regular rate and rhythm. ABDOMEN: Soft, no tenderness. The left foot lateral border pustule lesion is about the same, no worsening. Big toe with open wound. No drainage. LABS: Hemoglobin 7.8, white count 14.5 with a BUN of 19, creatinine 1.46. DIAGNOSTIC IMPRESSION AND PLAN: Patient with a left big toe wound with an underlying osteomyelitis that has been treated in the outpatient setting with IV antibiotic therapy. Currently with no active cellulitis. He did have pustule lesion on his left foot lateral border for which the patient is currently covered with Zosyn. That will be continued for now. Finish therapy with oral antibiotics. Continue supportive care. MMODL / IJN: [id number] /
[2018-06-04] MEDS: CALCIUM CARBONATE 500 MG CHEWABLE PO SCH ×2 (09:01→20:52)
[2018-06-04] MEDS: ASPIRIN 325 MG TAB PO SCH (09:01)
[2018-06-04] MEDS: SODIUM BICARBONATE TAB 650 MG TAB PO SCH ×3 (09:02→20:52)
[2018-06-04] MEDS: CLOPIDOGREL 75 MG TAB PO SCH (09:02)
[2018-06-04] MEDS: PANTOPRAZOLE 40 MG TABLET PO SCH (09:02)
[2018-06-04] MEDS: HYDROcodone/APAP 5-325MG 1 EACH TAB PO SCH ×2 (09:02→20:53)
[2018-06-04] MEDS: FERROUS SULFATE 325 MG TAB PO SCH (09:02)
[2018-06-04] MEDS: CITALOPRAM HYDROBROMIDE 20 MG TAB PO SCH (09:02)
[2018-06-04] MEDS: MECLIZINE 12.5 MG TAB PO SCH ×3 (09:04→20:56)
[2018-06-04] MEDS: BUDESONIDE 0.5 MG/2 ML NEBU INHALATION SCH ×2 (10:00→20:18)
--- NOTE | 2018-06-04 11:03 | P.PN ---
Subjective Patient is seen in follow-up for acute kidney injury on chronic kidney disease. Patient has chronic kidney disease stage III with baseline creatinine in the range of 1.2-1.4. Creatinine a little worse at 1.56 today which is due to contrast-induced nephropathy. Hemoglobin was low as 6.9 on May 28 and he did receive a unit of blood transfusion. Hemoglobin 7.7 today. He underwent EGD on June 03 which revealed mild gastritis and no evidence of acute bleeding. He also underwent left lower extremity angiogram on June 02 and had stent placed to the left SFA. No vomiting or diarrhea. Oral intake is improving. Patient has history of renal cell carcinoma and follows with Dr. Burch from oncology. He is maintained on Opdivo. Vital signs are stable. General: The patient appeared well nourished and normally developed. HEENT: Head exam is unremarkable. Neck is without jugular venous distension. LUNGS: Lungs are clear to auscultation and percussion. Breath sounds decreased. HEART: Rate and Rhythm are regular. First and second heart sounds normal. No murmurs, rubs or gallops. ABDOMEN: Abdominal exam reveals normal bowel sounds. Non-tender and non- distended. No evidence of peritonitis. EXTREMITITES: No clubbing, cyanosis, or edema. Objective - Vital Signs Vital signs: Vital Signs Temp 97.9 F 06/04/18 09:19 Pulse 88 06/04/18 09:19 Resp 18 06/04/18 09:19 BP 135/64 06/04/18 09:19 Pulse Ox 98 06/04/18 09:19 Intake & Output 06/03/18 06/04/18 06/04/18 18:59 06:59 18:59 Intake Total 220 690 Output Total 206 851 151 Balance 14 -161 -151 Intake: IV 100 280 0.9 280 Intake, IV Titration 50 Amount Piperacillin-Tazobactam 3 50 .375 gm In Dextrose/Water 1 50ml.bag @ 12.5 mls/hr IVPB Q8H [facility] Rx#: [id number] Oral 120 360 Output: Urine 200 850 150 Stool 6 1 1 Other: Voiding Method Bedpan Urinal Urinal Urinal Diaper # Voids 1 - Labs CBC & Chem 7: 06/04/18 06:09 06/04/18 06:09 Labs: Abnormal Lab Results - Last 24 Hours (Table) 06/04/18 06/04/18 Range/Units 06:09 06:09 WBC 11.6 H (3.8-10.6) k/uL RBC 2.84 L (4.30-5.90) m/uL Hgb 7.7 L (13.0-17.5) gm/dL Hct 24.2 L (39.0-53.0) % RDW 17.3 H (11.5-15.5) % Neutrophils # 9.5 H (1.3-7.7) k/uL Chloride 111 H (98-107) mmol/L Carbon Dioxide 19 L (22-30) mmol/L Creatinine 1.56 H (0.66-1.25) mg/dL Calcium 6.7 L (8.4-10.2) mg/dL ALT 20 L (21-72) U/L Total Protein 6.0 L (6.3-8.2) g/dL Albumin 2.9 L (3.5-5.0) g/dL Assessment and Plan Plan: Assessment: 1. Mild acute kidney injury mostly prerenal from anemia. Creatinine did come down to 1.35 as of June 02. Worse today at 1.56 which is due to contrast- induced nephropathy. Patient received IV contrast on June 02. 2. Acute blood loss anemia status post blood transfusion. Hemoglobin 7.7 today. Iron deficiency noted. Status post 3 doses of IV iron. EGD done on June 03 revealed no evidence of acute bleeding. 3. Renal cell carcinoma maintained on Opdivo. 4. Chronic kidney disease stage III secondary to nephrosclerosis with baseline creatinine in the range of 1-1.4. 5. Hyperkalemia secondary to metabolic acidosis and GI bleed. Resolved. 6. Peripheral vascular disease. 7. Left foot wound with concern for cellulitis maintained on antibiotics per infectious disease. Scheduled for left lower extremity angiogram today. 8. Hematuria being followed by urology. He will be scheduled for a cystoscopy in the near future. 9. Metabolic acidosis secondary to chronic kidney disease and IV fluids. Better. 10. Hypocalcemia secondary to acute kidney injury. PTH appropriately elevated. Vitamin D normal. Maintained on Tums. Corrected calcium is 7.5. 11. Hypomagnesemia from poor oral intake. Improved post replacement. Plan: Remains off all IV fluids. Maintain oral bicarbonate 1300 mg 3 times daily. Encourage oral intake. Repeat electrolytes in the morning. Continue to monitor renal function and urine output closely.
--- NOTE | 2018-06-04 11:04 | P.PN ---
Subjective Progress Note Date: 06/04/18 Principal diagnosis: Critical limb ischemia The patient underwent an upper endoscopy yesterday and that revealed only gastritis. He continues to be on dual antiplatelet therapy along with a statin. He denies having any chest pain or chest discomfort. No shortness of breath. No dizziness or lightheadedness. The hemoglobin this morning is 7.7. Objective - Vital Signs Vital signs: Vital Signs Temp 97.9 F 06/04/18 09:19 Pulse 88 06/04/18 09:19 Resp 18 06/04/18 09:19 BP 135/64 06/04/18 09:19 Pulse Ox 98 06/04/18 09:19 Intake & Output 06/03/18 06/04/18 06/04/18 18:59 06:59 18:59 Intake Total 220 690 Output Total 206 851 151 Balance 14 -161 -151 Intake: IV 100 280 0.9 280 Intake, IV Titration 50 Amount Piperacillin-Tazobactam 3 50 .375 gm In Dextrose/Water 1 50ml.bag @ 12.5 mls/hr IVPB Q8H [facility] Rx#: [id number] Oral 120 360 Output: Urine 200 850 150 Stool 6 1 1 Other: Voiding Method Bedpan Urinal Urinal Urinal Diaper # Voids 1 - Constitutional General appearance: Present: no acute distress - Respiratory Respiratory: bilateral: CTA - Cardiovascular Rhythm: regular Heart sounds: normal: S1, S2 - Labs CBC & Chem 7: 06/04/18 06:09 06/04/18 06:09 Labs: Abnormal Lab Results - Last 24 Hours (Table) 06/04/18 06/04/18 Range/Units 06:09 06:09 WBC 11.6 H (3.8-10.6) k/uL RBC 2.84 L (4.30-5.90) m/uL Hgb 7.7 L (13.0-17.5) gm/dL Hct 24.2 L (39.0-53.0) % RDW 17.3 H (11.5-15.5) % Neutrophils # 9.5 H (1.3-7.7) k/uL Chloride 111 H (98-107) mmol/L Carbon Dioxide 19 L (22-30) mmol/L Creatinine 1.56 H (0.66-1.25) mg/dL Calcium 6.7 L (8.4-10.2) mg/dL ALT 20 L (21-72) U/L Total Protein 6.0 L (6.3-8.2) g/dL Albumin 2.9 L (3.5-5.0) g/dL Assessment and Plan Assessment: Assessment #1 critical limb ischemia of bilateral legs #2 occlusive peripheral tear disease #3 significant history of smoking #4 history of renal cell carcinoma #5 multiple comorbid conditions #6 anemia #7 hyperkalemia Plan #1 continue the current medical regimen including dual antiplatelet therapy #2 follow-up with the patient
--- NOTE | 2018-06-04 12:50 | P.PN ---
Subjective Progress Note Date: 06/04/18 Moises Bradford, is a 73-year-old male presented to [facility] emergency room was a chief complaint of change in the color of his scabbed ulcers on his right foot, and complaining of shortness of breath. He was evaluated in the emergency room and was admitted to medical floor, patient has a known history of severe peripheral vascular disease, with multiple ulcers on bilateral feet, he is status post right fifth toe amputation, he also had previous history of angioplasty of the right lower extremity done by Dr. Su. He is a lifelong smoker. Patient was seen and evaluated on medical floor, he has mild shortness of breath at rest, but has worsening shortness of breath with any activity, his hemoglobin on presentation was 10.0 however hemoglobin came down to 6.9 today. Also potassium was significantly elevated on presentation at 6.5. Patient has a known history of prostate cancer he had history of prostatectomy followed by radiation therapy, he developed rectal bleeding and hematuria, he was admitted in October of this year at that time he underwent EGD and colonoscopy and had evidence of a rectal ulcer likely related to radiation therapy. Patient also has a known history of renal cell carcinoma, he is receiving chemotherapy once monthly. Patient was admitted to medical floor, consultation for infectious disease, cardiology, and nephrology were initiated. On 05/29/2018 patient was seen and examined he is alert and oriented 3 in no apparent distress he denies any pain or discomfort at this time, hemoglobin is up to 8.2 after 1 unit of red blood cell transfusion potassium is down to 5.1 Clinically patient denies any fever or chills no headache or dizziness no chest pain no shortness of breath no cough no nausea or vomiting no abdominal pain no diarrhea and no urinary symptoms 05/30/2018 patient lying in bed comfortably. Patient's pain is controlled. Patient be evaluated by vascular surgery regarding gangrene on the left foot. He is on IV Zosyn. Regarding his anemia hemoglobin has increased from 6.9-8.2 after 1 unit of blood. Potassium has improved. Patient is not reporting any blood in the stool. But stool for occult blood is positive. Also urinalysis is showing evidence of blood. Patient has not visualized any blood in his urine. He denies any burning with urination. Patient denies any chest pain or shortness of breath. Denies any nausea or vomiting. 05/31/2018 patient has no new complaints. Hemoglobin 8.6. Creatinine 1.48. Total iron 19. Patient asking about his plan of care. At this time GI service is not planning and any endoscopies unless there is active bleeding. Discussed case with both GI service and cardiology service. Dr. Su would like to do vascular intervention on the left leg to improve blood flow to the foot before any amputation of that toe is completed. He will check if he can have the vascular procedure done earlier than June 24. Patient's urine is slightly pink. Reports bowel movements with no blood or black stool. Denies any chest pain or shortness of breath On 06/01/2018 patient is noted complaints at this time. Patient is resting comfortably in bed. Patient's calcium 6.3. Patient to receive calcium gluconate per Dr. Leavitt per nephrology. Discussed case with GI services, patient will undergo EGD tomorrow or Wednesday to rule out upper GI source of bleeding. Patient to have left lower extremity angioplasty completed today. At this time patient denies chest pain or shortness breath. Patient denies nausea vomiting or diarrhea. Patient denies any urinary burning or frequency 06/02/2018 patient has no new complaints. He is scheduled for vascular procedure on the left leg today. EGD scheduled for tomorrow. Patient denies any chest pain or shortness breath. Denies any nausea or vomiting. Reports brown stools. Urine is now clear. Denies any chest pain or shortness of breath 06/03/2018 patient underwent angiogram with angioplasty and 3 stents to the left femoral artery. Patient tolerated surgery well. He scheduled for EGD today. Denies any nausea or vomiting. Denies any chest pain or shortness of breath. No hematuria. Reports having regular bowel movements. White count is 14.5 hemoglobin 7.8 creatinine 1.46 magnesium 1.3 and receiving supplement On 06/04/2018 patient is alert and oriented 3 in no distress there is no fever or chills no headache or dizziness no chest pain no shortness of breath no cough no nausea or vomiting no abdominal pain no diarrhea no blood in the stools and no urinary symptoms patient underwent EGD yesterday which revealed mild gastritis without any evidence of acute upper gastrointestinal bleeding, patient had colonoscopy earlier this year and that showed evidence of radiation proctitis which may be the cause of his anemia hemoglobin today is 7.7 patient is requesting to be discharged home he has not been out of bed since admission physical therapy consult was placed to assess patient mobility Objective - Vital Signs Vital signs: Vital Signs Temp 97.9 F 06/04/18 09:19 Pulse 88 06/04/18 09:19 Resp 18 06/04/18 09:19 BP 135/64 06/04/18 09:19 Pulse Ox 98 06/04/18 09:19 Intake & Output 06/03/18 06/04/18 06/04/18 18:59 06:59 18:59 Intake Total 220 690 Output Total 206 851 151 Balance 14 -161 -151 Intake: IV 100 280 0.9 280 Intake, IV Titration 50 Amount Piperacillin-Tazobactam 3 50 .375 gm In Dextrose/Water 1 50ml.bag @ 12.5 mls/hr IVPB Q8H [facility] Rx#: [id number] Oral 120 360 Output: Urine 200 850 150 Stool 6 1 1 Other: Voiding Method Bedpan Urinal Urinal Urinal Diaper # Voids 1 - Exam In general patient is alert and oriented 3 in no apparent distress HEENT head normocephalic and atraumatic Neck is supple no JVD no goiter no lymphadenopathy Chest exam reveals a few scattered crackles no wheezing Cardiac exam reveals regular heart sounds S1 and S2 no gallops no murmurs Abdomen is soft nontender no organomegaly with normal bowel sounds Extremity exam reveals no edema no cyanosis, there is amputation of the right fifth toe, there is suture remaining in the lateral aspect of the right foot with surrounding that there is a black eschar, there is a blackish ulcer underneath the left big toe and there is a red area in the lateral aspect of the left foot beneath the left great toe. - Labs CBC & Chem 7: 06/04/18 06:09 06/04/18 06:09 Labs: Abnormal Lab Results - Last 24 Hours (Table) 06/04/18 06/04/18 Range/Units 06:09 06:09 WBC 11.6 H (3.8-10.6) k/uL RBC 2.84 L (4.30-5.90) m/uL Hgb 7.7 L (13.0-17.5) gm/dL Hct 24.2 L (39.0-53.0) % RDW 17.3 H (11.5-15.5) % Neutrophils # 9.5 H (1.3-7.7) k/uL Chloride 111 H (98-107) mmol/L Carbon Dioxide 19 L (22-30) mmol/L Creatinine 1.56 H (0.66-1.25) mg/dL Calcium 6.7 L (8.4-10.2) mg/dL ALT 20 L (21-72) U/L Total Protein 6.0 L (6.3-8.2) g/dL Albumin 2.9 L (3.5-5.0) g/dL Assessment and Plan Plan: #1 left foot wound and pustular lesion with possible cellulitis: Non-pressure chronic ulcer due to arterial insufficiency with exposure of bone on the left great toe. Patient currently on IV Zosyn. Followed by infectious disease and vascular surgery. Per infectious disease continue Zosyn. ID will switch to Augmentin at discharge.Patient status post angioplasty with 3 stents to the left femoral artery #2 severe bilateral lower extremity peripheral vascular disease, patient is followed by Dr. Su he performed angioplasty on the right lower extremity. Maintain on aspirin and Plavix. 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 Patient does have known malignancy and chronic disease as well as iron deficiency anemia. Also concerns for acute blood loss anemia due to possible GI bleed. Patient also having some blood in his urinalysis. Patient required 1 unit of blood during this admission. Also has been receiving IV iron. Continue to monitor hemoglobin. It has dropped to 7.8. Patient is scheduled for EGD today #4 underlying history of tobacco abuse #5 underlying history of prostate cancer treated with surgery and radiation therapy #6 underlying history of COPD #7 underlying history of metastatic renal cell carcinoma, treated with monthly infusion of chemotherapy, followed by Dr. Burch. #8 previous admission with rectal bleeding in October 2017 at that time patient was seen by Dr. Lloyd and had evidence of rectal ulcer likely related to previous radiation therapy related to prostate cancer.3 #9 hyperkalemia resolved #10 metabolic acidosis continue sodium bicarbonate #11 chronic kidney disease, stage III. #12 hematuria : Per urology cystoscopy will be required during this hospitalization if the hematuria persists in the anemia worsens. If the hematuria improves, he can undergo outpatient cystoscopy. Right-sided hydronephrosis patient evaluated by urology #14 UTI continue antibiotics. Urine culture showing no growth #15 hypocalcemia. Secondary to acute kidney injury. PTH appropriately elevated. Status post calcium gluconate. Continue Tums. Nephrology following. #16 hypomagnesemia: Patient receiving magnesium supplement 2 g. Repeat magnesium level in a.m. GI prophylaxis Protonix and DVT prophylaxis SCDs
[2018-06-04] MEDS: SODIUM CHLORIDE 0.9% 1,000 ML IV SCH (15:16)
[2018-06-04] MEDS: MULTIVITAMINS, THERA 1 EACH TAB PO SCH (15:31)
[2018-06-04] MEDS: FORMOTEROL FUMARATE 20 MCG/2 ML NEBU INHALATION PRN (20:18)
[2018-06-04] MEDS: IPRATROPIUM 0.5 MG/2.5 ML NEBU INHALATION PRN (20:18)
[2018-06-04] MEDS: ATORVASTATIN 20 MG TAB PO SCH (20:52)
[2018-06-05] MEDS: traMADol 50 MG TAB PO PRN (01:00)
[2018-06-05 04:46] VITALS: BP 93/58; TEMP 98.3
[2018-06-05] MEDS: SODIUM CHLORIDE 0.9% 1,000 ML IV SCH (06:29)
[2018-06-05] MEDS: PIPERACILLIN-TAZOBACTAM 3.375 GM in DEXTROSE/WATER 1 50ML.BAG IVPB SCH (06:38)
[2018-06-05 07:45] LABS: Anisocytosis Slight; Basophils # (A) 0.1 k/uL (0-0.2); Basophils % (A) 1 %; Eosinophils # (A) 0.3 k/uL (0-0.7); Eosinophils % (A) 3 %; HCT 24.4 % (39.0-53.0); HGB 7.5 gm/dL (13.0-17.5); Hypochromasia Slight; Lymphocytes # (A) 0.9 k/uL (1.0-4.8); Lymphocytes % (A) 7 %; MCH 26.7 pg (25.0-35.0); MCHC 30.9 g/dL (31.0-37.0); MCV 86.4 fL (80.0-100.0); Mean Platelet Volume 7.2; Monocytes # (A) 0.9 k/uL (0-1.0); Monocytes % (A) 7 %; Neutrophils # (A) 10.5 k/uL (1.3-7.7); Neutrophils % (A) 81 %; Platelet Count 411 k/uL (150-450); RBC 2.82 m/uL (4.30-5.90); RDW 17.7 % (11.5-15.5); WBC 12.9 k/uL (3.8-10.6)
[2018-06-05 07:57] LABS: Calcium 6.6 mg/dL (8.4-10.2); Potassium 4.6 mmol/L (3.5-5.1); Total Bilirubin 0.4 mg/dL (0.2-1.3)
[2018-06-05] MEDS: IPRATROPIUM 0.5 MG/2.5 ML NEBU INHALATION PRN (08:37)
[2018-06-05] MEDS: BUDESONIDE 0.5 MG/2 ML NEBU INHALATION SCH (08:37)
[2018-06-05] MEDS: FORMOTEROL FUMARATE 20 MCG/2 ML NEBU INHALATION PRN (08:37)
[2018-06-05] MEDS: PANTOPRAZOLE 40 MG TABLET PO SCH (09:29)
[2018-06-05] MEDS: FERROUS SULFATE 325 MG TAB PO SCH (09:29)
[2018-06-05] MEDS: HYDROcodone/APAP 5-325MG 1 EACH TAB PO SCH (09:29)
[2018-06-05] MEDS: CITALOPRAM HYDROBROMIDE 20 MG TAB PO SCH (09:29)
[2018-06-05] MEDS: CALCIUM CARBONATE 500 MG CHEWABLE PO SCH (09:29)
[2018-06-05] MEDS: ASPIRIN 325 MG TAB PO SCH (09:29)
[2018-06-05] MEDS: SODIUM BICARBONATE TAB 650 MG TAB PO SCH (09:29)
[2018-06-05] MEDS: CLOPIDOGREL 75 MG TAB PO SCH (09:29)
[2018-06-05] MEDS: MECLIZINE 12.5 MG TAB PO SCH (09:35)
[2018-06-05 10:35] VITALS: PULSE 84; RESP 18
--- NOTE | 2018-06-05 10:41 | P.PN ---
Subjective Progress Note Date: 06/05/18 Principal diagnosis: Critical limb ischemia This is a pleasant 73-year-old gentleman with a past medical history significant for occlusive peripheral arterial disease as well as significant history of smoking who was admitted to the hospital with a critical limb ischemia of bilateral lower extremities as well as cellulitis. Beside that he was admitted with severe blood loss and chronic anemia. He underwent successful crossing chronic total occlusion of the left superficial femoral artery with a good angiographic results by the end. On follow-up with him today, he is feeling better. The left leg is warmer. He has been walking up and around. The hemoglobin is 7.1. He continues to be on dual antiplatelet therapy. The blood pressure has been marginally low but the patient is not on any blood pressure medications. Objective - Vital Signs Vital signs: Vital Signs Temp 98.3 F 06/05/18 04:20 Pulse 80 06/05/18 09:00 Resp 18 06/05/18 08:00 BP 93/58 06/05/18 04:20 Pulse Ox 97 06/05/18 04:20 Intake & Output 06/04/18 06/05/18 06/05/18 18:59 06:59 18:59 Intake Total 220 1100 240 Output Total 2252 503 1 Balance -2031 597 239 Intake: IV 280 0.9 280 Intake, IV Titration 100 Amount Piperacillin-Tazobactam 3 100 .375 gm In Dextrose/Water 1 50ml.bag @ 12.5 mls/hr IVPB Q8H [facility] Rx#: [id number] Oral 220 720 240 Output: Urine 2250 500 Stool 2 3 1 Other: Voiding Method Urinal Urinal Urinal # Voids 1 6 - Constitutional General appearance: Present: no acute distress - Respiratory Respiratory: bilateral: diminished - Cardiovascular Rhythm: regular Heart sounds: normal: S1, S2 - Labs CBC & Chem 7: 06/05/18 07:11 06/05/18 07:11 Labs: Abnormal Lab Results - Last 24 Hours (Table) 06/05/18 06/05/18 Range/Units 07:11 07:11 WBC 12.9 H (3.8-10.6) k/uL RBC 2.82 L (4.30-5.90) m/uL Hgb 7.5 L (13.0-17.5) gm/dL Hct 24.4 L (39.0-53.0) % MCHC 30.9 L (31.0-37.0) g/dL RDW 17.7 H (11.5-15.5) % Neutrophils # 10.5 H (1.3-7.7) k/uL Lymphocytes # 0.9 L (1.0-4.8) k/uL Chloride 109 H (98-107) mmol/L Carbon Dioxide 19 L (22-30) mmol/L Creatinine 1.49 H (0.66-1.25) mg/dL Calcium 6.6 L (8.4-10.2) mg/dL Total Protein 6.0 L (6.3-8.2) g/dL Albumin 3.0 L (3.5-5.0) g/dL Assessment and Plan Assessment: Assessment #1 critical limb ischemia of bilateral legs #2 occlusive peripheral tear disease #3 significant history of smoking #4 history of renal cell carcinoma #5 multiple comorbid conditions #6 anemia #7 hyperkalemia Plan #1 continue the current medical regimen including dual antiplatelet therapy #2 follow-up with the patient
--- NOTE | 2018-06-05 10:59 | P.DS ---
Providers Date of admission: 05/27/18 20:17 Expected date of discharge: 06/05/18 Attending physician: Shaan Davis Consults: 05/27/18 18:39 Consult Physician Stat Consulting Provider: Lb Pacheco Consult Reason/Comments: PAD Do you want consulting provider notified?: Yes Consult Physician Stat Consulting Provider: Dana Capps Consult Reason/Comments: L foot gangrene Do you want consulting provider notified?: Yes 05/27/18 18:43 Consult Physician Stat Consulting Provider: La Tracey Consult Reason/Comments: Hyperkalemia, hematuria Do you want consulting provider notified?: Yes 05/28/18 12:56 Consult Physician Routine Consulting Provider: Slava Menon Consult Reason/Comments: anemia Do you want consulting provider notified?: Yes 05/28/18 12:57 Consult Physician Routine Consulting Provider: Lopez Burch Consult Reason/Comments: anemia, renal cancer Do you want consulting provider notified?: Yes 05/30/18 12:01 Consult Physician Routine Consulting Provider: Gonsalo Nielsen Consult Reason/Comments: left foot gangrene Do you want consulting provider notified?: Yes 05/30/18 12:38 Consult Physician Routine Consulting Provider: Harley Florence Consult Reason/Comments: hydronephrosis Do you want consulting provider notified?: Yes Primary care physician: Michaelle Wang Hospital Course: Discharge diagnosis #1 left foot wound and pustular lesion with possible cellulitis: Non-pressure chronic ulcer due to arterial insufficiency with exposure of bone on the left great toe. Patient currently on IV Zosyn. Followed by infectious disease and vascular surgery. Per infectious disease continue Zosyn. ID will switch to Augmentin at discharge.Patient status post angioplasty with 3 stents to the left femoral artery. Patient has been discharged on Ceftin #2 severe bilateral lower extremity peripheral vascular disease, patient is followed by Dr. Su he performed angioplasty on the right lower extremity. Maintain on aspirin and Plavix. 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 Patient does have known malignancy and chronic disease as well as iron deficiency anemia. Also concerns for acute blood loss anemia due to possible GI bleed. Patient also having some blood in his urinalysis. Patient required 1 unit of blood during this admission. Also has been receiving IV iron. Continue to monitor hemoglobin. It has dropped to 7.8. EKG completed showing mild gastritis, mild distal esophagitis, moderate. Hiatal hernia. In no GI bleeding pathology to explain anemia at this time per GI services. Hemoglobin 7.5. Patient advised to follow closely up with PCP #4 underlying history of tobacco abuse #5 underlying history of prostate cancer treated with surgery and radiation therapy #6 underlying history of COPD #7 underlying history of metastatic renal cell carcinoma, treated with monthly infusion of chemotherapy, followed by Dr. Burch. #8 previous admission with rectal bleeding in October 2017 at that time patient was seen by Dr. Lloyd and had evidence of rectal ulcer likely related to previous radiation therapy related to prostate cancer.3 #9 hyperkalemia resolved #10 metabolic acidosis continue sodium bicarbonate #11 chronic kidney disease, stage III. #12 hematuria : Per urology cystoscopy will be required during this hospitalization if the hematuria persists in the anemia worsens. If the hematuria improves, he can undergo outpatient cystoscopy. Right-sided hydronephrosis patient evaluated by urology #14 UTI continue antibiotics. Urine culture showing no growth #15 hypocalcemia. Secondary to acute kidney injury. PTH appropriately elevated. Status post calcium gluconate. Continue Tums. Nephrology following. #16 hypomagnesemia: Patient receiving magnesium supplement 2 g. Repeat magnesium level in a.m. repeat magnesium 2.1 Hospital course Moises Bradford, is a 73-year-old male presented to [facility] emergency room was a chief complaint of change in the color of his scabbed ulcers on his right foot, and complaining of shortness of breath. He was evaluated in the emergency room and was admitted to medical floor, patient has a known history of severe peripheral vascular disease, with multiple ulcers on bilateral feet, he is status post right fifth toe amputation, he also had previous history of angioplasty of the right lower extremity done by Dr. Su. He is a lifelong smoker. Patient was seen and evaluated on medical floor, he has mild shortness of breath at rest, but has worsening shortness of breath with any activity, his hemoglobin on presentation was 10.0 however hemoglobin came down to 6.9 today. Also potassium was significantly elevated on presentation at 6.5. Patient has a known history of prostate cancer he had history of prostatectomy followed by radiation therapy, he developed rectal bleeding and hematuria, he was admitted in October of this year at that time he underwent EGD and colonoscopy and had evidence of a rectal ulcer likely related to radiation therapy. Patient also has a known history of renal cell carcinoma, he is receiving chemotherapy once monthly. Patient was admitted to medical floor, consultation for infectious disease, cardiology, and nephrology were initiated. On 05/29/2018 patient was seen and examined he is alert and oriented 3 in no apparent distress he denies any pain or discomfort at this time, hemoglobin is up to 8.2 after 1 unit of red blood cell transfusion potassium is down to 5.1 Clinically patient denies any fever or chills no headache or dizziness no chest pain no shortness of breath no cough no nausea or vomiting no abdominal pain no diarrhea and no urinary symptoms 05/30/2018 patient lying in bed comfortably. Patient's pain is controlled. Patient be evaluated by vascular surgery regarding gangrene on the left foot. He is on IV Zosyn. Regarding his anemia hemoglobin has increased from 6.9-8.2 after 1 unit of blood. Potassium has improved. Patient is not reporting any blood in the stool. But stool for occult blood is positive. Also urinalysis is showing evidence of blood. Patient has not visualized any blood in his urine. He denies any burning with urination. Patient denies any chest pain or shortness of breath. Denies any nausea or vomiting. 05/31/2018 patient has no new complaints. Hemoglobin 8.6. Creatinine 1.48. Total iron 19. Patient asking about his plan of care. At this time GI service is not planning and any endoscopies unless there is active bleeding. Discussed case with both GI service and cardiology service. Dr. Su would like to do vascular intervention on the left leg to improve blood flow to the foot before any amputation of that toe is completed. He will check if he can have the vascular procedure done earlier than June 24. Patient's urine is slightly pink. Reports bowel movements with no blood or black stool. Denies any chest pain or shortness of breath On 06/01/2018 patient is noted complaints at this time. Patient is resting comfortably in bed. Patient's calcium 6.3. Patient to receive calcium gluconate per Dr. Leavitt per nephrology. Discussed case with GI services, patient will undergo EGD tomorrow or Wednesday to rule out upper GI source of bleeding. Patient to have left lower extremity angioplasty completed today. At this time patient denies chest pain or shortness breath. Patient denies nausea vomiting or diarrhea. Patient denies any urinary burning or frequency 06/02/2018 patient has no new complaints. He is scheduled for vascular procedure on the left leg today. EGD scheduled for tomorrow. Patient denies any chest pain or shortness breath. Denies any nausea or vomiting. Reports brown stools. Urine is now clear. Denies any chest pain or shortness of breath 06/03/2018 patient underwent angiogram with angioplasty and 3 stents to the left femoral artery. Patient tolerated surgery well. He scheduled for EGD today. Denies any nausea or vomiting. Denies any chest pain or shortness of breath. No hematuria. Reports having regular bowel movements. White count is 14.5 hemoglobin 7.8 creatinine 1.46 magnesium 1.3 and receiving supplement On 06/04/2018 patient is alert and oriented 3 in no distress there is no fever or chills no headache or dizziness no chest pain no shortness of breath no cough no nausea or vomiting no abdominal pain no diarrhea no blood in the stools and no urinary symptoms patient underwent EGD yesterday which revealed mild gastritis without any evidence of acute upper gastrointestinal bleeding, patient had colonoscopy earlier this year and that showed evidence of radiation proctitis which may be the cause of his anemia hemoglobin today is 7.7 patient is requesting to be discharged home he has not been out of bed since admission physical therapy consult was placed to assess patient mobility on 06/05/2018 patient is alert and oriented 3. Patient is very eager to go home. Patient with physical therapy yesterday. This time patient denies chest pain or shortness breath. Denies vomiting or diarrhea. Denies any urinary burning. Patient advised to follow-up closely with PCP and consulting providers I performed an examination of the patient and discussed their management with the Nurse Practitioner. I have reviewed the Nurse Practitioner's notes and agree with the documented findings and plan of care Patient Condition at Discharge: Stable Plan - Discharge Summary New Discharge Prescriptions: New Cefuroxime Axetil [Ceftin] 500 mg PO BID 10 Days #20 tab Pantoprazole [Protonix] 40 mg PO DAILY tablet. Sodium Bicarbonate Tab 1,300 mg PO TID tab Continue Atorvastatin [Lipitor] 20 mg PO HS Meclizine [Antivert] 12.5 mg PO TID Ferrous Sulfate [Iron (65 MG Elemental)] 325 mg PO DAILY traMADol HCL [Ultram] 50 mg PO Q6H PRN PRN Reason: Pain Multivitamins, Thera [Multivitamin (formulary)] 1 tab PO DAILY Citalopram Hydrobromide [CeleXA] 40 mg PO DAILY Umeclidinium Brm/Vilanterol Tr [Anoro Ellipta 62.5-25 Mcg INH] 1 puff INHALATION RT-DAILY PRN PRN Reason: Shortness Of Breath Nivolumab [Opdivo] 480 mg IV Q28D Budesonide [Pulmicort] 0.5 mg INHALATION RT-BID Aspirin 325 mg PO DAILY #90 tab Clopidogrel [Plavix] 75 mg PO DAILY #90 tab HYDROcodone/APAP 5-325MG [[place] 5-325] 1 tab PO BID Discontinued Calcium Carbonate [Calcium] 600 mg PO BID Ibuprofen [Motrin] 800 mg PO BID PRN PRN Reason: Pain Discharge Medication List Atorvastatin [Lipitor] 20 mg PO HS 02/05/15 [History] Meclizine [Antivert] 12.5 mg PO TID 07/30/15 [History] Ferrous Sulfate [Iron (65 MG Elemental)] 325 mg PO DAILY 06/23/16 [History] traMADol HCL [Ultram] 50 mg PO Q6H PRN 10/15/17 [History] Multivitamins, Thera [Multivitamin (formulary)] 1 tab PO DAILY 04/07/18 [History ] Citalopram Hydrobromide [CeleXA] 40 mg PO DAILY 04/11/18 [History] Umeclidinium Brm/Vilanterol Tr [Anoro Ellipta 62.5-25 Mcg INH] 1 puff INHALATION RT-DAILY PRN 04/26/18 [History] Budesonide [Pulmicort] 0.5 mg INHALATION RT-BID 04/27/18 [History] Nivolumab [Opdivo] 480 mg IV Q28D 04/27/18 [History] Aspirin 325 mg PO DAILY #90 tab 05/12/18 [Rx] Clopidogrel [Plavix] 75 mg PO DAILY #90 tab 05/12/18 [Rx] HYDROcodone/APAP 5-325MG [[place] 5-325] 1 tab PO BID 10/12/18 [History] Cefuroxime Axetil [Ceftin] 500 mg PO BID 10 Days #20 tab 06/05/18 [Rx] Pantoprazole [Protonix] 40 mg PO DAILY tablet. 06/05/18 [Rx] Sodium Bicarbonate Tab 1,300 mg PO TID tab 06/05/18 [Rx] Follow up Appointment(s)/Referral(s): Lb Pacheco MD [STAFF PHYSICIAN] - 1 Week Michaelle Wang MD [Primary Care Provider] - 1-2 days Patient Instructions/Handouts: *Surgery [facility] - After Heart Catheterization - Food Beverage Manager Instructions
--- NOTE | 2018-06-05 11:14 | P.PN ---
Subjective Patient is seen in follow-up for acute kidney injury on chronic kidney disease. Patient has chronic kidney disease stage III with baseline creatinine in the range of 1.2-1.4. Renal function a little better today with creatinine at 1.49. Hemoglobin was low as 6.9 on May 28 and he did receive a unit of blood transfusion. Hemoglobin 7.7 today. He underwent EGD on June 03 which revealed mild gastritis and no evidence of acute bleeding. He also underwent left lower extremity angiogram on June 02 and had stent placed to the left SFA. No vomiting or diarrhea. Oral intake is improving. Patient has history of renal cell carcinoma and follows with Dr. Burch from oncology. He is maintained on Opdivo. Vital signs are stable. General: The patient appeared well nourished and normally developed. HEENT: Head exam is unremarkable. Neck is without jugular venous distension. LUNGS: Lungs are clear to auscultation and percussion. Breath sounds decreased. HEART: Rate and Rhythm are regular. First and second heart sounds normal. No murmurs, rubs or gallops. ABDOMEN: Abdominal exam reveals normal bowel sounds. Non-tender and non- distended. No evidence of peritonitis. EXTREMITITES: No clubbing, cyanosis, or edema. Objective - Vital Signs Vital signs: Vital Signs Temp 98.3 F 06/05/18 04:20 Pulse 80 06/05/18 09:00 Resp 18 06/05/18 08:00 BP 93/58 06/05/18 04:20 Pulse Ox 97 06/05/18 04:20 Intake & Output 06/04/18 06/05/18 06/05/18 18:59 06:59 18:59 Intake Total 220 1100 240 Output Total 2252 503 1 Balance -2031 597 239 Intake: IV 280 0.9 280 Intake, IV Titration 100 Amount Piperacillin-Tazobactam 3 100 .375 gm In Dextrose/Water 1 50ml.bag @ 12.5 mls/hr IVPB Q8H [facility] Rx#: [id number] Oral 220 720 240 Output: Urine 2250 500 Stool 2 3 1 Other: Voiding Method Urinal Urinal Urinal # Voids 1 6 - Labs CBC & Chem 7: 06/05/18 07:11 06/05/18 07:11 Labs: Abnormal Lab Results - Last 24 Hours (Table) 06/05/18 06/05/18 Range/Units 07:11 07:11 WBC 12.9 H (3.8-10.6) k/uL RBC 2.82 L (4.30-5.90) m/uL Hgb 7.5 L (13.0-17.5) gm/dL Hct 24.4 L (39.0-53.0) % MCHC 30.9 L (31.0-37.0) g/dL RDW 17.7 H (11.5-15.5) % Neutrophils # 10.5 H (1.3-7.7) k/uL Lymphocytes # 0.9 L (1.0-4.8) k/uL Chloride 109 H (98-107) mmol/L Carbon Dioxide 19 L (22-30) mmol/L Creatinine 1.49 H (0.66-1.25) mg/dL Calcium 6.6 L (8.4-10.2) mg/dL Total Protein 6.0 L (6.3-8.2) g/dL Albumin 3.0 L (3.5-5.0) g/dL Assessment and Plan Plan: Assessment: 1. Mild acute kidney injury mostly prerenal from anemia. Creatinine did come down to 1.35 as of June 02. Renal function a little better today with creatinine at 1.49. 2. Acute blood loss anemia status post blood transfusion. Hemoglobin 7.5 today. Iron deficiency noted. Status post 3 doses of IV iron. EGD done on June 03 revealed no evidence of acute bleeding. 3. Renal cell carcinoma maintained on Opdivo. 4. Chronic kidney disease stage III secondary to nephrosclerosis with baseline creatinine in the range of 1-1.4. 5. Hyperkalemia secondary to metabolic acidosis and GI bleed. Resolved. 6. Peripheral vascular disease. 7. Left foot wound with concern for cellulitis maintained on antibiotics per infectious disease. Scheduled for left lower extremity angiogram today. 8. Hematuria being followed by urology. He will be scheduled for a cystoscopy in the near future. 9. Metabolic acidosis secondary to chronic kidney disease and IV fluids. Better. 10. Hypocalcemia secondary to acute kidney injury. PTH appropriately elevated. Vitamin D normal. Maintained on Tums. Corrected calcium is 7.4. 11. Hypomagnesemia from poor oral intake. Improved post replacement. Plan: Remains off all IV fluids. Maintain oral bicarbonate 1300 mg 3 times daily. Encourage oral intake. Repeat electrolytes in the morning. Continue to monitor renal function and urine output closely. Increase Tums to 3 times daily. 1 g IV calcium gluconate today. Check ionized calcium.
[2018-06-05] MEDS ORDERED: CALCIUM GLUCONATE 1,000 MG in SODIUM CHLORIDE 0.9% 100 ML IVPB ONE (12:00)
[2018-06-05] MEDS ORDERED: CALCIUM CARBONATE 500 MG CHEWABLE PO SCH (16:00)
[2018-06-21] MEDS ORDERED: NIVOLUMAB IV SCH (09:00)
== END 2018-06-05 11:50 | disposition home or self-care (01) | DRG 253 ==
LOC: EC 15:41 → 5MS5E 20:17 → 4SSUR 05-29 12:13 → 3SCARD 06-02 17:57
PROVIDERS: ADMIT Internal Medicine; ATTEND Internal Medicine
PROC: 047L36Z Dilation of Left Femoral Artery with Three Drug-eluting Intraluminal Devices, Percutaneous Approach (ICD-10-PCS; principal; 2018-05-27)
PROC: 30233N1 Transfusion of Nonautologous Red Blood Cells into Peripheral Vein, Percutaneous Approach (ICD-10-PCS; 2018-05-28)
PROC: B41G1ZZ Fluoroscopy of Left Lower Extremity Arteries using Low Osmolar Contrast (ICD-10-PCS; 2018-06-02)
PROC: 0DJ08ZZ Inspection of Upper Intestinal Tract, Via Natural or Artificial Opening Endoscopic (ICD-10-PCS; 2018-06-03)
DX: I70.262 Atherosclerosis of native arteries of extremities with gangrene, left leg (principal); L97.526 Non-pressure chronic ulcer of other part of left foot with bone involvement without evidence of necrosis; I70.92 Chronic total occlusion of artery of the extremities; L03.116 Cellulitis of left lower limb; C64.9 Malignant neoplasm of unspecified kidney, except renal pelvis; C78.00 Secondary malignant neoplasm of unspecified lung; C79.51 Secondary malignant neoplasm of bone; D62 Acute posthemorrhagic anemia; E87.1 Hypo-osmolality and hyponatremia; E87.2 Acidosis; M86.9 Osteomyelitis, unspecified; N13.6 Pyonephrosis; N17.9 Acute kidney failure, unspecified; E83.42 Hypomagnesemia; E83.51 Hypocalcemia; E87.5 Hyperkalemia; N14.1 Nephropathy induced by other drugs, medicaments and biological substances; N18.3 Chronic kidney disease, stage 3 (moderate); N25.89 Other disorders resulting from impaired renal tubular function; R31.0 Gross hematuria; E88.01 Alpha-1-antitrypsin deficiency; F17.210 Nicotine dependence, cigarettes, uncomplicated; E78.5 Hyperlipidemia, unspecified; F32.9 Major depressive disorder, single episode, unspecified; F41.9 Anxiety disorder, unspecified; I12.9 Hypertensive chronic kidney disease with stage 1 through stage 4 chronic kidney disease, or unspecified chronic kidney disease; I99.8 Other disorder of circulatory system; J44.9 Chronic obstructive pulmonary disease, unspecified; K20.9 Esophagitis, unspecified; K29.70 Gastritis, unspecified, without bleeding; K44.9 Diaphragmatic hernia without obstruction or gangrene; M81.0 Age-related osteoporosis without current pathological fracture; T50.8X5A Adverse effect of diagnostic agents, initial encounter; Z79.02 Long term (current) use of antithrombotics/antiplatelets; Z79.82 Long term (current) use of aspirin; Z79.899 Other long term (current) drug therapy; Z79.891 Long term (current) use of opiate analgesic; Z92.3 Personal history of irradiation; Z92.21 Personal history of antineoplastic chemotherapy; Z90.79 Acquired absence of other genital organ(s); Z89.421 Acquired absence of other right toe(s); Z86.73 Personal history of transient ischemic attack (TIA), and cerebral infarction without residual deficits; Z85.46 Personal history of malignant neoplasm of prostate; Z86.14 Personal history of Methicillin resistant Staphylococcus aureus infection; Z91.030 Bee allergy status; Z91.041 Radiographic dye allergy status; Z98.42 Cataract extraction status, left eye; Z98.41 Cataract extraction status, right eye; Z96.1 Presence of intraocular lens; Z82.49 Family history of ischemic heart disease and other diseases of the circulatory system
CPT/HCPCS: 36415; 37226; 43235; 71046; 76770; 80048; 80053; 81001; 82272; 82306; 82550; 82553; 82607; 82728; 83010; 83540; 83550; 83615; 83735; 83921; 83970; 84132; 84484; 85025; 85045; 85347; 85610; 85730; 86850; 86900; 86901; 86920; 87040; 87086; 93005; 94640; 94760; 96361; 96365; 96366; 96367; 99285

== ENCOUNTER → 2018-08-17 | Outpatient (CLI) | payer MEDICARE ==
[2018-08-17 16:10] LABS: Anisocytosis Slight; HCT 26.2 % (39.0-53.0); HGB 7.9 gm/dL (13.0-17.5); Hypochromasia Marked; MCH 25.6 pg (25.0-35.0); MCHC 30.2 g/dL (31.0-37.0); MCV 84.9 fL (80.0-100.0); Mean Platelet Volume 7.1; Platelet Count 648 k/uL (150-450); RBC 3.09 m/uL (4.30-5.90); RDW 16.8 % (11.5-15.5); WBC 12.1 k/uL (3.8-10.6)
[2018-08-17 17:13] LABS: Albumin 3.4 g/dL (3.5-5.0); Calcium 8.6 mg/dL (8.4-10.2); Potassium 4.1 mmol/L (3.5-5.1); Total Bilirubin 0.4 mg/dL (0.2-1.3); Total Protein 7.5 g/dL (6.3-8.2)
--- NOTE | 2018-08-18 10:33 | CT ---
EXAMINATION TYPE: CT ChestAbdPelvis wo con DATE OF EXAM: 08/17/2018 COMPARISON: 01/25/2018 HISTORY: Renal cell carcinoma. CT DLP: 572.7mGycm Unenhanced CT of the Chest, Abdomen and Pelvis Unenhanced CT of the chest ,abdomen and pelvis is performed. The lack of intravenous contrast limits evaluation of the solid and hollow viscera. Oral contrast: Yes CT Chest: LUNGS: Increase in number and size of pulmonary nodules identified throughout both lung leal. Total number of nodules right lung estimated at between 30 and 40. The largest nodule is identified within the right upper lobe near the hilum measuring 9.3 mm. Estimated number of nodules left lung also est imated at greater than 30 in number. The largest is noted within the left infrahilar region measuring 1.2 cm. MEDIASTINUM: Thoracic aorta is of normal caliber. The heart is not enlarged. No evidence for media stinal mass or adenopathy. HILAR STRUCTURES: No evidence for mass. No hilar adenopathy is appreciated. OTHER: No significant abnormality. CONTRAST CT ABDOMEN AND PELVIS: LIVER/GB: No calcified gallstones. No space occupying hepatic lesion. Biliary tree is of normal ca liber. PANCREAS: No inflammation. No distinct mass. SPLEEN: No splenic enlargement. No lesion seen. ADRENALS: No nodule. No thickening. KIDNEYS/BLADDER: Enlarging right renal mass filtration and cavitation noted. Mass is estimated to dana sure approximately 11.4 x 7.3 x 6.8 cm. Hypoattenuating mass lower pole left kidney is likely seconda ry to a cyst. Nonobstructing nephrolithiasis noted bilaterally. No hydronephrosis. Lack of contrast l imits evaluation for IVC thrombus. BOWEL: Normal appendix. Normal bowel caliber. No inflammation. GENITAL ORGANS: No gross abnormality. LYMPH NODES: No greater than 1cm abdominal or pelvic lymph nodes are appreciated. AORTA: No significant abnormality. OSSEOUS STRUCTURES: No significant abnormality is seen. OTHER: No significant additional abnormality is seen. IMPRESSION: 1. Increase in number and size of pulmonary lesions noted consistent with progressive metastatic dise ase. 2. Enlarging infiltrative mass with cavitation right kidney as noted above.
== END ==
LOC: RADCTMAIN 14:42
PROVIDERS: ATTEND Internal Medicine Hematology & Oncology
DX: C64.1 Malignant neoplasm of right kidney, except renal pelvis (principal); J98.4 Other disorders of lung; Z91.030 Bee allergy status
CPT/HCPCS: 36415; 71250; 74176; 80053; 85027